=== PATIENT | male | born 1945 | race Caucasian/White ===

== ENCOUNTER 2019-05-03 21:19 | Inpatient (IN) | payer OTHER ==
[~2019-05-03 21:19] MED LIST: FAMOTIDINE 20 MG/2 ML VIAL IV ONE; METHYLPREDNISOLONE 125 MG INJ ONE; NA CHLORIDE 0.9% 1,000 ML ONE; ONDANSETRON 4 MG/2 ML VIAL ONE
[2019-05-03 22:13] LABS: Protime INR 1.11
[2019-05-03 22:14] LABS: Absolute Lymphocytes (CBC) 0.3 K/uL (0.7-4.9); Basophils % 0.1 % (0-1.3); Hematocrit 42.3 % (39.6-49.0); Lymphocytes % 1.6 % (15.3-44.8); MPV 7.7 fL (7.6-11.3); RBC Red Blood Cell Count 4.71 M/uL (4.33-5.43)
[2019-05-03 22:29] LABS: ALT/SGPT 18 U/L (12-78); AST/SGOT 17 U/L (15-37); Albumin 3.3 g/dL (3.4-5.0); Alkaline Phosphatase 56 U/L (45-117); BUN Blood Urea Nitrogen 18 mg/dL (7-18); Bicarbonate 27 mmol/L (21-32); Bilirubin Direct 0.3 mg/dL (0-0.2); Bilirubin Total 0.9 mg/dL (0.2-1.0); Glucose Level 155 mg/dL (74-106); Magnesium 1.6 mg/dL (1.8-2.4); NT PRO-BNP 1488 pg/mL (<125); Potassium 3.5 mmol/L (3.5-5.1); Protein, Total 6.7 g/dL (6.4-8.2); Sodium Level 133 mmol/L (136-145); Troponin (Emerg Dept Use Only) < 0.02 ng/mL (0.0-0.045)
[2019-05-03 22:39] LABS: Blood Morphology Comment NOT SEEN (NOT SEEN); Platelet Estimate ADEQ
[2019-05-03] MEDS ORDERED: NA CHLORIDE 0.9% 1,000 ML ONE (23:42)
[2019-05-04 00:26] LABS: Urine Blood NEGATIVE (NEG); Urine Glucose NEGATIVE (NEG); Urine Protein TRACE (NEG); Urine Specific Gravity 1.015 (1.005-1.030)
[2019-05-04 00:35] LABS: Urine Bacteria <20 /HPF (NONE SEEN); Urine Culture Reflex Order NOT NEEDED; Urine Mucus LIGHT /HPF (NONE SEEN); Urine RBC NONE SEEN /HPF (NONE SEEN)
--- NOTE | 2019-05-04 00:43 | ER ---
Nurse's Notes [facility] Name: Margarito Nunes Age: 73 yrs Sex: Male : 1945 Arrival Date: 05/03/2019 Time: 21:28 Bed 26 Private MD: Diagnosis: Frequent falls;leukocytosis Presentation: 05/03 21:29 Presenting complaint: EMS states: patient was in a caodaism this morning and started mg2 feeling shaky and trouble walking and a little bit anxious and confused. when he went home he fell from a standing position while on his walker and been on the floor for 10 mins. denies LOC and head trauma. no pain reported. Transition of care: patient was not received from another setting of care. Onset of symptoms was May 03, 2019. Risk Assessment: Do you want to hurt yourself or someone else? Patient reports no desire to harm self or others. Initial Sepsis Screen: Does the patient meet any 2 criteria? No. Patient's initial sepsis screen is negative. Does the patient have a suspected source of infection? No. Patient's initial sepsis screen is negative. Care prior to arrival: None. 21:29 Method Of Arrival: EMS: [facility] mg2 21:29 Acuity: KAROLYN 2 mg2 Triage Assessment: 21:40 General: Appears in no apparent distress. comfortable, Behavior is calm, cooperative, cc3 appropriate for age. Pain: Denies pain. EENT: No signs and/or symptoms were reported regarding the EENT system. Neuro: Level of Consciousness is awake, alert, obeys commands, confused, Oriented to person, place. Cardiovascular: Denies chest pain, Capillary refill < 3 seconds Patient's skin is warm and dry. Respiratory: Airway is patent Respiratory effort is even, unlabored, Respiratory pattern is regular, symmetrical. GI: Abdomen is round non-distended. : No signs and/or symptoms were reported regarding the genitourinary system. Derm: Skin is intact, is fragile, Skin is pink, warm \T\ dry. normal. Musculoskeletal: Circulation, motion, and sensation intact. Range of motion: limited in bilateral legs. Historical: - Home Meds: 21:35 Hydralazine Oral [Active]; amlodipine 10 mg tab 1 tab once daily [Active]; pravastatin mg2 od [Active]; losartan-hydrochlorothiazide 100-25 mg oral tab 1 tab once daily [Active]; finasteride 5 mg oral tab 1 tab once daily [Active]; aspirin 81 mg Oral chew 1 tab once daily [Active]; - PMHx: 21:35 Hypertension; Hyperlipidemia; mg2 - Immunization history:: Flu vaccine is up to date. - Social history:: Smoking status: Patient/guardian denies using tobacco, Patient/guardian denies using alcohol, street drugs, IV drugs. - Ebola Screening: : No symptoms or risks identified at this time. Screenin:40 Abuse screen: Denies threats or abuse. Denies injuries from another. Nutritional cc3 screening: No deficits noted. Tuberculosis screening: No symptoms or risk factors identified. Fall Risk Ambulatory Aid- None/Bed Rest/Nurse Assist (0 pts). Gait- Impaired (20 pts.). Mental Status- Overestimates/Forgets Limitations (15 pts.). Assessment: 21:40 General: see triage assessment. cc3 22:18 Reassessment: Patient appears in no apparent distress at this time. Patient and/or cc3 family updated on plan of care and expected duration. Pain level reassessed. 23:12 Reassessment: Patient appears in no apparent distress at this time. Patient and/or cc3 family updated on plan of care and expected duration. Pain level reassessed. 05/04 00:20 Reassessment: Patient appears in no apparent distress at this time. Patient and/or cc3 family updated on plan of care and expected duration. Pain level reassessed. 01:19 Reassessment: Patient appears in no apparent distress at this time. Patient and/or cc3 family updated on plan of care and expected duration. Pain level reassessed. 02:50 Reassessment: Patient appears in no apparent distress at this time. Patient and/or cc3 family updated on plan of care and expected duration. Pain level reassessed. Room available in 425, report called and handed over to SHERMAN Ndiaye for continuity of care and management. Patient denies pain at this time. 03:30 Reassessment: Patient appears in no apparent distress at this time. Patient and/or cc3 family updated on plan of care and expected duration. Pain level reassessed. Patient left ER for admission vitally stable by stretcher escorted by licensed chemical spray techniciansadaf De Santiago. No valuables left in the patient's room. Patient denies pain at this time. Patient states feeling better. Vital Signs: 05/03 21:32 BP 135 / 84; Pulse 80; Resp 18; Temp 99.2; Pulse Ox 100% on R/A; Weight 78.02 kg; mg2 Height 6 ft. 1 in. (185.42 cm); Pain 0/10; 22:15 BP 130 / 72; Pulse 72; Resp 20 S; Pulse Ox 98% on R/A; cc3 23:38 BP 132 / 65; Pulse 68; Resp 18 S; Pulse Ox 100% on R/A; cc3 05/04 00:35 BP 123 / 82; Pulse 64; Resp 17 S; Temp 98.6(O); Pulse Ox 98% on R/A; cc3 01:30 BP 122 / 71; Pulse 61; Resp 18 S; Pulse Ox 96% on 2 lpm NC; lp1 02:45 BP 134 / 75; Pulse 61; Resp 19 S; Pulse Ox 99% on 2 lpm NC; lp1 03:15 BP 129 / 77; Pulse 60; Resp 18 S; Pulse Ox 98% on 2 lpm NC; cc3 05/03 21:32 Body Mass Index 22.69 (78.02 kg, 185.42 cm) mg2 ED Course: 05/03 21:28 Patient arrived in ED. ds1 21:32 Triage completed. mg2 21:36 Arm band placed on. mg2 21:40 Mary Thomas is Primary Nurse. cc3 21:40 Patient has correct armband on for positive identification. Placed in gown. Bed in low cc3 position. Call light in reach. Side rails up X2. quality assurance monitor chassis on. Pulse ox on. NIBP on. 21:45 Franki Garrido MD is Attending Physician. tw4 21:45 Inserted saline lock: 20 gauge in right antecubital area, using aseptic technique. cc3 Blood collected. 22:08 CT Head Brain wo Cont In Process Unspecified. EDMS 22:15 XRAY Chest (1 view) In Process Unspecified. EDMS 22:35 Notified ED physician of a critical lab result(s). WBC 21.7. fc 05/04 00:33 Mat Maynard MD is Hospitalizing Provider. tw4 02:50 No provider procedures requiring assistance completed. Patient admitted, IV remains in cc3 place. Administered Medications: 05/03 23:45 Drug: NS 0.9% 1000 ml Route: IV; Rate: 1 bolus; Site: right antecubital; cc3 05/04 00:30 Follow up: Response: No adverse reaction; IV Status: Completed infusion; IV Intake: cc3 1000ml Intake: 00:30 IV: 1000ml; Total: 1000ml. cc3 Outcome: 00:35 Decision to Hospitalize by Provider. tw4 02:50 Admitted to Tele accompanied by tech, family with patient, via stretcher, room 425, cc3 with oxygen, with chart, Report called to SHERMAN Ndiaye 02:50 Condition: stable 02:50 Instructed on the need for admit, Demonstrated understanding of instructions. 03:33 Patient left the ED. cc3 Signatures: Dispatcher [employer] EDMS Gabriela Torres RN RN fc [place], Demi ds1 Cailin Grossman RN RN lp1 Franki Garrido MD MD 4 Dwayne Arenas RN RN [facility] [place] Thomas cc3 Corrections: (The following items were deleted from the chart) 00:45 00:35 BP 123 / 82; Pulse 64bpm; Resp 17bpm; Spontaneous; Pulse Ox 98% RA; cc3 cc3
--- NOTE | 2019-05-04 00:46 | EDPHYS ---
Physician Documentation [facility] Name: Margarito Nunes Age: 73 yrs Sex: Male : 1945 Arrival Date: 05/03/2019 Time: 21:28 Bed 26 Private MD: ED Physician Franki Garrido HPI: 05/04 06:23 This 73 yrs old Male presents to ER via EMS with complaints of Fall. tw4 06:23 Details of fall: The patient fell from an upright position, while standing. Onset: The tw4 symptoms/episode began/occurred today. Associated injuries: The patient sustained no obvious injury. The patient has experienced similar episodes in the past, a few times. Historical: - Home Meds: 05/03 21:35 Hydralazine Oral [Active]; amlodipine 10 mg tab 1 tab once daily [Active]; pravastatin mg2 od [Active]; losartan-hydrochlorothiazide 100-25 mg oral tab 1 tab once daily [Active]; finasteride 5 mg oral tab 1 tab once daily [Active]; aspirin 81 mg Oral chew 1 tab once daily [Active]; - PMHx: 21:35 Hypertension; Hyperlipidemia; mg2 - Immunization history:: Flu vaccine is up to date. - Social history:: Smoking status: Patient/guardian denies using tobacco, Patient/guardian denies using alcohol, street drugs, IV drugs. - Ebola Screening: : No symptoms or risks identified at this time. ROS: 05/04 06:23 Constitutional: Negative for fever, chills, and weight loss, Eyes: Negative for injury, tw4 pain, redness, and discharge, Cardiovascular: Negative for chest pain, palpitations, and edema, Respiratory: Negative for shortness of breath, cough, wheezing, and pleuritic chest pain, Abdomen/GI: Negative for abdominal pain, nausea, vomiting, diarrhea, and constipation, Back: Negative for injury and pain, MS/Extremity: Negative for injury and deformity, Skin: Negative for injury, rash, and discoloration. Exam: 06:23 Constitutional: This is a well developed, well nourished patient who is awake, alert, tw4 and in no acute distress. Head/Face: Normocephalic, atraumatic. Chest/axilla: Normal chest wall appearance and motion. Nontender with no deformity. No lesions are appreciated. Cardiovascular: Regular rate and rhythm with a normal S1 and S2. No gallops, murmurs, or rubs. Normal PMI, no JVD. No pulse deficits. Respiratory: Lungs have equal breath sounds bilaterally, clear to auscultation and percussion. No rales, rhonchi or wheezes noted. No increased work of breathing, no retractions or nasal flaring. Abdomen/GI: Soft, non-tender, with normal bowel sounds. No distension or tympany. No guarding or rebound. No evidence of tenderness throughout. Back: No spinal tenderness. No costovertebral tenderness. Full range of motion. MS/ Extremity: Pulses equal, no cyanosis. Neurovascular intact. Full, normal range of motion. Neuro: Awake and alert, GCS 15, oriented to person, place, time, and situation. Cranial nerves II-XII grossly intact. Motor strength 5/5 in all extremities. Sensory grossly intact. Cerebellar exam normal. Normal gait. Vital Signs: 05/03 21:32 BP 135 / 84; Pulse 80; Resp 18; Temp 99.2; Pulse Ox 100% on R/A; Weight 78.02 kg; mg2 Height 6 ft. 1 in. (185.42 cm); Pain 0/10; 22:15 BP 130 / 72; Pulse 72; Resp 20 S; Pulse Ox 98% on R/A; cc3 23:38 BP 132 / 65; Pulse 68; Resp 18 S; Pulse Ox 100% on R/A; cc3 05/04 00:35 BP 123 / 82; Pulse 64; Resp 17 S; Temp 98.6(O); Pulse Ox 98% on R/A; cc3 01:30 BP 122 / 71; Pulse 61; Resp 18 S; Pulse Ox 96% on 2 lpm NC; lp1 02:45 BP 134 / 75; Pulse 61; Resp 19 S; Pulse Ox 99% on 2 lpm NC; lp1 03:15 BP 129 / 77; Pulse 60; Resp 18 S; Pulse Ox 98% on 2 lpm NC; cc3 05/03 21:32 Body Mass Index 22.69 (78.02 kg, 185.42 cm) mg2 MDM: 05/03 21:45 Patient medically screened. tw4 05/04 06:23 Differential diagnosis: abrasion, closed head injury, contusion, laceration. Data tw4 reviewed: vital signs, nurses notes. Data interpreted: Pulse oximetry: Interpretation: normal. Counseling: I had a detailed discussion with the patient and/or guardian regarding: the historical points, exam findings, and any diagnostic results supporting the discharge/admit diagnosis, lab results, radiology results. Physician consultation: Mat Maynard MD regarding admission, to the telemetry unit. patient's condition, need to come to ED to see patient, and will see patient in ED. Special discussion: I discussed with the patient/guardian in detail that at this point there is no indication for admission to the hospital. It is understood, however, that if the symptoms persist or worsen the patient needs to return immediately for re-evaluation. 05/03 21:36 Order name: Basic Metabolic Panel [facility] 05/03 21:36 Order name: CBC with Diff [facility] 05/03 21:36 Order name: LFT's; Complete Time: 22:50 [facility] 05/03 22:51 Interpretation: Normal except: BILID 0.3; A/G 1.0; ALB 3.3. tw 05/03 21:36 Order name: Magnesium; Complete Time: 22:50 mg2 05/03 22:51 Interpretation: Normal except: MG 1.6. tw 05/03 21:36 Order name: NT PRO-BNP; Complete Time: 22:50 mg2 05/03 22:51 Interpretation: Normal except: NT PRO-BNP 1488. tw4 05/03 21:36 Order name: PT-INR; Complete Time: 22:50 [facility] 05/03 22:51 Interpretation: Normal except: PT 13.1. [facility] 05/03 21:36 Order name: Troponin (emerg Dept Use Only); Complete Time: 22:50 mg2 05/03 21:37 Order name: Basic Metabolic Panel; Complete Time: 22:50 EDMS 05/03 22:51 Interpretation: Normal except: NA 133; CL 97; GLUC 155; CRE 1.40; GFR 50. tw05/03 21:37 Order name: CBC with Automated Diff; Complete Time: 22:50 EDMS 05/03 22:51 Interpretation: Normal except: WBC 21.7; MCV 89.9; KAIDEN% 91.8; LYM% 1.6; NEUT A 19.9. [facility] 05/03 22:39 Order name: Manual Differential; Complete Time: 22:50 EDPR 05/03 22:52 Order name: Urine Microscopic Only tw4 05/04 00:08 Order name: Urine Dipstick--Ancillary (enter results) ar5 05/04 00:27 Order name: Urine Dipstick-Ancillary EDPR 05/04 01:59 Order name: Comprehensive Metabolic Panel EDPR 05/03 21:36 Order name: XRAY Chest (1 view) [facility] 05/03 21:36 Order name: EKG; Complete Time: 21:37 [facility] 05/03 21:36 Order name: Cardiac monitoring; Complete Time: 21:41 mg2 05/03 21:36 Order name: EKG - Nurse/Tech; Complete Time: 21:41 mg2 05/03 21:36 Order name: IV Saline Lock; Complete Time: 21:55 [facility] 05/03 21:36 Order name: Labs collected and sent; Complete Time: 21:55 [facility] 05/03 21:36 Order name: O2 Per Protocol; Complete Time: 21:56 [facility] 05/03 21:36 Order name: O2 Sat Monitoring; Complete Time: 21:56 [facility] 05/03 21:46 Order name: CT Head Brain wo Cont tw4 05/04 01:59 Order name: CONS Pharmacy Consult EDPR 05/04 01:59 Order name: Protime (+INR) EDPR 05/04 01:59 Order name: PTT, Activated Partial Thromb EDMS 05/04 01:59 Order name: Troponin I EDPR 05/04 02:02 Order name: Regular EDPR 05/04 02:02 Order name: CBC with Automated Diff EDPR 05/03 22:52 Order name: Urine Dipstick-Ancillary (obtain specimen); Complete Time: 00:09 tw4 EC:23 Rate is 73 beats/min. Rhythm is regular with 1st degree heart block. QRS [place] is tw4 Normal. SD interval is normal. QRS interval is normal. QT interval is normal. No Q waves. T waves are Inverted in lead III. T waves are Flattened in leads V3, V6. No ST changes noted. Clinical impression: NSR w/ Non-specific ST/T Changes. Interpreted by me. Reviewed by me. Administered Medications: 05/03 23:45 Drug: NS 0.9% 1000 ml Route: IV; Rate: 1 bolus; Site: right antecubital; cc3 05/04 00:30 Follow up: Response: No adverse reaction; IV Status: Completed infusion; IV Intake: cc3 1000ml Disposition: 05/04/19 00:35 Hospitalization ordered by Mat Maynard for Observation. Preliminary diagnosis are Frequent falls, leukocytosis. - Bed requested for Telemetry/MedSurg (observation). - Status is Observation. cc3 - Condition is Stable. - Problem is new. - Symptoms have improved. UTI on Admission? No Signatures: Dispatcher [employer] Lola Shah, RN RN Franki Garrido MD MD tw4 Dwayne Arenas RN RN [facility] Mary Thomas cc3 Corrections: (The following items were deleted from the chart) 05/03 22:52 22:51 WBC 21.7; MCV 89.9; KAIDEN% 91.8; LYM% 1.6; NEUT A 19.9. tw4 tw4 05/04 02:26 00:35 Hospitalization Ordered by Mat Maynard MD for Observation. Preliminary cg diagnosis is Frequent falls; leukocytosis. Bed requested for Telemetry/MedSurg (observation). Status is Observation. Condition is Stable. Problem is new. Symptoms have improved. UTI on Admission? No. tw4 03:33 02:26 05/04/2019 00:35 Hospitalization Ordered by Mat Maynard MD for Observation. cc3 Preliminary diagnosis is Frequent falls; leukocytosis. Bed requested for Telemetry/MedSurg (observation). Status is Observation. Condition is Stable. Problem is new. Symptoms have improved. UTI on Admission? No.
[2019-05-04] MEDS ORDERED: MORPHINE 4 MG/ML SYR IV PRN (01:52)
[2019-05-04] MEDS ORDERED: ONDANSETRON 4 MG/2 ML VIAL IV PRN (01:52)
[2019-05-04] MEDS: NA CHLORIDE 0.9% 1,000 ML IV SCH ×2 (04:00→14:27)
[2019-05-04 04:56] VITALS: BMI 23.8
[2019-05-04 06:33] LABS: Absolute Lymphocytes (CBC) 0.6 K/uL (0.7-4.9); Hematocrit 41.3 % (39.6-49.0); Lymphocytes % 3.3 % (15.3-44.8); MPV 7.4 fL (7.6-11.3)
[2019-05-04 06:43] LABS: Protime INR 1.35
[2019-05-04 06:50] LABS: ALT/SGPT 17 U/L (12-78); AST/SGOT 20 U/L (15-37); Albumin 2.9 g/dL (3.4-5.0); Alkaline Phosphatase 50 U/L (45-117); BUN Blood Urea Nitrogen 17 mg/dL (7-18); Bicarbonate 26 mmol/L (21-32); Bilirubin Total 0.6 mg/dL (0.2-1.0); Glucose Level 118 mg/dL (74-106); Potassium 3.2 mmol/L (3.5-5.1); Sodium Level 134 mmol/L (136-145); Troponin I < 0.02 ng/mL (0.0-0.045)
--- NOTE | 2019-05-04 07:16 | P.HP ---
Certification for Inpatient Patient admitted to: Inpatient With expected LOS: >2 Midnights Patient will require the following post-hospital care: None Practitioner: I am a practitioner with admitting privileges, knowledge of patient current condition, hospital course, and medical plan of care. Services: Services provided to patient in accordance with Admission requirements found in Title 42 Section 412.3 of the Code of Federal Regulations Patient History Date of Service: 05/04/19 History of Present Illness: Patient is a 73-year-old gentleman who presents with lower extremity weakness. He has also has a leukocytosis and a low-grade temperature of 99.7. He was apparently and judaism and he started feeling anxious. He states he got a little confused as well. He had an ataxic gait, and he went home with his family. When he got home he apparently fell from a standing position while he was using his walker. He had to lay on the floor for about 10 min. He was finally able to assist himself, and EMS was notified. They brought him into the emergency room for further evaluation. His initial workup has been unremarkable except for the abnormal lab testing. He has some acute renal insufficiency along with a leukocytosis. His chest x-ray and urinalysis were unremarkable. Clinically, he states he is feeling better. He is still having a significant amount of weakness in his lower extremity. He will be admitted to the hospital for further workup for the ataxia. Allergies propoxyphene HCl [From Darvon] Allergy (Mild, Verified 06/26/12 15:39) Hives/Rash Home Medications: Amlodipine Besylate 10 mg PO DAILY 06/26/12 Aspirin 81 mg PO DAILY 06/26/12 Losartan/Hydrochlorothiazide [Losartan-Hctz 100-12.5 mg Tab] 1 tab PO DAILY 04/30 Magnesium Oxide [Mag 0X*] 400 mg PO DAILY 06/26/12 Pravastatin [Pravachol*] 40 mg PO BEDTIME 06/26/12 Finasteride [Proscar*] 5 mg PO DAILY 05/04/19 Hydralazine [Apresoline] 25 mg PO TID 05/04/19 - Past Medical/Surgical History Has patient received pneumonia vaccine in the past: Yes Diabetic: No -: HTN -: Dyslipidemia Past Surgical History: Patient denies surgical history - Family History Father Family History: Reviewed- Non-Contributory - Social History Smoking Status: Never smoker Alcohol use: No CD- Drugs: No Caffeine use: Yes Place of Residence: Home Review of Systems 10-point ROS is otherwise unremarkable Physical Examination - Vital Signs Temperature: 99.7 F Blood Pressure: 137/71 Pulse: 62 Respirations: 20 Pulse Ox (%): 95 - Physical Exam General: Alert, In no apparent distress, Oriented x3 HEENT: Atraumatic, PERRLA, Mucous membr. moist/pink, EOMI, Sclerae nonicteric Neck: Supple, 2+ carotid pulse no bruit, No LAD, Without JVD or thyroid abnormality Respiratory: Clear to auscultation bilaterally, Normal air movement Cardiovascular: Regular rate/rhythm, Normal S1 S2, No murmurs Gastrointestinal: Normal bowel sounds, Soft and benign, Non-distended, No tenderness, No rebound, No guarding Musculoskeletal: No clubbing, No swelling, No tenderness Integumentary: No rashes Neurological: Normal gait, Normal speech, Normal strength at 5/5 x4 extr, Normal tone, Sensation intact, Cranial nerves 3-12 intact, Normal affect Lymphatics: No axilla or inguinal lymphadenopathy - Studies Laboratory Data (last 24 hrs) 05/03/19 21:45: PT 13.1 H, INR 1.11 05/03/19 21:45: WBC 21.7 H*, Hgb 14.2, Hct 42.3, Plt Count 231 05/03/19 21:45: Sodium 133 L, Potassium 3.5, BUN 18, Creatinine 1.40 H, Glucose 155 H, Magnesium 1.6 L, Total Bilirubin 0.9, AST 17, ALT 18, Alkaline Phosphatase 56 Assessment & Plan - Problems (Diagnosis) (1) Generalized weakness Current Visit: Yes Status: Acute (2) Ataxia Current Visit: Yes Status: Acute (3) Fever Current Visit: Yes Status: Acute (4) Acute kidney injury Current Visit: Yes Status: Acute (5) History of hypertension Current Visit: Yes Status: Acute (6) History of hyperlipidemia Current Visit: Yes Status: Acute - Plan Plan: 1. Physical therapy evaluation 2. Lumbar spine films for lower extremity weakness 3. Anti-platelet therapy and statin therapy 4. Lipid profile in the morning 5. MRI of the brain/echocardiogram/carotid Doppler 6. Physically patient is weak in the bilateral lower extremities and may benefit more from outpatient physical therapy and inpatient rehab 7. Neurology consultation 8. Permissive hypertension and gradual blood pressure control 9. Neuro checks every 4 hr 10. GI and DVT prophylaxis Discharge Plan: Home Plan to discharge in: Greater than 2 days - Advance Directives Does patient have a Living Will: No Does patient have a Durable POA for Healthcare: No - Code Status/Comfort Care Code Status Assessed: Yes Code Status: Full Code Critical Care: No Time Spent Managing PTS Care (In Minutes): 45
[2019-05-04] MEDS: ACETAMINOPHEN 500 MG TAB PO PRN ×3 (07:51→21:33)
--- NOTE | 2019-05-04 07:54 | RAD REPORT ---
EXAM DESCRIPTION: Antonino Single View05/03/2019 10:14 pm CLINICAL HISTORY: Chest pain COMPARISON: 2011 FINDINGS: The lungs appear clear of acute infiltrate. The heart is normal size IMPRESSION: No acute abnormalities displayed
--- NOTE | 2019-05-04 09:05 | RAD REPORT ---
EXAM DESCRIPTION: CT - Head Brain Wo Cont - 05/04/2019 3:30 am CLINICAL HISTORY: The patient is 73 years old and is Male; fall TECHNIQUE: Axial computed tomography images of the head/brain without intravenous contrast. Sagitt al and coronal reformatted images were created and reviewed. This CT exam was performed using one o r more of the following dose reduction techniques: automated exposure control, adjustment of the mA and/or kV according to patient size, and/or use of iterative reconstruction technique. COMPARISON: No relevant prior studies available. FINDINGS: BRAIN: Diffuse cerebral atrophy is noted. There are nonspecific periventricular white ma tter changes, which are likely related to chronic small vessel disease. The rg-white differentiatio n is maintained. There are no extra-axial fluid collections or acute hemorrhage. There is diffuse pro minence of the ventricles, which is likely related to central atrophy. VENTRICLES: Unremarkable. No ventriculomegaly. BONES/JOINTS: No acute fracture. SOFT TISSUES: Unremarkable. VASCULATURE: Atherosclerosis of intracranial vasculature is present. SINUSES: Unremarkable as visualized. No acute sinusitis. MASTOID AIR CELLS: Unremarkable as visualized. No mastoid effusion. IMPRESSION: 1. No acute intracranial findings visualized. 2. Nonspecific periventricular white matter changes, likely related to chronic small vessel disease . 3. Diffuse cerebral atrophy. Electronically signed by: Taylor Looney MD 05/03/2019 10:15 PM CDT Due to temporary technical issues with the PACS/Fluency reporting system, reports are being signed by the in house radiologist as a courtesy to ensure prompt reporting. The interpreting radiologist is f ully responsible for the content of the report.
--- NOTE | 2019-05-04 09:06 | RAD REPORT ---
EXAM DESCRIPTION: RAD - Lumbar Spine 3 Views - 05/04/2019 8:34 am CLINICAL HISTORY: Back pain FINDINGS: Mild scoliosis No fracture or dislocation is seen. 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 Marked spondylosis consisting disc s pace narrowing, osteophytes and subchondral sclerosis Moderate spondylosis L1-2. Osteoporosis
[2019-05-04 09:07] LABS: Blood Morphology Comment NOT SEEN (NOT SEEN); Platelet Estimate ADEQ
[2019-05-04] MEDS: FINASTERIDE 5 MG TAB PO SCH (09:23)
[2019-05-04] MEDS: AMLODIPINE 10 MG TAB PO SCH (09:23)
[2019-05-04] MEDS: MAGNESIUM OXIDE 400 MG TAB PO SCH (09:23)
[2019-05-04] MEDS: HYDRALAZINE HCL 25 MG TABLET PO SCH ×3 (09:24→21:11)
[2019-05-04] MEDS: ASPIRIN 81 MG CHEWABLE TABLET PO SCH (09:24)
[2019-05-04 11:19] LABS: Folic Acid, (Folate) 16.3 ng/mL (3.1-17.5); Thyroid Stimulating Hormone 0.42 uIU/mL (0.360-3.740)
--- NOTE | 2019-05-04 11:47 | EKG ---
Test Date: 2019-05-03 Test Time: 21:32:32 Commodities Trader: NISHAT MEASUREMENT RESULTS: Intervals: Rate: 73 IA: 262 QRSD: 102 QT: 364 QTc: 401 Center: P: 17 IA: 262 QRS: -49 T: 23 INTERPRETIVE STATEMENTS: Sinus rhythm with 1st degree AV block Left axis deviation Anteroseptal infarct, age undetermined Abnormal ECG Compared to ECG 09/06/2012 14:44:00 Sinus bradycardia no longer present Myocardial infarct finding still present Electronically Signed On 05-04-19 11:44:59 CDT by Collin Fonseca
[2019-05-04] MEDS ORDERED: POTASSIUM 25 MEQ EFFERV TAB PO ONE (12:46)
[2019-05-04] MEDS ORDERED: MAGNESIUM SULFATE 1 gm IVPB 1 GM/100 ML BAG IV ONE (12:48)
--- NOTE | 2019-05-04 13:17 | RAD REPORT ---
EXAM DESCRIPTION: RAD - Ankle Right 2 View - 05/04/2019 1:10 pm CLINICAL HISTORY: Right ankle pain FINDINGS: Limited 2 view series No fracture or dislocation is seen. 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
[2019-05-04] MEDS: CEFTRIAXONE/SWI 1gm 1 GM/10 ML SYR IVP SCH (14:27)
--- NOTE | 2019-05-04 15:03 | RAD REPORT ---
EXAM DESCRIPTION: MRI - Brain Wo Cont - 05/04/2019 8:19 am CLINICAL HISTORY: Ataxia COMPARISON: May 03, [address] TECHNIQUE: Axial, sagittal, and coronal magnetic images of the brain were obtained. Contrast was not requested FINDINGS: T2 weighted sequences demonstrate punctate and small areas of low signal within the brains tem, cerebellum and scattered throughout the cerebral hemispheres bilaterally. Moderate increased signal is present within periventricular, deep and subcortical white matter bilate rally Diffusion-weighted/ADC mapping does not reveal evidence of acute infarction. The ventricles are prominent. Cerebral atrophy is noted. An extra-axial fluid collection is not present Fluid within the sinuses/mastoids is not noted. IMPRESSION: Punctate and small areas of low signal on T2 weighted sequences within the brainstem, ce rebellum and cerebral hemispheres bilaterally may indicate hemosiderin secondary to old micro hemorrh age from hypertension. Amyloid angiography is a another consideration. Prominence of the ventricles probably related to white matter atrophy. Normal pressure hydrocephalus although possible is probably less likely. Moderate signal within periventricular, deep and subcortical white matter likely ischemic changes sec ondary to small vessel disease
[2019-05-04] MEDS ORDERED: POTASSIUM CL SA 10 MEQ TAB PO ONE (19:52)
[2019-05-04] MEDS: ATORVASTATIN 10 MG TAB PO SCH (21:11)
[2019-05-05] MEDS: NA CHLORIDE 0.9% 1,000 ML IV SCH ×2 (00:03→08:55)
[2019-05-05 06:52] LABS: Absolute Lymphocytes (CBC) 0.5 K/uL (0.7-4.9); Basophils % 0.1 % (0-1.3); Hematocrit 41.4 % (39.6-49.0); Lymphocytes % 3.7 % (15.3-44.8); MPV 8.2 fL (7.6-11.3); RBC Red Blood Cell Count 4.67 M/uL (4.33-5.43)
[2019-05-05 07:17] LABS: BUN Blood Urea Nitrogen 12 mg/dL (7-18); Bicarbonate 26 mmol/L (21-32); Glucose Level 122 mg/dL (74-106); HDL Cholesterol 46 mg/dL (40-60); LDL Cholesterol, Calculated 48 (<130); Magnesium 2.1 mg/dL (1.8-2.4); Phosphorus 1.6 mg/dL (2.5-4.9); Potassium 3.5 mmol/L (3.5-5.1); Sodium Level 140 mmol/L (136-145)
[2019-05-05] MEDS: FINASTERIDE 5 MG TAB PO SCH (08:49)
[2019-05-05] MEDS: AMLODIPINE 10 MG TAB PO SCH (08:49)
[2019-05-05] MEDS: HYDRALAZINE HCL 25 MG TABLET PO SCH ×3 (08:50→20:09)
[2019-05-05] MEDS: ASPIRIN 81 MG CHEWABLE TABLET PO SCH (08:50)
[2019-05-05] MEDS: MAGNESIUM OXIDE 400 MG TAB PO SCH (08:54)
[2019-05-05] MEDS: CEFTRIAXONE/SWI 1gm 1 GM/10 ML SYR IVP SCH (08:56)
[2019-05-05] MEDS ORDERED: POTASSIUM 25 MEQ EFFERV TAB PO ONE (09:00)
--- NOTE | 2019-05-05 11:18 | P.PN ---
Subjective Date of Service: 05/05/19 Chief Complaint: Fall weakness and leukocytosis Subjective: Improving (Patient is improving blood pressure is little elevated denies any fever chills cough sputum hemoptysis) Review of Systems General: Weakness Physical Examination - Vital Signs Temperature: 97.7 F Blood Pressure: 158/74 Pulse: 81 Respirations: 22 Pulse Ox (%): 92 - Physical Exam General: Alert, Oriented x3 Neck: Supple Respiratory: Clear to auscultation bilaterally Cardiovascular: No edema, Normal pulses, Regular rate/rhythm Assessment & Plan - Problems (Diagnosis) (1) Leukocytosis Current Visit: Yes Status: Acute Plan: Patient is 73 years of age admitted with weakness falls leukocytosis blood pressure is mildly elevated patient's white count has declined resume home blood pressure medication urinalysis is negative blood cultures so far negative continue to observe possible discharge tomorrow chest x-rays clear Discharge Plan: Home
[2019-05-05] MEDS: ATORVASTATIN 10 MG TAB PO SCH (20:09)
[2019-05-06 06:09] LABS: Potassium 3.6 mmol/L (3.5-5.1)
[2019-05-06 06:21] LABS: Basophils % 0.2 % (0-1.3); Hematocrit 42.5 % (39.6-49.0); Lymphocytes % 10.1 % (15.3-44.8); MPV 8.2 fL (7.6-11.3)
[2019-05-06] MEDS: HYDRALAZINE HCL 25 MG TABLET PO SCH ×3 (08:21→21:36)
[2019-05-06] MEDS: AMLODIPINE 10 MG TAB PO SCH (08:21)
[2019-05-06] MEDS: CEFTRIAXONE/SWI 1gm 1 GM/10 ML SYR IVP SCH (08:21)
[2019-05-06] MEDS: ASPIRIN 81 MG CHEWABLE TABLET PO SCH (08:21)
[2019-05-06] MEDS: LOSARTAN/HCTZ 50-12.5 PO SCH (08:22)
[2019-05-06] MEDS: MAGNESIUM OXIDE 400 MG TAB PO SCH (08:23)
[2019-05-06] MEDS: FINASTERIDE 5 MG TAB PO SCH (08:23)
[2019-05-06] MEDS ORDERED: LOSARTAN POTASSIUM 50 MG TABLET PO SCH (09:00)
[2019-05-06] MEDS ORDERED: HOME MED 1 EA UNK (Losartan/Hydrochlorothiazide [Losartan-Hctz 100-12.5 Mg Tab] 1 TAB) PO SCH (09:00)
[2019-05-06] MEDS ORDERED: POTASSIUM CL SA 10 MEQ TAB PO ONE (09:00)
--- NOTE | 2019-05-06 09:29 | P.PN ---
Subjective Date of Service: 05/06/19 (Hospitalist) Chief Complaint: Fall weakness and leukocytosis Subjective: Improving (Patient is doing much better eating drinking no new complaints is white count is now normal blood cultures negative problems ambulating) Review of Systems General: Weakness Physical Examination - Vital Signs Temperature: 98.6 F Blood Pressure: 158/61 Pulse: 61 Respirations: 24 Pulse Ox (%): 91 - Physical Exam General: Alert, In no apparent distress, Oriented x3 Respiratory: Clear to auscultation bilaterally Cardiovascular: No edema, Regular rate/rhythm Gastrointestinal: Normal bowel sounds, Soft and benign Assessment & Plan - Problems (Diagnosis) (1) Leukocytosis Current Visit: Yes Status: Acute Plan: Patient admitted with leukocytosis pro calcitonin unknown origin blood cultures are negative at count is now normal urinalysis was negative not sure what the source is he may have had pneumonia will order a PA and lateral x-ray possible change to p.o. antibiotics tomorrow repeat pro calcitonin level he is evaluated for up stated rehab as patient is not able to ambulate very weak Qualifiers: Leukocytosis type: leukemoid reaction Qualified Code(s): D72.823 - Leukemoid reaction
[2019-05-06] MEDS: ATORVASTATIN 10 MG TAB PO SCH (21:36)
[2019-05-07 06:15] LABS: Absolute Lymphocytes (CBC) 1.1 K/uL (0.7-4.9); Basophils % 0.3 % (0-1.3); Hematocrit 43.3 % (39.6-49.0); MPV 8.1 fL (7.6-11.3); RBC Red Blood Cell Count 4.87 M/uL (4.33-5.43)
[2019-05-07 06:42] LABS: Magnesium 2.1 mg/dL (1.8-2.4); Potassium 3.9 mmol/L (3.5-5.1)
--- NOTE | 2019-05-07 07:26 | RAD REPORT ---
EXAM DESCRIPTION: RAD - Chest Pa And Lat (2 Views) - 05/07/2019 7:19 am CLINICAL HISTORY: Pneumonia, shortness of breath COMPARISON: May 03 TECHNIQUE: PA and lateral views of the chest were obtained. FINDINGS: The lungs are underinflated but improved from the comparison portable study. No focal mass or consolidation. No significant failure or volume overload. Lung markings are not outside of normal range. Trachea is midline. Heart size is normal and central vasculature is within normal limits. N o pleural effusion or pneumothorax seen. No acute bone findings seen. Old posttraumatic change at th e left clavicle and old left rib fractures noted. No aortic abnormality. IMPRESSION: No acute cardiopulmonary process. No significant or worrisome change from May 03 eduarda alfonso.
[2019-05-07] MEDS: MAGNESIUM OXIDE 400 MG TAB PO SCH (09:00)
[2019-05-07] MEDS ORDERED: POTASSIUM CL SA 10 MEQ TAB PO ONE (09:00)
[2019-05-07] MEDS: LOSARTAN/HCTZ 50-12.5 PO SCH (09:15)
[2019-05-07] MEDS: ASPIRIN 81 MG CHEWABLE TABLET PO SCH (09:15)
[2019-05-07] MEDS: HYDRALAZINE HCL 25 MG TABLET PO SCH ×3 (09:15→21:04)
[2019-05-07] MEDS: AMLODIPINE 10 MG TAB PO SCH (09:15)
[2019-05-07] MEDS: FINASTERIDE 5 MG TAB PO SCH (09:16)
[2019-05-07] MEDS: CEFTRIAXONE/SWI 1gm 1 GM/10 ML SYR IVP SCH (09:17)
--- NOTE | 2019-05-07 12:24 | RAD REPORT ---
EXAM DESCRIPTION: US - Extremity Venous Uni Ltd - 05/07/2019 12:08 pm CLINICAL HISTORY: R/O DVT Leg swelling and edema. COMPARISON: <Comparisons> FINDINGS: Right lower extremity venous system was interrogated with Doppler technique. Normal flow, compressibility and augmentation was noted. There is no DVT present. IMPRESSION: No evidence of right lower extremity deep venous thrombosis.
--- NOTE | 2019-05-07 16:42 | P.PN ---
Subjective Date of Service: 05/07/19 Primary Care Provider: unknown Chief Complaint: Fall weakness and leukocytosis Subjective: Other (Patient doing better today. Erythema to the right lower extremity noted.) Physical Examination - Vital Signs Temperature: 97.6 F Blood Pressure: 147/78 Pulse: 66 Respirations: 16 Pulse Ox (%): 97 - Physical Exam General: Alert, In no apparent distress, Oriented x3, Cooperative HEENT: Atraumatic Neck: Supple Respiratory: Clear to auscultation bilaterally, Normal air movement Cardiovascular: Normal pulses, Regular rate/rhythm Gastrointestinal: Normal bowel sounds, Soft and benign, Non-distended Integumentary: Other (Mild erythema to the right lower extremity. No significant swelling noted. Small dried ulcer noted to the right ankle region.) Neurological: Normal speech, Normal strength at 5/5 x4 extr, Normal tone, Normal affect - Studies Medications List Reviewed: Yes Assessment & Plan Discharge Plan: Home Plan to discharge in: 24 Hours Physician Review Additional Text: Impression: Leukocytosis likely related to her right lower extremity cellulitis with recent fall Hypertension BPH Plan: Leukocytosis likely related to her right lower extremity cellulitis with recent fall: Patient has been getting Rocephin during the course of his stay. Leukocytosis is resolved. Pro calcitonin improved. Suspect right lower extremity cellulitis. Chest x-ray unremarkable for pneumonia. Urinalysis unremarkable. Venous Doppler negative for DVT. Will transition to oral medication. Will reassess tomorrow. Elevate leg when sitting or lying. Will have Physical therapy assess patient. Will discuss with social studies department chair about plan of care for disposition. Family and patient desire inpatient rehab. Await physical therapy evaluation. Anticipate discharge as early as tomorrow with home health Hypertension: Continue medication. Overall stable. BPH: Continue medication. Time Spent Managing Pts Care (In Minutes): 55
[2019-05-07] MEDS ORDERED: ENOXAPARIN 40 MG/0.4 ML SQ SCH (17:00)
[2019-05-07] MEDS: MUPIROCIN 2% OINT 22GM TUBE TOP SCH (21:04)
[2019-05-07] MEDS: AMOX/K CLAV 500 MG TAB PO SCH (21:04)
[2019-05-07] MEDS: ATORVASTATIN 10 MG TAB PO SCH (21:04)
[2019-05-07 23:23] VITALS: O2SAT 96
[2019-05-08 05:29] LABS: Absolute Lymphocytes (CBC) 1.5 K/uL (0.7-4.9); Basophils % 0.4 % (0-1.3); Hematocrit 43.8 % (39.6-49.0); Lymphocytes % 18.7 % (15.3-44.8); MPV 7.9 fL (7.6-11.3); RBC Red Blood Cell Count 4.92 M/uL (4.33-5.43)
[2019-05-08 05:33] LABS: Magnesium 1.9 mg/dL (1.8-2.4)
[2019-05-08 06:49] LABS: Potassium 3.9 mmol/L (3.5-5.1)
[2019-05-08] MEDS ORDERED: POTASSIUM 25 MEQ EFFERV TAB PO ONE (09:00)
[2019-05-08] MEDS: ASPIRIN 81 MG CHEWABLE TABLET PO SCH (10:39)
[2019-05-08] MEDS: AMOX/K CLAV 500 MG TAB PO SCH (10:40)
[2019-05-08] MEDS: MAGNESIUM OXIDE 400 MG TAB PO SCH (10:40)
[2019-05-08] MEDS: LOSARTAN/HCTZ 50-12.5 PO SCH (10:40)
[2019-05-08] MEDS: FINASTERIDE 5 MG TAB PO SCH (10:40)
[2019-05-08] MEDS: AMLODIPINE 10 MG TAB PO SCH (10:41)
[2019-05-08] MEDS: HYDRALAZINE HCL 25 MG TABLET PO SCH ×2 (10:41→13:51)
[2019-05-08] MEDS: MUPIROCIN 2% OINT 22GM TUBE TOP SCH (10:42)
--- NOTE | 2019-05-08 13:03 | P.DS ---
Admission Date: 05/04/19 Discharge Date: 05/08/19 Primary Care Provider: unknown Disposition: ROUTINE DISCHARGE Discharge Condition: FAIR Reason for Admission: Fall weakness and leukocytosis Consultations: none Procedures: Xray Right LLE: FINDINGS: Limited 2 view series No fracture or dislocation is seen. Mild to moderate osteoarthritis mainly consisting of osteophytes Lumbar Xray: FINDINGS: Mild scoliosis No fracture or dislocation is seen. 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 Marked spondylosis consisting disc space narrowing, osteophytes and subchondral sclerosis Moderate spondylosis L1-2. Osteoporosis CT head: FINDINGS: BRAIN: Diffuse cerebral atrophy is noted. There are nonspecific periventricular white matter changes, which are likely related to chronic small vessel disease. The rg-white differentiation is maintained. There are no extra -axial fluid collections or acute hemorrhage. There is diffuse prominence of the ventricles, which is likely related to central atrophy. VENTRICLES: Unremarkable. No ventriculomegaly. BONES/JOINTS: No acute fracture. SOFT TISSUES: Unremarkable. VASCULATURE: Atherosclerosis of intracranial vasculature is present. SINUSES: Unremarkable as visualized. No acute sinusitis. MASTOID AIR CELLS: Unremarkable as visualized. No mastoid effusion. IMPRESSION: 1. No acute intracranial findings visualized. 2. Nonspecific periventricular white matter changes, likely related to chronic small vessel disease. 3. Diffuse cerebral atrophy. MRI Brain: FINDINGS: T2 weighted sequences demonstrate punctate and small areas of low signal within the brainstem, cerebellum and scattered throughout the cerebral hemispheres bilaterally. Moderate increased signal is present within periventricular, deep and subcortical white matter bilaterally Diffusion-weighted/ADC mapping does not reveal evidence of acute infarction. The ventricles are prominent. Cerebral atrophy is noted. An extra-axial fluid collection is not present Fluid within the sinuses/mastoids is not noted. IMPRESSION: Punctate and small areas of low signal on T2 weighted sequences within the brainstem, cerebellum and cerebral hemispheres bilaterally may indicate hemosiderin secondary to old micro hemorrhage from hypertension. Amyloid angiography is a another consideration. Prominence of the ventricles probably related to white matter atrophy. Normal pressure hydrocephalus although possible is probably less likely. Moderate signal within periventricular, deep and subcortical white matter likely ischemic changes secondary to small vessel disease Venous doppler: FINDINGS: Right lower extremity venous system was interrogated with Doppler technique. Normal flow, compressibility and augmentation was noted. There is no DVT present. IMPRESSION: No evidence of right lower extremity deep venous thrombosis. CXR: FINDINGS: The lungs are underinflated but improved from the comparison portable study. No focal mass or consolidation. No significant failure or volume overload. Lung markings are not outside of normal range. Trachea is midline. Heart size is normal and central vasculature is within normal limits. No pleural effusion or pneumothorax seen. No acute bone findings seen. Old posttraumatic change at the left clavicle and old left rib fractures noted. No aortic abnormality. IMPRESSION: No acute cardiopulmonary process. No significant or worrisome change from May 03 imaging. 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 Patient start to have fever, fatigue while at [facility]. He became very weak and had some ataxia. He went home with family and fell again. He was brought in to ER for further evaluation. Patient found to have some renal insufficiency with leukocytosis. Chest x-ray, urinalysis unremarkable. Patient had some mild irritation to the right lower extremity. Cellulitis was suspected. Hospital Course: Patient presented with weakness, fever, fatigue and ataxia. Patient was evaluated in the emergency room. Acute renal injury noted with hypokalemia. This was likely from dehydration. Patient had leukocytosis. Early on etiology was unknown. Pneumonia and UTI was ruled out. Patient found to have right lower extremity cellulitis. Patient improved during the course of his stay. Patient received IV antibiotics. At discharge cellulitis significantly improved. Renal function back to baseline. Workup included x-ray of the lumbar spine showing moderate anterior subluxation of L5 on S1 with spondylosis. Degenerative disc and joint disease including osteoporosis noted. MRI showed no acute findings but likely Chronic small vessel disease was suspected related to his hypertension. Chest x-ray unremarkable. Venous Doppler of the lower extremity showed no acute DVT. Patient was evaluated for inpatient rehab. Patient approved to go to inpatient rehab to continue his care. At discharge he will continue with Augmentin 500 mg 1 pill twice daily for 7 days. Patient will also continue with aspirin 81 mg daily. Bactroban ointment will be provided. He is to elevate his legs when sitting or lying. Patient will continue with PT in inpatient rehab. Patient should be started on osteoporotic medication by his PCP as an outpatient. Fall precautions in place. Patient can be transition from inpatient rehab to home. Patient with underlying hypertension. This has remained stable. At discharge he will continue with medications-Norvasc 10 mg daily, hydralazine 25 mg 1 pill 3 times a day, and losartan hydrochlorothiazide 100/12.5 mg daily. Recommend to maintain blood pressures less 150/80. Further adjustment can be done by his PCP. Patient with BPH. Patient will continue with his medication Proscar 5 mg daily. Patient with hyperlipidemia. Patient will continue with pravastatin 40 mg daily. Vital Signs/Physical Exam: Temp Pulse Resp BP Pulse Ox 98.4 F 76 16 123/76 97 05/08/19 12:00 05/08/19 12:00 05/08/19 12:00 05/08/19 12:00 05/08/19 12:00 General: Alert, In no apparent distress, Oriented x3, Cooperative HEENT: Atraumatic Neck: Supple Respiratory: Clear to auscultation bilaterally, Normal air movement Cardiovascular: Normal pulses, Regular rate/rhythm Gastrointestinal: Normal bowel sounds, Soft and benign, Non-distended, No masses , No rebound, No guarding Musculoskeletal: No tenderness, No warmth Integumentary: Other (Erythema to the right lower extremity improved. No significant edema.) Neurological: Normal speech, Normal strength at 5/5 x4 extr, Normal tone, Normal affect Laboratory Data at Discharge: WBC 8.0 K/uL (4.3-10.9) 05/08/19 04:58 Hgb 14.7 g/dL (13.6-17.9) 05/08/19 04:58 Hct 43.8 % (39.6-49.0) 05/08/19 04:58 Plt Count 262 K/uL (152-406) 05/08/19 04:58 PT 15.8 SECONDS (9.5-12.5) H 05/04/19 06:25 INR 1.35 05/04/19 06:25 APTT 33.3 SECONDS (24.3-36.9) 05/04/19 06:25 Sodium 138 mmol/L (136-145) 05/08/19 04:56 Potassium 3.9 mmol/L (3.5-5.1) 05/08/19 04:56 BUN 15 mg/dL (7-18) 05/08/19 04:56 Creatinine 0.94 mg/dL (0.55-1.3) 05/08/19 04:56 Glucose 143 mg/dL (74-106) H 05/08/19 04:56 Phosphorus 1.6 mg/dL (2.5-4.9) L 05/05/19 06:26 Magnesium 1.9 mg/dL (1.8-2.4) 05/08/19 04:56 Total Bilirubin 0.6 mg/dL (0.2-1.0) 05/04/19 06:25 AST 20 U/L (15-37) 05/04/19 06:25 ALT 17 U/L (12-78) 05/04/19 06:25 Alkaline Phosphatase 50 U/L (45-117) 05/04/19 06:25 Troponin I < 0.02 ng/mL (0.0-0.045) 05/04/19 06:25 Triglycerides 84 mg/dL (<150) 05/05/19 06:26 Cholesterol 111 mg/dL (<200) 05/05/19 06:26 HDL Cholesterol 46 mg/dL (40-60) 05/05/19 06:26 Cholesterol/HDL Ratio 2.41 05/05/19 06:26 Home Medications: Amlodipine Besylate 10 mg PO DAILY 06/26/12 Aspirin 81 mg PO DAILY 06/26/12 Losartan/Hydrochlorothiazide [Losartan-Hctz 100-12.5 mg Tab] 1 tab PO DAILY 04/30 Magnesium Oxide [Mag 0X*] 400 mg PO DAILY 06/26/12 Pravastatin [Pravachol*] 40 mg PO BEDTIME 06/26/12 Finasteride [Proscar*] 5 mg PO DAILY 05/04/19 Hydralazine [Apresoline*] 25 mg PO TID 05/04/19 Amox/Clavulanate [Augmentin 500-125 mg Tab*] 500 mg PO BID #14 tab 05/08/19 Mupirocin Oint [Bactroban 2% Ointment*] 1 appl TOP BID #1 tube 05/08/19 New Medications: Amox/Clavulanate [Augmentin 500-125 mg Tab*] 500 mg PO BID #14 tab Mupirocin Oint [Bactroban 2% Ointment*] 1 appl TOP BID #1 tube Patient Discharge Instructions: 1. Patient to transfer to inpatient rehab to continue therapy. 2. Patient presented with weakness, fever, fatigue and ataxia. Patient was evaluated in the emergency room. Acute renal injury noted with hypokalemia. This was likely from dehydration. Patient had leukocytosis. Early on etiology was unknown. Pneumonia and UTI was ruled out. Patient found to have right lower extremity cellulitis. Patient improved during the course of his stay. Patient received IV antibiotics. At discharge cellulitis significantly improved. Renal function back to baseline. Workup included x- ray of the lumbar spine showing moderate anterior subluxation of L5 on S1 with spondylosis. Degenerative disc and joint disease including osteoporosis noted. MRI showed no acute findings but likely Chronic small vessel disease was suspected related to his hypertension. Chest x-ray unremarkable. Venous Doppler of the lower extremity showed no acute DVT. Patient was evaluated for inpatient rehab. Patient approved to go to inpatient rehab to continue his care. At discharge he will continue with Augmentin 500 mg 1 pill twice daily for 7 days. Patient will also continue with aspirin 81 mg daily. Bactroban ointment will be provided. He is to elevate his legs when sitting or lying. Patient will continue with PT in inpatient rehab. Patient should be started on osteoporotic medication by his PCP as an outpatient. Fall precautions in place. Patient can be transition from inpatient rehab to home. 3. Patient with underlying hypertension. This has remained stable. At discharge he will continue with medications-Norvasc 10 mg daily, hydralazine 25 mg 1 pill 3 times a day, and losartan hydrochlorothiazide 100/12.5 mg daily. Recommend to maintain blood pressures less 150/80. Further adjustment can be done by his PCP. 4. Patient with BPH. Patient will continue with his medication Proscar 5 mg daily. 5. Patient with hyperlipidemia. Patient will continue with pravastatin 40 mg daily. Diet: Regular Activity: Ad adelina Time spent managing pt's care (in minutes): 55
[2019-05-08 16:24] VITALS: BP 140/83; TEMP 98.2
== END 2019-05-08 17:20 | DRG 603 ==
LOC: ER 21:19 → ERHOLD 05-04 02:00 → 4TH 05-04 03:03
PROVIDERS: ADMIT Hospitalist; ATTEND Family Medicine
DX: L03.115 Cellulitis of right lower limb (principal); N17.9 Acute kidney failure, unspecified; I10 Essential (primary) hypertension; R27.0 Ataxia, unspecified; I73.9 Peripheral vascular disease, unspecified; E87.6 Hypokalemia; E86.0 Dehydration; N40.0 Benign prostatic hyperplasia without lower urinary tract symptoms; M43.5X7 Other recurrent vertebral dislocation, lumbosacral region; M51.37 Other intervertebral disc degeneration, lumbosacral region; M81.0 Age-related osteoporosis without current pathological fracture; M19.072 Primary osteoarthritis, left ankle and foot
CPT/HCPCS: 36415; 70450; 70551; 71045; 71046; 72100; 80048; 80053; 80061; 80076; 81003; 81015; 82607; 82746; 83540; 83605; 83735; 83880; 84100; 84132; 84145; 84439; 84443; 84484; 85025; 85610; 85652; 85730; 86140; 87040; 93005; 93971; 96360; 97112; 97116; 97161; 97530; 99285; J0696; J1650; J2405; J2930; J3475; J7030

== ENCOUNTER 2019-05-08 10:26 | Inpatient (IN) | payer OTHER ==
--- NOTE | 2019-05-08 11:13 | R.PREADM ---
SCREENING DATE AND TIME 05/07/2019 17:10 (CDT) ANTICIPATED REHAB ADMISSION DATE 05/09/2019 REFERRING FACILITY [facility] REFERRAL DATE AND TIME 05/07/2019 17:11 (CDT) REFERRAL OFFICE PHONE [phone] REFERRAL ROOM# [id number] ACUTE ADMIT DATE 05/04/2019 Previous Rehabilitation(s): No. ACUTE COVER SEAMER/DC SERVICE LOSS CONTROL CONSULTANT Kimmy Calzada REFERRING PHYSICIAN Mat Maynard REHAB FACILITY [facility] CLINICAL LIAISON Tania Carnes PHYSICIAN REVIEWER Dr. Garfield Moon M.D. MR# [id number] NAME IRLANDA ROJAS AD[address]ESS [address] [facility] [id number] DATE OF 1945 AGE 73 SSN# [id number] GENDER male MARITAL STATUS RACE white ADMIT FROM 02 - [facility] PRE-HOSPITAL LIVING SETTING 01 - Home (private home/apt. board/care, assisted living, longterm, transitional living) HOME TYPE AND DETAILS Type of home: single family house # of steps within the residence: 0 # of levels in the residence: 1 # of steps to enter the residence: 1 PRE-HOSPITAL LIVING WITH Family/Relatives FAMILY SUPPORT Yes PRIMARY FAMILY CONTACT NAME KHOI ROJAS PRIMARY FAMILY CONTACT PHONE PHONE PRIMARY FAMILY CONTACT ON ADM.? no IS PRIMARY FAMILY CONTACT AUTH. REP.? no 1ST EMERGENCY CONTACT KHOI ROJAS 1ST CONTACT PHONE PHONE 1ST CONTACT ON ADM. no IS 1ST CONTACT AUTH. REP.? no PHONE 2ND CONTACT ON ADM.? no PATIENT EMPLOYMENT STATUS Retired (for age) PATIENT EMPLOYER No Employer PAYOR INFORMATION: 1ST PAYOR NAME MEDICARE 1ST PAYOR PHONE [phone] 1ST PAYOR INJURY/ILLNESS DUE TO ACCIDENT? No ANOTHER [employer] RESPONSIBLE? No PRIMARY REHAB/ACUTE DIAGNOSIS: L1-L2 Spondylosis ONSET DATE 05/04/2019 REHAB IMPAIRMENT CATEGORY (JONAH): 16 Pain does NOT meet 60% rule PRIMARY DIAGNOSIS-RELATED SURGERIES: N/A COMORBID REHAB/ACUTE DIAGNOSES: - N/A Hypertension DYSLIPIDEMIA ATAXIA SUMMARY OF ACUTE HOSPITALIZATION: Pt. is a 73 yo Right-handed white male. On 05/04/2019 he was admitted to [facility] with diagnosis L1-L2 Spondylosis. His impairment category is Pain Syndromes 07 - Other Pain (07.9). Pre-morbidly, Pt. was independent/mod-I in Self-Care, Sphincter Control, Transfers Control, Locomotio n, Communication, and Social Cognition; and he had good Sphincter Control. Currently, he has deficits of Self-Care, Transfers Control, Locomotion, Endurance, Balance, and Safet y Awareness. Pt. is now referred to [facility] for acute in-patient rehabilitation in order to maximize patient's functional independence in activities of daily living, strength, ROM, and mobi lity. Patient has realistic goal of being discharged at assistance level 6-Carly to reside at Home with Fam vincent/Relatives. Irlanda Rojas is a 73 old male that lives with his in a single marlen house with 1 step to enter. He ambulates sometime without an assistive device and sometimes uses a hurri-cane or rollator. On 05/04/2019, he had a low grade fever, little confused and ataxic gait and fell at home and was admitted at [facility]. He is now medically stable but in need of 24-hour nursing, doctor supervision and oversite while receiving acti ve and ongoing intensive (PT, reasonably expected to participate in 3hours of therapy a day/15 hours per week and receive care with an intensive interdisciplinary approach. PAST MEDICAL HISTORY Hypertension ATAXIA DYSLIPIDEMIA MEDICATION ALLERGIES: Propoxyphene HCl ENVIRONMENTAL ALLERGIES: None Known - Substance Allergies None Known - Other Allergies None Known CODE STATUS: Full code WEIGHT/HEIGHT/BMI: WEIGHT 181 lbs HEIGHT 6' 1" BMI 23.9 DIET: - Diet Type Regular - Diet - Solid Texture Regular - Diet - Liquid Texture Regular - Tube Feed N/A REVIEW OF SYSTEMS: - Gen Alert and awake Lying in bed No apparent distress Oriented to: person, time, and place - Vital Signs Temperature: 97.6 F SBP/DBP: 147/78 Pulse: 66 Resp: 16 Vital signs stable, afebrile - CVS RRR VITAL SIGNS Temperature: 97.6 F SBP/DBP: 147/78 Pulse: 66 Resp: 16 Vital signs stable, afebrile MEDICATIONS/TREATMENT: Other- See attached MAR (Medication Administration Record) Irlanda [email or web address]. CURRENT SPHINCTER CONTROL: Pre-hospital bladder status: continent # of bladder accidents in the last 7 days prior to screenin Pre-hospital bowel status: continent # of bowel accidents in the last 7 days prior to screenin Last Bowel Movement Date: 05/07/2019 DETAILED CURRENT FUNCTIONAL STATUS: - Bladder accident frequency: Ind - No accidents in the past 7 days - Bowel accident frequency: Ind - No accidents in the past 7 days - Walking score based on distance walked: 3(>=150ft) - Wheelchair score based on distance traveled: 0(N/A) FUNCTIONAL STATUS: - Self-Care A. Eating Ind sup B. Grooming Ind sup C. Bathing Ind sup D. Dressing - Upper Ind sup E. Dressing - Lower Ind Isidra F. Toileting Ind sup - Sphincter Control G: Bladder control Ind Ind H: Bowel control Ind Ind - Transfers Control I. Bed/Chair/Wheelchair Ind sup J. Toilet Ind sup K. Tub/Shower Ind ADNO - Locomotion L. Walk/Wheelchair (C) Ind Isidra L. Walk/Wheelchair (W) Ind Isidra M. Stairs Ind ADNO - Communication N. Comprehension (B) Ind Ind O. Expression (B) Ind Ind - Social Cognition P. Social Interaction Ind Ind Q. Problem Solving Ind Ind R. Memory Ind Ind - Endurance Fair - Balance Fair - Safety Awareness Fair CURRENT FUNC. DEFICITS: Self-Care, Transfers Control, Locomotion, Endurance, Balance, and Safety Awareness THERAPY NOTES FROM ACUTE CARE: Attached. SPECIAL NEEDS: - Safety Concerns Skin breakdown precautions needed due to skin breakdown risk PATIENT NEEDS ACTIVE AND ONGOING THERAPEUTIC INTERVENTION OF MULTIPLE THERAPY DISCIPLINES, INCLUDING: - Dietary and Nutrition Adequate Nutrition. Nutritional Education. Nutritional Supplements. PATIENT NEEDS CLOSE MEDICAL SUPERVISION BY A REHABILITATION PHYSICIAN FOR: Bowel and Bladder Management Coordination of Treatment Team Medical and Co-Morbidity Management PATIENT REQUIRES 24X7 REHAB NURSING FOR MEDICAL AND FUNCTIONAL MGT. OF THE FOLLOWING DEFICITS: ADL's Ambulation Bowel and Bladder Management Communication Disease Management Medication Management Patient/Family Education Providing Safe Environment Transfers DVT Management Pain Management PATIENT REQUIRES INTENSIVE, COORDINATED INTERDISCIPLINARY APPROACH TO REHAB: Arranging Home Equipment/Services Discharge Planning Family Intervention/Training Tax Investigator/Case Management PATIENT REHAB POTENTIAL: Mook ROJAS is able and expected to receive 3 hours of individualized therapy daily on at least 5 of [place] 7 days MNaomi ROJAS's prognosis for significant practical improvement within a reasonable period of time appear s Good Expected level of measurable improvement will be of a practical value to Mook ROJAS's functional capac ity or adaptations to impairments Has a viable Discharge Plan Medically appropriate; condition is sufficiently stable to participate in intensive rehab program DISCHARGE PLAN: - Estimated Length of Stay (days) 12. - Consensus on plan Discharge plan has been discussed with primary caregiver. Patient/Family is in agreement with the helder n. Primary caregiver is in agreement with the plan. - Patient/Family Goals Return home with assistance. - Planned Living Setting Upon Discharge Home, to live with Family/Relatives. Transitional Living. RECOMMENDED CARE LEVEL: IRF RECOMMENDATION DETAILS: Recommended Admission to Comprehensive Rehabilitation Program to Increase Functional Mica SCREENER'S COMPLETENESS CONFIRMATION: - Screening Confirmation The patient data collection on this preadmission screening form is finished PHYSICIANS REVIEW AND ADMISSION DETERMINATION Admit - Based on my review of the Pre-Admission Screening results, in my medical judgment and experie nce, I concur with the findings and recommend admission to [facility], as this patient requires an IRF level of care. SIGNATURE PANEL: Clinical Liaison - [electronically] signed by Tania Carnes on 05/08/2019 at 10:21 (CDT) Physician Reviewer - [electronically] signed by Dr. Garfield Moon M.D. on 05/08/2019 at 11:12 (CDT )
[2019-05-08] MEDS ORDERED: MELATONIN 3 MG TABLET PO PRN (18:02)
[2019-05-08] MEDS ORDERED: ACETAMINOPHEN 500 MG TAB PO PRN (18:02)
[2019-05-08] MEDS: APIXABAN 2.5 MG TABLET PO SCH (20:20)
[2019-05-08] MEDS: ATORVASTATIN 10 MG TAB PO SCH (20:20)
[2019-05-08] MEDS: AMOX/K CLAV 500 MG TAB PO SCH (20:21)
[2019-05-08] MEDS: HYDRALAZINE HCL 25 MG TABLET PO SCH (20:21)
[2019-05-08] MEDS: MUPIROCIN 2% OINT 22GM TUBE TOP SCH (21:00)
[2019-05-08 21:23] LABS: Urine Appearance CLEAR; Urine Bilirubin NEGATIVE (NEG); Urine Blood NEGATIVE (NEG); Urine Color YELLOW; Urine Glucose TRACE (NEG); Urine Protein NEGATIVE (NEG); Urine Urobilinogen 0.2 mg/dL (0.2-1.0); Urine pH 6.5 (5.0-7.0)
[2019-05-08 21:39] LABS: Urine Bacteria <20 /HPF (NONE SEEN); Urine Culture Reflex Order NOT NEEDED; Urine RBC NONE SEEN /HPF (NONE SEEN)
--- NOTE | 2019-05-09 01:33 | FAST ---
SHIFT START DATE/TIME: 05/08/2019 19:00 (CDT) SHIFT END DATE/TIME: 05/09/2019 07:00 (CDT) NAME IRLANDA ROJAS DATE OF : 1945 DATE OF ADMISSION: 05/08/2019 17:09 (CDT) PHONE: AGE: 73 SSN# [id number] GENDER: Male ENCOUNTER PHYSICIAN: Dr. Garfield Moon M.D. ADMISSION DIAGNOSIS: - Pain Syndromes 07 - Other Pain (07.9) L1-L2 Spondylosis. EATING: Activity did not occur on this shift EATING - SCORE: 0-UNK GROOMING: Activity did not occur on this shift GROOMING - SCORE: 0-UNK BATHING: Activity did not occur on this shift BATHING - SCORE: 0-UNK DRESSING - UPPER BODY: Patient is not dressing in public clothing ARTICLES SCORE Total number of steps: 0 DRESSING - UPPER BODY - SCORE: 0-UNK DRESSING - LOWER BODY: Patient is not dressing in public clothing ARTICLES SCORE Total number of steps: 0 DRESSING - LOWER BODY - SCORE: 0-UNK TOILETING: TOILETING - STEP 1: Does the patient require the assistance of a person or device, or need extra time with toileting? Yes . TOILETING - STEP 2: Does the patient require the assistance of a helper? Yes. TOILETING - STEP 3: How much assistance does the patient require from the helper? Only supervision TOILETING - SCORE: 5-SUP BLADDER MANAGEMENT: BLADDER MANAGEMENT - STEP 1: Does the patient control the bladder completely and intentionally without equipment or devices or med ications, and is always continent? No. BLADDER MANAGEMENT - STEP 2: Does the patient require the assistance of a helper? Yes. BLADDER MANAGEMENT - STEP 3: How much assistance does the patient require from the helper? Only supervision, stand-by, cuing, or c oaxing BLADDER MANAGEMENT - SCORE: 5-SUP BOWEL MANAGEMENT: BOWEL MANAGEMENT - STEP 1: Does the patient control bowels completely and intentionally without equipment devices or medications AND is always continent? No. BOWEL MANAGEMENT - STEP 2: Does the patient require the assistance of a helper? No, patient requires medication for control such as stool softeners, suppositories, laxatives, enemas, or OTC medications BOWEL MANAGEMENT - SCORE: 6-VEE TRANSFERS: BED, CHAIR, WHEELCHAIR: TRANSFERS: BED, CHAIR, WHEELCHAIR - STEP 1: Does the patient require assistance of a person or device, or need extra time with bed, chair, or whe elchair transfers? Yes. TRANSFERS: BED, CHAIR, WHEELCHAIR - STEP 2: Does the patient require the assistance of a helper? Yes. TRANSFERS: BED, CHAIR, WHEELCHAIR - STEP 3: How much assistance does the patient require from the helper? Steadying/guiding assistance TRANSFERS: BED, CHAIR, WHEELCHAIR - SCORE: 4-MIN TRANSFERS: TOILET: TRANSFERS: TOILET - STEP 1: Does the patient require the assistance of a person or device, or need extra time with toilet transfe rs? Yes. TRANSFERS: TOILET - STEP 2: Does the patient require the assistance of a helper? Yes. TRANSFERS: TOILET - STEP 3: How much assistance does the patient require from the helper? Only supervision, cuing, coaxing, OR he lp to set out transfer equipment or to lock brakes and/or lift foot rests TRANSFERS: TOILET - SCORE: 5-SUP TRANSFERS: SHOWER: Activity did not occur on this shift TRANSFERS: SHOWER - SCORE: 0-UNK TRANSFERS: TUB: Activity did not occur on this shift TRANSFERS: TUB - SCORE: 0-UNK LOCOMOTION: WALK: Activity did not occur on this shift LOCOMOTION: WALK - SCORE: 0-UNK LOCOMOTION: WHEELCHAIR: Activity did not occur on this shift LOCOMOTION: WHEELCHAIR - SCORE: 0-UNK COMPREHENSION: COMPREHENSION: TYPE: Both COMPREHENSION - STEP 1: Does the patient require help from a person or device, or need extra time to understand complex and a bstract ideas (such as current events, finances, discharge planning, medical issues, relationships, e tc)? Yes. COMPREHENSION - STEP 2: Does the patient require help to understand questions or statements about basic needs or ideas (such as hunger, thirst, sleep, safety, daily schedule, room location, or discomfort) half or more of the t alina? No. COMPREHENSION - STEP 3: How often does the patient need help to understand directions and conversation about basic needs? Les s than 10% of the time COMPREHENSION - SCORE: 5-SUP EXPRESSION EXPRESSION: TYPE: Both EXPRESSION - STEP 1: Does the patient require help from a person or device, or need extra time expressing complex and abst ract ideas (such as current events, finances, discharge planning, medical issues, relationships, etc) ? No. EXPRESSION - STEP 2: Does the patient need extra time, require an assistive device (such as augmentive communication syste m or a communication board), OR does s/he have mild difficulty expressing complex and abstract ideas (including mild dysarthria or mild word-find problems)? Yes. EXPRESSION - SCORE: 6-VEE SOCIAL INTERACTION: SOCIAL INTERACTION - STEP 1: Does the patient require a helper to interact with others in social and therapeutic situations? No. SOCIAL INTERACTION - STEP 2: Does the patient need extra time in social situations, OR does s/he interact with staff, other patien ts, and family members ONLY in structured environments, OR does s/he require medication for social in teraction? Yes, patient needs extra time SOCIAL INTERACTION - SCORE: 6-VEE PROBLEM SOLVING: PROBLEM SOLVING - STEP 1: Does the patient need help from a person or device, or need extra time to solve complex problems such as managing a checking account or confronting interpersonal problems? Yes. PROBLEM SOLVING - STEP 2: Does the patient solve basic routine problems half or more of the time? Yes. PROBLEM SOLVING - STEP 3: How often does the patient need help to solve basic routine problems? Less than 10% of the time PROBLEM SOLVING - SCORE: 5-SUP MEMORY: MEMORY - STEP 1: Does the patient need help from a person or device, or need extra time to remember frequently encount ered people, daily routines, and executing requests? No. MEMORY - STEP 2: Does the patient have slight difficulty recognizing frequently encountered people, daily routines, or executing requests without the need for repetition or using self-initiated or environmental cues to remember? Yes. MEMORY - SCORE: 6-VEE SIGNATURE PANEL: The following modified sections: Eating - Score, Grooming - Score, Dressing - Upper Body - Score, Liu ssing - Lower Body - Score, Toileting - Score, Bladder Management - Score, Bowel Management - Score, Transfers: Bed, Chair, Wheelchair - Score, Transfers: Toilet - Score, Transfers: Shower - Score, Bee sfers: Tub - Score, Locomotion: Walk - Score, Locomotion: Wheelchair - Score, Comprehension - Score, Expression - Score, Social Interaction - Score, Problem Solving - Score, Memory - Score were [electro nically] signed by Elvia Ever, BARIATRIC PROGRAM COORDINATOR on TueMay 09 2019 01:32:59 GMT-0500 (Central Daylight Time)
[2019-05-09 06:06] LABS: Absolute Lymphocytes (CBC) 1.9 K/uL (0.7-4.9); Basophils % 0.4 % (0-1.3); Lymphocytes % 22.7 % (15.3-44.8); MPV 7.4 fL (7.6-11.3); RBC Red Blood Cell Count 4.94 M/uL (4.33-5.43)
[2019-05-09 06:25] LABS: Albumin 2.7 g/dL (3.4-5.0); Magnesium 2.2 mg/dL (1.8-2.4); Potassium 4.1 mmol/L (3.5-5.1); Prealbumin 16.9 mg/dL (20-40)
[2019-05-09] MEDS: MAGNESIUM OXIDE 400 MG TAB PO SCH (08:00)
[2019-05-09] MEDS: LOSARTAN HCTZ PO SCH (08:33)
[2019-05-09] MEDS: MUPIROCIN 2% OINT 22GM TUBE TOP SCH ×2 (08:34→20:47)
[2019-05-09] MEDS: AMLODIPINE 10 MG TAB PO SCH (08:34)
[2019-05-09] MEDS: FINASTERIDE 5 MG TAB PO SCH (08:35)
[2019-05-09] MEDS: AMOX/K CLAV 500 MG TAB PO SCH ×2 (08:35→20:48)
[2019-05-09] MEDS: APIXABAN 2.5 MG TABLET PO SCH ×2 (08:36→20:49)
[2019-05-09] MEDS: ASPIRIN 81 MG CHEWABLE TABLET PO SCH (08:36)
[2019-05-09] MEDS: HYDRALAZINE HCL 25 MG TABLET PO SCH ×3 (10:00→20:48)
--- NOTE | 2019-05-09 13:35 | FAST ---
ENCOUNTER DATE AND TIME: 05/09/2019 08:00 (CDT) NAME IRLANDA ROJAS DATE OF : 1945 DATE OF ADMISSION: 05/08/2019 17:09 (CDT) PHONE: AGE: 73 N# [id number] GENDER: Male ENCOUNTER PHYSICIAN: Dr. Garfield Moon M.D. ADMISSION DIAGNOSIS: - Pain Syndromes 07 - Other Pain (07.9) L1-L2 Spondylosis. EATING: EATING - STEP 1: Does the patient require the assistance of a person or device, or need extra time when eating? No. EATING - SCORE: 7-IND GROOMING: Comb/brush hair Oral care Patient shaved Wash, rinse, and dry face Wash, rinse, and dry hands GROOMING - STEP 1: Does the patient require the assistance of a person or device, or need extra time when grooming? No. GROOMING - SCORE: 7-IND BATHING: Abdomen Buttocks Chest Left arm Left lower leg and foot Left upper leg Perineal area Right arm Right lower leg and foot Right upper leg BATHING - STEP 1: Does the patient require the assistance of a person or device, or need extra time when bathing? Yes. BATHING - STEP 2: Does the patient require the assistance of a helper? Yes. BATHING - STEP 3: How much assistance does the patient require from the helper? Only incidental help such as placement of a wash cloth in his/her hand a few times as s/he bathes OR help to bathe just one or two areas of the body BATHING - SCORE: 4-MIN DRESSING - UPPER BODY: T-shirt/pullover shirt (four steps) ARTICLES SCORE Total number of steps: 4 DRESSING - UPPER BODY - STEP 1: Does the patient require help from a person or device, or need extra time when dressing above the [address]? Yes. DRESSING - UPPER BODY - STEP 2: Does the patient require the assistance of a helper? Yes. DRESSING - UPPER BODY - STEP 3: Does the helper touch the patient while dressing? No. DRESSING - UPPER BODY - SCORE: 5-SUP DRESSING - LOWER BODY: Elastic waist pants (three steps) Sock - Left foot (one step) Sock - Right foot (one step) Tied or buckled shoe - Left foot (two steps) Tied or buckled shoe - Right foot (two steps) Underwear (three steps) ARTICLES SCORE Total number of steps: 12 DRESSING - LOWER BODY - STEP 1: Does the patient require help from a person or device, or need extra time when dressing below the [address]? Yes. DRESSING - LOWER BODY - STEP 2: Does the patient require the assistance of a helper? Yes. DRESSING - LOWER BODY - STEP 3: Does the helper touch the patient while dressing? Yes. DRESSING - LOWER BODY - STEP 4: How many of the total steps does the patient complete on his/her own? 12 DRESSING - LOWER BODY - SCORE: 4-MIN TOILETING: Activity did not occur on this shift TOILETING - SCORE: 0-UNK BLADDER MANAGEMENT: Activity did not occur on this shift BLADDER MANAGEMENT - SCORE: 7-IND BOWEL MANAGEMENT: Activity did not occur on this shift BOWEL MANAGEMENT - SCORE: 7-IND TRANSFERS: BED, CHAIR, WHEELCHAIR: Activity did not occur on this shift TRANSFERS: BED, CHAIR, WHEELCHAIR - SCORE: 0-UNK TRANSFERS: TOILET: Activity did not occur on this shift TRANSFERS: TOILET - SCORE: 0-UNK TRANSFERS: SHOWER: Activity did not occur on this shift TRANSFERS: SHOWER - SCORE: 0-UNK TRANSFERS: TUB: TRANSFERS: TUB - STEP 1: Does the patient require the assistance of a person or device, or need extra time with tub transfers? Yes. TRANSFERS: TUB - STEP 2: Does the patient require the assistance of a helper? Yes. TRANSFERS: TUB - STEP 3: How much assistance does the patient require from the helper? Incidental help such as contact guardin g or steadying, OR help to lift one leg into the tub TRANSFERS: TUB - SCORE: 4-MIN LOCOMOTION: WALK: Activity did not occur on this shift LOCOMOTION: WALK - SCORE: 0-UNK LOCOMOTION: WHEELCHAIR: Activity did not occur on this shift LOCOMOTION: WHEELCHAIR - SCORE: 0-UNK LOCOMOTION: STAIRS: Activity did not occur on this shift LOCOMOTION: STAIRS - SCORE: 0-UNK COMPREHENSION: COMPREHENSION: TYPE: Both COMPREHENSION - STEP 1: Does the patient require help from a person or device, or need extra time to understand complex and a bstract ideas (such as current events, finances, discharge planning, medical issues, relationships, e tc)? No. COMPREHENSION - STEP 2: Does the patient need extra time, require an assistive device (such as glasses for visual comprehensi on or a hearing aid for auditory comprehension) or does s/he have mild difficulty understanding compl ex and abstract information? Yes. COMPREHENSION - SCORE: 6-VEE EXPRESSION EXPRESSION: TYPE: Both EXPRESSION - STEP 1: Does the patient require help from a person or device, or need extra time expressing complex and abst ract ideas (such as current events, finances, discharge planning, medical issues, relationships, etc) ? No. EXPRESSION - STEP 2: Does the patient need extra time, require an assistive device (such as augmentive communication syste m or a communication board), OR does s/he have mild difficulty expressing complex and abstract ideas (including mild dysarthria or mild word-find problems)? Yes. EXPRESSION - SCORE: 6-VEE SOCIAL INTERACTION: SOCIAL INTERACTION - STEP 1: Does the patient require a helper to interact with others in social and therapeutic situations? No. SOCIAL INTERACTION - STEP 2: Does the patient need extra time in social situations, OR does s/he interact with staff, other patien ts, and family members ONLY in structured environments, OR does s/he require medication for social in teraction? No. SOCIAL INTERACTION - SCORE: 7-IND PROBLEM SOLVING: PROBLEM SOLVING - STEP 1: Does the patient need help from a person or device, or need extra time to solve complex problems such as managing a checking account or confronting interpersonal problems? No. PROBLEM SOLVING - STEP 2: Does the patient require extra time to make decisions or solve problems, OR does s/he have slight dif ficulty reading, initiating, or self-correcting in unfamiliar situations? Yes, patient needs extra ti me. PROBLEM SOLVING - SCORE: 6-VEE MEMORY: MEMORY - STEP 1: Does the patient need help from a person or device, or need extra time to remember frequently encount ered people, daily routines, and executing requests? No. MEMORY - STEP 2: Does the patient have slight difficulty recognizing frequently encountered people, daily routines, or executing requests without the need for repetition or using self-initiated or environmental cues to remember? Yes. MEMORY - SCORE: 6-VEE SIGNATURE PANEL: The following modified sections: Eating - Score, Grooming - Score, Bathing - Score, Dressing - Upper Body - Score, Dressing - Lower Body - Score, Toileting - Score, Transfers: Bed, Chair, Wheelchair - S core, Transfers: Toilet - Score, Transfers: Shower - Score, Transfers: Tub - Score, Comprehension - S core, Expression - Score, Social Interaction - Score, Problem Solving - Score, Memory - Score were [e lectronically] signed by Yoli Jaimes OT on TueMay 09 2019 13:34:33 T-0500 ([facility] Daylight T al[place])
--- NOTE | 2019-05-09 15:55 | FAST ---
ENCOUNTER DATE AND TIME: 05/09/2019 08:00 (CDT) NAME IRLANDA ROJAS DATE OF : 1945 DATE OF ADMISSION: 05/08/2019 17:09 (CDT) PHONE: AGE: 73 SSN# [id number] GENDER: Male ENCOUNTER PHYSICIAN: Dr. Garfield Moon M.D. ADMISSION DIAGNOSIS: - Pain Syndromes 07 - Other Pain (07.9) L1-L2 Spondylosis. EATING: Activity did not occur on this shift EATING - SCORE: 0-UNK GROOMING: Activity did not occur on this shift GROOMING - SCORE: 0-UNK BATHING: Activity did not occur on this shift BATHING - SCORE: 0-UNK DRESSING - UPPER BODY: Activity did not occur on this shift Patient is not dressing in public clothing ARTICLES SCORE Total number of steps: 0 DRESSING - UPPER BODY - SCORE: 0-UNK DRESSING - LOWER BODY: Activity did not occur on this shift Patient is not dressing in public clothing ARTICLES SCORE Total number of steps: 0 DRESSING - LOWER BODY - SCORE: 0-UNK TOILETING: Activity did not occur on this shift TOILETING - SCORE: 0-UNK BLADDER MANAGEMENT: Activity did not occur on this shift BLADDER MANAGEMENT - SCORE: 7-IND BOWEL MANAGEMENT: Activity did not occur on this shift BOWEL MANAGEMENT - SCORE: 7-IND TRANSFERS: BED, CHAIR, WHEELCHAIR: TRANSFERS: BED, CHAIR, WHEELCHAIR - STEP 1: Does the patient require assistance of a person or device, or need extra time with bed, chair, or whe elchair transfers? Yes. TRANSFERS: BED, CHAIR, WHEELCHAIR - STEP 2: Does the patient require the assistance of a helper? Yes. TRANSFERS: BED, CHAIR, WHEELCHAIR - STEP 3: How much assistance does the patient require from the helper? Only supervision TRANSFERS: BED, CHAIR, WHEELCHAIR - SCORE: 5-SUP TRANSFERS: TOILET: Activity did not occur on this shift TRANSFERS: TOILET - SCORE: 0-UNK TRANSFERS: SHOWER: Activity did not occur on this shift TRANSFERS: SHOWER - SCORE: 0-UNK TRANSFERS: TUB: Activity did not occur on this shift TRANSFERS: TUB - SCORE: 0-UNK LOCOMOTION: WALK: LOCOMOTION: WALK - STEP 1: Does the patient need help from a person or device, or need extra time to walk 150 feet? Yes. LOCOMOTION: WALK - STEP 2: How much assistance does the patient require to walk a minimum of 150 feet? Only supervision, cuing, or coaxing LOCOMOTION: WALK - SCORE: 5-SUP LOCOMOTION: WHEELCHAIR: Activity did not occur on this shift LOCOMOTION: WHEELCHAIR - SCORE: 0-UNK LOCOMOTION: STAIRS: LOCOMOTION: STAIRS - STEP 1: Does the patient need help to go up and down 12 to 14 stairs? Yes. LOCOMOTION: STAIRS - STEP 2: How much assistance does the patient need from the helper to go a minimum of 12 to 14 stairs? Only in cidental help such as contact guarding or steadying LOCOMOTION: STAIRS - SCORE: 4-MIN COMPREHENSION: COMPREHENSION - SCORE: 0-UNK EXPRESSION EXPRESSION - SCORE: 0-UNK SOCIAL INTERACTION: SOCIAL INTERACTION - SCORE: 0-UNK PROBLEM SOLVING: PROBLEM SOLVING - SCORE: 0-UNK MEMORY: MEMORY - SCORE: 0-UNK SIGNATURE PANEL: The following modified sections: Locomotion: Wheelchair - Score, Transfers: Bed, Chair, Wheelchair - Score, Locomotion: Stairs - Score, Transfers: Bed, Chair, Wheelchair - Score, Transfers: Toilet - Sco re were [electronically] signed by Carlton Rodríguez PT on TueMay 09 2019 15:54:26 GMT-0500 (Central Daylight Time)
--- NOTE | 2019-05-09 17:58 | R.HP ---
FACILITY: [facility] ENCOUNTER DATE AND TIME: 05/09/2019 17:55 (CDT) MR#: [id number] NAME IRLANDA ROJAS ADDRESS: [address] [place] [address] CITY: [place]IP [address] PHONE: DATE OF : 1945 AGE: 73 SSN# [id number] GENDER: Male DEXTERITY Right-handed MARITAL STATUS RACE White PRE-HOSPITAL LIVING SETTING 01 - Home (private home/apt. board/care, assisted living, fdc, transitional living) PRE-HOSPITAL LIVING WITH Family/Relatives ENCOUNTER PHYSICIAN: Dr. Garfield Moon M.D. REFERRING DOCTOR: edel Maynard DATE OF ADMISSION: 05/08/2019 17:09 (CDT) REFERRING FACILITY [facility] HOME TYPE AND DETAILS: Type of home: single family house # of steps within the residence: 0 # of levels in the residence: 1 # of steps to enter the residence: 1 ADMISSION DIAGNOSIS: L1-L2 Spondylosis ONSET DATE: 05/04/2019 PRIMARY DIAGNOSIS-RELATED SURGERIES: N/A SECONDARY/COMORBID DIAGNOSES (TIERED): - N/A Hypertension DYSLIPIDEMIA ATAXIA HISTORY OF PRESENT ILLNESS (HPI): Pt. is a 73 yo Right-handed white male. On 05/04/2019 he was admitted to [facility] with diagnosis L1-L2 Spondylosis. His impairment category is Pain Syndromes 07 - Other Pain (07.9). Pre-morbidly, Pt. was independent/mod-I in Self-Care, Sphincter Control, Transfers Control, Locomotio n, Communication, and Social Cognition; and he had good Sphincter Control. Currently, he has deficits of Self-Care, Transfers Control, Locomotion, Endurance, Balance, and Safet y Awareness. Pt. is now referred to [facility] for acute in-patient rehabilitation in order to maximize patient's functional independence in activities of daily living, strength, ROM, and mobi lity. Patient has realistic goal of being discharged at assistance level 6-Carly to reside at Home with Fam vincent/Relatives. Irlanda Rojas is a 73 old male that lives with his in a single marlen house with 1 step to enter. He ambulates sometime without an assistive device and sometimes uses a hurri-cane or rollator. On 05/04/2019, he had a low grade fever, little confused and ataxic gait and fell at home and was admitted at [facility]. He is now medically stable but in need of 24-hour nursing, doctor supervision and oversite while receiving acti ve and ongoing intensive (PT, reasonably expected to participate in 3hours of therapy a day/15 hours per week and receive care with an intensive interdisciplinary approach. MEDICATION ALLERGIES: Propoxyphene HCl ENVIRONMENTAL ALLERGIES: None Known - Substance Allergies None Known - Other Allergies None Known PAST MEDICAL HISTORY: Hypertension ATAXIA DYSLIPIDEMIA FAMILY HISTORY: Family history is not contributory. SOCIAL HISTORY: - Home Living Family/Relatives REVIEW OF SYSTEMS: - Gen No Chills Fatigue No Fever - Eyes No Double Vision No itchiness - ENMT No Difficulty Swallowing - CVS No Chest Discomfort No Chest Pain Fatigue No Weight Gain - Resp No Cough No Shortness of Breath - GI Continent No Abdominal Pain Constipation No Diarrhea - Continent No Kidney Pain No Painful Urination No Urinary Urgency - MSK Joint Pain Muscle Cramps Stiffness - Skin No Itching No Rash No Suspicious Lesions - Neuro Coordination Difficulty No Difficulty with Concentration No Memory Loss No Seizures Weakness - Psych No Anxiety No Depression No HIV Exposure No Persistent Infections No Seasonal Allergies - Endo No Cold/Heat Intolerance No Excessive Hunger No Excessive Thirst No Excessive Urination PHYSICAL EXAM - Gen Alert and awake Lying in bed No apparent distress Oriented to: person, time, and place - Skin No breakdown No abnormalities - Eyes No abnormalities - ENMT No abnormalities - Neck No abnormalities - CVS RRR - Chest No abnormalities - Abd Soft - GI + bowel sounds Deferred - No abnormalities - Ext No significant edema - MSK 4/5 weakness in both lower extremities. - Neuro No focal deficits - Psych No abnormalities VITAL SIGNS Temperature: 97.6 F SBP/DBP: 147/78 Pulse: 66 Resp: 16 NURSING: - Shower allowing shower ACTIVITIES OOB only with supervision FUNCTIONAL STATUS: - Self-Care A. Eating Ind sup B. Grooming Ind sup C. Bathing Ind sup D. Dressing - Upper Ind sup E. Dressing - Lower Ind Isidra F. Toileting Ind sup - Sphincter Control G: Bladder control Ind Ind H: Bowel control Ind Ind - Transfers Control I. Bed/Chair/Wheelchair Ind sup J. Toilet Ind sup K. Tub/Shower Ind ADNO - Locomotion L. Walk/Wheelchair (C) Ind Isidra L. Walk/Wheelchair (W) Ind Isidra M. Stairs Ind ADNO - Communication N. Comprehension (B) Ind Ind O. Expression (B) Ind Ind - Social Cognition P. Social Interaction Ind Ind Q. Problem Solving Ind Ind R. Memory Ind Ind - Endurance Fair - Balance Fair - Safety Awareness Fair CURRENT FUNC. DEFICITS: Self-Care, Transfers Control, Locomotion, Endurance, Balance, and Safety Awareness MEDICATIONS: - Other See attached MAR (Medication Administration Record) Irlanda [email or web address].pdf ASSESSMENT: Pt. is a 73 yo Right-handed white male.On 05/04/2019 he was admitted to [facility] with diagnosis L1-L2 Spondylosis.His impairment category is Pain Syndromes 07 - Other Pain (07.9 ).Pre-morbidly, Pt. was independent/mod-I in Self-Care, Sphincter Control, Transfers Control, Locomot ion, Communication, and Social Cognition; and he had good Sphincter Control.Currently, he has deficit s of Self-Care, Transfers Control, Locomotion, Endurance, Balance, and Safety Awareness.Pt. is now re ferred to [facility] for acute in-patient rehabilitation in order to maximize patient's functional independence in activities of daily living, strength, ROM, and mobility.- Rehab Goal Patient has realistic goal of being discharged at assistance level 6-Carly to reside at Home with Fam vincent/Relatives. Irlanda Rojas is a 73 old male that lives with his in a single marlen house with 1 step to enter. He ambulates sometime without an assistive device and sometimes uses a hurri-cane or rollator. On 05/04/2019, he had a low grade fever, little confused and ataxic gait and fell at home and was admitted at [facility]. He is now medically stable but in need of 24-hour nursing, doctor supervision and oversite while receiving acti ve and ongoing intensive (PT, reasonably expected to participate in 3hours of therapy a day/15 hours per week and receive care with an intensive interdisciplinary approach.REHAB PLAN: - Physical Therapy Gait dysfunction - to improve, our physical therapists will perform initial evaluation of pt's status upon admission and devise an individualized program for Gait Training, and Wheel Chair mobility Inability to transfer - to improve, our physical therapists will perform initial evaluation of pt's s tatus upon admission and devise an individualized program for Bed mobility Need for home safety evaluation - to improve, our physical therapists will perform initial evaluation of pt's status upon admission and devise an individualized program for Home Evaluation Need in caregiver upon discharge - to improve, our physical therapists will perform initial evaluatio n of pt's status upon admission and devise an individualized program for Caregiver Training New precaution - to improve, our physical therapists will perform initial evaluation of pt's status u lukas admission and devise an individualized program for Patient precaution education Edema - to improve, our physical therapists will perform initial evaluation of pt's status upon admi ssion and devise an individualized program for Elevation Training, and Lymphedema Therapy Poor balance - to improve, our physical therapists will perform initial evaluation of pt's status upo n admission and devise an individualized program for Balance Training Poor endurance - to improve, our physical therapists will perform initial evaluation of pt's status u lukas admission and devise an individualized program for Endurance Training Weakness - to improve, our physical therapists will perform initial evaluation of pt's status upon ad mission and devise an individualized program for Aquatic Therapy, Neuromuscular Reeducation, and Stre ngthening Achieving independence - to improve, our physical therapists will perform initial evaluation of pt's status upon admission and devise an individualized program for Community Reintegration Activities - Occupational Therapy ADL deficits - to improve, our occupation therapists will perform initial evaluation of pt's status u lukas admission and devise an individualized program for Bathing, Bed mobility, Community Reintegration , Cooking, Dressing, Eating, Fine Motor Skills, Grooming, Homemaking, Kitchen Mobility, Laundry, Evelin ent Education, Safety Awareness, Splinting - Positioning, Transfers(Toilet, Tub, Shower), and Wheel C hair Management Need for career guidance technician - to improve, our occupation therapists will perform initial evaluation of pt's s tatus upon admission and devise an individualized program for Caregiver Training Weakness - to improve, our occupation therapists will perform initial evaluation of pt's status upon admission and devise an individualized program for Aquatic Therapy, Balance, Endurance, UE ROM, and U E strengthening MEDICAL PLAN: - Diet Type Start Regular - Diet - Liquid Texture Start Regular - Tube Feed Start N/A - Other See attached MAR (Medication Administration Record) See attached MAR (Medication Administration Record) Irlanda Rojas.pdf - Diet - Solid Texture Regular - Shower shower DISCHARGE PLAN: - Estimated Length of Stay (days) 12. - Consensus on plan Discharge plan has been discussed with primary caregiver. Patient/Family is in agreement with the helder n. Primary caregiver is in agreement with the plan. - Patient/Family Goals Return home with assistance. - Planned Living Setting Upon Discharge Home, to live with Family/Relatives. Transitional Living. SIGNATURE PANEL: (CDT)
--- NOTE | 2019-05-09 18:00 | PAPE ---
PATIENT: [facility] MR# [id number] REFERRING DOCTOR edel Maynard EVALUATION DATE AND TIME 05/09/2019 17:59 (CDT) NAME IRLANDA ROJAS DATE OF 1945 AGE 73 PHONE N# [id number] GENDER male EVALUATING PHYSICIAN Dr. Garfield Moon M.D. ADMISSION DIAGNOSIS: L1-L2 Spondylosis ONSET DATE 05/04/2019 SECONDARY/COMORBID DIAGNOSES TIERED: - N/A Hypertension DYSLIPIDEMIA ATAXIA POST-ADMISSION FUNCTIONAL/MEDICAL STATUS: - Bladder Same accident frequency: Ind - No accidents in the past 7 days - Bowel Same accident frequency: Ind - No accidents in the past 7 days - Walking Same score based on distance walked: 3(>=150ft) - Wheelchair Same score based on distance traveled: 0(N/A) STATUS CHANGE EVALUATION: No change in Functional or Medical Status is identified compared with Pre-Admission screening. PATIENT NEEDS CLOSE MEDICAL SUPERVISION BY A REHABILITATION PHYSICIAN FOR: Bowel and Bladder Management Coordination of Treatment Team Medical and Co-Morbidity Management PATIENT REQUIRES 24X7 REHAB NURSING FOR MEDICAL AND FUNCTIONAL MGT. OF THE FOLLOWING DEFICITS: ADL's Ambulation Bowel and Bladder Management Communication Disease Management Medication Management Patient/Family Education Providing Safe Environment Transfers DVT Management Pain Management PATIENT REQUIRES INTENSIVE, COORDINATED INTERDISCIPLINARY APPROACH TO REHAB: Arranging Home Equipment/Services Discharge Planning Family Intervention/Training Emissions Inspector/Case Management LIST OF IDENTIFIED AND POTENTIAL PROBLEMS: Alteration in leisure activities Bladder, Incontinence Blood Pressure, Hypertension/hypotension Issues Bowel, Incontinence Infection, Actual or Potential Mobility Impaired Pain, Alteration in Comfort Self Care Deficit Skin Integrity, Actual or Potential Urinary Tract Infection (UTI), Actual or Potential PATIENT COULD BE AT RISK FOR COMPLICATIONS FROM ADVERSE MEDICAL CONDITIONS DUE TO HIS/HER COMORBIDITI ES AND THE RIGORS OF THE INTENSIVE REHABILLITATION PROGRAM. METHODS OR INTERVENTIONS TO AVOID COMPLIC ATIONS INCLUDE: - Infection Clinical staff to assess and manage the signs and symptoms of infection including fever, redness, war mth, etc. - Urinary Tract Infection - Falls Patient will be evaluated for Fall Precautions and will be placed on Fall Precautions as indicated pe r protocol. - Skin Breakdown Nursing will assess skin daily using assessment tool and will place on Skin Breakdown Precautions as indicated per protocol. - Pain Clinical staff may employ non-medication methods such as massage, distraction, decrease stimulus, etc . as needed. Clinical staff will assess patient's pain level every shift per protocol to assess and e nsure pain management effectiveness. Medications will be given and the pain level re-assessed. PRELIMINARY PLAN OF CARE: - Physical Therapy Patient needs Physical Therapy for a daily minimum of 1.5 hours at least 5 out of 7 days, to improve: Mobility, Strengthening, Transfers, Stretching, ROM, Endurance, Ability to manage stairs, Gait, and Balance. - Rehabilitation Nursing Patient requires 24x7 Rehabilitation Nursing for: Pain Issues, Identifying and preventing risk factor s, Monitoring and reporting current medical conditions, Assisting with ambulation and transfer, Kathia ting with all ADL-s, Teaching patients about disease process and medications, Family teaching, Provid ing safe environment, Bowel and Bladder Issues, Skin Integrity, and Medication Management. Patient needs Emissions Inspector and/or Case Management for: Discharge Planning, Arranging Home Equipmen t or Services, and Family Interventions. - Dietary and Nutrition Services Patient needs Dietary and Nutrition Services for: Adequate Nutrition, Nutritional Supplements, and Nu tritional Education. - Occupational Therapy Patient needs Occupational Therapy for a daily minimum of 1.5 hours at least 5 out of 7 days, to impr ove Activities of Daily Living, including: Eating, Grooming, Bathing, Dressing, Toileting, Toilet Tra nsfers, Community Reintegration, Higher functional activities, Adaptive Equipment, Splinting, Househo ld Tasks, and Other activities as determined. POTENTIAL FUNCTIONAL GOALS FOR PATIENT TO ACHIEVE BY DISCHARGE: - Safety Precaution Patient will remain free from falls or injury at time of discharge. - Bed Mobility Patient will perform bed mobility at 4-Isidra level of assistance. - Transfers Patient will complete transfers from bed to chair at 4-Isidra level of assistance. - Mobility Patient will ambulate 150 ft with 4-Isidra level of assistance with RW. PATIENT REHAB POTENTIAL Mook ROJAS is able and expected to receive 3 hours of individualized therapy daily on at least 5 of ev [place] 7 days MNaomi ROJAS's prognosis for significant practical improvement within a reasonable period of time appear s Good Expected level of measurable improvement will be of a practical value to Mook WALKER's functional capac ity or adaptations to impairments Has a viable Discharge Plan Medically appropriate; condition is sufficiently stable to participate in intensive rehab program DISCHARGE PLAN: - Estimated Length of Stay (days) 12. - Consensus on plan Discharge plan has been discussed with primary caregiver. Patient/Family is in agreement with the helder n. Primary caregiver is in agreement with the plan. - Patient/Family Goals Return home with assistance. - Planned Living Setting Upon Discharge Home, to live with Family/Relatives. Transitional Living. CONCLUSION ON REHABILITATION NECESSITY: I have evaluated patient's pre-admission functional status and, comparing it to the patient's post-ad mission functional status now, I conclude that the pre-admission assessment was accurate. Patient's c ondition on admission supports the medical necessity of admission to IR[facility]. It is safe to proceed with patient's therapy program. SIGNATURE PANEL: (CDT)
[2019-05-09] MEDS: ATORVASTATIN 10 MG TAB PO SCH (20:48)
--- NOTE | 2019-05-10 02:11 | FAST ---
SHIFT START DATE/TIME: 05/09/2019 19:00 (CDT) SHIFT END DATE/TIME: 05/10/2019 07:00 (CDT) NAME IRLANDA ROJAS DATE OF : 1945 DATE OF ADMISSION: 05/08/2019 17:09 (CDT) PHONE: AGE: 73 SSN# [id number] GENDER: Male ENCOUNTER PHYSICIAN: Dr. Garfield Moon M.D. ADMISSION DIAGNOSIS: - Pain Syndromes 07 - Other Pain (07.9) L1-L2 Spondylosis. EATING: Activity did not occur on this shift EATING - SCORE: 0-UNK GROOMING: Activity did not occur on this shift GROOMING - SCORE: 0-UNK BATHING: Activity did not occur on this shift BATHING - SCORE: 0-UNK DRESSING - UPPER BODY: Patient is not dressing in public clothing ARTICLES SCORE Total number of steps: 0 DRESSING - UPPER BODY - SCORE: 0-UNK DRESSING - LOWER BODY: Patient is not dressing in public clothing ARTICLES SCORE Total number of steps: 0 DRESSING - LOWER BODY - SCORE: 0-UNK TOILETING: TOILETING - STEP 1: Does the patient require the assistance of a person or device, or need extra time with toileting? Yes . TOILETING - STEP 2: Does the patient require the assistance of a helper? Yes. TOILETING - STEP 3: How much assistance does the patient require from the helper? Only supervision TOILETING - SCORE: 5-SUP BLADDER MANAGEMENT: BLADDER MANAGEMENT - STEP 1: Does the patient control the bladder completely and intentionally without equipment or devices or med ications, and is always continent? No. BLADDER MANAGEMENT - STEP 2: Does the patient require the assistance of a helper? Yes. BLADDER MANAGEMENT - STEP 3: How much assistance does the patient require from the helper? Only supervision, stand-by, cuing, or c oaxing BLADDER MANAGEMENT - SCORE: 5-SUP BOWEL MANAGEMENT: BOWEL MANAGEMENT - STEP 1: Does the patient control bowels completely and intentionally without equipment devices or medications AND is always continent? No. BOWEL MANAGEMENT - STEP 2: Does the patient require the assistance of a helper? No, patient requires medication for control such as stool softeners, suppositories, laxatives, enemas, or OTC medications BOWEL MANAGEMENT - SCORE: 6-VEE TRANSFERS: BED, CHAIR, WHEELCHAIR: TRANSFERS: BED, CHAIR, WHEELCHAIR - STEP 1: Does the patient require assistance of a person or device, or need extra time with bed, chair, or whe elchair transfers? Yes. TRANSFERS: BED, CHAIR, WHEELCHAIR - STEP 2: Does the patient require the assistance of a helper? Yes. TRANSFERS: BED, CHAIR, WHEELCHAIR - STEP 3: How much assistance does the patient require from the helper? Steadying/guiding assistance TRANSFERS: BED, CHAIR, WHEELCHAIR - SCORE: 4-MIN TRANSFERS: TOILET: TRANSFERS: TOILET - STEP 1: Does the patient require the assistance of a person or device, or need extra time with toilet transfe rs? Yes. TRANSFERS: TOILET - STEP 2: Does the patient require the assistance of a helper? Yes. TRANSFERS: TOILET - STEP 3: How much assistance does the patient require from the helper? Only supervision, cuing, coaxing, OR he lp to set out transfer equipment or to lock brakes and/or lift foot rests TRANSFERS: TOILET - SCORE: 5-SUP TRANSFERS: SHOWER: Activity did not occur on this shift TRANSFERS: SHOWER - SCORE: 0-UNK TRANSFERS: TUB: Activity did not occur on this shift TRANSFERS: TUB - SCORE: 0-UNK LOCOMOTION: WALK: Activity did not occur on this shift LOCOMOTION: WALK - SCORE: 0-UNK LOCOMOTION: WHEELCHAIR: Activity did not occur on this shift LOCOMOTION: WHEELCHAIR - SCORE: 0-UNK COMPREHENSION: COMPREHENSION: TYPE: Both COMPREHENSION - STEP 1: Does the patient require help from a person or device, or need extra time to understand complex and a bstract ideas (such as current events, finances, discharge planning, medical issues, relationships, e tc)? Yes. COMPREHENSION - STEP 2: Does the patient require help to understand questions or statements about basic needs or ideas (such as hunger, thirst, sleep, safety, daily schedule, room location, or discomfort) half or more of the t alina? No. COMPREHENSION - STEP 3: How often does the patient need help to understand directions and conversation about basic needs? 10% - 24% of the time COMPREHENSION - SCORE: 4-MIN EXPRESSION EXPRESSION: TYPE: Both EXPRESSION - STEP 1: Does the patient require help from a person or device, or need extra time expressing complex and abst ract ideas (such as current events, finances, discharge planning, medical issues, relationships, etc) ? No. EXPRESSION - STEP 2: Does the patient need extra time, require an assistive device (such as augmentive communication syste m or a communication board), OR does s/he have mild difficulty expressing complex and abstract ideas (including mild dysarthria or mild word-find problems)? Yes. EXPRESSION - SCORE: 6-VEE SOCIAL INTERACTION: SOCIAL INTERACTION - STEP 1: Does the patient require a helper to interact with others in social and therapeutic situations? No. SOCIAL INTERACTION - STEP 2: Does the patient need extra time in social situations, OR does s/he interact with staff, other patien ts, and family members ONLY in structured environments, OR does s/he require medication for social in teraction? Yes, patient needs extra time SOCIAL INTERACTION - SCORE: 6-VEE PROBLEM SOLVING: PROBLEM SOLVING - STEP 1: Does the patient need help from a person or device, or need extra time to solve complex problems such as managing a checking account or confronting interpersonal problems? Yes. PROBLEM SOLVING - STEP 2: Does the patient solve basic routine problems half or more of the time? Yes. PROBLEM SOLVING - STEP 3: How often does the patient need help to solve basic routine problems? 10%-24% of the time PROBLEM SOLVING - SCORE: 4-MIN MEMORY: MEMORY - STEP 1: Does the patient need help from a person or device, or need extra time to remember frequently encount ered people, daily routines, and executing requests? No. MEMORY - STEP 2: Does the patient have slight difficulty recognizing frequently encountered people, daily routines, or executing requests without the need for repetition or using self-initiated or environmental cues to remember? Yes. MEMORY - SCORE: 6-VEE SIGNATURE PANEL: The following modified sections: Eating - Score, Grooming - Score, Dressing - Upper Body - Score, Liu ssing - Lower Body - Score, Toileting - Score, Bladder Management - Score, Bowel Management - Score, Transfers: Bed, Chair, Wheelchair - Score, Transfers: Toilet - Score, Transfers: Shower - Score, Bee sfers: Tub - Score, Locomotion: Walk - Score, Locomotion: Wheelchair - Score, Comprehension - Score, Expression - Score, Social Interaction - Score, Problem Solving - Score, Memory - Score were [electro nically] signed by Elvia Curtis CNA on TueMay 10 2019 02:10:14 GMT-0500 (Central Daylight Time)
[2019-05-10] MEDS: MUPIROCIN 2% OINT 22GM TUBE TOP SCH ×2 (08:00→20:38)
[2019-05-10] MEDS: MAGNESIUM OXIDE 400 MG TAB PO SCH (08:00)
[2019-05-10] MEDS: FINASTERIDE 5 MG TAB PO SCH (08:11)
[2019-05-10] MEDS: LOSARTAN HCTZ PO SCH (08:11)
[2019-05-10] MEDS: AMOX/K CLAV 500 MG TAB PO SCH ×2 (08:12→20:38)
[2019-05-10] MEDS: APIXABAN 2.5 MG TABLET PO SCH ×2 (08:12→20:38)
[2019-05-10] MEDS: ASPIRIN 81 MG CHEWABLE TABLET PO SCH (08:12)
[2019-05-10] MEDS: AMLODIPINE 10 MG TAB PO SCH (08:13)
[2019-05-10] MEDS: HYDRALAZINE HCL 25 MG TABLET PO SCH ×3 (10:05→20:38)
--- NOTE | 2019-05-10 14:48 | FAST ---
ENCOUNTER DATE AND TIME: 05/10/2019 08:00 (CDT) NAME IRLANDA ROJAS DATE OF : 1945 DATE OF ADMISSION: 05/08/2019 17:09 (CDT) PHONE: AGE: 73 SSN# [id number] GENDER: Male ENCOUNTER PHYSICIAN: Dr. Garfield Moon M.D. ADMISSION DIAGNOSIS: - Pain Syndromes 07 - Other Pain (07.9) L1-L2 Spondylosis. EATING: Activity did not occur on this shift EATING - SCORE: 0-UNK GROOMING: Activity did not occur on this shift GROOMING - SCORE: 0-UNK BATHING: Activity did not occur on this shift BATHING - SCORE: 0-UNK DRESSING - UPPER BODY: Activity did not occur on this shift Patient is not dressing in public clothing ARTICLES SCORE Total number of steps: 0 DRESSING - UPPER BODY - SCORE: 0-UNK DRESSING - LOWER BODY: Activity did not occur on this shift Patient is not dressing in public clothing ARTICLES SCORE Total number of steps: 0 DRESSING - LOWER BODY - SCORE: 0-UNK TOILETING: Activity did not occur on this shift TOILETING - SCORE: 0-UNK BLADDER MANAGEMENT: Activity did not occur on this shift BLADDER MANAGEMENT - SCORE: 7-IND BOWEL MANAGEMENT: Activity did not occur on this shift BOWEL MANAGEMENT - SCORE: 7-IND TRANSFERS: BED, CHAIR, WHEELCHAIR: TRANSFERS: BED, CHAIR, WHEELCHAIR - STEP 1: Does the patient require assistance of a person or device, or need extra time with bed, chair, or whe elchair transfers? Yes. TRANSFERS: BED, CHAIR, WHEELCHAIR - STEP 2: Does the patient require the assistance of a helper? Yes. TRANSFERS: BED, CHAIR, WHEELCHAIR - STEP 3: How much assistance does the patient require from the helper? Only supervision TRANSFERS: BED, CHAIR, WHEELCHAIR - SCORE: 5-SUP TRANSFERS: TOILET: Activity did not occur on this shift TRANSFERS: TOILET - SCORE: 0-UNK TRANSFERS: SHOWER: Activity did not occur on this shift TRANSFERS: SHOWER - SCORE: 0-UNK TRANSFERS: TUB: Activity did not occur on this shift TRANSFERS: TUB - SCORE: 0-UNK LOCOMOTION: WALK: LOCOMOTION: WALK - STEP 1: Does the patient need help from a person or device, or need extra time to walk 150 feet? Yes. LOCOMOTION: WALK - STEP 2: How much assistance does the patient require to walk a minimum of 150 feet? Only supervision, cuing, or coaxing LOCOMOTION: WALK - SCORE: 5-SUP LOCOMOTION: WHEELCHAIR: Activity did not occur on this shift LOCOMOTION: WHEELCHAIR - SCORE: 0-UNK LOCOMOTION: STAIRS: LOCOMOTION: STAIRS - STEP 1: Does the patient need help to go up and down 12 to 14 stairs? Yes. LOCOMOTION: STAIRS - STEP 2: How much assistance does the patient need from the helper to go a minimum of 12 to 14 stairs? Only peres pervision, cuing, or coaxing LOCOMOTION: STAIRS - SCORE: 5-SUP COMPREHENSION: COMPREHENSION - SCORE: 0-UNK EXPRESSION EXPRESSION - SCORE: 0-UNK SOCIAL INTERACTION: SOCIAL INTERACTION - SCORE: 0-UNK PROBLEM SOLVING: PROBLEM SOLVING - SCORE: 0-UNK MEMORY: MEMORY - SCORE: 0-UNK SIGNATURE PANEL: The following modified sections: Transfers: Bed, Chair, Wheelchair - Score, Transfers: Toilet - Score , Locomotion: Walk - Score, Locomotion: Wheelchair - Score, Locomotion: Stairs - Score were [electron ramon] signed by Masood oRdriguez PTA on TueMay 10 2019 14:47:13 GMT-0500 (Central Daylight Time)
[2019-05-10] MEDS: ATORVASTATIN 10 MG TAB PO SCH (20:38)
[2019-05-10] MEDS: PROMOD 30 ML DOSE PO SCH (20:39)
--- NOTE | 2019-05-11 03:34 | FAST ---
SHIFT START DATE/TIME: 05/10/2019 19:00 (CDT) SHIFT END DATE/TIME: 05/11/2019 07:00 (CDT) NAME IRLANDA ROJAS DATE OF : 1945 DATE OF ADMISSION: 05/08/2019 17:09 (CDT) PHONE: AGE: 73 N# [id number] GENDER: Male ENCOUNTER PHYSICIAN: Dr. Garfield Moon M.D. ADMISSION DIAGNOSIS: - Pain Syndromes 07 - Other Pain (07.9) L1-L2 Spondylosis. EATING: Activity did not occur on this shift EATING - SCORE: 0-UNK GROOMING: Activity did not occur on this shift GROOMING - SCORE: 0-UNK BATHING: Activity did not occur on this shift BATHING - SCORE: 0-UNK DRESSING - UPPER BODY: Activity did not occur on this shift ARTICLES SCORE Total number of steps: 0 DRESSING - UPPER BODY - SCORE: 0-UNK DRESSING - LOWER BODY: Activity did not occur on this shift ARTICLES SCORE Total number of steps: 0 DRESSING - LOWER BODY - SCORE: 0-UNK TOILETING: TOILETING - SCORE: 0-UNK BLADDER MANAGEMENT: BLADDER MANAGEMENT - STEP 1: Does the patient control the bladder completely and intentionally without equipment or devices or med ications, and is always continent? No. BLADDER MANAGEMENT - STEP 2: Does the patient require the assistance of a helper? Yes. BLADDER MANAGEMENT - STEP 3: How much assistance does the patient require from the helper? Only set-up of equipment - such as plac ing it within reach of the patient or emptying a device - to maintain either satisfactory voiding pat tern or managing an external device, such as an absorbent pad, ileal device, or catheter BLADDER MANAGEMENT - SCORE: 5-SUP BLADDER MANAGEMENT - FREQUENCY OF ACCIDENTS: BLADDER MANAGEMENT(FA) - STEP 1: How many accidents has the patient had during the current shift? 0 BOWEL MANAGEMENT: Activity did not occur on this shift BOWEL MANAGEMENT - SCORE: 7-IND BOWEL MANAGEMENT - FREQUENCY OF ACCIDENTS: BOWEL MANAGEMENT(FA) - STEP 1: How many accidents has the patient had during the current shift? 0 TRANSFERS: BED, CHAIR, WHEELCHAIR: TRANSFERS: BED, CHAIR, WHEELCHAIR - STEP 1: Does the patient require assistance of a person or device, or need extra time with bed, chair, or whe elchair transfers? Yes. TRANSFERS: BED, CHAIR, WHEELCHAIR - STEP 2: Does the patient require the assistance of a helper? Yes. TRANSFERS: BED, CHAIR, WHEELCHAIR - STEP 3: How much assistance does the patient require from the helper? Lifting of the legs TRANSFERS: BED, CHAIR, WHEELCHAIR - STEP 4: How many legs does the patient require the helper to lift? one leg TRANSFERS: BED, CHAIR, WHEELCHAIR - SCORE: 4-MIN TRANSFERS: TOILET: TRANSFERS: TOILET - STEP 1: Does the patient require the assistance of a person or device, or need extra time with toilet transfe rs? Yes. TRANSFERS: TOILET - STEP 2: Does the patient require the assistance of a helper? Yes. TRANSFERS: TOILET - STEP 3: How much assistance does the patient require from the helper? Only supervision, cuing, coaxing, OR he lp to set out transfer equipment or to lock brakes and/or lift foot rests TRANSFERS: TOILET - SCORE: 5-SUP TRANSFERS: SHOWER: Activity did not occur on this shift TRANSFERS: SHOWER - SCORE: 0-UNK TRANSFERS: TUB: Activity did not occur on this shift TRANSFERS: TUB - SCORE: 0-UNK LOCOMOTION: WALK: Activity did not occur on this shift LOCOMOTION: WALK - SCORE: 0-UNK LOCOMOTION: WHEELCHAIR: Activity did not occur on this shift LOCOMOTION: WHEELCHAIR - SCORE: 0-UNK COMPREHENSION: COMPREHENSION: TYPE: Both COMPREHENSION - STEP 1: Does the patient require help from a person or device, or need extra time to understand complex and a bstract ideas (such as current events, finances, discharge planning, medical issues, relationships, e tc)? Yes. COMPREHENSION - STEP 2: Does the patient require help to understand questions or statements about basic needs or ideas (such as hunger, thirst, sleep, safety, daily schedule, room location, or discomfort) half or more of the t alina? No. COMPREHENSION - STEP 3: How often does the patient need help to understand directions and conversation about basic needs? Les s than 10% of the time COMPREHENSION - SCORE: 5-SUP EXPRESSION EXPRESSION: TYPE: Both EXPRESSION - STEP 1: Does the patient require help from a person or device, or need extra time expressing complex and abst ract ideas (such as current events, finances, discharge planning, medical issues, relationships, etc) ? Yes. EXPRESSION - STEP 2: Does the patient require help to express basic necessities or ideas (such as hunger, thirst, sleep, s afety, daily schedule, room location, or discomfort) half or more of the time? No. EXPRESSION - STEP 3: How often does the patient need help to express directions and conversation about basic needs? Less t moffett 10% of the time EXPRESSION - SCORE: 5-SUP SOCIAL INTERACTION: SOCIAL INTERACTION - STEP 1: Does the patient require a helper to interact with others in social and therapeutic situations? No. SOCIAL INTERACTION - STEP 2: Does the patient need extra time in social situations, OR does s/he interact with staff, other patien ts, and family members ONLY in structured environments, OR does s/he require medication for social in teraction? Yes, patient needs extra time SOCIAL INTERACTION - SCORE: 6-VEE PROBLEM SOLVING: PROBLEM SOLVING - STEP 1: Does the patient need help from a person or device, or need extra time to solve complex problems such as managing a checking account or confronting interpersonal problems? Yes. PROBLEM SOLVING - STEP 2: Does the patient solve basic routine problems half or more of the time? Yes. PROBLEM SOLVING - STEP 3: How often does the patient need help to solve basic routine problems? 10%-24% of the time PROBLEM SOLVING - SCORE: 4-MIN MEMORY: MEMORY - STEP 1: Does the patient need help from a person or device, or need extra time to remember frequently encount ered people, daily routines, and executing requests? Yes. MEMORY - STEP 2: How often does the patient need help to remember frequently encountered people, daily routines, and e xecuting requests? Less than 10% of the time MEMORY - SCORE: 5-SUP SIGNATURE PANEL: The following modified sections: Eating - Score, Grooming - Score, Bathing - Score, Dressing - Upper Body - Score, Dressing - Lower Body - Score, Bladder Management - Score, Bowel Management - Score, Tr ansfers: Bed, Chair, Wheelchair - Score, Transfers: Toilet - Score, Transfers: Shower - Score, Transf ers: Tub - Score, Locomotion: Walk - Score, Locomotion: Wheelchair - Score, Comprehension - Score, Ex pression - Score, Social Interaction - Score, Problem Solving - Score, Memory - Score were [raei bobby] signed by Lulú Castrejon RN on TueMay 11 2019 03:33:51 [facility]-0500 (Central Daylight Time)
[2019-05-11] MEDS: LOSARTAN HCTZ PO SCH (08:16)
[2019-05-11] MEDS: MUPIROCIN 2% OINT 22GM TUBE TOP SCH ×2 (08:17→21:06)
[2019-05-11] MEDS: FINASTERIDE 5 MG TAB PO SCH (08:17)
[2019-05-11] MEDS: AMOX/K CLAV 500 MG TAB PO SCH ×2 (08:17→21:05)
[2019-05-11] MEDS: APIXABAN 2.5 MG TABLET PO SCH ×2 (08:18→21:05)
[2019-05-11] MEDS: ASPIRIN 81 MG CHEWABLE TABLET PO SCH (08:18)
[2019-05-11] MEDS: AMLODIPINE 10 MG TAB PO SCH (08:18)
[2019-05-11] MEDS: MAGNESIUM OXIDE 400 MG TAB PO SCH (08:18)
[2019-05-11] MEDS: PROMOD 30 ML DOSE PO SCH ×2 (08:19→21:06)
[2019-05-11] MEDS: HYDRALAZINE HCL 25 MG TABLET PO SCH ×3 (08:19→21:05)
--- NOTE | 2019-05-11 09:27 | FAST ---
SHIFT START DATE/TIME: 05/11/2019 07:00 (CDT) SHIFT END DATE/TIME: 05/11/2019 19:00 (CDT) NAME IRLANDA ROJAS DATE OF : 1945 DATE OF ADMISSION: 05/08/2019 17:09 (CDT) PHONE: AGE: 73 N# [id number] GENDER: Male ENCOUNTER PHYSICIAN: Dr. Garfield Moon M.D. ADMISSION DIAGNOSIS: - Pain Syndromes 07 - Other Pain (07.9) L1-L2 Spondylosis. EATING: EATING - STEP 1: Does the patient require the assistance of a person or device, or need extra time when eating? No. EATING - SCORE: 7-IND GROOMING: GROOMING - STEP 1: Does the patient require the assistance of a person or device, or need extra time when grooming? Yes. GROOMING - STEP 2: Does the patient require the assistance of a helper? Yes. GROOMING - STEP 3: How much assistance does the patient require from the helper? Only prior equipment preparation/set up from the helper GROOMING - SCORE: 5-SUP BATHING: Activity did not occur on this shift BATHING - SCORE: 0-UNK DRESSING - UPPER BODY: Activity did not occur on this shift ARTICLES SCORE Total number of steps: 0 DRESSING - UPPER BODY - SCORE: 0-UNK DRESSING - LOWER BODY: Elastic waist pants (three steps) ARTICLES SCORE Total number of steps: 3 DRESSING - LOWER BODY - STEP 1: Does the patient require help from a person or device, or need extra time when dressing below the [address] st? Yes. DRESSING - LOWER BODY - STEP 2: Does the patient require the assistance of a helper? Yes. DRESSING - LOWER BODY - STEP 3: Does the helper touch the patient while dressing? No. DRESSING - LOWER BODY - SCORE: 5-SUP TOILETING: TOILETING - STEP 1: Does the patient require the assistance of a person or device, or need extra time with toileting? Yes . TOILETING - STEP 2: Does the patient require the assistance of a helper? No. TOILETING - SCORE: 6-VEE BLADDER MANAGEMENT: BLADDER MANAGEMENT - STEP 1: Does the patient control the bladder completely and intentionally without equipment or devices or med ications, and is always continent? Yes. BLADDER MANAGEMENT - SCORE: 7-IND BLADDER MANAGEMENT - FREQUENCY OF ACCIDENTS: BLADDER MANAGEMENT(FA) - STEP 1: How many accidents has the patient had during the current shift? 0 BOWEL MANAGEMENT: BOWEL MANAGEMENT - STEP 1: Does the patient control bowels completely and intentionally without equipment devices or medications AND is always continent? Yes. BOWEL MANAGEMENT - SCORE: 7-IND BOWEL MANAGEMENT - FREQUENCY OF ACCIDENTS: BOWEL MANAGEMENT(FA) - STEP 1: How many accidents has the patient had during the current shift? 0 TRANSFERS: BED, CHAIR, WHEELCHAIR: TRANSFERS: BED, CHAIR, WHEELCHAIR - STEP 1: Does the patient require assistance of a person or device, or need extra time with bed, chair, or whe elchair transfers? Yes. TRANSFERS: BED, CHAIR, WHEELCHAIR - STEP 2: Does the patient require the assistance of a helper? Yes. TRANSFERS: BED, CHAIR, WHEELCHAIR - STEP 3: How much assistance does the patient require from the helper? Steadying/guiding assistance TRANSFERS: BED, CHAIR, WHEELCHAIR - SCORE: 4-MIN TRANSFERS: TOILET: TRANSFERS: TOILET - STEP 1: Does the patient require the assistance of a person or device, or need extra time with toilet transfe rs? Yes. TRANSFERS: TOILET - STEP 2: Does the patient require the assistance of a helper? Yes. TRANSFERS: TOILET - STEP 3: How much assistance does the patient require from the helper? Patient performs half or more of the tr ansferring tasks TRANSFERS: TOILET - STEP 4: Does the patient need only incidental help such as contact guard or steadying during toilet transfer? Yes. TRANSFERS: TOILET - SCORE: 4-MIN TRANSFERS: SHOWER: Activity did not occur on this shift TRANSFERS: SHOWER - SCORE: 0-UNK TRANSFERS: TUB: Activity did not occur on this shift TRANSFERS: TUB - SCORE: 0-UNK LOCOMOTION: WALK: Activity did not occur on this shift LOCOMOTION: WALK - SCORE: 0-UNK LOCOMOTION: WHEELCHAIR: Activity did not occur on this shift LOCOMOTION: WHEELCHAIR - SCORE: 0-UNK COMPREHENSION: COMPREHENSION - SCORE: 0-UNK EXPRESSION EXPRESSION - SCORE: 0-UNK SOCIAL INTERACTION: SOCIAL INTERACTION - SCORE: 0-UNK PROBLEM SOLVING: PROBLEM SOLVING - SCORE: 0-UNK MEMORY: MEMORY - SCORE: 0-UNK SIGNATURE PANEL: The following modified sections: Eating - Score, Grooming - Score, Bathing - Score, Dressing - Upper Body - Score, Dressing - Lower Body - Score, Toileting - Score, Bladder Management - Score, Bowel Man agement - Score, Transfers: Bed, Chair, Wheelchair - Score, Transfers: Toilet - Score, Transfers: Sabi wer - Score, Transfers: Tub - Score, Locomotion: Walk - Score, Locomotion: Wheelchair - Score, Compre hension - Score, Expression - Score, Social Interaction - Score, Problem Solving - Score, Memory - Sc ore were [electronically] signed by Reema Mendez CNA on TueMay 11 2019 09:26:33 T-0500 (Centra l Daylight Time)
--- NOTE | 2019-05-11 09:54 | P.RH.PN ---
Estimated Length of Stay: 14 Expected Discharge Date: 05/21/19 Discharge Disposition Plan: Home Family Support: Yes Halfway Goal: Mobility, Transfers, Self Care Vital Signs: Last Vital Signs Temp 97.9 F 05/11/19 06:10 Pulse 62 05/11/19 08:18 Resp 16 05/11/19 06:10 BP 139/78 05/11/19 08:18 Pulse Ox 96 05/11/19 06:10 Laboratory: Laboratory Last Values WBC 8.2 K/uL (4.3-10.9) 05/09/19 05:49 RBC 4.94 M/uL (4.33-5.43) 05/09/19 05:49 Hgb 14.8 g/dL (13.6-17.9) 05/09/19 05:49 Hct 44.0 % (39.6-49.0) 05/09/19 05:49 MCV 89.1 fL (80-100) 05/09/19 05:49 MCH 30.0 pg (27.0-35.0) 05/09/19 05:49 MCHC 33.7 g/dL (32.0-36.0) 05/09/19 05:49 RDW 13.3 % (12.1-15.2) 05/09/19 05:49 Plt Count 286 K/uL (152-406) 05/09/19 05:49 MPV 7.4 fL (7.6-11.3) L 05/09/19 05:49 Neutrophils % 58.2 % (41.7-73.7) 05/09/19 05:49 Lymphocytes % 22.7 % (15.3-44.8) 05/09/19 05:49 Monocytes % 13.6 % (3.3-12.3) H 05/09/19 05:49 Eosinophils % 5.1 % (0-4.4) H 05/09/19 05:49 Basophils % 0.4 % (0-1.3) 05/09/19 05:49 Absolute Neutrophils 4.8 K/uL (1.8-8.0) 05/09/19 05:49 Absolute Lymphocytes 1.9 K/uL (0.7-4.9) 05/09/19 05:49 Absolute Monocytes 1.1 K/uL (0.1-1.3) 05/09/19 05:49 Absolute Eosinophils 0.4 K/uL (0-0.5) 05/09/19 05:49 Absolute Basophils 0.0 K/uL (0-0.5) 05/09/19 05:49 Sodium 138 mmol/L (136-145) 05/09/19 05:49 Potassium 4.1 mmol/L (3.5-5.1) 05/09/19 05:49 Chloride 103 mmol/L (98-107) 05/09/19 05:49 Carbon Dioxide 29 mmol/L (21-32) 05/09/19 05:49 BUN 18 mg/dL (7-18) 05/09/19 05:49 Creatinine 0.86 mg/dL (0.55-1.3) 05/09/19 05:49 Estimated GFR 87 mL/min (=/>90) L 05/09/19 05:49 Glucose 136 mg/dL (74-106) H 05/09/19 05:49 Calcium 8.8 mg/dL (8.5-10.1) 05/09/19 05:49 Magnesium 2.2 mg/dL (1.8-2.4) 05/09/19 05:49 Albumin 2.7 g/dL (3.4-5.0) L 05/09/19 05:49 Prealbumin 16.9 mg/dL (20-40) L 05/09/19 05:49 Urine Color Yellow 05/08/19 20:45 Urine Appearance Clear 05/08/19 20:45 Urine pH 6.5 (5.0-7.0) 05/08/19 20:45 Ur Specific Crockett 1.020 (1.005-1.030) 05/08/19 20:45 Urine Ketones Negative (NEG) 05/08/19 20:45 Urine Blood Negative (NEG) 05/08/19 20:45 Urine Nitrite Negative (NEG) 05/08/19 20:45 Urine Bilirubin Negative (NEG) 05/08/19 20:45 Urine Urobilinogen 0.2 mg/dL (0.2-1.0) 05/08/19 20:45 Ur Leukocyte Esterase Negative (NEG) 05/08/19 20:45 Urine RBC None seen /HPF (NONE SEEN) 05/08/19 20:45 Urine WBC <5 /HPF (<5) 05/08/19 20:45 Ur Squamous Epith Cells <5 /HPF (NONE SEEN) 05/08/19 20:45 Urine Bacteria <20 /HPF (NONE SEEN) 05/08/19 20:45 Urine Culture Reflexed Not needed 05/08/19 20:45 Urine Glucose Trace (NEG) 05/08/19 20:45 Urine Total Protein Negative (NEG) 05/08/19 20:45 Weight: 175 lb 5 oz Wound Present: No Closed Surgical Incision Present: No Negative Pressure Wound Therapy Present: No Physician Update: Labs reviewed and are stable. He is doing well with PT and OT. Walking 500' with standby to modified independence. Medical Issues: Right lower leg cellulitis- on Augmentin 500-125mg/tab BID PO x 7 days Pain Issues: Tylenol 500mg Q4H PRN PO Comment: Erythema noted to RLE, on abtibiotics for RLE cellulitis. Left elbow abraison, R knee abraison, Left eye. Functional Improvement: Patient presents w/ positive attitude toward learning and follows instruction well. Patient showed a marked improvement w/ posture, pacing, and technique. Functional Improvement Occupational Therapy: Patient demonstrates good rehab potential, with main difficulties seem to be due to his ataxia during functional ambulation and static standing balance during functional tasks. Summary: Patient's care plan and ocean transportation intermediary goals have been reviewed and revised as necessary. Please see the Rehabilitation Signature page for all necessary signatures.
--- NOTE | 2019-05-11 10:08 | FAST ---
ENCOUNTER DATE AND TIME: 05/11/2019 08:00 (CDT) NAME IRLANDA ROJAS DATE OF : 1945 DATE OF ADMISSION: 05/08/2019 17:09 (CDT) PHONE: AGE: 73 SSN# [id number] GENDER: Male ENCOUNTER PHYSICIAN: Dr. Garfield Moon M.D. ADMISSION DIAGNOSIS: - Pain Syndromes 07 - Other Pain (07.9) L1-L2 Spondylosis. EATING: Activity did not occur on this shift EATING - SCORE: 0-UNK GROOMING: Activity did not occur on this shift GROOMING - SCORE: 0-UNK BATHING: Activity did not occur on this shift BATHING - SCORE: 0-UNK DRESSING - UPPER BODY: Activity did not occur on this shift Patient is not dressing in public clothing ARTICLES SCORE Total number of steps: 0 DRESSING - UPPER BODY - SCORE: 0-UNK DRESSING - LOWER BODY: Activity did not occur on this shift Patient is not dressing in public clothing ARTICLES SCORE Total number of steps: 0 DRESSING - LOWER BODY - SCORE: 0-UNK TOILETING: Activity did not occur on this shift TOILETING - SCORE: 0-UNK BLADDER MANAGEMENT: Activity did not occur on this shift BLADDER MANAGEMENT - SCORE: 7-IND BOWEL MANAGEMENT: Activity did not occur on this shift BOWEL MANAGEMENT - SCORE: 7-IND TRANSFERS: BED, CHAIR, WHEELCHAIR: TRANSFERS: BED, CHAIR, WHEELCHAIR - STEP 1: Does the patient require assistance of a person or device, or need extra time with bed, chair, or whe elchair transfers? Yes. TRANSFERS: BED, CHAIR, WHEELCHAIR - STEP 2: Does the patient require the assistance of a helper? Yes. TRANSFERS: BED, CHAIR, WHEELCHAIR - STEP 3: How much assistance does the patient require from the helper? Only supervision TRANSFERS: BED, CHAIR, WHEELCHAIR - SCORE: 5-SUP TRANSFERS: TOILET: Activity did not occur on this shift TRANSFERS: TOILET - SCORE: 0-UNK TRANSFERS: SHOWER: Activity did not occur on this shift TRANSFERS: SHOWER - SCORE: 0-UNK TRANSFERS: TUB: Activity did not occur on this shift TRANSFERS: TUB - SCORE: 0-UNK LOCOMOTION: WALK: LOCOMOTION: WALK - STEP 1: Does the patient need help from a person or device, or need extra time to walk 150 feet? Yes. LOCOMOTION: WALK - STEP 2: How much assistance does the patient require to walk a minimum of 150 feet? Only supervision, cuing, or coaxing LOCOMOTION: WALK - SCORE: 5-SUP LOCOMOTION: WHEELCHAIR: Activity did not occur on this shift LOCOMOTION: WHEELCHAIR - SCORE: 0-UNK LOCOMOTION: STAIRS: Activity did not occur on this shift LOCOMOTION: STAIRS - SCORE: 0-UNK COMPREHENSION: COMPREHENSION - SCORE: 0-UNK EXPRESSION EXPRESSION - SCORE: 0-UNK SOCIAL INTERACTION: SOCIAL INTERACTION - SCORE: 0-UNK PROBLEM SOLVING: PROBLEM SOLVING - SCORE: 0-UNK MEMORY: MEMORY - SCORE: 0-UNK SIGNATURE PANEL: The following modified sections: Transfers: Bed, Chair, Wheelchair - Score, Transfers: Toilet - Score , Locomotion: Walk - Score, Locomotion: Wheelchair - Score, Locomotion: Stairs - Score were [electron ramon] signed by Sakshi Salgado PTA on TueMay 11 2019 10:07:37 T-0500 (Central Daylight Time)
[2019-05-11] MEDS: ATORVASTATIN 10 MG TAB PO SCH (21:05)
--- NOTE | 2019-05-12 02:16 | FAST ---
SHIFT START DATE/TIME: 05/11/2019 19:00 (CDT) SHIFT END DATE/TIME: 05/12/2019 07:00 (CDT) NAME IRLANDA ROJAS DATE OF : 1945 DATE OF ADMISSION: 05/08/2019 17:09 (CDT) PHONE: AGE: 73 N# [id number] GENDER: Male ENCOUNTER PHYSICIAN: Dr. Garfield Moon M.D. ADMISSION DIAGNOSIS: - Pain Syndromes 07 - Other Pain (07.9) L1-L2 Spondylosis. EATING: Activity did not occur on this shift EATING - SCORE: 0-UNK GROOMING: Activity did not occur on this shift GROOMING - SCORE: 0-UNK BATHING: Activity did not occur on this shift BATHING - SCORE: 0-UNK DRESSING - UPPER BODY: Patient is not dressing in public clothing ARTICLES SCORE Total number of steps: 0 DRESSING - UPPER BODY - SCORE: 0-UNK DRESSING - LOWER BODY: Patient is not dressing in public clothing ARTICLES SCORE Total number of steps: 0 DRESSING - LOWER BODY - SCORE: 0-UNK TOILETING: TOILETING - STEP 1: Does the patient require the assistance of a person or device, or need extra time with toileting? Yes . TOILETING - STEP 2: Does the patient require the assistance of a helper? Yes. TOILETING - STEP 3: How much assistance does the patient require from the helper? Only supervision TOILETING - SCORE: 5-SUP BLADDER MANAGEMENT: BLADDER MANAGEMENT - STEP 1: Does the patient control the bladder completely and intentionally without equipment or devices or med ications, and is always continent? No. BLADDER MANAGEMENT - STEP 2: Does the patient require the assistance of a helper? Yes. BLADDER MANAGEMENT - STEP 3: How much assistance does the patient require from the helper? Only set-up of equipment - such as plac ing it within reach of the patient or emptying a device - to maintain either satisfactory voiding pat tern or managing an external device, such as an absorbent pad, ileal device, or catheter BLADDER MANAGEMENT - SCORE: 5-SUP BOWEL MANAGEMENT: Activity did not occur on this shift BOWEL MANAGEMENT - SCORE: 7-IND TRANSFERS: BED, CHAIR, WHEELCHAIR: Activity did not occur on this shift TRANSFERS: BED, CHAIR, WHEELCHAIR - SCORE: 0-UNK TRANSFERS: TOILET: Activity did not occur on this shift TRANSFERS: TOILET - SCORE: 0-UNK TRANSFERS: SHOWER: Activity did not occur on this shift TRANSFERS: SHOWER - SCORE: 0-UNK TRANSFERS: TUB: Activity did not occur on this shift TRANSFERS: TUB - SCORE: 0-UNK LOCOMOTION: WALK: Activity did not occur on this shift LOCOMOTION: WALK - SCORE: 0-UNK LOCOMOTION: WHEELCHAIR: Activity did not occur on this shift LOCOMOTION: WHEELCHAIR - SCORE: 0-UNK COMPREHENSION: COMPREHENSION: TYPE: Both COMPREHENSION - STEP 1: Does the patient require help from a person or device, or need extra time to understand complex and a bstract ideas (such as current events, finances, discharge planning, medical issues, relationships, e tc)? Yes. COMPREHENSION - STEP 2: Does the patient require help to understand questions or statements about basic needs or ideas (such as hunger, thirst, sleep, safety, daily schedule, room location, or discomfort) half or more of the t alina? No. COMPREHENSION - STEP 3: How often does the patient need help to understand directions and conversation about basic needs? Les s than 10% of the time COMPREHENSION - SCORE: 5-SUP EXPRESSION EXPRESSION: TYPE: Both EXPRESSION - STEP 1: Does the patient require help from a person or device, or need extra time expressing complex and abst ract ideas (such as current events, finances, discharge planning, medical issues, relationships, etc) ? Yes. EXPRESSION - STEP 2: Does the patient require help to express basic necessities or ideas (such as hunger, thirst, sleep, s afety, daily schedule, room location, or discomfort) half or more of the time? No. EXPRESSION - STEP 3: How often does the patient need help to express directions and conversation about basic needs? Less t moffett 10% of the time EXPRESSION - SCORE: 5-SUP SOCIAL INTERACTION: SOCIAL INTERACTION - STEP 1: Does the patient require a helper to interact with others in social and therapeutic situations? No. SOCIAL INTERACTION - STEP 2: Does the patient need extra time in social situations, OR does s/he interact with staff, other patien ts, and family members ONLY in structured environments, OR does s/he require medication for social in teraction? Yes, patient needs extra time SOCIAL INTERACTION - SCORE: 6-VEE PROBLEM SOLVING: PROBLEM SOLVING - STEP 1: Does the patient need help from a person or device, or need extra time to solve complex problems such as managing a checking account or confronting interpersonal problems? Yes. PROBLEM SOLVING - STEP 2: Does the patient solve basic routine problems half or more of the time? Yes. PROBLEM SOLVING - STEP 3: How often does the patient need help to solve basic routine problems? 10%-24% of the time PROBLEM SOLVING - SCORE: 4-MIN MEMORY: MEMORY - STEP 1: Does the patient need help from a person or device, or need extra time to remember frequently encount ered people, daily routines, and executing requests? Yes. MEMORY - STEP 2: How often does the patient need help to remember frequently encountered people, daily routines, and e xecuting requests? 10% - 24% of the time MEMORY - SCORE: 4-MIN
[2019-05-12 05:21] VITALS: BMI 23.2
[2019-05-12] MEDS: MUPIROCIN 2% OINT 22GM TUBE TOP SCH ×2 (08:00→22:09)
[2019-05-12] MEDS: HYDRALAZINE HCL 25 MG TABLET PO SCH ×3 (08:10→22:09)
[2019-05-12] MEDS: AMOX/K CLAV 500 MG TAB PO SCH ×2 (08:10→22:09)
[2019-05-12] MEDS: FINASTERIDE 5 MG TAB PO SCH (08:10)
[2019-05-12] MEDS: ASPIRIN 81 MG CHEWABLE TABLET PO SCH (08:11)
[2019-05-12] MEDS: APIXABAN 2.5 MG TABLET PO SCH ×2 (08:11→22:09)
[2019-05-12] MEDS: MAGNESIUM OXIDE 400 MG TAB PO SCH (08:11)
[2019-05-12] MEDS: AMLODIPINE 10 MG TAB PO SCH (08:11)
[2019-05-12] MEDS: LOSARTAN HCTZ PO SCH (08:12)
[2019-05-12] MEDS: PROMOD 30 ML DOSE PO SCH ×2 (08:12→22:10)
--- NOTE | 2019-05-12 10:35 | FAST ---
SHIFT START DATE/TIME: 05/12/2019 07:00 (CDT) SHIFT END DATE/TIME: 05/12/2019 19:00 (CDT) NAME IRLANDA ROJAS DATE OF : 1945 DATE OF ADMISSION: 05/08/2019 17:09 (CDT) PHONE: AGE: 73 N# [id number] GENDER: Male ENCOUNTER PHYSICIAN: Dr. Garfield Moon M.D. ADMISSION DIAGNOSIS: - Pain Syndromes 07 - Other Pain (07.9) L1-L2 Spondylosis. EATING: EATING - STEP 1: Does the patient require the assistance of a person or device, or need extra time when eating? Yes. EATING - STEP 2: Does the patient require the assistance of a helper? No, patient only requires an assistive device, O R s/he takes more than reasonable time to eat, OR there is a safety concern, OR s/he requires modifie d food consistency EATING - SCORE: 6-VEE GROOMING: Activity did not occur on this shift GROOMING - SCORE: 0-UNK BATHING: Activity did not occur on this shift BATHING - SCORE: 0-UNK DRESSING - UPPER BODY: Activity did not occur on this shift ARTICLES SCORE Total number of steps: 0 DRESSING - UPPER BODY - SCORE: 0-UNK DRESSING - LOWER BODY: Activity did not occur on this shift ARTICLES SCORE Total number of steps: 0 DRESSING - LOWER BODY - SCORE: 0-UNK TOILETING: TOILETING - STEP 1: Does the patient require the assistance of a person or device, or need extra time with toileting? Yes . TOILETING - STEP 2: Does the patient require the assistance of a helper? Yes. TOILETING - STEP 3: How much assistance does the patient require from the helper? Only supervision TOILETING - SCORE: 5-SUP BLADDER MANAGEMENT: BLADDER MANAGEMENT - STEP 1: Does the patient control the bladder completely and intentionally without equipment or devices or med ications, and is always continent? No. BLADDER MANAGEMENT - STEP 2: Does the patient require the assistance of a helper? No, patient requires and independently uses an a ssistive device, such as a urinal, bedpan, bedside commode, catheter, absorbent pad, or collecting de vice BLADDER MANAGEMENT - SCORE: 6-VEE BOWEL MANAGEMENT: Activity did not occur on this shift BOWEL MANAGEMENT - SCORE: 7-IND TRANSFERS: BED, CHAIR, WHEELCHAIR: TRANSFERS: BED, CHAIR, WHEELCHAIR - STEP 1: Does the patient require assistance of a person or device, or need extra time with bed, chair, or whe elchair transfers? Yes. TRANSFERS: BED, CHAIR, WHEELCHAIR - STEP 2: Does the patient require the assistance of a helper? Yes. TRANSFERS: BED, CHAIR, WHEELCHAIR - STEP 3: How much assistance does the patient require from the helper? Steadying/guiding assistance TRANSFERS: BED, CHAIR, WHEELCHAIR - SCORE: 4-MIN TRANSFERS: TOILET: TRANSFERS: TOILET - STEP 1: Does the patient require the assistance of a person or device, or need extra time with toilet transfe rs? Yes. TRANSFERS: TOILET - STEP 2: Does the patient require the assistance of a helper? Yes. TRANSFERS: TOILET - STEP 3: How much assistance does the patient require from the helper? Only supervision, cuing, coaxing, OR he lp to set out transfer equipment or to lock brakes and/or lift foot rests TRANSFERS: TOILET - SCORE: 5-SUP TRANSFERS: SHOWER: Activity did not occur on this shift TRANSFERS: SHOWER - SCORE: 0-UNK TRANSFERS: TUB: Activity did not occur on this shift TRANSFERS: TUB - SCORE: 0-UNK LOCOMOTION: WALK: Activity did not occur on this shift LOCOMOTION: WALK - SCORE: 0-UNK LOCOMOTION: WHEELCHAIR: Activity did not occur on this shift LOCOMOTION: WHEELCHAIR - SCORE: 0-UNK COMPREHENSION: COMPREHENSION: TYPE: Both COMPREHENSION - STEP 1: Does the patient require help from a person or device, or need extra time to understand complex and a bstract ideas (such as current events, finances, discharge planning, medical issues, relationships, e tc)? No. COMPREHENSION - STEP 2: Does the patient need extra time, require an assistive device (such as glasses for visual comprehensi on or a hearing aid for auditory comprehension) or does s/he have mild difficulty understanding compl ex and abstract information? Yes. COMPREHENSION - SCORE: 6-VEE EXPRESSION EXPRESSION: TYPE: Both EXPRESSION - STEP 1: Does the patient require help from a person or device, or need extra time expressing complex and abst ract ideas (such as current events, finances, discharge planning, medical issues, relationships, etc) ? No. EXPRESSION - STEP 2: Does the patient need extra time, require an assistive device (such as augmentive communication syste m or a communication board), OR does s/he have mild difficulty expressing complex and abstract ideas (including mild dysarthria or mild word-find problems)? Yes. EXPRESSION - SCORE: 6-VEE SOCIAL INTERACTION: SOCIAL INTERACTION - STEP 1: Does the patient require a helper to interact with others in social and therapeutic situations? No. SOCIAL INTERACTION - STEP 2: Does the patient need extra time in social situations, OR does s/he interact with staff, other patien ts, and family members ONLY in structured environments, OR does s/he require medication for social in teraction? Yes, patient needs extra time SOCIAL INTERACTION - SCORE: 6-VEE PROBLEM SOLVING: PROBLEM SOLVING - STEP 1: Does the patient need help from a person or device, or need extra time to solve complex problems such as managing a checking account or confronting interpersonal problems? No. PROBLEM SOLVING - STEP 2: Does the patient require extra time to make decisions or solve problems, OR does s/he have slight dif ficulty reading, initiating, or self-correcting in unfamiliar situations? Yes, patient needs extra ti me. PROBLEM SOLVING - SCORE: 6-VEE MEMORY: MEMORY - STEP 1: Does the patient need help from a person or device, or need extra time to remember frequently encount ered people, daily routines, and executing requests? No. MEMORY - STEP 2: Does the patient have slight difficulty recognizing frequently encountered people, daily routines, or executing requests without the need for repetition or using self-initiated or environmental cues to remember? Yes. MEMORY - SCORE: 6-VEE SIGNATURE PANEL: The following modified sections: Eating - Score, Grooming - Score, Bathing - Score, Dressing - Upper Body - Score, Dressing - Lower Body - Score, Toileting - Score, Bladder Management - Score, Bowel Man agement - Score, Transfers: Bed, Chair, Wheelchair - Score, Transfers: Toilet - Score, Transfers: Sabi wer - Score, Transfers: Tub - Score, Locomotion: Walk - Score, Locomotion: Wheelchair - Score, Compre hension - Score, Expression - Score, Social Interaction - Score, Problem Solving - Score, Memory - Sc ore were [electronically] signed by Wyatt Castle on Sat May 12 2019 10:34:33 [facility]-0500 (Central Daylight Time)
[2019-05-12] MEDS: ATORVASTATIN 10 MG TAB PO SCH (22:09)
[2019-05-13] MEDS: DOCUSATE NA/SENNA CONC 1 TAB PO PRN (05:10)
[2019-05-13] MEDS: MUPIROCIN 2% OINT 22GM TUBE TOP SCH ×2 (08:00→19:41)
[2019-05-13] MEDS: AMOX/K CLAV 500 MG TAB PO SCH ×2 (08:01→19:38)
[2019-05-13] MEDS: LOSARTAN HCTZ PO SCH (08:01)
[2019-05-13] MEDS: AMLODIPINE 10 MG TAB PO SCH (08:02)
[2019-05-13] MEDS: ASPIRIN 81 MG CHEWABLE TABLET PO SCH (08:02)
[2019-05-13] MEDS: FINASTERIDE 5 MG TAB PO SCH (08:04)
[2019-05-13] MEDS: MAGNESIUM OXIDE 400 MG TAB PO SCH (08:04)
[2019-05-13] MEDS: APIXABAN 2.5 MG TABLET PO SCH ×2 (08:04→19:39)
[2019-05-13] MEDS: PROMOD 30 ML DOSE PO SCH ×2 (08:04→19:39)
[2019-05-13] MEDS: HYDRALAZINE HCL 25 MG TABLET PO SCH ×3 (09:37→19:39)
--- NOTE | 2019-05-13 10:37 | FAST ---
SHIFT START DATE/TIME: 05/13/2019 07:00 (CDT) SHIFT END DATE/TIME: 05/13/2019 19:00 (CDT) NAME IRLANDA ROJAS DATE OF : 1945 DATE OF ADMISSION: 05/08/2019 17:09 (CDT) PHONE: AGE: 73 N# [id number] GENDER: Male ENCOUNTER PHYSICIAN: Dr. Garfield Moon M.D. ADMISSION DIAGNOSIS: - Pain Syndromes 07 - Other Pain (07.9) L1-L2 Spondylosis. EATING: EATING - STEP 1: Does the patient require the assistance of a person or device, or need extra time when eating? Yes. EATING - STEP 2: Does the patient require the assistance of a helper? No, patient only requires an assistive device, O R s/he takes more than reasonable time to eat, OR there is a safety concern, OR s/he requires modifie d food consistency EATING - SCORE: 6-VEE GROOMING: Activity did not occur on this shift GROOMING - SCORE: 0-UNK BATHING: Activity did not occur on this shift BATHING - SCORE: 0-UNK DRESSING - UPPER BODY: Activity did not occur on this shift ARTICLES SCORE Total number of steps: 0 DRESSING - UPPER BODY - SCORE: 0-UNK DRESSING - LOWER BODY: Activity did not occur on this shift ARTICLES SCORE Total number of steps: 0 DRESSING - LOWER BODY - SCORE: 0-UNK TOILETING: TOILETING - STEP 1: Does the patient require the assistance of a person or device, or need extra time with toileting? Yes . TOILETING - STEP 2: Does the patient require the assistance of a helper? Yes. TOILETING - STEP 3: How much assistance does the patient require from the helper? Only supervision TOILETING - SCORE: 5-SUP BLADDER MANAGEMENT: BLADDER MANAGEMENT - STEP 1: Does the patient control the bladder completely and intentionally without equipment or devices or med ications, and is always continent? No. BLADDER MANAGEMENT - STEP 2: Does the patient require the assistance of a helper? No, patient requires and independently uses an a ssistive device, such as a urinal, bedpan, bedside commode, catheter, absorbent pad, or collecting de vice BLADDER MANAGEMENT - SCORE: 6-VEE BOWEL MANAGEMENT: Activity did not occur on this shift BOWEL MANAGEMENT - SCORE: 7-IND TRANSFERS: BED, CHAIR, WHEELCHAIR: TRANSFERS: BED, CHAIR, WHEELCHAIR - STEP 1: Does the patient require assistance of a person or device, or need extra time with bed, chair, or whe elchair transfers? Yes. TRANSFERS: BED, CHAIR, WHEELCHAIR - STEP 2: Does the patient require the assistance of a helper? Yes. TRANSFERS: BED, CHAIR, WHEELCHAIR - STEP 3: How much assistance does the patient require from the helper? Steadying/guiding assistance TRANSFERS: BED, CHAIR, WHEELCHAIR - SCORE: 4-MIN TRANSFERS: TOILET: TRANSFERS: TOILET - STEP 1: Does the patient require the assistance of a person or device, or need extra time with toilet transfe rs? Yes. TRANSFERS: TOILET - STEP 2: Does the patient require the assistance of a helper? Yes. TRANSFERS: TOILET - STEP 3: How much assistance does the patient require from the helper? Patient performs half or more of the tr ansferring tasks TRANSFERS: TOILET - STEP 4: Does the patient need only incidental help such as contact guard or steadying during toilet transfer? No. Patient needs more than incidental help TRANSFERS: TOILET - SCORE: 3-MOD TRANSFERS: SHOWER: Activity did not occur on this shift TRANSFERS: SHOWER - SCORE: 0-UNK TRANSFERS: TUB: Activity did not occur on this shift TRANSFERS: TUB - SCORE: 0-UNK LOCOMOTION: WALK: Activity did not occur on this shift LOCOMOTION: WALK - SCORE: 0-UNK LOCOMOTION: WHEELCHAIR: Activity did not occur on this shift LOCOMOTION: WHEELCHAIR - SCORE: 0-UNK COMPREHENSION: COMPREHENSION: TYPE: Both COMPREHENSION - STEP 1: Does the patient require help from a person or device, or need extra time to understand complex and a bstract ideas (such as current events, finances, discharge planning, medical issues, relationships, e tc)? No. COMPREHENSION - STEP 2: Does the patient need extra time, require an assistive device (such as glasses for visual comprehensi on or a hearing aid for auditory comprehension) or does s/he have mild difficulty understanding compl ex and abstract information? Yes. COMPREHENSION - SCORE: 6-VEE EXPRESSION EXPRESSION: TYPE: Both EXPRESSION - STEP 1: Does the patient require help from a person or device, or need extra time expressing complex and abst ract ideas (such as current events, finances, discharge planning, medical issues, relationships, etc) ? No. EXPRESSION - STEP 2: Does the patient need extra time, require an assistive device (such as augmentive communication syste m or a communication board), OR does s/he have mild difficulty expressing complex and abstract ideas (including mild dysarthria or mild word-find problems)? Yes. EXPRESSION - SCORE: 6-VEE SOCIAL INTERACTION: SOCIAL INTERACTION - STEP 1: Does the patient require a helper to interact with others in social and therapeutic situations? No. SOCIAL INTERACTION - STEP 2: Does the patient need extra time in social situations, OR does s/he interact with staff, other patien ts, and family members ONLY in structured environments, OR does s/he require medication for social in teraction? Yes, patient needs extra time SOCIAL INTERACTION - SCORE: 6-VEE PROBLEM SOLVING: PROBLEM SOLVING - STEP 1: Does the patient need help from a person or device, or need extra time to solve complex problems such as managing a checking account or confronting interpersonal problems? No. PROBLEM SOLVING - STEP 2: Does the patient require extra time to make decisions or solve problems, OR does s/he have slight dif ficulty reading, initiating, or self-correcting in unfamiliar situations? Yes, patient needs extra ti me. PROBLEM SOLVING - SCORE: 6-VEE MEMORY: MEMORY - STEP 1: Does the patient need help from a person or device, or need extra time to remember frequently encount ered people, daily routines, and executing requests? No. MEMORY - STEP 2: Does the patient have slight difficulty recognizing frequently encountered people, daily routines, or executing requests without the need for repetition or using self-initiated or environmental cues to remember? Yes. MEMORY - SCORE: 6-VEE SIGNATURE PANEL: The following modified sections: Eating - Score, Grooming - Score, Bathing - Score, Dressing - Upper Body - Score, Dressing - Lower Body - Score, Toileting - Score, Bladder Management - Score, Bowel Man agement - Score, Transfers: Bed, Chair, Wheelchair - Score, Transfers: Toilet - Score, Transfers: Sabi wer - Score, Transfers: Tub - Score, Locomotion: Walk - Score, Locomotion: Wheelchair - Score, Compre hension - Score, Expression - Score, Social Interaction - Score, Problem Solving - Score, Memory - Sc ore were [electronically] signed by Wyatt Castle on Sun May 13 2019 10:36:21 GMT-0500 (Central Daylight Time)
[2019-05-13] MEDS: ATORVASTATIN 10 MG TAB PO SCH (19:39)
--- NOTE | 2019-05-14 03:34 | FAST ---
SHIFT START DATE/TIME: 05/13/2019 19:00 (CDT) SHIFT END DATE/TIME: 05/14/2019 07:00 (CDT) NAME IRLANDA ROJAS DATE OF : 1945 DATE OF ADMISSION: 05/08/2019 17:09 (CDT) PHONE: AGE: 73 N# [id number] GENDER: Male ENCOUNTER PHYSICIAN: Dr. Garfield Moon M.D. ADMISSION DIAGNOSIS: - Pain Syndromes 07 - Other Pain (07.9) L1-L2 Spondylosis. EATING: Activity did not occur on this shift EATING - SCORE: 0-UNK GROOMING: Activity did not occur on this shift GROOMING - SCORE: 0-UNK BATHING: Activity did not occur on this shift BATHING - SCORE: 0-UNK DRESSING - UPPER BODY: Activity did not occur on this shift ARTICLES SCORE Total number of steps: 0 DRESSING - UPPER BODY - SCORE: 0-UNK DRESSING - LOWER BODY: Activity did not occur on this shift ARTICLES SCORE Total number of steps: 0 DRESSING - LOWER BODY - SCORE: 0-UNK TOILETING: TOILETING - STEP 1: Does the patient require the assistance of a person or device, or need extra time with toileting? Yes . TOILETING - STEP 2: Does the patient require the assistance of a helper? Yes. TOILETING - STEP 3: How much assistance does the patient require from the helper? Only supervision TOILETING - SCORE: 5-SUP BLADDER MANAGEMENT: BLADDER MANAGEMENT - STEP 1: Does the patient control the bladder completely and intentionally without equipment or devices or med ications, and is always continent? Yes. BLADDER MANAGEMENT - SCORE: 7-IND BLADDER MANAGEMENT - FREQUENCY OF ACCIDENTS: BLADDER MANAGEMENT(FA) - STEP 1: How many accidents has the patient had during the current shift? 0 BOWEL MANAGEMENT: Activity did not occur on this shift BOWEL MANAGEMENT - SCORE: 7-IND TRANSFERS: BED, CHAIR, WHEELCHAIR: TRANSFERS: BED, CHAIR, WHEELCHAIR - STEP 1: Does the patient require assistance of a person or device, or need extra time with bed, chair, or whe elchair transfers? Yes. TRANSFERS: BED, CHAIR, WHEELCHAIR - STEP 2: Does the patient require the assistance of a helper? Yes. TRANSFERS: BED, CHAIR, WHEELCHAIR - STEP 3: How much assistance does the patient require from the helper? Only supervision TRANSFERS: BED, CHAIR, WHEELCHAIR - SCORE: 5-SUP TRANSFERS: TOILET: TRANSFERS: TOILET - STEP 1: Does the patient require the assistance of a person or device, or need extra time with toilet transfe rs? Yes. TRANSFERS: TOILET - STEP 2: Does the patient require the assistance of a helper? Yes. TRANSFERS: TOILET - STEP 3: How much assistance does the patient require from the helper? Patient performs half or more of the tr ansferring tasks TRANSFERS: TOILET - STEP 4: Does the patient need only incidental help such as contact guard or steadying during toilet transfer? Yes. TRANSFERS: TOILET - SCORE: 4-MIN TRANSFERS: SHOWER: Activity did not occur on this shift TRANSFERS: SHOWER - SCORE: 0-UNK TRANSFERS: TUB: Activity did not occur on this shift TRANSFERS: TUB - SCORE: 0-UNK LOCOMOTION: WALK: LOCOMOTION: WALK - STEP 1: Does the patient need help from a person or device, or need extra time to walk 150 feet? Yes. LOCOMOTION: WALK - STEP 2: How much assistance does the patient require to walk a minimum of 150 feet? Only supervision, cuing, or coaxing LOCOMOTION: WALK - SCORE: 5-SUP LOCOMOTION: WHEELCHAIR: Activity did not occur on this shift LOCOMOTION: WHEELCHAIR - SCORE: 0-UNK COMPREHENSION: COMPREHENSION: TYPE: Both COMPREHENSION - STEP 1: Does the patient require help from a person or device, or need extra time to understand complex and a bstract ideas (such as current events, finances, discharge planning, medical issues, relationships, e tc)? No. COMPREHENSION - STEP 2: Does the patient need extra time, require an assistive device (such as glasses for visual comprehensi on or a hearing aid for auditory comprehension) or does s/he have mild difficulty understanding compl ex and abstract information? No. COMPREHENSION - SCORE: 7-IND EXPRESSION EXPRESSION: TYPE: Both EXPRESSION - STEP 1: Does the patient require help from a person or device, or need extra time expressing complex and abst ract ideas (such as current events, finances, discharge planning, medical issues, relationships, etc) ? No. EXPRESSION - STEP 2: Does the patient need extra time, require an assistive device (such as augmentive communication syste m or a communication board), OR does s/he have mild difficulty expressing complex and abstract ideas (including mild dysarthria or mild word-find problems)? No. EXPRESSION - SCORE: 7-IND SOCIAL INTERACTION: SOCIAL INTERACTION - STEP 1: Does the patient require a helper to interact with others in social and therapeutic situations? No. SOCIAL INTERACTION - STEP 2: Does the patient need extra time in social situations, OR does s/he interact with staff, other patien ts, and family members ONLY in structured environments, OR does s/he require medication for social in teraction? No. SOCIAL INTERACTION - SCORE: 7-IND PROBLEM SOLVING: PROBLEM SOLVING - STEP 1: Does the patient need help from a person or device, or need extra time to solve complex problems such as managing a checking account or confronting interpersonal problems? No. PROBLEM SOLVING - STEP 2: Does the patient require extra time to make decisions or solve problems, OR does s/he have slight dif ficulty reading, initiating, or self-correcting in unfamiliar situations? No. PROBLEM SOLVING - SCORE: 7-IND MEMORY: MEMORY - STEP 1: Does the patient need help from a person or device, or need extra time to remember frequently encount ered people, daily routines, and executing requests? No. MEMORY - STEP 2: Does the patient have slight difficulty recognizing frequently encountered people, daily routines, or executing requests without the need for repetition or using self-initiated or environmental cues to remember? No. MEMORY - SCORE: 7-IND SIGNATURE PANEL: The following modified sections: Eating - Score, Grooming - Score, Bathing - Score, Dressing - Upper Body - Score, Dressing - Lower Body - Score, Toileting - Score, Bladder Management - Score, Bowel Man agement - Score, Transfers: Bed, Chair, Wheelchair - Score, Transfers: Toilet - Score, Transfers: Sabi wer - Score, Transfers: Tub - Score, Locomotion: Walk - Score, Locomotion: Wheelchair - Score, Compre hension - Score, Expression - Score, Social Interaction - Score, Problem Solving - Score, Memory - Sc ore were [electronically] signed by Tania Carnes on TueMay 14 2019 03:33:27 GMT-0500 (Central Day ight Time)
[2019-05-14] MEDS: AMOX/K CLAV 500 MG TAB PO SCH ×2 (07:11→21:17)
[2019-05-14] MEDS: AMLODIPINE 10 MG TAB PO SCH (07:11)
[2019-05-14] MEDS: FINASTERIDE 5 MG TAB PO SCH (07:12)
[2019-05-14] MEDS: APIXABAN 2.5 MG TABLET PO SCH ×2 (07:12→21:17)
[2019-05-14] MEDS: MAGNESIUM OXIDE 400 MG TAB PO SCH (07:12)
[2019-05-14] MEDS: LOSARTAN HCTZ PO SCH (07:12)
[2019-05-14] MEDS: ASPIRIN 81 MG CHEWABLE TABLET PO SCH (07:12)
[2019-05-14] MEDS: MUPIROCIN 2% OINT 22GM TUBE TOP SCH ×2 (07:13→21:19)
[2019-05-14] MEDS: HYDRALAZINE HCL 25 MG TABLET PO SCH ×3 (08:38→21:17)
[2019-05-14] MEDS: PROMOD 30 ML DOSE PO SCH ×2 (08:39→21:18)
--- NOTE | 2019-05-14 15:59 | FAST ---
ENCOUNTER DATE AND TIME: 05/14/2019 08:00 (CDT) NAME IRLANDA ROJAS DATE OF : 1945 DATE OF ADMISSION: 05/08/2019 17:09 (CDT) PHONE: AGE: 73 SSN# [id number] GENDER: Male ENCOUNTER PHYSICIAN: Dr. Garfield Moon M.D. ADMISSION DIAGNOSIS: - Pain Syndromes 07 - Other Pain (07.9) L1-L2 Spondylosis. EATING: Activity did not occur on this shift EATING - SCORE: 0-UNK GROOMING: Activity did not occur on this shift GROOMING - SCORE: 0-UNK BATHING: Activity did not occur on this shift BATHING - SCORE: 0-UNK DRESSING - UPPER BODY: Activity did not occur on this shift Patient is not dressing in public clothing ARTICLES SCORE Total number of steps: 0 DRESSING - UPPER BODY - SCORE: 0-UNK DRESSING - LOWER BODY: Activity did not occur on this shift Patient is not dressing in public clothing ARTICLES SCORE Total number of steps: 0 DRESSING - LOWER BODY - SCORE: 0-UNK TOILETING: Activity did not occur on this shift TOILETING - SCORE: 0-UNK BLADDER MANAGEMENT: Activity did not occur on this shift BLADDER MANAGEMENT - SCORE: 7-IND BOWEL MANAGEMENT: Activity did not occur on this shift BOWEL MANAGEMENT - SCORE: 7-IND TRANSFERS: BED, CHAIR, WHEELCHAIR: TRANSFERS: BED, CHAIR, WHEELCHAIR - STEP 1: Does the patient require assistance of a person or device, or need extra time with bed, chair, or whe elchair transfers? Yes. TRANSFERS: BED, CHAIR, WHEELCHAIR - STEP 2: Does the patient require the assistance of a helper? Yes. TRANSFERS: BED, CHAIR, WHEELCHAIR - STEP 3: How much assistance does the patient require from the helper? Steadying/guiding assistance TRANSFERS: BED, CHAIR, WHEELCHAIR - SCORE: 4-MIN TRANSFERS: TOILET: Activity did not occur on this shift TRANSFERS: TOILET - SCORE: 0-UNK TRANSFERS: SHOWER: Activity did not occur on this shift TRANSFERS: SHOWER - SCORE: 0-UNK TRANSFERS: TUB: Activity did not occur on this shift TRANSFERS: TUB - SCORE: 0-UNK LOCOMOTION: WALK: LOCOMOTION: WALK - STEP 1: Does the patient need help from a person or device, or need extra time to walk 150 feet? Yes. LOCOMOTION: WALK - STEP 2: How much assistance does the patient require to walk a minimum of 150 feet? Only incidental help such as contact guarding or steadying LOCOMOTION: WALK - SCORE: 4-MIN LOCOMOTION: WHEELCHAIR: Activity did not occur on this shift LOCOMOTION: WHEELCHAIR - SCORE: 0-UNK LOCOMOTION: STAIRS: Activity did not occur on this shift LOCOMOTION: STAIRS - SCORE: 0-UNK COMPREHENSION: COMPREHENSION - SCORE: 0-UNK EXPRESSION EXPRESSION - SCORE: 0-UNK SOCIAL INTERACTION: SOCIAL INTERACTION - SCORE: 0-UNK PROBLEM SOLVING: PROBLEM SOLVING - SCORE: 0-UNK MEMORY: MEMORY - SCORE: 0-UNK SIGNATURE PANEL: The following modified sections: Transfers: Bed, Chair, Wheelchair - Score, Transfers: Toilet - Score , Locomotion: Walk - Score, Locomotion: Wheelchair - Score, Locomotion: Stairs - Score were [electron ramon] signed by Carlton Rodríguez PT on TueMay 14 2019 15:58:52 [facility]-0500 (Central Daylight Time)
[2019-05-14] MEDS ORDERED: LACTULOSE 20 GM/30 ML UCUP PO PRN (16:38)
[2019-05-14] MEDS ORDERED: BISACODYL 10 MG RECTAL SUPP PR PRN (16:38)
--- NOTE | 2019-05-14 19:02 | R.PN ---
ENCOUNTER DATE AND TIME: 05/14/2019 18:57 (CDT) NAME IRLANDA ROJAS DATE OF : 1945 DATE OF ADMISSION: 05/08/2019 17:09 (CDT) L1-L2 SpondylosisCHIEF COMPLAINT: Lumbar spinal stenosis. SUBJECTIVE: Pt denied any depression. Pt denied any Shortness of Breath. Ambulated 1150' with contact guard assistance. VITAL SIGNS Temperature: 97.9 F SBP/DBP: 154/93 Pulse: 66 Resp: 16 MEDICATION ALLERGIES: Propoxyphene HCl ENVIRONMENTAL ALLERGIES: None Known - Substance Allergies None Known - Other Allergies None Known NURSING: - Shower allowing shower ACTIVITIES OOB only with supervision THERAPIES: - Dietary and Nutrition Adequate Nutrition. Nutritional Education. Nutritional Supplements. PHYSICAL EXAM - Gen Alert and awake Lying in bed No apparent distress Oriented to: person, time, and place - Skin No breakdown No abnormalities - Eyes No abnormalities - ENMT No abnormalities - Neck No abnormalities - CVS RRR - Chest No abnormalities - Abd Soft - GI + bowel sounds Deferred - No abnormalities - Ext No significant edema - MSK 4/5 weakness in both lower extremities. - Neuro No focal deficits - Psych No abnormalities ASSESSMENT: Pt. is a 73 yo Right-handed white male.On 05/04/2019 he was admitted to [facility] with diagnosis L1-L2 Spondylosis.His impairment category is Pain Syndromes 07 - Other Pain (07.9 ).Pre-morbidly, Pt. was independent/mod-I in Self-Care, Sphincter Control, Transfers Control, Locomot ion, Communication, and Social Cognition; and he had good Sphincter Control.Currently, he has deficit s of Self-Care, Transfers Control, Locomotion, Endurance, Balance, and Safety Awareness.Pt. is now re ferred to [facility] for acute in-patient rehabilitation in order to maximize patient's functional independence in activities of daily living, strength, ROM, and mobility.- Rehab Goal Patient has realistic goal of being discharged at assistance level 6-Carly to reside at Home with Fam vincent/Relatives. MDM/PLAN: - Physical Therapy Gait dysfunction - to improve, our physical therapists will perform initial evaluation of pt's statu s upon admission and devise an individualized program for Gait Training, and Wheel Chair mobility Inability to transfer - to improve, our physical therapists will perform initial evaluation of pt's status upon admission and devise an individualized program for Bed mobility Need for home safety evaluation - to improve, our physical therapists will perform initial evaluatio n of pt's status upon admission and devise an individualized program for Home Evaluation Need in caregiver upon discharge - to improve, our physical therapists will perform initial evaluati on of pt's status upon admission and devise an individualized program for Caregiver Training Edema - to improve, our physical therapists will perform initial evaluation of pt's status upon admis sina and devise an individualized program for Elevation Training, and Lymphedema Therapy New precaution - to improve, our physical therapists will perform initial evaluation of pt's status upon admission and devise an individualized program for Patient precaution education Poor balance - to improve, our physical therapists will perform initial evaluation of pt's status up on admission and devise an individualized program for Balance Training Poor endurance - to improve, our physical therapists will perform initial evaluation of pt's status upon admission and devise an individualized program for Endurance Training Weakness - to improve, our physical therapists will perform initial evaluation of pt's status upon a dmission and devise an individualized program for Aquatic Therapy, Neuromuscular Reeducation, and Str engthening Achieving independence - to improve, our physical therapists will perform initial evaluation of pt's status upon admission and devise an individualized program for Community Reintegration Activities - Occupational Therapy ADL deficits - to improve, our occupation therapists will perform initial evaluation of pt's status upon admission and devise an individualized program for Bathing, Bed mobility, Community Reintegratio n, Cooking, Dressing, Eating, Fine Motor Skills, Grooming, Homemaking, Kitchen Mobility, Laundry, Pat ient Education, Safety Awareness, Splinting - Positioning, Transfers(Toilet, Tub, Shower), and Wheel Chair Management Need for home care aide - to improve, our occupation therapists will perform initial evaluation of pt's status upon admission and devise an individualized program for Caregiver Training Weakness - to improve, our occupation therapists will perform initial evaluation of pt's status upon admission and devise an individualized program for Aquatic Therapy, Balance, Endurance, UE ROM, and UE strengthening - Other See attached MAR (Medication Administration Record) Irlanda [email or web address].pdf See attached MAR (Medication Administration Record) Irlanda [email or web address].pdf See attached MAR (Medication Administration Record) - Diet Type Continue Regular - Diet - Liquid Texture Continue Regular - Tube Feed Continue N/A - Diet - Solid Texture Continue Regular - Shower allowing shower FUNCTIONAL STATUS: UPDATED AT WEEKLY TEAM CONFERENCE - Bladder Same accident frequency: 7-Ind - No accidents in the past 7 days - Bowel Same accident frequency: 7-Ind - No accidents in the past 7 days - Walking Same score based on distance walked: 3(>=150ft) - Wheelchair Same score based on distance traveled: 0(N/A) FUNCTIONAL STATUS: - Self-Care A. Eating sup B. Grooming sup C. Bathing sup D. Dressing - Upper sup E. Dressing - Lower Isidra F. Toileting sup - Sphincter Control G: Bladder control Ind H: Bowel control Ind - Transfers Control I. Bed/Chair/Wheelchair sup J. Toilet sup K. Tub/Shower ADNO - Locomotion L. Walk/Wheelchair (C) Isidra L. Walk/Wheelchair (W) Isidra M. Stairs ADNO - Communication N. Comprehension (B) Ind O. Expression (B) Ind - Social Cognition P. Social Interaction Ind Q. Problem Solving Ind R. Memory Ind - Endurance Fair - Balance Fair - Safety Awareness Fair CURRENT FUNC. DEFICITS: Self-Care, Transfers Control, Locomotion, Endurance, Balance, and Safety Awareness SIGNATURE PANEL: (CDT)
[2019-05-14] MEDS: ATORVASTATIN 10 MG TAB PO SCH (21:17)
[2019-05-14] MEDS: DOCUSATE NA/SENNA CONC 1 TAB PO PRN (21:18)
--- NOTE | 2019-05-15 03:57 | FAST ---
SHIFT START DATE/TIME: 05/14/2019 19:00 (CDT) SHIFT END DATE/TIME: 05/15/2019 07:00 (CDT) NAME IRLANDA ROJAS DATE OF : 1945 DATE OF ADMISSION: 05/08/2019 17:09 (CDT) PHONE: AGE: 73 N# [id number] GENDER: Male ENCOUNTER PHYSICIAN: Dr. Garfield Moon M.D. ADMISSION DIAGNOSIS: - Pain Syndromes 07 - Other Pain (07.9) L1-L2 Spondylosis. EATING: Activity did not occur on this shift EATING - SCORE: 0-UNK GROOMING: Activity did not occur on this shift GROOMING - SCORE: 0-UNK BATHING: Activity did not occur on this shift BATHING - SCORE: 0-UNK DRESSING - UPPER BODY: Patient is not dressing in public clothing ARTICLES SCORE Total number of steps: 0 DRESSING - UPPER BODY - SCORE: 0-UNK DRESSING - LOWER BODY: Patient is not dressing in public clothing ARTICLES SCORE Total number of steps: 0 DRESSING - LOWER BODY - SCORE: 0-UNK TOILETING: TOILETING - STEP 1: Does the patient require the assistance of a person or device, or need extra time with toileting? Yes . TOILETING - STEP 2: Does the patient require the assistance of a helper? Yes. TOILETING - STEP 3: How much assistance does the patient require from the helper? Hands-on assistance from the helper TOILETING - STEP 4: Of the 3 tasks: 1) Adjusting clothing prior to use, 2) Cleansing of perineal area, 3) Adjusting clot lisbeth after use; How many tasks does the patient perform WITHOUT assistance of the helper? Two tasks TOILETING - SCORE: 3-MOD BLADDER MANAGEMENT: BLADDER MANAGEMENT - STEP 1: Does the patient control the bladder completely and intentionally without equipment or devices or med ications, and is always continent? No. BLADDER MANAGEMENT - STEP 2: Does the patient require the assistance of a helper? Yes. BLADDER MANAGEMENT - STEP 3: How much assistance does the patient require from the helper? Only set-up of equipment - such as plac ing it within reach of the patient or emptying a device - to maintain either satisfactory voiding pat tern or managing an external device, such as an absorbent pad, ileal device, or catheter BLADDER MANAGEMENT - SCORE: 5-SUP BOWEL MANAGEMENT: BOWEL MANAGEMENT - STEP 1: Does the patient control bowels completely and intentionally without equipment devices or medications AND is always continent? No. BOWEL MANAGEMENT - STEP 2: Does the patient require the assistance of a helper? No, patient requires medication for control such as stool softeners, suppositories, laxatives, enemas, or OTC medications BOWEL MANAGEMENT - SCORE: 6-VEE TRANSFERS: BED, CHAIR, WHEELCHAIR: TRANSFERS: BED, CHAIR, WHEELCHAIR - STEP 1: Does the patient require assistance of a person or device, or need extra time with bed, chair, or whe elchair transfers? Yes. TRANSFERS: BED, CHAIR, WHEELCHAIR - STEP 2: Does the patient require the assistance of a helper? Yes. TRANSFERS: BED, CHAIR, WHEELCHAIR - STEP 3: How much assistance does the patient require from the helper? Steadying/guiding assistance TRANSFERS: BED, CHAIR, WHEELCHAIR - SCORE: 4-MIN TRANSFERS: TOILET: Activity did not occur on this shift TRANSFERS: TOILET - SCORE: 0-UNK TRANSFERS: SHOWER: Activity did not occur on this shift TRANSFERS: SHOWER - SCORE: 0-UNK TRANSFERS: TUB: Activity did not occur on this shift TRANSFERS: TUB - SCORE: 0-UNK LOCOMOTION: WALK: Activity did not occur on this shift LOCOMOTION: WALK - SCORE: 0-UNK LOCOMOTION: WHEELCHAIR: Activity did not occur on this shift LOCOMOTION: WHEELCHAIR - SCORE: 0-UNK COMPREHENSION: COMPREHENSION: TYPE: Both COMPREHENSION - STEP 1: Does the patient require help from a person or device, or need extra time to understand complex and a bstract ideas (such as current events, finances, discharge planning, medical issues, relationships, e tc)? Yes. COMPREHENSION - STEP 2: Does the patient require help to understand questions or statements about basic needs or ideas (such as hunger, thirst, sleep, safety, daily schedule, room location, or discomfort) half or more of the t alina? No. COMPREHENSION - STEP 3: How often does the patient need help to understand directions and conversation about basic needs? 10% - 24% of the time COMPREHENSION - SCORE: 4-MIN EXPRESSION EXPRESSION: TYPE: Both EXPRESSION - STEP 1: Does the patient require help from a person or device, or need extra time expressing complex and abst ract ideas (such as current events, finances, discharge planning, medical issues, relationships, etc) ? No. EXPRESSION - STEP 2: Does the patient need extra time, require an assistive device (such as augmentive communication syste m or a communication board), OR does s/he have mild difficulty expressing complex and abstract ideas (including mild dysarthria or mild word-find problems)? Yes. EXPRESSION - SCORE: 6-VEE SOCIAL INTERACTION: SOCIAL INTERACTION - STEP 1: Does the patient require a helper to interact with others in social and therapeutic situations? No. SOCIAL INTERACTION - STEP 2: Does the patient need extra time in social situations, OR does s/he interact with staff, other patien ts, and family members ONLY in structured environments, OR does s/he require medication for social in teraction? Yes, patient needs extra time SOCIAL INTERACTION - SCORE: 6-VEE PROBLEM SOLVING: PROBLEM SOLVING - STEP 1: Does the patient need help from a person or device, or need extra time to solve complex problems such as managing a checking account or confronting interpersonal problems? Yes. PROBLEM SOLVING - STEP 2: Does the patient solve basic routine problems half or more of the time? Yes. PROBLEM SOLVING - STEP 3: How often does the patient need help to solve basic routine problems? 10%-24% of the time PROBLEM SOLVING - SCORE: 4-MIN MEMORY: MEMORY - STEP 1: Does the patient need help from a person or device, or need extra time to remember frequently encount ered people, daily routines, and executing requests? No. MEMORY - STEP 2: Does the patient have slight difficulty recognizing frequently encountered people, daily routines, or executing requests without the need for repetition or using self-initiated or environmental cues to remember? Yes. MEMORY - SCORE: 6-VEE SIGNATURE PANEL: The following modified sections: Eating - Score, Grooming - Score, Dressing - Upper Body - Score, Liu ssing - Lower Body - Score, Toileting - Score, Bladder Management - Score, Bowel Management - Score, Transfers: Bed, Chair, Wheelchair - Score, Transfers: Toilet - Score, Transfers: Shower - Score, Bee sfers: Tub - Score, Locomotion: Walk - Score, Locomotion: Wheelchair - Score, Comprehension - Score, Expression - Score, Social Interaction - Score, Problem Solving - Score, Memory - Score were [electro nically] signed by Elvia Curtis CNA on TueMay 15 2019 03:56:35 T-0500 (Central Daylight Time)
[2019-05-15] MEDS: FINASTERIDE 5 MG TAB PO SCH (07:23)
[2019-05-15] MEDS: AMOX/K CLAV 500 MG TAB PO SCH ×2 (07:23→20:36)
[2019-05-15] MEDS: APIXABAN 2.5 MG TABLET PO SCH ×2 (07:23→20:36)
[2019-05-15] MEDS: MUPIROCIN 2% OINT 22GM TUBE TOP SCH (07:24)
[2019-05-15] MEDS: ASPIRIN 81 MG CHEWABLE TABLET PO SCH (07:24)
[2019-05-15] MEDS: AMLODIPINE 10 MG TAB PO SCH (07:24)
[2019-05-15] MEDS: MAGNESIUM OXIDE 400 MG TAB PO SCH (08:00)
[2019-05-15] MEDS: LOSARTAN HCTZ PO SCH (08:15)
[2019-05-15] MEDS: HYDRALAZINE HCL 25 MG TABLET PO SCH ×3 (08:16→20:36)
[2019-05-15] MEDS: PROMOD 30 ML DOSE PO SCH ×2 (08:16→20:36)
--- NOTE | 2019-05-15 15:41 | FAST ---
ENCOUNTER DATE AND TIME: 05/15/2019 08:00 (CDT) NAME IRLANDA ROJAS DATE OF : 1945 DATE OF ADMISSION: 05/08/2019 17:09 (CDT) PHONE: AGE: 73 SSN# [id number] GENDER: Male ENCOUNTER PHYSICIAN: Dr. Garfield Moon M.D. ADMISSION DIAGNOSIS: - Pain Syndromes 07 - Other Pain (07.9) L1-L2 Spondylosis. EATING: Activity did not occur on this shift EATING - SCORE: 0-UNK GROOMING: Activity did not occur on this shift GROOMING - SCORE: 0-UNK BATHING: Activity did not occur on this shift BATHING - SCORE: 0-UNK DRESSING - UPPER BODY: Activity did not occur on this shift Patient is not dressing in public clothing ARTICLES SCORE Total number of steps: 0 DRESSING - UPPER BODY - SCORE: 0-UNK DRESSING - LOWER BODY: Activity did not occur on this shift Patient is not dressing in public clothing ARTICLES SCORE Total number of steps: 0 DRESSING - LOWER BODY - SCORE: 0-UNK TOILETING: Activity did not occur on this shift TOILETING - SCORE: 0-UNK BLADDER MANAGEMENT: Activity did not occur on this shift BLADDER MANAGEMENT - SCORE: 7-IND BOWEL MANAGEMENT: Activity did not occur on this shift BOWEL MANAGEMENT - SCORE: 7-IND TRANSFERS: BED, CHAIR, WHEELCHAIR: TRANSFERS: BED, CHAIR, WHEELCHAIR - STEP 1: Does the patient require assistance of a person or device, or need extra time with bed, chair, or whe elchair transfers? Yes. TRANSFERS: BED, CHAIR, WHEELCHAIR - STEP 2: Does the patient require the assistance of a helper? Yes. TRANSFERS: BED, CHAIR, WHEELCHAIR - STEP 3: How much assistance does the patient require from the helper? Only supervision TRANSFERS: BED, CHAIR, WHEELCHAIR - SCORE: 5-SUP TRANSFERS: TOILET: Activity did not occur on this shift TRANSFERS: TOILET - SCORE: 0-UNK TRANSFERS: SHOWER: Activity did not occur on this shift TRANSFERS: SHOWER - SCORE: 0-UNK TRANSFERS: TUB: Activity did not occur on this shift TRANSFERS: TUB - SCORE: 0-UNK LOCOMOTION: WALK: LOCOMOTION: WALK - STEP 1: Does the patient need help from a person or device, or need extra time to walk 150 feet? Yes. LOCOMOTION: WALK - STEP 2: How much assistance does the patient require to walk a minimum of 150 feet? Only supervision, cuing, or coaxing LOCOMOTION: WALK - SCORE: 5-SUP LOCOMOTION: WHEELCHAIR: Activity did not occur on this shift LOCOMOTION: WHEELCHAIR - SCORE: 0-UNK LOCOMOTION: STAIRS: LOCOMOTION: STAIRS - STEP 1: Does the patient need help to go up and down 12 to 14 stairs? Yes. LOCOMOTION: STAIRS - STEP 2: How much assistance does the patient need from the helper to go a minimum of 12 to 14 stairs? Only peres pervision, cuing, or coaxing LOCOMOTION: STAIRS - SCORE: 5-SUP COMPREHENSION: COMPREHENSION - SCORE: 0-UNK EXPRESSION EXPRESSION - SCORE: 0-UNK SOCIAL INTERACTION: SOCIAL INTERACTION - SCORE: 0-UNK PROBLEM SOLVING: PROBLEM SOLVING - SCORE: 0-UNK MEMORY: MEMORY - SCORE: 0-UNK SIGNATURE PANEL: The following modified sections: Transfers: Bed, Chair, Wheelchair - Score, Transfers: Toilet - Score , Locomotion: Walk - Score, Locomotion: Wheelchair - Score, Locomotion: Stairs - Score were [electron ramon] signed by Carlton Rodríguez PT on TueMay 15 2019 15:39:48 T-0500 (Central Daylight Time)
[2019-05-15] MEDS: ATORVASTATIN 10 MG TAB PO SCH (20:36)
--- NOTE | 2019-05-16 00:46 | FAST ---
SHIFT START DATE/TIME: 05/15/2019 19:00 (CDT) SHIFT END DATE/TIME: 05/16/2019 07:00 (CDT) NAME IRLANDA ROJAS DATE OF : 1945 DATE OF ADMISSION: 05/08/2019 17:09 (CDT) PHONE: AGE: 73 N# [id number] GENDER: Male ENCOUNTER PHYSICIAN: Dr. Garfield Moon M.D. ADMISSION DIAGNOSIS: - Pain Syndromes 07 - Other Pain (07.9) L1-L2 Spondylosis. EATING: Activity did not occur on this shift EATING - SCORE: 0-UNK GROOMING: Wash, rinse, and dry hands GROOMING - STEP 1: Does the patient require the assistance of a person or device, or need extra time when grooming? Yes. GROOMING - STEP 2: Does the patient require the assistance of a helper? Yes. GROOMING - STEP 3: How much assistance does the patient require from the helper? Only prior equipment preparation/set up from the helper GROOMING - SCORE: 5-SUP BATHING: Activity did not occur on this shift BATHING - SCORE: 0-UNK DRESSING - UPPER BODY: Patient is not dressing in public clothing ARTICLES SCORE Total number of steps: 0 DRESSING - UPPER BODY - SCORE: 0-UNK DRESSING - LOWER BODY: Patient is not dressing in public clothing ARTICLES SCORE Total number of steps: 0 DRESSING - LOWER BODY - SCORE: 0-UNK TOILETING: TOILETING - STEP 1: Does the patient require the assistance of a person or device, or need extra time with toileting? Yes . TOILETING - STEP 2: Does the patient require the assistance of a helper? Yes. TOILETING - STEP 3: How much assistance does the patient require from the helper? Only supervision TOILETING - SCORE: 5-SUP BLADDER MANAGEMENT: BLADDER MANAGEMENT - STEP 1: Does the patient control the bladder completely and intentionally without equipment or devices or med ications, and is always continent? No. BLADDER MANAGEMENT - STEP 2: Does the patient require the assistance of a helper? Yes. BLADDER MANAGEMENT - STEP 3: How much assistance does the patient require from the helper? Only set-up of equipment - such as plac ing it within reach of the patient or emptying a device - to maintain either satisfactory voiding pat tern or managing an external device, such as an absorbent pad, ileal device, or catheter BLADDER MANAGEMENT - SCORE: 5-SUP BOWEL MANAGEMENT: BOWEL MANAGEMENT - STEP 1: Does the patient control bowels completely and intentionally without equipment devices or medications AND is always continent? No. BOWEL MANAGEMENT - STEP 2: Does the patient require the assistance of a helper? No, patient requires medication for control such as stool softeners, suppositories, laxatives, enemas, or OTC medications BOWEL MANAGEMENT - SCORE: 6-VEE TRANSFERS: BED, CHAIR, WHEELCHAIR: TRANSFERS: BED, CHAIR, WHEELCHAIR - STEP 1: Does the patient require assistance of a person or device, or need extra time with bed, chair, or whe elchair transfers? Yes. TRANSFERS: BED, CHAIR, WHEELCHAIR - STEP 2: Does the patient require the assistance of a helper? Yes. TRANSFERS: BED, CHAIR, WHEELCHAIR - STEP 3: How much assistance does the patient require from the helper? Steadying/guiding assistance TRANSFERS: BED, CHAIR, WHEELCHAIR - SCORE: 4-MIN TRANSFERS: TOILET: TRANSFERS: TOILET - STEP 1: Does the patient require the assistance of a person or device, or need extra time with toilet transfe rs? Yes. TRANSFERS: TOILET - STEP 2: Does the patient require the assistance of a helper? Yes. TRANSFERS: TOILET - STEP 3: How much assistance does the patient require from the helper? Only supervision, cuing, coaxing, OR he lp to set out transfer equipment or to lock brakes and/or lift foot rests TRANSFERS: TOILET - SCORE: 5-SUP TRANSFERS: SHOWER: Activity did not occur on this shift TRANSFERS: SHOWER - SCORE: 0-UNK TRANSFERS: TUB: Activity did not occur on this shift TRANSFERS: TUB - SCORE: 0-UNK LOCOMOTION: WALK: Activity did not occur on this shift LOCOMOTION: WALK - SCORE: 0-UNK LOCOMOTION: WHEELCHAIR: Activity did not occur on this shift LOCOMOTION: WHEELCHAIR - SCORE: 0-UNK COMPREHENSION: COMPREHENSION: TYPE: Both COMPREHENSION - STEP 1: Does the patient require help from a person or device, or need extra time to understand complex and a bstract ideas (such as current events, finances, discharge planning, medical issues, relationships, e tc)? Yes. COMPREHENSION - STEP 2: Does the patient require help to understand questions or statements about basic needs or ideas (such as hunger, thirst, sleep, safety, daily schedule, room location, or discomfort) half or more of the t alina? No. COMPREHENSION - STEP 3: How often does the patient need help to understand directions and conversation about basic needs? 25% - 49% of the time COMPREHENSION - SCORE: 3-MOD EXPRESSION EXPRESSION: TYPE: Both EXPRESSION - STEP 1: Does the patient require help from a person or device, or need extra time expressing complex and abst ract ideas (such as current events, finances, discharge planning, medical issues, relationships, etc) ? No. EXPRESSION - STEP 2: Does the patient need extra time, require an assistive device (such as augmentive communication syste m or a communication board), OR does s/he have mild difficulty expressing complex and abstract ideas (including mild dysarthria or mild word-find problems)? Yes. EXPRESSION - SCORE: 6-VEE SOCIAL INTERACTION: SOCIAL INTERACTION - STEP 1: Does the patient require a helper to interact with others in social and therapeutic situations? No. SOCIAL INTERACTION - STEP 2: Does the patient need extra time in social situations, OR does s/he interact with staff, other patien ts, and family members ONLY in structured environments, OR does s/he require medication for social in teraction? Yes, patient needs extra time SOCIAL INTERACTION - SCORE: 6-VEE PROBLEM SOLVING: PROBLEM SOLVING - STEP 1: Does the patient need help from a person or device, or need extra time to solve complex problems such as managing a checking account or confronting interpersonal problems? Yes. PROBLEM SOLVING - STEP 2: Does the patient solve basic routine problems half or more of the time? Yes. PROBLEM SOLVING - STEP 3: How often does the patient need help to solve basic routine problems? 25%-49% of the time PROBLEM SOLVING - SCORE: 3-MOD MEMORY: MEMORY - STEP 1: Does the patient need help from a person or device, or need extra time to remember frequently encount ered people, daily routines, and executing requests? No. MEMORY - STEP 2: Does the patient have slight difficulty recognizing frequently encountered people, daily routines, or executing requests without the need for repetition or using self-initiated or environmental cues to remember? Yes. MEMORY - SCORE: 6-VEE SIGNATURE PANEL: The following modified sections: Eating - Score, Grooming - Score, Dressing - Upper Body - Score, Liu ssing - Lower Body - Score, Toileting - Score, Bladder Management - Score, Bowel Management - Score, Transfers: Bed, Chair, Wheelchair - Score, Transfers: Toilet - Score, Transfers: Shower - Score, Bee sfers: Tub - Score, Locomotion: Walk - Score, Locomotion: Wheelchair - Score, Comprehension - Score, Expression - Score, Social Interaction - Score, Problem Solving - Score, Memory - Score were [electro nically] signed by Elvia Curtis CNA on TueMay 16 2019 00:45:29 GMT-0500 (Central Daylight Time)
[2019-05-16] MEDS: LOSARTAN HCTZ PO SCH (08:13)
[2019-05-16] MEDS: ASPIRIN 81 MG CHEWABLE TABLET PO SCH (08:13)
[2019-05-16] MEDS: FINASTERIDE 5 MG TAB PO SCH (08:13)
[2019-05-16] MEDS: APIXABAN 2.5 MG TABLET PO SCH ×2 (08:14→20:22)
[2019-05-16] MEDS: HYDRALAZINE HCL 25 MG TABLET PO SCH ×3 (08:14→20:22)
[2019-05-16] MEDS: AMLODIPINE 10 MG TAB PO SCH (08:14)
[2019-05-16] MEDS: MAGNESIUM OXIDE 400 MG TAB PO SCH (08:14)
[2019-05-16] MEDS: PROMOD 30 ML DOSE PO SCH ×2 (08:15→20:22)
--- NOTE | 2019-05-16 10:16 | FAST ---
ENCOUNTER DATE AND TIME: 05/16/2019 08:00 (CDT) NAME IRLANDA ROJAS DATE OF : 1945 DATE OF ADMISSION: 05/08/2019 17:09 (CDT) PHONE: AGE: 73 SSN# [id number] GENDER: Male ENCOUNTER PHYSICIAN: Dr. Garfield Moon M.D. ADMISSION DIAGNOSIS: - Pain Syndromes 07 - Other Pain (07.9) L1-L2 Spondylosis. EATING: Activity did not occur on this shift EATING - SCORE: 0-UNK GROOMING: Activity did not occur on this shift GROOMING - SCORE: 0-UNK BATHING: Activity did not occur on this shift BATHING - SCORE: 0-UNK DRESSING - UPPER BODY: Activity did not occur on this shift Patient is not dressing in public clothing ARTICLES SCORE Total number of steps: 0 DRESSING - UPPER BODY - SCORE: 0-UNK DRESSING - LOWER BODY: Activity did not occur on this shift Patient is not dressing in public clothing ARTICLES SCORE Total number of steps: 0 DRESSING - LOWER BODY - SCORE: 0-UNK TOILETING: Activity did not occur on this shift TOILETING - SCORE: 0-UNK BLADDER MANAGEMENT: Activity did not occur on this shift BLADDER MANAGEMENT - SCORE: 7-IND BOWEL MANAGEMENT: Activity did not occur on this shift BOWEL MANAGEMENT - SCORE: 7-IND TRANSFERS: BED, CHAIR, WHEELCHAIR: TRANSFERS: BED, CHAIR, WHEELCHAIR - STEP 1: Does the patient require assistance of a person or device, or need extra time with bed, chair, or whe elchair transfers? Yes. TRANSFERS: BED, CHAIR, WHEELCHAIR - STEP 2: Does the patient require the assistance of a helper? Yes. TRANSFERS: BED, CHAIR, WHEELCHAIR - STEP 3: How much assistance does the patient require from the helper? Only supervision TRANSFERS: BED, CHAIR, WHEELCHAIR - SCORE: 5-SUP TRANSFERS: TOILET: TRANSFERS: TOILET - STEP 1: Does the patient require the assistance of a person or device, or need extra time with toilet transfe rs? Yes. TRANSFERS: TOILET - STEP 2: Does the patient require the assistance of a helper? No. Patient only requires an assistive device peres ch as a grab bar or special seat, OR s/he takes more than reasonable time to perform toilet transfers , OR there is a safety concern when s/he performs toilet transfers. TRANSFERS: TOILET - SCORE: 6-VEE TRANSFERS: SHOWER: Activity did not occur on this shift TRANSFERS: SHOWER - SCORE: 0-UNK TRANSFERS: TUB: Activity did not occur on this shift TRANSFERS: TUB - SCORE: 0-UNK LOCOMOTION: WALK: LOCOMOTION: WALK - STEP 1: Does the patient need help from a person or device, or need extra time to walk 150 feet? Yes. LOCOMOTION: WALK - STEP 2: How much assistance does the patient require to walk a minimum of 150 feet? Only supervision, cuing, or coaxing LOCOMOTION: WALK - SCORE: 5-SUP LOCOMOTION: WHEELCHAIR: Activity did not occur on this shift LOCOMOTION: WHEELCHAIR - SCORE: 0-UNK LOCOMOTION: STAIRS: LOCOMOTION: STAIRS - STEP 1: Does the patient need help to go up and down 12 to 14 stairs? Yes. LOCOMOTION: STAIRS - STEP 2: How much assistance does the patient need from the helper to go a minimum of 12 to 14 stairs? Only peres pervision, cuing, or coaxing LOCOMOTION: STAIRS - SCORE: 5-SUP COMPREHENSION: COMPREHENSION - SCORE: 0-UNK EXPRESSION EXPRESSION - SCORE: 0-UNK SOCIAL INTERACTION: SOCIAL INTERACTION - SCORE: 0-UNK PROBLEM SOLVING: PROBLEM SOLVING - SCORE: 0-UNK MEMORY: MEMORY - SCORE: 0-UNK SIGNATURE PANEL: The following modified sections: Transfers: Bed, Chair, Wheelchair - Score, Transfers: Toilet - Score , Locomotion: Walk - Score, Locomotion: Wheelchair - Score, Locomotion: Stairs - Score were [electron ramon] signed by Sakshi Salgado PTA on TueMay 16 2019 10:15:12 T-0500 (Central Daylight Time)
--- NOTE | 2019-05-16 12:50 | FAST ---
SHIFT START DATE/TIME: 05/16/2019 07:00 (CDT) SHIFT END DATE/TIME: 05/16/2019 19:00 (CDT) NAME IRLANDA ROJAS DATE OF : 1945 DATE OF ADMISSION: 05/08/2019 17:09 (CDT) PHONE: AGE: 73 N# [id number] GENDER: Male ENCOUNTER PHYSICIAN: Dr. Garfield Moon M.D. ADMISSION DIAGNOSIS: - Pain Syndromes 07 - Other Pain (07.9) L1-L2 Spondylosis. EATING: EATING - STEP 1: Does the patient require the assistance of a person or device, or need extra time when eating? Yes. EATING - STEP 2: Does the patient require the assistance of a helper? No, patient only requires an assistive device, O R s/he takes more than reasonable time to eat, OR there is a safety concern, OR s/he requires modifie d food consistency EATING - SCORE: 6-VEE GROOMING: Comb/brush hair Oral care Wash, rinse, and dry hands GROOMING - STEP 1: Does the patient require the assistance of a person or device, or need extra time when grooming? Yes. GROOMING - STEP 2: Does the patient require the assistance of a helper? No. The patient only requires an assistive devic e, OR takes more than reasonable time to groom, OR there is a concern for safety as the patient groom s GROOMING - SCORE: 6-VEE BATHING: Activity did not occur on this shift BATHING - SCORE: 0-UNK DRESSING - UPPER BODY: Activity did not occur on this shift ARTICLES SCORE Total number of steps: 0 DRESSING - UPPER BODY - SCORE: 0-UNK DRESSING - LOWER BODY: Activity did not occur on this shift ARTICLES SCORE Total number of steps: 0 DRESSING - LOWER BODY - SCORE: 0-UNK TOILETING: TOILETING - STEP 1: Does the patient require the assistance of a person or device, or need extra time with toileting? Yes . TOILETING - STEP 2: Does the patient require the assistance of a helper? Yes. TOILETING - STEP 3: How much assistance does the patient require from the helper? Only supervision TOILETING - SCORE: 5-SUP BLADDER MANAGEMENT: BLADDER MANAGEMENT - STEP 1: Does the patient control the bladder completely and intentionally without equipment or devices or med ications, and is always continent? No. BLADDER MANAGEMENT - STEP 2: Does the patient require the assistance of a helper? No, patient requires and independently uses an a ssistive device, such as a urinal, bedpan, bedside commode, catheter, absorbent pad, or collecting de vice BLADDER MANAGEMENT - SCORE: 6-VEE BOWEL MANAGEMENT: Activity did not occur on this shift BOWEL MANAGEMENT - SCORE: 7-IND TRANSFERS: BED, CHAIR, WHEELCHAIR: TRANSFERS: BED, CHAIR, WHEELCHAIR - STEP 1: Does the patient require assistance of a person or device, or need extra time with bed, chair, or whe elchair transfers? Yes. TRANSFERS: BED, CHAIR, WHEELCHAIR - STEP 2: Does the patient require the assistance of a helper? Yes. TRANSFERS: BED, CHAIR, WHEELCHAIR - STEP 3: How much assistance does the patient require from the helper? Only supervision TRANSFERS: BED, CHAIR, WHEELCHAIR - SCORE: 5-SUP TRANSFERS: TOILET: TRANSFERS: TOILET - STEP 1: Does the patient require the assistance of a person or device, or need extra time with toilet transfe rs? Yes. TRANSFERS: TOILET - STEP 2: Does the patient require the assistance of a helper? Yes. TRANSFERS: TOILET - STEP 3: How much assistance does the patient require from the helper? Only supervision, cuing, coaxing, OR he lp to set out transfer equipment or to lock brakes and/or lift foot rests TRANSFERS: TOILET - SCORE: 5-SUP TRANSFERS: SHOWER: Activity did not occur on this shift TRANSFERS: SHOWER - SCORE: 0-UNK TRANSFERS: TUB: Activity did not occur on this shift TRANSFERS: TUB - SCORE: 0-UNK LOCOMOTION: WALK: Activity did not occur on this shift LOCOMOTION: WALK - SCORE: 0-UNK LOCOMOTION: WHEELCHAIR: Activity did not occur on this shift LOCOMOTION: WHEELCHAIR - SCORE: 0-UNK COMPREHENSION: COMPREHENSION: TYPE: Both COMPREHENSION - STEP 1: Does the patient require help from a person or device, or need extra time to understand complex and a bstract ideas (such as current events, finances, discharge planning, medical issues, relationships, e tc)? No. COMPREHENSION - STEP 2: Does the patient need extra time, require an assistive device (such as glasses for visual comprehensi on or a hearing aid for auditory comprehension) or does s/he have mild difficulty understanding compl ex and abstract information? Yes. COMPREHENSION - SCORE: 6-VEE EXPRESSION EXPRESSION: TYPE: Both EXPRESSION - STEP 1: Does the patient require help from a person or device, or need extra time expressing complex and abst ract ideas (such as current events, finances, discharge planning, medical issues, relationships, etc) ? No. EXPRESSION - STEP 2: Does the patient need extra time, require an assistive device (such as augmentive communication syste m or a communication board), OR does s/he have mild difficulty expressing complex and abstract ideas (including mild dysarthria or mild word-find problems)? Yes. EXPRESSION - SCORE: 6-VEE SOCIAL INTERACTION: SOCIAL INTERACTION - STEP 1: Does the patient require a helper to interact with others in social and therapeutic situations? No. SOCIAL INTERACTION - STEP 2: Does the patient need extra time in social situations, OR does s/he interact with staff, other patien ts, and family members ONLY in structured environments, OR does s/he require medication for social in teraction? Yes, patient needs extra time SOCIAL INTERACTION - SCORE: 6-VEE PROBLEM SOLVING: PROBLEM SOLVING - STEP 1: Does the patient need help from a person or device, or need extra time to solve complex problems such as managing a checking account or confronting interpersonal problems? No. PROBLEM SOLVING - STEP 2: Does the patient require extra time to make decisions or solve problems, OR does s/he have slight dif ficulty reading, initiating, or self-correcting in unfamiliar situations? Yes, patient needs extra ti me. PROBLEM SOLVING - SCORE: 6-VEE MEMORY: MEMORY - STEP 1: Does the patient need help from a person or device, or need extra time to remember frequently encount ered people, daily routines, and executing requests? No. MEMORY - STEP 2: Does the patient have slight difficulty recognizing frequently encountered people, daily routines, or executing requests without the need for repetition or using self-initiated or environmental cues to remember? Yes. MEMORY - SCORE: 6-VEE SIGNATURE PANEL: The following modified sections: Eating - Score, Grooming - Score, Bathing - Score, Dressing - Upper Body - Score, Dressing - Lower Body - Score, Toileting - Score, Bladder Management - Score, Bowel Man agement - Score, Transfers: Bed, Chair, Wheelchair - Score, Transfers: Toilet - Score, Transfers: Sabi wer - Score, Transfers: Tub - Score, Locomotion: Walk - Score, Locomotion: Wheelchair - Score, Compre hension - Score, Expression - Score, Social Interaction - Score, Problem Solving - Score, Memory - Sc ore were [electronically] signed by Wyatt Castle on TueMay 16 2019 12:48:44 GMT-0500 (Central Daylight Time)
[2019-05-16] MEDS: ATORVASTATIN 10 MG TAB PO SCH (20:22)
--- NOTE | 2019-05-17 02:47 | FAST ---
SHIFT START DATE/TIME: 05/16/2019 19:00 (CDT) SHIFT END DATE/TIME: 05/17/2019 07:00 (CDT) NAME IRLANDA ROJAS DATE OF : 1945 DATE OF ADMISSION: 05/08/2019 17:09 (CDT) PHONE: AGE: 73 N# [id number] GENDER: Male ENCOUNTER PHYSICIAN: Dr. Garfield Moon M.D. ADMISSION DIAGNOSIS: - Pain Syndromes 07 - Other Pain (07.9) L1-L2 Spondylosis. EATING: Activity did not occur on this shift EATING - SCORE: 0-UNK GROOMING: Activity did not occur on this shift GROOMING - SCORE: 0-UNK BATHING: Activity did not occur on this shift BATHING - SCORE: 0-UNK DRESSING - UPPER BODY: Patient is not dressing in public clothing ARTICLES SCORE Total number of steps: 0 DRESSING - UPPER BODY - SCORE: 0-UNK DRESSING - LOWER BODY: Patient is not dressing in public clothing ARTICLES SCORE Total number of steps: 0 DRESSING - LOWER BODY - SCORE: 0-UNK TOILETING: TOILETING - STEP 1: Does the patient require the assistance of a person or device, or need extra time with toileting? Yes . TOILETING - STEP 2: Does the patient require the assistance of a helper? Yes. TOILETING - STEP 3: How much assistance does the patient require from the helper? Hands-on assistance from the helper TOILETING - STEP 4: Of the 3 tasks: 1) Adjusting clothing prior to use, 2) Cleansing of perineal area, 3) Adjusting clot lisbeth after use; How many tasks does the patient perform WITHOUT assistance of the helper? Three tasks with steadying assistance from the helper TOILETING - SCORE: 4-MIN BLADDER MANAGEMENT: BLADDER MANAGEMENT - STEP 1: Does the patient control the bladder completely and intentionally without equipment or devices or med ications, and is always continent? No. BLADDER MANAGEMENT - STEP 2: Does the patient require the assistance of a helper? Yes. BLADDER MANAGEMENT - STEP 3: How much assistance does the patient require from the helper? Only supervision, stand-by, cuing, or c oaxing BLADDER MANAGEMENT - SCORE: 5-SUP BOWEL MANAGEMENT: BOWEL MANAGEMENT - STEP 1: Does the patient control bowels completely and intentionally without equipment devices or medications AND is always continent? No. BOWEL MANAGEMENT - STEP 2: Does the patient require the assistance of a helper? No, patient requires medication for control such as stool softeners, suppositories, laxatives, enemas, or OTC medications BOWEL MANAGEMENT - SCORE: 6-VEE TRANSFERS: BED, CHAIR, WHEELCHAIR: TRANSFERS: BED, CHAIR, WHEELCHAIR - STEP 1: Does the patient require assistance of a person or device, or need extra time with bed, chair, or whe elchair transfers? Yes. TRANSFERS: BED, CHAIR, WHEELCHAIR - STEP 2: Does the patient require the assistance of a helper? Yes. TRANSFERS: BED, CHAIR, WHEELCHAIR - STEP 3: How much assistance does the patient require from the helper? Steadying/guiding assistance TRANSFERS: BED, CHAIR, WHEELCHAIR - SCORE: 4-MIN TRANSFERS: TOILET: TRANSFERS: TOILET - STEP 1: Does the patient require the assistance of a person or device, or need extra time with toilet transfe rs? Yes. TRANSFERS: TOILET - STEP 2: Does the patient require the assistance of a helper? Yes. TRANSFERS: TOILET - STEP 3: How much assistance does the patient require from the helper? Only supervision, cuing, coaxing, OR he lp to set out transfer equipment or to lock brakes and/or lift foot rests TRANSFERS: TOILET - SCORE: 5-SUP TRANSFERS: SHOWER: Activity did not occur on this shift TRANSFERS: SHOWER - SCORE: 0-UNK TRANSFERS: TUB: Activity did not occur on this shift TRANSFERS: TUB - SCORE: 0-UNK LOCOMOTION: WALK: Activity did not occur on this shift LOCOMOTION: WALK - SCORE: 0-UNK LOCOMOTION: WHEELCHAIR: Activity did not occur on this shift LOCOMOTION: WHEELCHAIR - SCORE: 0-UNK COMPREHENSION: COMPREHENSION: TYPE: Both COMPREHENSION - STEP 1: Does the patient require help from a person or device, or need extra time to understand complex and a bstract ideas (such as current events, finances, discharge planning, medical issues, relationships, e tc)? No. COMPREHENSION - STEP 2: Does the patient need extra time, require an assistive device (such as glasses for visual comprehensi on or a hearing aid for auditory comprehension) or does s/he have mild difficulty understanding compl ex and abstract information? Yes. COMPREHENSION - SCORE: 6-VEE EXPRESSION EXPRESSION: TYPE: Both EXPRESSION - STEP 1: Does the patient require help from a person or device, or need extra time expressing complex and abst ract ideas (such as current events, finances, discharge planning, medical issues, relationships, etc) ? No. EXPRESSION - STEP 2: Does the patient need extra time, require an assistive device (such as augmentive communication syste m or a communication board), OR does s/he have mild difficulty expressing complex and abstract ideas (including mild dysarthria or mild word-find problems)? Yes. EXPRESSION - SCORE: 6-VEE SOCIAL INTERACTION: SOCIAL INTERACTION - STEP 1: Does the patient require a helper to interact with others in social and therapeutic situations? No. SOCIAL INTERACTION - STEP 2: Does the patient need extra time in social situations, OR does s/he interact with staff, other patien ts, and family members ONLY in structured environments, OR does s/he require medication for social in teraction? Yes, patient needs extra time SOCIAL INTERACTION - SCORE: 6-VEE PROBLEM SOLVING: PROBLEM SOLVING - STEP 1: Does the patient need help from a person or device, or need extra time to solve complex problems such as managing a checking account or confronting interpersonal problems? Yes. PROBLEM SOLVING - STEP 2: Does the patient solve basic routine problems half or more of the time? Yes. PROBLEM SOLVING - STEP 3: How often does the patient need help to solve basic routine problems? 10%-24% of the time PROBLEM SOLVING - SCORE: 4-MIN MEMORY: MEMORY - STEP 1: Does the patient need help from a person or device, or need extra time to remember frequently encount ered people, daily routines, and executing requests? No. MEMORY - STEP 2: Does the patient have slight difficulty recognizing frequently encountered people, daily routines, or executing requests without the need for repetition or using self-initiated or environmental cues to remember? Yes. MEMORY - SCORE: 6-VEE SIGNATURE PANEL: The following modified sections: Eating - Score, Grooming - Score, Dressing - Upper Body - Score, Liu ssing - Lower Body - Score, Toileting - Score, Bladder Management - Score, Bowel Management - Score, Transfers: Bed, Chair, Wheelchair - Score, Transfers: Toilet - Score, Transfers: Shower - Score, Bee sfers: Tub - Score, Locomotion: Walk - Score, Locomotion: Wheelchair - Score, Comprehension - Score, Expression - Score, Social Interaction - Score, Problem Solving - Score, Memory - Score were [electro nically] signed by Elvia Curtis CNA on TueMay 17 2019 02:46:43 GMT-0500 (Central Daylight Time)
[2019-05-17 06:17] LABS: Absolute Lymphocytes (CBC) 1.7 K/uL (0.7-4.9); Basophils % 0.9 % (0-1.3); Hematocrit 38.2 % (39.6-49.0); Lymphocytes % 29.4 % (15.3-44.8); MPV 6.8 fL (7.6-11.3); RBC Red Blood Cell Count 4.33 M/uL (4.33-5.43)
[2019-05-17 06:42] VITALS: BP 144/78; TEMP 97.4
[2019-05-17 06:46] LABS: Albumin 2.7 g/dL (3.4-5.0); Magnesium 2.1 mg/dL (1.8-2.4); Prealbumin 20.3 mg/dL (20-40)
[2019-05-17] MEDS: AMLODIPINE 10 MG TAB PO SCH (08:18)
[2019-05-17] MEDS: APIXABAN 2.5 MG TABLET PO SCH (08:18)
[2019-05-17] MEDS: LOSARTAN HCTZ PO SCH (08:18)
[2019-05-17] MEDS: FINASTERIDE 5 MG TAB PO SCH (08:18)
[2019-05-17] MEDS: HYDRALAZINE HCL 25 MG TABLET PO SCH ×2 (08:18→13:13)
[2019-05-17] MEDS: ASPIRIN 81 MG CHEWABLE TABLET PO SCH (08:19)
[2019-05-17] MEDS: PROMOD 30 ML DOSE PO SCH (08:19)
[2019-05-17] MEDS: MAGNESIUM OXIDE 400 MG TAB PO SCH (08:19)
== END 2019-05-17 14:10 | disposition home or self-care (01) | DRG 552 ==
LOC: 5TH 17:09
PROVIDERS: ADMIT Psychiatry & Neurology Neurology with Special Qualifications in Child Neurology; ATTEND Psychiatry & Neurology Neurology with Special Qualifications in Child Neurology
DX: M47.896 Other spondylosis, lumbar region (principal); I10 Essential (primary) hypertension; E78.5 Hyperlipidemia, unspecified
CPT/HCPCS: 36415; 80048; 81001; 82040; 83735; 84134; 85025; 87086; 87088; 92523; 97110; 97112; 97116; 97127; 97161; 97530

== ENCOUNTER 2020-07-28 15:18 | Inpatient (IN) | payer OTHER ==
[2020-07-28 16:13] LABS: Absolute Lymphocytes (CBC) 0.8 K/uL (0.7-4.9); Basophils % 0.2 % (0-1.3); Lymphocytes % 6.8 % (15.3-44.8); MPV 6.9 fL (7.6-11.3); RBC Red Blood Cell Count 4.88 M/uL (4.33-5.43)
[2020-07-28] MEDS ORDERED: NA CHLORIDE 0.9% 250 ML ONE (16:15)
[2020-07-28] MEDS ORDERED: NA CHLORIDE 0.9% 2,000 ML ONE (16:15)
[2020-07-28] MEDS ORDERED: ACETAMINOPHEN 500 MG TAB ONE (16:25)
[2020-07-28] MEDS ORDERED: Meropenem 1 GM/100 ML BAG ONE (16:26)
[2020-07-28 16:27] LABS: ALT/SGPT 30 U/L (12-78); AST/SGOT 19 U/L (15-37); Albumin 3.1 g/dL (3.4-5.0); Alkaline Phosphatase 76 U/L (45-117); Amylase 50 U/L (25-115); BUN Blood Urea Nitrogen 14 mg/dL (7-18); Bicarbonate 25 mmol/L (21-32); Bilirubin Direct 0.2 mg/dL (0-0.2); Bilirubin Total 0.6 mg/dL (0.2-1.0); CKMB Creatine Kinase MB < 1.0 ng/mL (0.3-3.6); Creatine Phosphokinase 75 U/L (39-308); Glucose Level 163 mg/dL (74-106); Lipase 75 U/L (73-393); Potassium 3.5 mmol/L (3.5-5.1); Protein, Total 7.6 g/dL (6.4-8.2); Sodium Level 131 mmol/L (136-145); Troponin (Emerg Dept Use Only) < 0.02 ng/mL (0.0-0.045)
[2020-07-28 16:29] LABS: Protime INR 1.11
--- NOTE | 2020-07-28 16:54 | RAD REPORT ---
EXAM DESCRIPTION: RAD - Chest Single View - 07/28/2020 3:50 pm CLINICAL HISTORY: FEVER COMPARISON: April 2019 TECHNIQUE: AP portable chest image was obtained 07/28/2020 3:50 pm . FINDINGS: Lung volumes are very low. Interstitial pattern is accentuated by low lung volumes, body h abitus and portable technique. No peripheral mass or consolidation. Heart and vasculature are normal. No measurable pleural effusion and no pneumothorax. No acute bony abnormality seen. No acute aortic findings suspected. IMPRESSION: Limited shallow inspiration exam without acute cardiopulmonary finding.
[2020-07-28 16:59] LABS: Urine Bacteria 20-50 /HPF (NONE SEEN); Urine Culture Reflex Order NOT NEEDED; Urine Mucus 2+ /HPF (NONE SEEN)
[2020-07-28 16:59] LABS: Urine Blood 3+ (NEG); Urine Glucose NEGATIVE (NEG); Urine Protein 2+ (NEG); Urine Specific Gravity 1.015 (1.005-1.030)
[2020-07-28 18:31] LABS: Blood Morphology Comment NOT SEEN (NOT SEEN); Platelet Estimate ADEQ; White Blood Cell Scan OK (OK)
--- NOTE | 2020-07-28 19:04 | ER ---
Nurse's Notes [facility] Name: Margarito Nunes Age: 75 yrs Sex: Male : 1945 Arrival Date: 07/28/2020 Time: 15:20 Bed 3 Private MD: Ramsey Bullard T Diagnosis: Urinary tract infection, site not specified;Sepsis, unspecified organism Presentation: 07/28 15:31 Chief complaint: Spouse and/or significant other states: : He's been kind of ca1 sluggish and more difficulty walking, less appetite started yesterday. Bloody urine. Denies burning with urination. Reports urinary urgency and frequency. Coronavirus screen: Client denies travel out of the [place] in the last 14 days. fever, Client presents with at least one sign or symptom that may indicate coronavirus-19. Standard/surgical mask placed on the client. Provider contacted for isolation considerations. The client denies any previous COVID testing. Ebola Screen: Patient negative for fever greater than or equal to 101.5 degrees Fahrenheit, and additional compatible Ebola Virus Disease symptoms Patient denies exposure to infectious person. Patient denies travel to an Ebola-affected area in the 21 days before illness onset. No symptoms or risks identified at this time. Initial Sepsis Screen: Does the patient meet any 2 criteria? Temp <36.0*C (96.8*F)) or > 38.3*C (100.9*F). HR > 90 bpm. Yes Does the patient have a suspected source of infection? Yes: Dysuria/Frequency/Urgency/UTI. Risk Assessment: Do you want to hurt yourself or someone else? Patient reports no desire to harm self or others. Onset of symptoms was July 28, 2020. 15:31 Method Of Arrival: Wheelchair ca1 15:31 Acuity: KAROLYN 2 ca1 Historical: - Allergies: 15:35 PENICILLINS; ca1 17:00 Darvon; aa5 - Home Meds: 17:00 hydralazine 25 mg Oral tab 3 times a day [Active]; losartan-hydrochlorothiazide aa5 100-12.5 mg oral tab once daily [Active]; amlodipine 10 mg tab 1 tab once daily [Active]; magnesium oxide 400 mg Oral tab daily [Active]; aspirin 81 mg Oral chew 1 tab once daily [Active]; multivitamin oral oral daily [Active]; finasteride 5 mg oral tab 1 tab once daily [Active]; pravastatin 40 mg oral tab 1 tab once daily [Active]; - PMHx: 15:35 Hyperlipidemia; Hypertension; ca1 - Immunization history:: Adult Immunizations up to date, Pneumococcal vaccine is up to date, Flu vaccine is not up to date. - Social history:: Smoking status: Patient denies any tobacco usage or history of. Screenin:00 Abuse screen: Denies threats or abuse. Nutritional screening: No deficits noted. aa5 Tuberculosis screening: No symptoms or risk factors identified. Fall Risk Fall in past 12 months (25 points). IV access (20 points). Total Vinson Fall Scale indicates High Risk Score (45 or more points). Fall prevention measures have been instituted. Side Rails Up X 2 Placed Close to Nursing Station. Assessment: 15:40 General: Appears comfortable, Behavior is calm, cooperative. Pain: Denies pain. Neuro: aa5 Level of Consciousness is awake, alert, obeys commands, Oriented to person, place, time, situation. Cardiovascular: Heart tones S1 S2 present Rhythm is sinus rhythm. Respiratory: Airway is patent Respiratory effort is even, unlabored, Respiratory pattern is regular, symmetrical, Breath sounds are clear bilaterally. GI: Abdomen is round non-distended, Bowel sounds present X 4 quads. Abd is soft and non tender X 4 quads. Patient currently denies abdominal pain, diarrhea, nausea, vomiting. : Denies burning with urination, inability to void. EENT: No signs and/or symptoms were reported regarding the EENT system. Derm: Skin is pink, warm \T\ dry. Musculoskeletal: Range of motion: intact in all extremities. 16:45 Reassessment: Patient is alert, oriented x 3, equal unlabored respirations, skin aa5 warm/dry/pink. One-One care completed. Awaiting results, pt notified of wait time. . 17:30 Reassessment: Patient is alert, oriented x 3, equal unlabored respirations, skin aa5 warm/dry/pink. Pt's at bedside . 18:55 Reassessment: Pt resting in bed with eyes closed, equal and unlabored respirations. COURT ABSTRACTOR aa5 at bedside speaking to pt's about POC for admission. . 19:08 Reassessment: Patient is alert, oriented x 3, equal unlabored respirations, skin ea warm/dry/pink. Pt taken to CT. 19:17 Reassessment: Patient and/or family updated on plan of care and expected duration. Pain ea level reassessed. Patient is alert, oriented x 3, equal unlabored respirations, skin warm/dry/pink. Returned from CT. 19:19 General: Appears comfortable, Behavior is calm, cooperative. Pain: Denies pain. Neuro: ea Level of Consciousness is awake, alert, obeys commands, Oriented to person, place, time, situation. Cardiovascular: Patient's skin is warm and dry. Respiratory: Airway is patent Respiratory effort is even, unlabored, Respiratory pattern is regular, symmetrical. Derm: Skin is pink, warm \T\ dry. 19:33 Reassessment: Hospitalist at bedside updating pt on plan of care. ea 20:54 Reassessment: Patient and/or family updated on plan of care and expected duration. Pain ea level reassessed. Patient is alert, oriented x 3, equal unlabored respirations, skin warm/dry/pink. Pt admitted to second floor, pt left ED via stretcher per tech. Vital Signs: 15:31 BP 136 / 91; Pulse 104; Resp 16 S; Temp 102.9(TE); Pulse Ox 96% on R/A; Weight 78.93 kg ca1 (R); Height 6 ft. 1 in. (185.42 cm) (R); Pain 0/10; 16:00 BP 139 / 90; Pulse 92; Resp 22 S; Pulse Ox 97% on R/A; aa5 16:50 BP 125 / 93; Pulse 75; Resp 18 S; Temp 101.5(C); Pulse Ox 95% on R/A; aa5 17:34 BP 129 / 76; Pulse 73; Resp 22 S; Temp 100.4(C); Pulse Ox 93% on R/A; aa5 18:30 BP 122 / 77; Pulse 69; Resp 18; Temp 99.5(C); Pulse Ox 98% on R/A; aa5 19:31 BP 142 / 83; Pulse 67; Resp 18; Temp 99.7; Pulse Ox 96% on R/A; ea 15:31 Body Mass Index 22.96 (78.93 kg, 185.42 cm) ca1 ED Course: 15:20 Patient arrived in ED. ag5 15:21 Ramsey Bullard MD is Private Physician. ag5 15:34 Triage completed. ca1 15:35 [facility]. snw 15:35 Gomez Schaffer MD is Attending Physician. snw 15:35 Arm band placed on right wrist. ca1 15:35 Patient has correct armband on for positive identification. Placed in gown. Bed in low aa5 position. Call light in reach. Side rails up X2. Adult w/ patient. traffic monitor specialist on. Pulse ox on. NIBP on. 15:36 Jesus Sullivan, SHERMAN is Primary Nurse. bp 15:45 Initial lab(s) drawn, by me, sent to lab. Inserted saline lock: 18 gauge in right aa5 forearm, using aseptic technique. Blood collected. 15:45 First set of blood cultures drawn by me. aa5 15:51 Chest Single View XRAY In Process Unspecified. EDMS 16:05 Second set of blood cultures drawn by me. Inserted saline lock: 20 gauge in left aa5 forearm, using aseptic technique. 16:35 Suarez cath inserted, using sterile technique, 16 Fr., by me, balloon inflated, to aa5 gravity drainage, urine specimen collected. returned cloudy urine. Patient tolerated well. 16:45 COVID-19 swab sent to lab. aa5 16:50 Urine micro and culture sent to lab. aa5 17:05 Repeat Urine culture collected and sent to lab, lab contacted to use this specimen per aa5 COURT ABSTRACTOR. Urine is now blood tinged and with sediment noted in Suarez tubing. 17:09 EKG done, by ED staff, reviewed by Bettye MALDONADO. em1 19:00 Report given to SHERMAN Interiano and SHERMAN Rice. aa5 19:03 Prince Sinha MD is Hospitalizing Provider. snw 19:13 CT Head Brain wo Cont In Process Unspecified. EDMS 19:24 No provider procedures requiring assistance completed. Patient admitted, IV remains in ea place. Administered Medications: 16:00 Drug: NS 0.9% (30 ml/kg) 30 ml/kg Route: IV; Rate: bolus; Site: right forearm; aa5 17:15 Follow up: IV Status: Completed infusion; IV Intake: 2300ml aa5 16:45 Drug: Meropenem 1 grams Route: IV; Rate: calculated rate; Site: left forearm; aa5 17:15 Follow up: Response: No adverse reaction; IV Status: Completed infusion aa5 16:45 Drug: Tylenol 1000 mg Route: PO; aa5 17:34 Follow up: Response: No adverse reaction; Temperature is decreased aa5 16:57 CANCELLED (Duplicate Order): Tylenol 1000 mg PO once snw Intake: 17:15 IV: 2300ml; Total: 2300ml. aa5 Output: 18:55 Urine: 1700ml (Suarez); Total: 1700ml. aa5 Outcome: 19:03 Decision to Hospitalize by Provider. snw 19:24 Instructed on the need for admit, Demonstrated understanding of instructions. ea 21:09 Admitted to Med/surg accompanied by tech, room 218, with chart, Report called to ea Receiving nurse 21:09 Condition: stable 21:09 Patient left the ED. ea Signatures: Dispatcher [employer] EDMS Bettye Blanco, LUCIANO-C PHOTONICS ENGINEERING TECHNICIAN-Yaya George em1 Liat Morales, RN RN aa5 Laisha Wisdom RN RN ea Jesus Sullivan RN RN bp Heidi Horner RN RN ca1 Lucie Sanchez ag5 Corrections: (The following items were deleted from the chart) 15:43 15:31 Coronavirus screen: Client denies travel out of the [place] in the last 14 days. ca1 fever, Client presents with at least one sign or symptom that may indicate coronavirus-19. Standard/surgical mask placed on the client. Provider contacted for isolation considerations. The client denies any previous COVID testing. ca1 19:14 17:30 Reassessment: Patient is alert, oriented x 3, equal unlabored respirations, skin aa5 warm/dry/pink. aa5 21:34 20:54 Reassessment: Patient and/or family updated on plan of care and expected ea duration. Pain level reassessed. Patient is alert, oriented x 3, equal unlabored respirations, skin warm/dry/pink. Pt admitted to second floor, pt left ED via stretcher per tech. Pt left ED via stretcher per tech. Pt left ED ambulatory ea
--- NOTE | 2020-07-28 19:04 | EDPHYS ---
Physician Documentation [facility] Name: Margarito Nunes Age: 75 yrs Sex: Male : 1945 Arrival Date: 07/28/2020 Time: 15:20 Bed 3 Private MD: Ramsey Bullard T ED Physician Gomez Schaffer HPI: 07/28 15:48 This 75 yrs old Male presents to ER via Wheelchair with complaints of Trouble snw Walking, Urinary Problem. 15:48 The patient presents to the emergency department with weakness of the. Onset: The snw symptoms/episode began/occurred suddenly. Associated signs and symptoms: Pertinent positives: fever, urinary frequency, Pertinent negatives: headache, paresthesias, syncope. Severity of symptoms: At their worst the symptoms were moderate. Current symptoms: fever. The patient has not experienced similar symptoms in the past. The patient has not recently seen a physician. Historical: - Allergies: 15:35 PENICILLINS; ca1 17:00 Darvon; aa5 - Home Meds: 17:00 hydralazine 25 mg Oral tab 3 times a day [Active]; losartan-hydrochlorothiazide aa5 100-12.5 mg oral tab once daily [Active]; amlodipine 10 mg tab 1 tab once daily [Active]; magnesium oxide 400 mg Oral tab daily [Active]; aspirin 81 mg Oral chew 1 tab once daily [Active]; multivitamin oral oral daily [Active]; finasteride 5 mg oral tab 1 tab once daily [Active]; pravastatin 40 mg oral tab 1 tab once daily [Active]; - PMHx: 15:35 Hyperlipidemia; Hypertension; ca1 - Immunization history:: Adult Immunizations up to date, Pneumococcal vaccine is up to date, Flu vaccine is not up to date. - Social history:: Smoking status: Patient denies any tobacco usage or history of. ROS: 15:47 Eyes: Negative for injury, pain, redness, and discharge, ENT: Negative for injury, snw pain, and discharge, Neck: Negative for injury, pain, and swelling, Cardiovascular: Negative for chest pain, palpitations, and edema, Respiratory: Negative for shortness of breath, cough, wheezing, and pleuritic chest pain, Abdomen/GI: Negative for abdominal pain, nausea, vomiting, diarrhea, and constipation, Back: Negative for injury and pain, : Negative for injury, bleeding, discharge, and swelling, + frequency MS/Extremity: Negative for injury and deformity, Skin: Negative for injury, rash, and discoloration. 15:47 Constitutional: Positive for body aches, fever, malaise. 15:47 Neuro: Positive for weakness. Exam: 15:47 Constitutional: This is a well developed, well nourished patient who is awake, alert, snw and in no acute distress. Head/Face: Normocephalic, atraumatic. Eyes: Pupils equal round and reactive to light, extra-ocular motions intact. Lids and lashes normal. Conjunctiva and sclera are non-icteric and not injected. Cornea within normal limits. Periorbital areas with no swelling, redness, or edema. ENT: Nares patent. No nasal discharge, no septal abnormalities noted. Tympanic membranes are normal and external auditory canals are clear. Oropharynx with no redness, swelling, or masses, exudates, or evidence of obstruction, uvula midline. Mucous membranes moist. Neck: Trachea midline, no thyromegaly or masses palpated, and no cervical lymphadenopathy. Supple, full range of motion without nuchal rigidity, or vertebral point tenderness. No Meningismus. Chest/axilla: Normal chest wall appearance and motion. Nontender with no deformity. No lesions are appreciated. 15:47 Respiratory: Lungs have equal breath sounds bilaterally, clear to auscultation and percussion. No rales, rhonchi or wheezes noted. No increased work of breathing, no retractions or nasal flaring. Abdomen/GI: Soft, non-tender, with normal bowel sounds. No distension or tympany. No guarding or rebound. No evidence of tenderness throughout. Back: No spinal tenderness. No costovertebral tenderness. Full range of motion. Skin: Warm, dry with normal turgor. Normal color with no rashes, no lesions, and no evidence of cellulitis. MS/ Extremity: Pulses equal, no cyanosis. Neurovascular intact. Full, normal range of motion. Neuro: Awake and alert, GCS 15, oriented to person, place, time, and situation. Cranial nerves II-XII grossly intact. Motor strength 5/5 in all extremities. Sensory grossly intact. Cerebellar exam normal. Normal gait. Psych: Awake, alert, with orientation to person, place and time. Behavior, mood, and affect are within normal limits. 15:47 Cardiovascular: Rate: tachycardic, Rhythm: regular, Heart sounds: normal. Vital Signs: 15:31 BP 136 / 91; Pulse 104; Resp 16 S; Temp 102.9(TE); Pulse Ox 96% on R/A; Weight 78.93 kg ca1 (R); Height 6 ft. 1 in. (185.42 cm) (R); Pain 0/10; 16:00 BP 139 / 90; Pulse 92; Resp 22 S; Pulse Ox 97% on R/A; aa5 16:50 BP 125 / 93; Pulse 75; Resp 18 S; Temp 101.5(C); Pulse Ox 95% on R/A; aa5 17:34 BP 129 / 76; Pulse 73; Resp 22 S; Temp 100.4(C); Pulse Ox 93% on R/A; aa5 18:30 BP 122 / 77; Pulse 69; Resp 18; Temp 99.5(C); Pulse Ox 98% on R/A; aa5 19:31 BP 142 / 83; Pulse 67; Resp 18; Temp 99.7; Pulse Ox 96% on R/A; ea 15:31 Body Mass Index 22.96 (78.93 kg, 185.42 cm) ca1 MDM: 15:40 Patient medically screened. snw 19:03 Data reviewed: vital signs, nurses notes. Data interpreted: Pulse oximetry: on room air snw is 93 %. Interpretation: acceptable. Counseling: I had a detailed discussion with the patient and/or guardian regarding: the historical points, exam findings, and any diagnostic results supporting the discharge/admit diagnosis, lab results, radiology results, the need for further work-up and treatment in the hospital. Physician consultation: Prince Ernestine PAVON was called at 19:04, was contacted at 19:04, regarding admission, to the telemetry unit. 07/28 15:37 Order name: Sed Rate; Complete Time: 18:41 snw 07/28 15:37 Order name: Urine Culture snw 07/28 15:37 Order name: T\T\S; Complete Time: 17:28 snw 07/28 15:37 Order name: Amylase, Serum; Complete Time: 16:32 snw 07/28 15:37 Order name: Basic Metabolic Panel; Complete Time: 16:32 snw 07/28 15:37 Order name: Blood Culture Adult (2) snw 07/28 15:37 Order name: CBC with Diff; Complete Time: 18:41 snw 07/28 19:01 Interpretation: BASO% 0.2. snw 07/28 15:37 Order name: Ckmb; Complete Time: 16:32 snw 07/28 15:37 Order name: CPK; Complete Time: 16:32 snw 07/28 15:37 Order name: Lactate; Complete Time: 16:32 snw 07/28 15:37 Order name: LFT's; Complete Time: 16:32 snw 07/28 15:37 Order name: Lipase; Complete Time: 16:32 snw 07/28 15:37 Order name: Procalcitonin; Complete Time: 16:43 snw 07/28 15:37 Order name: Protime (+inr); Complete Time: 16:32 snw 07/28 15:37 Order name: Ptt, Activated; Complete Time: 16:32 snw 07/28 15:37 Order name: Troponin (emerg Dept Use Only); Complete Time: 16:32 snw 07/28 15:37 Order name: Urine Microscopic Only; Complete Time: 17:00 snw 07/28 15:37 Order name: Chest Single View XRAY; Complete Time: 17:00 snw 07/28 15:37 Order name: Accucheck; Complete Time: 16:52 snw 07/28 15:37 Order name: Cardiac monitoring; Complete Time: 16:52 snw 07/28 15:37 Order name: COVID-19 snw 07/28 16:47 Order name: Urine Dipstick--Ancillary (enter results); Complete Time: 17:01 bd 07/28 17:53 Order name: ABO/RH no charge EDMS 07/28 18:31 Order name: CBC Smear Scan; Complete Time: 18:41 EDMS 07/28 18:42 Order name: CT Head Brain wo Cont; Complete Time: 19:39 snw 07/28 20:46 Order name: SARS-COV-2 RT PCR; Complete Time: 21:07 EDMS 07/28 15:37 Order name: EKG - Nurse/Tech; Complete Time: 16:52 snw 07/28 15:37 Order name: IV Saline Lock - Large Bore; Complete Time: 16:52 snw 07/28 15:37 Order name: Labs collected and sent; Complete Time: 16:53 snw 07/28 15:37 Order name: O2 Per Protocol; Complete Time: 16:53 snw 07/28 15:37 Order name: O2 Sat Monitoring; Complete Time: 16:53 snw 07/28 15:37 Order name: Urine Dipstick-Ancillary (obtain specimen); Complete Time: 16:53 snw 07/28 15:38 Order name: Suarez: criticore; Complete Time: 16:52 snw 07/28 16:54 Order name: Labs - recollect needed: ABO RH no charge; Complete Time: 17:13 iw Administered Medications: 16:00 Drug: NS 0.9% (30 ml/kg) 30 ml/kg Route: IV; Rate: bolus; Site: right forearm; aa5 17:15 Follow up: IV Status: Completed infusion; IV Intake: 2300ml aa5 16:45 Drug: Meropenem 1 grams Route: IV; Rate: calculated rate; Site: left forearm; aa5 17:15 Follow up: Response: No adverse reaction; IV Status: Completed infusion aa5 16:45 Drug: Tylenol 1000 mg Route: PO; aa5 17:34 Follow up: Response: No adverse reaction; Temperature is decreased aa5 16:57 CANCELLED (Duplicate Order): Tylenol 1000 mg PO once snw Disposition: 07/29 06:57 Co-signature as Attending Physician, Gomez Schaffer MD I agree with the assessment and kdr plan of care. Disposition: 07/28/20 19:03 Hospitalization ordered by Prince Ernestine for Inpatient Admission. Preliminary diagnosis are Urinary tract infection, site not specified, Sepsis, unspecified organism. - Bed requested for Telemetry/MedSurg (Inpatient). - Status is Inpatient Admission. ea - Condition is Stable. - Problem is new. - Symptoms are unchanged. Signatures: Dispatcher [employer] EDMS Gomez Schaffer MD MD kdr Waters, Shelly, MOP WORKER-C MOP WORKER-Csnw Salud Perez RN RN iw Liat Morales RN RN aa5 Joleen Ortiz RN RN tl1 Wisdom, Laisha, RN Heidi Ferreira ea, RN RN ca1 Corrections: (The following items were deleted from the chart) 07/28 16:57 16:57 Tylenol 1000 mg PO once ordered. [facility] 21: 19:03 Hospitalization Ordered by Prince Ernestine PAVON for Inpatient Admission. Preliminary tl1 diagnosis is Urinary tract infection, site not specified; Sepsis, unspecified organism. Bed requested for Telemetry/MedSurg (Inpatient). Status is Inpatient Admission. Condition is Stable. Problem is new. Symptoms are unchanged. [facility] 21:03 07/28/2020 19:03 Hospitalization Ordered by Prince Ernestine PAVON for Inpatient ea Admission. Preliminary diagnosis is Urinary tract infection, site not specified; Sepsis, unspecified organism. Bed requested for Telemetry/MedSurg (Inpatient). Status is Inpatient Admission. Condition is Stable. Problem is new. Symptoms are unchanged. tl1
--- NOTE | 2020-07-28 19:30 | RAD REPORT ---
EXAM DESCRIPTION: CT - Head Brain Wo Cont - 07/28/2020 7:13 pm CLINICAL HISTORY: DIZZINESS, difficulty walking COMPARISON: Head Brain Wo Cont dated 05/03/2019 TECHNIQUE: Axial 5 mm thick images of the head were obtained without IV contrast. All CT scans are performed using dose optimization technique as appropriate and may include automated exposure control or mA/KV adjustment according to patient size. FINDINGS: No intracranial hemorrhage, mass, edema or shift of mid-line structures. No acute cortical based infarction. Patient has moderate severity atrophy and scattered chronic ischemic changes also moderate severity. Chronic ischemic changes primarily in each frontal lobe. Ventriculomegaly is prese nt and does appear out of proportion to the amount of volume loss. The ventriculomegaly and atrophy a re similar to the 2019 comparison. Mastoid air cells and visualized portions of the paranasal sinuses are clear. No acute bony findings. IMPRESSION: Negative non-contrast CT head examination for acute findings. Ventriculomegaly out of proportion to the moderate severity atrophy. Correlation is needed with any n ormal pressure hydrocephalus findings. Moderate severity chronic ischemic change. The above detailed findings are not clearly different from April 2019.
--- NOTE | 2020-07-28 20:22 | P.HP ---
Certification for Inpatient Patient admitted to: Inpatient With expected LOS: >2 Midnights Practitioner: I am a practitioner with admitting privileges, knowledge of patient current condition, hospital course, and medical plan of care. Services: Services provided to patient in accordance with Admission requirements found in Title 42 Section 412.3 of the Code of Federal Regulations Patient History Date of Service: 07/29/20 Reason for admission: fever and urinary frequency History of Present Illness: Patient is a 75-year-old male with a past medical history of hypert ension and BPH who present to the ER accompanied by the complaining of acute onset of fever and urinary frequency. states that patient had a fever of 102 at home. Also during this time patient has been urinating frequently at home. Other associated symptoms include generalized weakness and slight confusion. The day of admission noted that patient had gross hematuria. Of note, patient is currently on baby aspirin. Allergies propoxyphene HCl [From Darvon] Allergy (Mild, Verified 05/09/19 12:25) Hives/Rash Penicillins Allergy (Verified 07/28/20 22:16) Hives/Rash Home Medications: Amlodipine Besylate 10 mg PO DAILY 06/26/12 Aspirin 81 mg PO DAILY 06/26/12 Magnesium Oxide [Mag 0X*] 400 mg PO DAILY 06/26/12 Pravastatin [Pravachol*] 40 mg PO BEDTIME 06/26/12 Finasteride [Proscar*] 5 mg PO BEDTIME 05/04/19 Hydralazine [Apresoline*] 25 mg PO TID 05/04/19 Losartan Potassium 1 tab PO DAILY 07/29/20 Multivit-Min/FA/Lutein/Zeaxant [[place] Vitamin Caplet] 1 tab PO TID 07/29/20 hydroCHLOROthiazide [Hydrochlorothiazide] 1 tab PO DAILY 07/29/20 - Past Medical/Surgical History Diabetic: No -: HTN -: Dyslipidemia - Family History Mother -: Heart disease Father Notes: Alzheimer's Sister Notes: Breast Cancer - Social History Alcohol use: No CD- Drugs: No Caffeine use: Yes Physical Examination - Physical Exam General: In no apparent distress, Cooperative HEENT: Atraumatic, Normocephalic, EOMI Neck: Supple Respiratory: Clear to auscultation bilaterally, Normal air movement Cardiovascular: No edema, Normal pulses, Regular rate/rhythm, Normal S1 S2 Gastrointestinal: Normal bowel sounds, Soft and benign, Non-distended, No tenderness Musculoskeletal: No clubbing, No swelling, No contractures, No erythema, No tenderness, No warmth Neurological: Normal speech, Normal affect Urinary: Suarez catheter - Studies Laboratory Data (last 24 hrs) 07/28/20 15:52: PT 13.1 H, INR 1.11, APTT 28.1 07/28/20 15:52: Sodium 131 L, Potassium 3.5, BUN 14, Creatinine 0.95, Glucose 163 H, Total Bilirubin 0.6, AST 19, ALT 30, Alkaline Phosphatase 76, Amylase 50, Lipase 75 07/28/20 15:52: WBC 12.3 H, Hgb 14.3, Hct 42.0, Plt Count 353 Assessment and Plan - Problems (Diagnosis) (1) Sepsis Current Visit: Yes Status: Acute (2) UTI (urinary tract infection) Current Visit: Yes Status: Acute (3) Gross hematuria Current Visit: Yes Status: Acute (4) History of hyperlipidemia Current Visit: No Status: Acute (5) History of hypertension Current Visit: No Status: Acute - Advance Directives Does patient have a Living Will: No Does patient have a Durable POA for Healthcare: Yes Physician Review Additional Text: Assessment 75 year old [place] male with HTN, BPH currently admitted an acute onset of urinary frequency, persistent fever and generalized weakness. Found to have UTI as per UA. Complicated UTI Gross hematuria BPH HLD PLAN: Admit inpatient with telemetry Start ceftriaxone pending urine and blood cultures Continue maintenance IVF with LR at 100 cc/hr Hold aspirin Consult urology for gross hematuria PT/OT Resume home medications once reconciled
[2020-07-28] MEDS ORDERED: HYDRALAZINE HCL 25 MG TABLET PO SCH (21:00)
[2020-07-28] MEDS: MUPIROCIN 2% OINT 22GM TUBE TOP SCH (21:00)
[2020-07-28] MEDS ORDERED: HYDRALAZINE HCL 10 MG TABLET PO SCH (21:00)
[2020-07-28 21:59] VITALS: BMI 21.7
[2020-07-28] MEDS: ATORVASTATIN 20 MG TAB PO SCH (22:43)
[2020-07-29] MEDS: CEFTRIAXONE/SWI 1gm 1 GM/10 ML SYR IV SCH (00:34)
[2020-07-29] MEDS: Ringers Lactate 1,000 ML IV SCH ×2 (02:28→14:54)
[2020-07-29] MEDS: ACETAMINOPHEN 325 MG TABLET PO PRN ×2 (04:52→17:12)
[2020-07-29 07:25] LABS: Absolute Lymphocytes (CBC) 0.9 K/uL (0.7-4.9); Basophils % 0.2 % (0-1.3); Hematocrit 38.7 % (39.6-49.0); Lymphocytes % 9.5 % (15.3-44.8); MPV 7.1 fL (7.6-11.3); RBC Red Blood Cell Count 4.48 M/uL (4.33-5.43)
[2020-07-29 07:42] LABS: BUN Blood Urea Nitrogen 11 mg/dL (7-18); Bicarbonate 29 mmol/L (21-32); Glucose Level 184 mg/dL (74-106); Magnesium 2.2 mg/dL (1.8-2.4); Potassium 3.5 mmol/L (3.5-5.1); Sodium Level 139 mmol/L (136-145)
[2020-07-29 08:00] LABS: Blood Morphology Comment NOT SEEN (NOT SEEN); Platelet Estimate ADEQ
[2020-07-29] MEDS ORDERED: CEFTRIAXONE 1 GM/NS 50 ML 1 GM/50 ML BAG IV SCH (09:00)
[2020-07-29] MEDS: FINASTERIDE 5 MG TAB PO SCH (09:08)
[2020-07-29] MEDS: HYDRALAZINE HCL 25 MG TABLET PO SCH ×3 (09:09→20:16)
[2020-07-29] MEDS: AMLODIPINE 10 MG TAB PO SCH (09:09)
[2020-07-29] MEDS ORDERED: INFLUENZA VACCINE (for 3y+) 0.5 ML DOSE IMVAC ONE (10:00)
[2020-07-29] MEDS: MUPIROCIN 2% OINT 22GM TUBE TOP SCH ×2 (11:12→20:18)
--- NOTE | 2020-07-29 11:51 | P.PN ---
Subjective Date of Service: 07/29/20 Chief Complaint: fever and urinary frequency Subjective: Improving (feeling better, still with some hematuria, denies pain this morning) Review of Systems 10-point ROS is otherwise unremarkable Physical Examination - Vital Signs Temperature: 98.2 F Blood Pressure: 150/81 Pulse: 75 Respirations: 24 Pulse Ox (%): 93 - Physical Exam General: In no apparent distress, Oriented x2 HEENT: Sclerae nonicteric Respiratory: Clear to auscultation bilaterally, Normal air movement Cardiovascular: Regular rate/rhythm Gastrointestinal: Soft and benign, Non-distended, No tenderness Musculoskeletal: No tenderness Neurological: Normal speech, Normal affect Urinary: Suarez catheter (dark red urine, infant babysitter color in catheter compared to container) - Studies Laboratory Data (last 24 hrs) 07/28/20 15:52: PT 13.1 H, INR 1.11, APTT 28.1 07/28/20 15:52: Sodium 131 L, Potassium 3.5, BUN 14, Creatinine 0.95, Glucose 163 H, Total Bilirubin 0.6, AST 19, ALT 30, Alkaline Phosphatase 76, Amylase 50, Lipase 75 07/28/20 15:52: WBC 12.3 H, Hgb 14.3, Hct 42.0, Plt Count 353 Assessment & Plan Physician Review Additional Text: 75 year old [place] male with HTN, BPH currently admitted an acute onset of urinary frequency, persistent fever and generalized weakness. Found to have UTI as per UA. Complicated UTI Gross hematuria HTN BPH HLD continue rocephin, f/u urine and blood cultures Continue maintenance IVF with LR at 100 cc/hr for now, can dc once eating improves Hold aspirin in setting of hematuria urology consulted for gross hematuria, appreciate assistance PT/OT consulted BP improving, now hypertensive, continue home hydralazine, norvasc, restart home ARB Dispo: anticipate dc home in 24-48hrs pending further improvement Time Spent Managing Pts Care (In Minutes): 35
--- NOTE | 2020-07-29 12:06 | EKG ---
Test Date: 2020-07-28 Test Time: 17:01:58 Optimization Consultant: STEPHANIE MEASUREMENT RESULTS: Intervals: Rate: 83 MO: 230 QRSD: 104 QT: 370 QTc: 434 Shock: P: 11 MO: 230 QRS: -45 T: 21 INTERPRETIVE STATEMENTS: Sinus rhythm with 1st degree AV block with occasional premature ventricular complexes Left anterior fascicular block Anteroseptal infarct, age undetermined Abnormal ECG Compared to ECG 05/03/2019 21:32:32 Ventricular premature complex(es) now present Left anterior fascicular block now present Left-axis deviation no longer present Myocardial infarct finding still present Electronically Signed On 07-29-20 12:03:19 ENTRY LEVEL MARKETING REPRESENTATIVE by Collin Fonseca
--- NOTE | 2020-07-29 13:44 | CON ---
Reason For Consultation: Gross hematuria. History Of Present Illness: This is a 75-year-old gentleman who had been seen and treated with Dr. Niko vila for several years with issues of BPH with obstruction and had undergone a TUMT in 03/19/2008 fol lowed by a TURP for persistent symptom in 07/11/2012. The pathology of the last resection was unrema rkable for malignancy, but with persistent symptoms years later, he was started on finasteride in 2016. His PSA history is as follows: 05/28/2000 0.94 and creatinine 0.86. 06/14/2019 1.01. 06/12/2018 0.91. 05/27/2017 2.81. He presented with in about two week history of intermittent reddish gross hematuria in the absence of dysuria. However what prompted this hospital admission was, he was febrile associated with anorexia . As a result, in the emergency department, they placed a temperature probe urethral Suarez catheter and transferred him for admission. At that point, the gross hematuria was noted and consultation was initiated. The patient denies any prior history of smoking and his medical history includes hypert ension, left inguinal hernia repair and right knee arthroscopy. On examination, he is circumcised wi th an orthotopic meatus and no evident penile lesions. There was no pericatheter discharge and the 1 6-Barbadian temperature sensing urethral Suarez catheter was in place with drainage of port wine colored urine. While there were some clots within the tubing, there was no significant ongoing clot burden a ctively observed at this time. I asked if they had any issues with obstruction due to clots since hi s admission, and the patient and his denied such. Assessment: This is a 75-year-old gentleman with hypertension and hypercholesterolemia who has under gone two prior transurethral prostate procedures, the last in June 2012 with benign pathology, now on finasteride for three years with a history of enterobacter UTI as well as enterococcus diagnosed in May 2020 and now gross hematuria. I recommend CT urography be obtained as an inpatient if p ossible and this would be a CT scan of the abdomen and pelvis with and without contrast and a 10 zac te delayed phase scan. As far as the catheter is concerned, at 16-Barbadian, it will inadequate for management of significant c lot burden associated with hematuria. However, since he is not clotted to date, we will leave the cu rrent catheter in place and only exchange it if there is evidence of obstruction. Otherwise, since t he patient was not complaining any difficulty voiding and the catheter was placed because he was febr ile with suspicion of sepsis, once the acute infectious episode is passed, the catheter may be remove d. I also asked the and the patient to follow up with me in the Urology Clinic in 2-3 weeks for cystoscopy and further evaluation. DOMINGO/LAUREN Voice ID: [id number] Report ID: [id number]
[2020-07-29] MEDS: ATORVASTATIN 20 MG TAB PO SCH (20:16)
[2020-07-30] MEDS: CEFTRIAXONE/SWI 1gm 1 GM/10 ML SYR IV SCH
[2020-07-30 04:21] LABS: Absolute Lymphocytes (CBC) 1.4 K/uL (0.7-4.9); Basophils % 0.3 % (0-1.3); Hematocrit 39.1 % (39.6-49.0); Lymphocytes % 17.3 % (15.3-44.8); MPV 7.2 fL (7.6-11.3); RBC Red Blood Cell Count 4.52 M/uL (4.33-5.43)
[2020-07-30 04:22] LABS: BUN Blood Urea Nitrogen 12 mg/dL (7-18); Bicarbonate 32 mmol/L (21-32); Glucose Level 184 mg/dL (74-106); Magnesium 2.1 mg/dL (1.8-2.4); Potassium 3.9 mmol/L (3.5-5.1); Sodium Level 139 mmol/L (136-145)
[2020-07-30] MEDS: LOSARTAN POTASSIUM 50 MG TABLET PO SCH (07:57)
[2020-07-30] MEDS: FINASTERIDE 5 MG TAB PO SCH (07:58)
[2020-07-30] MEDS: AMLODIPINE 10 MG TAB PO SCH (07:59)
[2020-07-30] MEDS: HYDRALAZINE HCL 25 MG TABLET PO SCH ×3 (08:00→21:35)
[2020-07-30] MEDS: MUPIROCIN 2% OINT 22GM TUBE TOP SCH ×2 (08:00→21:35)
--- NOTE | 2020-07-30 09:12 | RAD REPORT ---
EXAM DESCRIPTION: CT - Abdomen Pelvis W/Wo Contrast - 07/30/2020 8:38 am CLINICAL HISTORY: hematuria Flank pain, hematuria COMPARISON: Abdomen Pelvis W/Wo Contrast dated 06/09/2017 TECHNIQUE: Axial non-contrast CT imaging was performed. Following this, biphasic contrast enhanced i maging through the abdomen and pelvis was performed with coronal and sagittal reformatted images. All CT scans are performed using dose optimization technique as appropriate and may include automated exposure control or mA/KV adjustment according to patient size. FINDINGS: Trace left pleural fluid is present. 15 mm soft tissue density lesion is present in the ri ght posterior gutter abutting the pleural surface. This is nonspecific. The liver demonstrates no focal mass or biliary dilatation. The spleen, adrenal glands, pancreas with in normal limits. 22 mm cyst is present involving the right kidney cortex. Slight enhancement of the uroepithelium is seen on the right. There is no obstructing urinary tract calculus. An area of diminished density involves the inferolate ral cortex of the left kidney measuring 26 mm. This likely represents an area of focal infection/ lob ar nephronia. A follow-up study after completion of therapy would be advised to ensure resolution. The prostate gland is very enlarged with a Suarez catheter in place. Urinary bladder demonstrates a la rge amount of air with mild wall thickening present. Symmetric contrast excretion is seen by both kid neys. No bowel obstruction, free fluid or abscess. Normal appendix. Postsurgical changes are present left i nguinal region. Heavy aortic atherosclerosis. Advanced lumbosacral degenerative changes. Degenerative anterolisthesis of L5 on S1 is present approx imately 15 mm. IMPRESSION: Urinary tract infection pattern is seen with enhancement of the uroepithelium present. F ocal pyelonephritis of the inferior left kidney is suspected with lobar nephronia noted. After approp riate therapy, follow-up renal ultrasound would be advised to ensure resolution of left renal finding . Significant prostatomegaly is present with Suarez catheter in place. The urinary bladder wall appears mildly thickened. 15 mm soft tissue nodule abutting the pleural surface in the right posterior gutter is nonspecific. F ollowup nonemergent PET-CT evaluation would be useful.
[2020-07-30] MEDS: Ringers Lactate 1,000 ML IV SCH ×2 (09:31)
--- NOTE | 2020-07-30 13:47 | P.PN ---
Subjective Date of Service: 07/30/20 Chief Complaint: fever and urinary frequency Subjective: Improving (Patient feeling better, urine seems to be clearing up) Review of Systems 10-point ROS is otherwise unremarkable Physical Examination - Vital Signs Temperature: 98.3 F Blood Pressure: 158/91 Pulse: 75 Respirations: 18 Pulse Ox (%): 92 - Physical Exam General: Alert, In no apparent distress, Oriented x2 HEENT: Mucous membr. moist/pink, Sclerae nonicteric Respiratory: Clear to auscultation bilaterally Cardiovascular: Regular rate/rhythm Gastrointestinal: Soft and benign, Non-distended, No tenderness Musculoskeletal: No tenderness Neurological: Normal speech, Normal affect Urinary: Suarez catheter (Yellowish urine in Suarez tube) Assessment & Plan Physician Review Additional Text: 75 year old [place] male with HTN, BPH currently admitted an acute onset of urinary frequency, persistent fever and generalized weakness. Found to have UTI Complicated UTI Gross hematuria HTN BPH HLD continue rocephin, f/u urine and blood cultures - 3+ GNR so far afebrile x 24hrs now tolerating diet well, dc IVF Hold aspirin in setting of hematuria urology consulted for gross hematuria, appreciate assistance - CT urography to be done today PT/OT consulted BP improving, now hypertensive, continue home medications Dispo: anticipate dc home in 24-48hrs pending further improvement, urine cultures, CT urography Time Spent Managing Pts Care (In Minutes): 35
[2020-07-30] MEDS: ATORVASTATIN 20 MG TAB PO SCH (21:35)
[2020-07-31] MEDS: CEFTRIAXONE/SWI 1gm 1 GM/10 ML SYR IV SCH (01:02)
[2020-07-31 05:48] LABS: BUN Blood Urea Nitrogen 8 mg/dL (7-18); Bicarbonate 31 mmol/L (21-32); Glucose Level 169 mg/dL (74-106); Potassium 3.3 mmol/L (3.5-5.1); Sodium Level 138 mmol/L (136-145)
[2020-07-31] MEDS ORDERED: POTASSIUM 25 MEQ EFFERV TAB PO ONE (08:03)
[2020-07-31] MEDS: FINASTERIDE 5 MG TAB PO SCH (08:51)
[2020-07-31] MEDS: LOSARTAN POTASSIUM 50 MG TABLET PO SCH (08:52)
[2020-07-31] MEDS: HYDRALAZINE HCL 25 MG TABLET PO SCH ×3 (08:53→21:50)
[2020-07-31] MEDS: MUPIROCIN 2% OINT 22GM TUBE TOP SCH ×2 (08:54→21:51)
[2020-07-31] MEDS: AMLODIPINE 10 MG TAB PO SCH (08:54)
[2020-07-31] MEDS ORDERED: hydroCHLOROthiazide 12.5 MG CAP PO SCH (09:00)
--- NOTE | 2020-07-31 13:08 | P.PN ---
Subjective Date of Service: 07/31/20 Chief Complaint: fever and urinary frequency Subjective: Improving (Feeling better, urine is clearing up) Review of Systems 10-point ROS is otherwise unremarkable Physical Examination - Vital Signs Temperature: 98.2 F Blood Pressure: 129/81 Pulse: 78 Respirations: 16 Pulse Ox (%): 95 - Physical Exam General: Alert, In no apparent distress, Oriented x2 HEENT: Mucous membr. moist/pink, Sclerae nonicteric Respiratory: Clear to auscultation bilaterally, Normal air movement Cardiovascular: No edema, Regular rate/rhythm Gastrointestinal: Soft and benign, Non-distended, No tenderness Musculoskeletal: No tenderness Integumentary: No rashes Neurological: Normal speech, Normal affect Urinary: Hernandez catheter (Clear, yellowish urine) - Studies Microbiology Data (last 24 hrs): 07/28/20 16:25 Catheterized Urine [place] Count - Final >100,000 CFU/ML. 07/28/20 16:25 Catheterized Urine - Final Escherichia Coli Assessment & Plan Physician Review Additional Text: 75 year old [place] male with HTN, BPH currently admitted an acute onset of urinary frequency, persistent fever and generalized weakness. Found to have UTI Complicated UTI, pyelonephritis Gross hematuria HTN BPH HLD on rocephin, CT urography with concern for pyelonephritis - urine culture back with e. coli, will switch to levaquin remains afebrile, clinically improving hematuria seems to be resolving/resolved Hold aspirin in setting of hematuria, can restart on discharge urology consulted for gross hematuria, appreciate assistance - pt to f/u in 2-3 weeks after discharge for cystoscopy will remove hernandez tonight, voiding trial tomorrow morning, if doing well, anticipate dc home tomorrow PT/OT consulted Dispo: anticipate dc home tomorrow, pending voiding trial, and continued clearance of hematuria Time Spent Managing Pts Care (In Minutes): 35
[2020-07-31] MEDS: Levofloxacin 750mg IV 750 MG/150 ML BAG IV SCH (13:24)
[2020-07-31] MEDS ORDERED: NITROFURAN MACRO 100 MG CAP PO SCH (17:00)
[2020-07-31] MEDS: ATORVASTATIN 20 MG TAB PO SCH (21:50)
[2020-08-01 05:53] LABS: Absolute Lymphocytes (CBC) 1.2 K/uL (0.7-4.9); Basophils % 0.4 % (0-1.3); Hematocrit 41.3 % (39.6-49.0); Lymphocytes % 14.5 % (15.3-44.8); MPV 7.3 fL (7.6-11.3); RBC Red Blood Cell Count 4.78 M/uL (4.33-5.43)
[2020-08-01 06:03] LABS: Magnesium 2.3 mg/dL (1.8-2.4); Potassium 4.1 mmol/L (3.5-5.1)
[2020-08-01] MEDS ORDERED: hydroCHLOROthiazide 12.5 MG CAP PO SCH (09:00)
[2020-08-01] MEDS: AMLODIPINE 10 MG TAB PO SCH (09:15)
[2020-08-01] MEDS: HYDRALAZINE HCL 25 MG TABLET PO SCH ×2 (09:16→13:54)
[2020-08-01] MEDS: FINASTERIDE 5 MG TAB PO SCH (09:16)
[2020-08-01] MEDS: LOSARTAN POTASSIUM 50 MG TABLET PO SCH (09:16)
[2020-08-01] MEDS: MUPIROCIN 2% OINT 22GM TUBE TOP SCH (09:17)
[2020-08-01 13:35] VITALS: O2SAT 96
[2020-08-01] MEDS: Levofloxacin 750mg IV 750 MG/150 ML BAG IV SCH (13:59)
[2020-08-01 14:16] VITALS: BP 127/82; TEMP 98
--- NOTE | 2020-08-01 21:29 | P.DS ---
Admission Date: 07/28/20 Discharge Date: 08/01/20 Disposition: ROUTINE DISCHARGE Discharge Condition: GOOD Reason for Admission: fever and urinary frequency Consultations: Urology - Dr. Kwon Procedures: CXR (07/28): Limited shallow inspiration exam without acute cardiopulmonary finding. CT Head (07/28): Negative non-contrast CT head examination for acute findings. Ventriculomegaly out of proportion to the moderate severity atrophy. Correlation is needed with any normal pressure hydrocephalus findings. Moderate severity chronic ischemic change. The above detailed findings are not clearly different from April 2019 CT Abd/Pelvis (07/28): Urinary tract infection pattern is seen with enhancement of the uroepithelium present. Focal pyelonephritis of the inferior left kidney is suspected with lobar nephronia noted. After appropriate therapy, follow-up renal ultrasound would be advised to ensure resolution of left renal finding. Significant prostatomegaly is present with Hernandez catheter in place. The urinary bladder wall appears mildly thickened. 15 mm soft tissue nodule abutting the pleural surface in the right posterior gutter is nonspecific. Followup nonemergent PET-CT evaluation would be useful. Problem List: Complicated UTI, pyelonephritis Gross hematuria HTN BPH HLD Brief History of Present Illness: Patient is a 75-year-old male with a past medical history of hypertension and BPH who present to the ER accompanied by the complaining of acute onset of fever and urinary frequency. states that patient had a fever of 102 at home. Also during this time patient has been urinating frequently at home. Other associated symptoms include generalized weakness and slight confusion. The day of admission noted that patient had gross hematuria. Hospital Course: A hernandez catheter was placed in ED for accurate temperature readings and due to hematuria. He was treated with empiric coverage. Urology was consulted. A CT urography was obtained and was consistent with pyelonephritis. His urine culture grew e.coli and he was discharged home to complete a course of Levaquin. He had resolution of his hematuria and the hernandez catheter was removed in the late evening of 07/31. Patient was able to void on his own. Patient and his refused home PT, and requested for outpatient PT per their own preference. He is to f/u with his PCP. He is to f/u with Urology, Dr. Kwon to have a cystoscopy in 2-3 weeks. Vital Signs/Physical Exam: Temp Pulse Resp BP Pulse Ox 98 F 86 18 127/82 95 08/01/20 12:00 08/01/20 12:00 08/01/20 12:00 08/01/20 12:00 08/01/20 12:00 General: Alert, Oriented x2, Confused HEENT: Atraumatic, Sclerae nonicteric Neck: 2+ carotid pulse no bruit Respiratory: Clear to auscultation bilaterally Cardiovascular: Regular rate/rhythm Gastrointestinal: Soft and benign, Non-distended, No tenderness Musculoskeletal: No tenderness Neurological: Normal speech, Normal affect Laboratory Data at Discharge: WBC 8.3 K/uL (4.3-10.9) 08/01/20 05:02 Hgb 14.2 g/dL (13.6-17.9) 08/01/20 05:02 Hct 41.3 % (39.6-49.0) 08/01/20 05:02 Plt Count 401 K/uL (152-406) D 08/01/20 05:02 PT 13.1 SECONDS (9.5-12.5) H 07/28/20 15:52 INR 1.11 07/28/20 15:52 APTT 28.1 SECONDS (24.3-36.9) 07/28/20 15:52 Sodium 138 mmol/L (136-145) 08/01/20 05:02 Potassium 4.1 mmol/L (3.5-5.1) 08/01/20 05:02 BUN 11 mg/dL (7-18) 08/01/20 05:02 Creatinine 0.89 mg/dL (0.55-1.3) 08/01/20 05:02 Glucose 170 mg/dL (74-106) H 08/01/20 05:02 Magnesium 2.3 mg/dL (1.8-2.4) 08/01/20 05:02 Total Bilirubin 0.6 mg/dL (0.2-1.0) 07/28/20 15:52 AST 19 U/L (15-37) 07/28/20 15:52 ALT 30 U/L (12-78) 07/28/20 15:52 Alkaline Phosphatase 76 U/L (45-117) 07/28/20 15:52 Amylase 50 U/L (25-115) 07/28/20 15:52 Lipase 75 U/L (73-393) 07/28/20 15:52 Home Medications: Amlodipine Besylate 10 mg PO DAILY 06/26/12 Aspirin 81 mg PO DAILY 06/26/12 Magnesium Oxide [Mag 0X*] 400 mg PO DAILY 06/26/12 Pravastatin [Pravachol*] 40 mg PO BEDTIME 06/26/12 Finasteride [Proscar*] 5 mg PO BEDTIME 05/04/19 Hydralazine [Apresoline*] 25 mg PO TID 05/04/19 Losartan Potassium 1 tab PO DAILY 07/29/20 Multivit-Min/FA/Lutein/Zeaxant [[place] Vitamin Caplet] 1 tab PO TID 07/29/20 hydroCHLOROthiazide [Hydrochlorothiazide] 1 tab PO DAILY 07/29/20 levoFLOXacin [Levaquin] 750 mg PO DAILY 14 Days #14 tab 08/01/20 New Medications: levoFLOXacin [Levaquin] 750 mg PO DAILY 14 Days #14 tab Patient Discharge Instructions: follow up with PCP within 1 week. follow up with urology (Dr. Kwon) in 2--3 weeks for cystoscopy. new medications: levaquin (levofloxacin) - 750mg daily for 14 days Diet: Regular Activity: Fall precautions Followup: Ramsey Bullard MD [Primary Care Provider] - Conner Kwon [COURTESY - CAN ADMIT] - Time spent managing pt's care (in minutes): 35
== END 2020-08-01 15:49 | disposition home or self-care (01) | DRG 872 ==
LOC: ER 15:18 → ERHOLD 19:20 → 2ND 21:09
PROVIDERS: ADMIT Internal Medicine; ATTEND Hospitalist
DX: A41.51 Sepsis due to Escherichia coli [E. coli] (principal); N12 Tubulo-interstitial nephritis, not specified as acute or chronic; E78.5 Hyperlipidemia, unspecified; I10 Essential (primary) hypertension; E78.00 Pure hypercholesterolemia, unspecified; N40.0 Benign prostatic hyperplasia without lower urinary tract symptoms; R31.0 Gross hematuria; Z88.0 Allergy status to penicillin; Z88.6 Allergy status to analgesic agent; Z79.82 Long term (current) use of aspirin; Z79.899 Other long term (current) drug therapy; Z88.8 Allergy status to other drugs, medicaments and biological substances; Z20.828 Contact with and (suspected) exposure to other viral communicable diseases
CPT/HCPCS: 36415; 51702; 70450; 71045; 74178; 80048; 80076; 81003; 81015; 82150; 82550; 82553; 83605; 83690; 83735; 84132; 84145; 84484; 85025; 85610; 85652; 85730; 86850; 86900; 86901; 87040; 87077; 87086; 87088; 87186; 93005; 97116; 97161; 97530; 99285; J0696; J2185; J7030; J7050; J7120; Q9967; U0003

== ENCOUNTER 2020-09-02 07:37 | Day surgery (SDC) | payer OTHER ==
[2020-08-27 16:23] LABS: Absolute Lymphocytes (CBC) 1.8 K/uL (0.7-4.9); Basophils % 0.4 % (0-1.3); Hematocrit 45.2 % (39.6-49.0); Lymphocytes % 23.4 % (15.3-44.8); MPV 7.5 fL (7.6-11.3); RBC Red Blood Cell Count 5.03 M/uL (4.33-5.43)
[2020-08-27 16:33] LABS: Protime INR 0.97
[2020-08-27 16:36] LABS: Potassium 3.5 mmol/L (3.5-5.1)
[~2020-09-02 07:37] MED LIST changes: +CLINDAMYCIN INJ 600 MG in NA CHLORIDE 0.9% 50 ML IV SCH; -FAMOTIDINE 20 MG/2 ML VIAL IV ONE; +Gentamicin Inj 160 MG in NA CHLORIDE 0.9% 100 ML IV SCH; -METHYLPREDNISOLONE 125 MG INJ ONE; -NA CHLORIDE 0.9% 1,000 ML ONE; -ONDANSETRON 4 MG/2 ML VIAL ONE
[2020-09-02] MEDS ORDERED: Ringers Lactate 1,000 ML IV ONE ×2 (08:11→10:44)
[2020-09-02] MEDS ORDERED: propofoL 200 MG/20 ML VIAL IV ONE (08:41)
[2020-09-02] MEDS ORDERED: LIDOCAINE 1% MPF 5 ML VIAL ONE (08:42)
[2020-09-02] MEDS ORDERED: FENTANYL CITR 100 MCG/2 ML ONE ×2 (08:42→09:51)
[2020-09-02] MEDS ORDERED: MIDAZOLAM HCL 2 MG/2 ML INJ ONE (08:42)
[2020-09-02] MEDS ORDERED: ROCURONIUM 50 MG/5 ML VIAL IV ONE ×2 (08:42→10:19)
[2020-09-02] MEDS ORDERED: KETOROLAC 30 MG/ML INJ ONE (09:39)
[2020-09-02] MEDS ORDERED: ONDANSETRON 4 MG/2 ML VIAL ONE (09:40)
[2020-09-02] MEDS ORDERED: NS 0.9% VIAL 10 ML ONE (10:17)
[2020-09-02] MEDS ORDERED: EPHEDRINE SULF 50 MG/ML VIAL ONE (10:17)
[2020-09-02] MEDS ORDERED: NEOSTIGMINE 1 MG/ML -5 ML ONE (10:19)
[2020-09-02] MEDS ORDERED: GLYCOPYRROLATE 0.2 MG/ML SYR ONE (10:19)
[2020-09-02 12:04] VITALS: O2SAT 98
--- NOTE | 2020-09-02 12:07 | OP ---
Surgeon: IOANA TAN Preoperative Diagnoses: Benign prostatic hypertrophy with obstruction and lower urinary tract sympto ms, urinary incontinence. Postoperative Diagnoses: Benign prostatic hypertrophy with obstruction and lower urinary tract sympt oms, urinary incontinence. Principle Procedure: Bipolar transurethral resection of the prostate. Indication For Procedure: Mr. Nunes presented to Urology Clinic with persistently bothersome lower urinary symptoms and significant volume incomplete emptying associated with fusion of the lateral lob es, multiple false urethral passages, and obstruction from BPH despite prior TURP performed by other urologist. 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 Risks and side effects were discussed in detail in the office and again preoperatively in the holding area. Procedure In Detail: The patient was consented in the preoperative holding area before being transfe rred to the operative suite where general anesthesia was induced. Because of penicillin allergy, he was given clindamycin 600 mg and gentamicin 160 mg IV antimicrobial prophylaxis. Pneumo boots were p rovided for DVT prophylaxis. He was placed in the lithotomy position, padded and secured to the tabl e appropriately. The case was begun after prepping his genitalia with Hibiclens. Using urethral frederic nds, the meatus and fossa navicularis were dilated to 30-North Korean. Then, using the 26-[place] bipolar r esectoscope sheath along with a visual obturator and a 30-degree lens, the urethra was traversed and the multiple false passages within the prostatic urethra were navigated in order to gain entry into t he bladder. The bladder was decompressed of its urine and contents, and surveyed in its entirety. T here were no mucosal lesions, foreign bodies, or stones, and the ureteral orifices were very near to the nodular BPH remnant median lobe, which was abutting them within a cm of each ureteral orifice. A s a result, a careful resection was performed to identify the ureteral orifice by marking them using the resectoscope. Once this was done, the remainder of the median lobe was resected taking care to o bserve ureteral orifices throughout. I then resected the remainder of the median lobe down to the ve rumontanum before turning my attention to the left lateral prostatic lobar hypertrophy and anterior l obar overhang. All of this was sequentially resected starting at the bladder neck taking care to dillon id the ureteral orifices and resecting down to the verumontanum. Careful fulguration was maintained along the course of the resection in order to minimize the bleeding and maintain visualization of the bladder neck to avoid injury to the very proximal ureteral orifices. I then resected the overhangin g lateral lobar hypertrophy at the level of the verumontanum on the left side in order to create a ni ce trough on that side. I then turned my attention to the right side and similarly resected the late ral lobar hypertrophy there at the bladder neck and then progressing to the apex of the prostate befo re resecting the lateral lobar overhang at the level of the verumontanum. In the end, there was a be autiful trough extending directly from the verumontanum into the bladder. There was some mild underm ining at the level of the bladder neck for which I would plan to use a catheter guide to place the ca theter subsequently. All prostate chips were Ellik evacuated from the bladder or removed by direct v ision extraction. These were sent for pathologic analysis. I then performed a careful search for bl eeding with minimal irrigation, and any venous ooze was similarly fulgurated until there was no activ e bleeding. I then removed the resectoscope leaving the bladder full and was able to place a 24-Fren ch 3-way Suarez catheter using a catheter guide into his bladder with relative ease. 40 cc of sterile water was placed into the balloon, and the bladder was irrigated and the returning efflux of fluid w as completely clear. I then connected the catheter to continuous bladder irrigation using normal elliott ine, and the patient was awakened from general anesthesia. He was then transferred to a main [facility] an d then to the recovery room in good condition. CBI was continued very slow drip with completely omar terri clear fluid emanating. Complications: None. Discharge Disposition: He will follow up in the Urology Clinic on Tuesday for a voiding trial with nu rse practitioner, Malena. He will be given a prescription for Bactrim Double Strength tablets twic e a day for the next 5 days recognizing that he is also on an CINTHYA inhibitor to avoid prolonged therap y with that medication given the risk of hyperkalemia. [place] was also provided for pain management, and I would recommend Pyridium/Azo [id number] once the catheter comes out for dysuria. Should there be difficulty with him achieving a good quality void at the time of the voiding trial, I would strongly recommend replacement of a 20-[place] Coude tipped Suarez catheter. DOMINGO/LAUREN Voice ID: [id number] Report ID: [id number]
[2020-09-02 15:07] VITALS: BP 128/75; TEMP 98.2
== END 2020-09-02 14:25 | disposition home or self-care (01) ==
LOC: OR 07:37
PROVIDERS: ATTEND Urology
PROC: 0VB08ZZ Excision of Prostate, Via Natural or Artificial Opening Endoscopic (ICD-10-PCS; principal; 2020-09-02 08:30)
DX: N40.1 Benign prostatic hyperplasia with lower urinary tract symptoms (principal); R33.8 Other retention of urine; I10 Essential (primary) hypertension; Z20.828 Contact with and (suspected) exposure to other viral communicable diseases; E78.00 Pure hypercholesterolemia, unspecified; N39.41 Urge incontinence
CPT/HCPCS: 85025; 87086; 80048; 36415; 85610; 88305; 52630; U0002; J2704; J1580; J3010 ×2; J2710; J7120 ×2; J2405; 87088; J2250

== ENCOUNTER 2023-02-15 07:26 | Day surgery (SDC) | payer OTHER ==
[2023-02-01 11:40] LABS: Potassium 3.5 mEq/L (3.5-5.1)
[2023-02-01 11:41] LABS: Absolute Lymphocytes (CBC) 2.1 K/uL (0.7-4.9); Hematocrit 46.4 % (39.6-49.0); Lymphocytes % 30.4 % (15.3-44.8); MCV 89.9 fL (80-100); MPV 7.5 fL (7.6-11.3); RBC Red Blood Cell Count 5.16 M/uL (4.33-5.43)
--- NOTE | 2023-02-01 12:48 | RAD REPORT ---
EXAM DESCRIPTION: RAD - Chest Pa And Lat (2 Views) - 02/01/2023 11:17 am CLINICAL HISTORY: pre op pending TURP Chest pain. COMPARISON: Chest Single View dated 03/24/2022; Chest Single View dated 07/28/2020; Chest Pa And Lat (2 Views) dated 05/07/2019; Chest Single View dated 05/03/2019 TECHNIQUE: PA and lateral views of the chest were obtained. FINDINGS: The lungs are hyperexpanded compatible with COPD. The heart is upper limit of normal in si ze. No fracture or aggressive bony process. IMPRESSION: COPD without acute process identified. The USPSTF recommends annual screening for lung cancer with low-dose CT (LDCT) in adults aged 50 to 8 0 years who have a 20 pack-year smoking history and currently smoke or have quit within the past 15 y ears.
--- NOTE | 2023-02-01 13:48 | EKG ---
Test Date: 2023-02-01 Test Time: 10:54:36 Immigration Patrol Inspector: EVAN MEASUREMENT RESULTS: Intervals: Rate: 68 GA: 252 QRSD: 106 QT: 396 QTc: 421 Williamson: P: 17 GA: 252 QRS: -61 T: 42 INTERPRETIVE STATEMENTS: Sinus rhythm with 1st degree AV block Left axis deviation Septal infarct, age undetermined Possible Lateral infarct, age undetermined Abnormal ECG Compared to ECG 07/28/2020 17:01:58 Left-axis deviation now present Ventricular premature complex(es) no longer present Left anterior fascicular block no longer present Myocardial infarct finding still present Electronically Signed On 02-01-23 13:48:01 CDT by Albert Hutchison
[2023-02-15] MEDS ORDERED: ROCURONIUM 50 MG/5 ML VIAL IV ONE (07:50)
[2023-02-15] MEDS ORDERED: FENTANYL CITR 100 MCG/2 ML ONE ×2 (07:50→09:53)
[2023-02-15] MEDS ORDERED: LIDOCAINE 1% MPF 5 ML VIAL ONE (07:50)
[2023-02-15] MEDS ORDERED: propofoL 200 MG/20 ML VIAL IV ONE ×4 (07:50→11:27)
[2023-02-15] MEDS ORDERED: ONDANSETRON 4 MG/2 ML VIAL ONE (07:54)
[2023-02-15] MEDS ORDERED: Ringers Lactate 1,000 ML IV ONE (07:59)
[2023-02-15] MEDS ORDERED: Gentamicin Inj 200 MG in NA CHLORIDE 0.9% 100 ML IV SCH (09:00)
[2023-02-15] MEDS: CLINDAMYCIN 600MG/D5W 50 ML IV ONE ×2 (09:21→09:22)
[2023-02-15] MEDS ORDERED: NS 0.9% VIAL 10 ML ONE (09:36)
[2023-02-15] MEDS ORDERED: VECURONIUM 10 MG/VIAL IV ONE (09:36)
[2023-02-15] MEDS ORDERED: CIPROFLOXACIN 400mg IV 400 MG/200 ML BAG IV ONE (09:50)
[2023-02-15] MEDS ORDERED: NA CHLORIDE 0.9% 1,000 ML ONE (11:38)
[2023-02-15] MEDS ORDERED: GLYCOPYRROLATE 0.2 MG/ML SYR ONE (11:39)
[2023-02-15] MEDS ORDERED: NEOSTIGMINE 1 MG/ML -10 ML VIAL ONE (11:41)
[2023-02-15 12:17] VITALS: TEMP 97.3
[2023-02-15] MEDS ORDERED: CODEINE 30MG/APAP 300MG TAB PO PRN (12:19)
[2023-02-15] MEDS ORDERED: PHENAZOPYRIDINE 100MG TAB PO ONE ×2 (12:19→13:25)
--- NOTE | 2023-02-15 13:43 | OP ---
Surgeon: IOANA TAN Preoperative Diagnosis: Benign prostatic hypertrophy with lower urinary tract obstruction and sympto ms. Postoperative Diagnosis: Benign prostatic hypertrophy with lower urinary tract obstruction and sympt oms. Principal Procedure: Transurethral resection of the prostate, bipolar. Indication For Procedure: Mr. Nunes is a 77-year-old gentleman, who had undergone 2 prior transuret hral resection procedures in June 2012 and again on 09/02/2020 with significant improvement in his lower urinary symptoms, but subsequently developed recurrent signs of obstruction with 147 cc postvo id residual and recurrent adenoma within the prostatic fossa. He was counseled on the recommendation to undergo repeat TURP and postoperatively to consider initiating finasteride. Procedure In Detail: The patient was consented in the preoperative holding area before being transfe rred to operative suite where general anesthesia was induced. He was given clindamycin 600 mg IV ant imicrobial prophylaxis along with gentamicin 200 mg, and ciprofloxacin 400 mg was also given IV antim icrobial prophylaxis given the diphtheroids found in his urine. Pneumo boots were provided for DVT p rophylaxis. He was placed in the lithotomy position, padded and secured to the table appropriately, and his genitalia was prepped with Hibiclens before being draped in standard fashion. Urethral sound s were used to dilate the meatus and fossa navicularis to 28-Hungarian, and then I was able to pass the 26-Hungarian resectoscope sheath with a visual obturator via the urethra and into his bladder with ease. The previously observed recurrent adenomatous regrowth obstructing the prostatic urethra was again noted, then I identified the ureteral orifices after decompressing his bladder of fluid and urine and then refilling it with sterile saline. Taking care to identify the ureteral orifices and direct vis ion and resect the intrusive component of the bladder neck, this was performed to ensure the ureteral orifices were completely uninjured throughout the procedure. After resecting the bladder neck down to the level of the trigone, I then continued the resection anteriorly with any residual overhanging tissue intravesical projecting. I then continued the resection of the bladder neck down to the level of the verumontanum creating a smooth trough. The trough was then extended into the left lateral wa ll initially resecting the first half of the prostate from the bladder neck to the mid zone of the pr ostate all the way to the anterior zone of the prostate. I then continued the resection from the mid zone to the apical region of the prostate with verumontanum visualized and ensuring not to resect bey ond. This was also taken atypically until a nice resection of the left lateral zone of the prostate had been completed. I then turned my attention to the right lateral wall of the prostate and again r esected the portion of the prostate intravesical projecting at the level of the bladder neck to the m id zone of the prostate and taking that anteriorly. I then continued the resection with the scope wa s positioned at the level of verumontanum from the mid zone of the prostate to the apex and also taki ng that from posterior to anterior. I then continued resecting the intraluminal projection interdigi tating lateral lobar hypertrophy at the level of the apex of the prostate until the lobes were no kellen ethel touching in that location. I ensured the remainder of the prostatic fossa was nice and smooth th roughout with no significant residual bulging adenoma and [place] evacuated the prostate chips at multi ple points throughout procedure. Careful fulguration was performed at multiple points throughout the procedure, but specifically once the bladder was decompressed to ensure adequate hemostasis. Once a ll prostate chips had been removed, and with the bladder completely decompressed, slow trickle irriga tion was then administered in order to identify any venous oozing vessels and fulgurate them to ensur e 100% hemostasis. Once this was done with the bladder completely decompressed, I again confirmed th e ureteral orifices were uninjured and all prostate chips had been removed. Once this was demonstrat ed and a nice open and patent channel from the apex at the level of the verumontanum through to the b ladder neck was observed, I then refilled his bladder with saline and removed the scope ensuring no p rostate chips were present in the urethra on the way out. I then passed a 24-Hungarian 3-way Suarez cath eter into his bladder with ease and filled the balloon with 30 cc of sterile saline. Of note, passag e of the catheter required use of a catheter guide because of angulation present likely at the bulbar urethra. As a result, any need to replace the catheter likely would require a coude tip. In the en d, the efflux of urine and fluid was completely clear and so he was placed on slow drip CBI, which wa s connected to a catheter that was placed on moderate traction. He was then awakened from general an esthesia after being taken out of the lithotomy position, awakened, and transferred to a stretcher be fore being transferred to the recovery room in good condition. Complications: None. Discharge Disposition: He should follow up in Urology Clinic on for catheter removal and vo iding trial in the morning. I previously sent a prescription for ciprofloxacin to his pharmacy and s o he should pick that up and continue that today. DOMINGO/LAUREN Voice ID: [id number] Report ID: [id number]
[2023-02-15 14:15] VITALS: BP 123/71; O2SAT 99
== END 2023-02-15 14:07 | disposition home or self-care (01) ==
LOC: OR 07:26
PROVIDERS: ATTEND Urology
PROC: 0VT08ZZ Resection of Prostate, Via Natural or Artificial Opening Endoscopic (ICD-10-PCS; principal; 2023-02-15 09:00)
DX: N40.1 Benign prostatic hyperplasia with lower urinary tract symptoms (principal); I10 Essential (primary) hypertension; E78.00 Pure hypercholesterolemia, unspecified; F03.90 Unspecified dementia, unspecified severity, without behavioral disturbance, psychotic disturbance, mood disturbance, and anxiety; E78.5 Hyperlipidemia, unspecified; I73.9 Peripheral vascular disease, unspecified; F39 Unspecified mood [affective] disorder; R73.03 Prediabetes; Z88.0 Allergy status to penicillin; Z88.8 Allergy status to other drugs, medicaments and biological substances; Z90.79 Acquired absence of other genital organ(s); Z82.49 Family history of ischemic heart disease and other diseases of the circulatory system; Z80.3 Family history of malignant neoplasm of breast
CPT/HCPCS: 93005; 87088; 85025; 87086; 80048; 36415; 85610; 82947; 88305; 71046; 52601; A4216; J2704 ×4; J2710; J2001; J1580; J3010 ×2; J2405; J0744; J7120; J7030

== ENCOUNTER 2024-01-16 18:05 | Emergency (ER) | payer OTHER ==
--- OUTSIDE RECORDS SUMMARY | 2024-01-16 18:10 | XMS REPORT | Continuity of Care Document ---
Author Name Unknown Address [address] [place] [address] thconnect Address [address] [address] [address] [place] [address] Care Team Providers Care Coffee Maker Servicer Name Role Phone Ramsey Bullard Attending Clinician Unavailable Payers Payer Name Policy Type Policy Number Effective Date Expirati on Date Source [employer] MEDICARE PPO 53 [id number] [facility] Problems Condition Name Condition Details Condition Category Status Onset Date Resolution Date Last Treatment Date Treating Clinician Comments Source [id number] Incomplete emptying of bladder Problem [facility] [id number] BPH loc w urin obs/LUTS Problem [facility] [id number] Gross hematuria Problem [facility] [id number] Recurrent UTI Problem [facility] [id number] Complicate d UTI (urinary tract infection) Problem [facility] [id number] OAB (overactiv e bladder) Problem [facility] [id number] Urge incontinen ce Problem [facility] [id number] S/P TURP Problem Commo n [facility] [id number] Urinary incontinen ce, unspecifie d type Problem [facility] [id number] Nocturnal enuresis Problem [facility] Lower urinary tract symptoms due to benign prostatic hypertroph y BPH with obstructio n/lower urinary tract symptoms Problem [facility] Allergies, Adverse Reactions, Alerts Allergy Name Allergy Type Status Severity Reaction(s) Onset Date Inactive Date Treating Clinician Comments Source Penicill in Penicill in Active Unknown [facility] Propoxyp hene Propoxyp hene Active Unknown [facility] Social History Social Habit Start Date Stop Date Quantity Comments Source History of Tobacco Use [facility] Sex Assigned At [facility] Smoking Status Start Date Stop Date Source Never Smoker [facility] Medications Ordered Medication Name Filled Medication Name Start Date Stop Date Current Medication? Ordering Clinician Indication Dosage Frequency Signature (SIG) Comments Components Source Cipro 500 MG Cipro 500 MG 02-12 00:00: 00 No 1{table t} BID Cipro 500 MG Cipro 500 MG Cipro 500 MG 02-12 00:00: 00 No 1{table t} BID Cipro 500 MG Cipro 500 MG Cipro 500 MG 02-12 00:00: 00 No 1{table t} BID Cipro 500 MG Cipro 500 MG Cipro 500 MG 02-12 00:00: 00 No 1{table t} BID Cipro 500 MG Cipro 500 MG Cipro 500 MG 02-12 00:00: 00 No 1{table t} BID Cipro 500 MG Myrbetriq 25 MG Myrbetriq 25 MG 2021-09 012 00:00: 00 01-26 00:00 :00 No 1{table t} QD Myrbetriq 25 MG hydrALAZINE HCl 25 MG hydrALAZINE HCl 25 MG No 1{table t_with_ food} TID hydrALAZIN E HCl 25 MG Proscar 5 MG Proscar 5 MG No 1{table t} QD Proscar 5 MG Multivitami n - Multivitami n - No 1{table t} QD Multivitam in - Finasteride 5 MG Finasteride 5 MG No 1{table t} QD Finasterid e 5 MG Aspirin 81 81 MG Aspirin 81 81 MG No 1{table t} QD Aspirin 81 81 MG Pravastatin Sodium 40 MG Pravastatin Sodium 40 MG No 1{table t} QD Pravastati n Sodium 40 MG Losartan Potassium 25 MG Losartan Potassium 25 MG No QD Losartan Potassium 25 MG Magnesium 400 MG Magnesium 400 MG No Magnesium 400 MG hydroCHLORO thiazide 25 MG hydroCHLORO thiazide 25 MG No 1{table t_in e_morni ng} QD hydroCHLOR Othiazide 25 MG amLODIPine Besylate 10 MG amLODIPine Besylate 10 MG No 1{table t} QD amLODIPine Besylate 10 MG hydrALAZINE HCl 25 MG hydrALAZINE HCl 25 MG No 1{table t_with_ food} TID hydrALAZIN E HCl 25 MG Proscar 5 MG Proscar 5 MG No 1{table t} QD Proscar 5 MG Multivitami n - Multivitami n - No 1{table t} QD Multivitam in - Finasteride 5 MG Finasteride 5 MG No 1{table t} QD Finasterid e 5 MG Aspirin 81 81 MG Aspirin 81 81 MG No 1{table t} QD Aspirin 81 81 MG Pravastatin Sodium 40 MG Pravastatin Sodium 40 MG No 1{table t} QD Pravastati n Sodium 40 MG Losartan Potassium 25 MG Losartan Potassium 25 MG No QD Losartan Potassium 25 MG Proscar 5 MG Proscar 5 MG No 1{table t} QD Proscar 5 MG Aspirin 81 81 MG Aspirin 81 81 MG No 1{table t} QD Aspirin 81 81 MG hydroCHLORO thiazide 25 MG hydroCHLORO thiazide 25 MG No 1{table t_in e_morni ng} QD hydroCHLOR Othiazide 25 MG Multivitami n - Multivitami n - No 1{table t} QD Multivitam in - hydrALAZINE HCl 25 MG hydrALAZINE HCl 25 MG No 1{table t_with_ food} TID hydrALAZIN E HCl 25 MG Pravastatin Sodium 40 MG Pravastatin Sodium 40 MG No 1{table t} QD Pravastati n Sodium 40 MG Losartan Potassium 25 MG Losartan Potassium 25 MG No QD Losartan Potassium 25 MG amLODIPine Besylate 10 MG amLODIPine Besylate 10 MG No 1{table t} QD amLODIPine Besylate 10 MG Magnesium 400 MG Magnesium 400 MG No Magnesium 400 MG hydroCHLORO thiazide 25 MG hydroCHLORO thiazide 25 MG No 1{table t_in e_morni ng} QD hydroCHLOR Othiazide 25 MG amLODIPine Besylate 10 MG amLODIPine Besylate 10 MG No 1{table t} QD amLODIPine Besylate 10 MG hydrALAZINE HCl 25 MG hydrALAZINE HCl 25 MG No 1{table t_with_ food} TID hydrALAZIN E HCl 25 MG Proscar 5 MG Proscar 5 MG No 1{table t} QD Proscar 5 MG Multivitami n - Multivitami n - No 1{table t} QD Multivitam in - Finasteride 5 MG Finasteride 5 MG No 1{table t} QD Finasterid e 5 MG Aspirin 81 81 MG Aspirin 81 81 MG No 1{table t} QD Aspirin 81 81 MG Pravastatin Sodium 40 MG Pravastatin Sodium 40 MG No 1{table t} QD Pravastati n Sodium 40 MG Losartan Potassium 25 MG Losartan Potassium 25 MG No QD Losartan Potassium 25 MG Magnesium 400 MG Magnesium 400 MG No Magnesium 400 MG hydroCHLORO thiazide 25 MG hydroCHLORO thiazide 25 MG No 1{table t_in e_morni ng} QD hydroCHLOR Othiazide 25 MG amLODIPine Besylate 10 MG amLODIPine Besylate 10 MG No 1{table t} QD amLODIPine Besylate 10 MG hydrALAZINE HCl 25 MG hydrALAZINE HCl 25 MG No 1{table t_with_ food} TID hydrALAZIN E HCl 25 MG Proscar 5 MG Proscar 5 MG No 1{table t} QD Proscar 5 MG Multivitami n - Multivitami n - No 1{table t} QD Multivitam in - Finasteride 5 MG Finasteride 5 MG No 1{table t} QD Finasterid e 5 MG Aspirin 81 81 MG Aspirin 81 81 MG No 1{table t} QD Aspirin 81 81 MG Pravastatin Sodium 40 MG Pravastatin Sodium 40 MG No 1{table t} QD Pravastati n Sodium 40 MG Losartan Potassium 25 MG Losartan Potassium 25 MG No QD Losartan Potassium 25 MG Magnesium 400 MG Magnesium 400 MG No Magnesium 400 MG hydroCHLORO thiazide 25 MG hydroCHLORO thiazide 25 MG No 1{table t_in_ e_morni ng} QD hydroCHLOR Othiazide 25 MG amLODIPine Besylate 10 MG amLODIPine Besylate 10 MG No 1{table t} QD amLODIPine Besylate 10 MG hydrALAZINE HCl 25 MG hydrALAZINE HCl 25 MG No 1{table t_with_ food} TID hydrALAZIN E HCl 25 MG Proscar 5 MG Proscar 5 MG No 1{table t} QD Proscar 5 MG Multivitami n - Multivitami n - No 1{table t} QD Multivitam in - Finasteride 5 MG Finasteride 5 MG No 1{table t} QD Finasterid e 5 MG Aspirin 81 81 MG Aspirin 81 81 MG No 1{table t} QD Aspirin 81 81 MG Pravastatin Sodium 40 MG Pravastatin Sodium 40 MG No 1{table t} QD Pravastati n Sodium 40 MG Losartan Potassium 25 MG Losartan Potassium 25 MG No QD Losartan Potassium 25 MG Magnesium 400 MG Magnesium 400 MG No Magnesium 400 MG hydroCHLORO thiazide 25 MG hydroCHLORO thiazide 25 MG No 1{table t_in_th e_morni ng} QD hydroCHLOR Othiazide 25 MG amLODIPine Besylate 10 MG amLODIPine Besylate 10 MG No 1{table t} QD amLODIPine Besylate 10 MG Vital Signs Vital Name Observation Time Observation Value Comments S ource blood pressure diastolic 2023-05-18 15:15:00 76 mm[Hg] Common [facility] height 2023-05-18 15:15:00 71 [in_i] Commo n [facility] weight 2023-05-18 15:15:00 149.8 [lb_av] Co mmon [facility] temperature 2023-05-18 15:15:00 97.2 [degF] Com [facility] bmi 2023-05-18 15:15:00 20.89 kg/m2 Comm on [facility] oximetry 2023-05-18 15:15:00 96 % Commo n [facility] respiratory rate 2023-05-18 15:15:00 18 /min Common [facility] blood pressure systolic 2023-05-18 15:15:00 119 mm[Hg] Common [facility] height 2023-01-19 14:45:00 71 [in_i] Commo n [facility] weight 2023-01-19 14:45:00 175 [lb_av] Comm on [facility] temperature 2023-01-19 14:45:00 97.6 [degF] Com mon [facility] bmi 2023-01-19 14:45:00 24.4 kg/m2 Commo n [facility] oximetry 2023-01-19 14:45:00 96 % Commo n [facility] respiratory rate 2023-01-19 14:45:00 18 /min Common [facility] blood pressure systolic 2023-01-19 14:45:00 134 mm[Hg] [facility] blood pressure diastolic 2023-01-19 14:45:00 85 mm[Hg] [facility] height 2022-06-30 14:00:00 71 [in_i] Commo n [facility] weight 2022-06-30 14:00:00 175 [lb_av] Comm on [facility] temperature 2022-06-30 14:00:00 98.6 [degF] Com mon [facility] bmi 2022-06-30 14:00:00 24.4 kg/m2 Commo n [facility] oximetry 2022-06-30 14:00:00 95 % Commo n [facility] respiratory rate 2022-06-30 14:00:00 16 /min [facility] blood pressure systolic 2022-06-30 14:00:00 120 mm[Hg] [facility] blood pressure diastolic 2022-06-30 14:00:00 73 mm[Hg] [facility] Procedures Procedure Date / Time Performed Performing Clinic[facility] n Source PVR 2023-05-18 00:00:00 [facility]:00 [facility] Encounters Start Date/Time End Date/Time Encounter Type Admission Type Attending Clinicians Care Facility Care Department Encounter ID Source 2023-09-29 10:07:00 Outpatient Ramsey Bullard [facility] [id number] [facility] 2023-01-14 08:25:01 Outpatient Ramsey Bullard [facility] [id number] [facility] 2022-06-30 13:44:01 Outpatient Ramsey Bullard [facility] [id number] [facility] 2021-10-14 12:46:47 Outpatient Ramsey Bullard [facility] [id number] [facility] 2023-05-18 00:00:00 2023-05-18 00:00:00 OFFICE VISIT ESTAB PT LEVEL 2 [facility] [id number] [facility] 2023-02-17 00:00:00 2023-02-17 00:00:00 Postop visit [facility] [id number] [facility] 2023-02-17 00:00:00 2023-02-17 00:00:00 (TEL) [facility] [id number] [facility] 2023-01-19 00:00:00 2023-01-19 00:00:00 OFFICE VISIT ESTAB PT LEVEL 4 [facility] [id number] [facility] 2022-11-15 00:00:00 2022-11-15 00:00:00 (TEL) [facility] [id number] [facility] 2022-06-30 00:00:00 2022-06-30 00:00:00 OFFICE VISIT EST PT LEVEL 3 [facility] [id number] [facility]
[2024-01-16 20:04] LABS: Absolute Eosinophils 0.1 K/uL (0-0.5); Absolute Lymphocytes (CBC) 1.6 K/uL (0.7-4.9); Absolute Monocytes 1.2 K/uL (0.1-1.3); Absolute Neutrophil 9.8 K/uL (1.8-8.0); Basophils % 0.2 % (0-1.3); Eosinophils % 0.6 % (0-4.4); Hematocrit 50.4 % (39.6-49.0); Hemoglobin 16.9 g/dL (13.6-17.9); Lymphocytes % 12.9 % (15.3-44.8); MCH 29.7 pg (27.0-35.0); MCHC 33.5 g/dL (32.0-36.0); MCV 88.5 fL (80-100); MPV 7.4 fL (7.6-11.3); Monocytes % 9.6 % (3.3-12.3); Neutrophils % 76.7 % (41.7-73.7); Nucleated Red Blood Cells % 0.1 % (0-0); Platelets 540 thou/uL (152-406); RBC Red Blood Cell Count 5.69 M/uL (4.33-5.43); Red Cell Distribution Width 15.1 % (12.1-15.2)
[2024-01-16 20:21] LABS: Albumin 3.6 g/dL (3.4-5.0); Albumin/Globulin Ratio 0.7 (1.1-1.8); Anion Gap 10.9 mEq/L (5.0-15.0); Bilirubin Total 1.1 mg/dL (0.2-1.0); Globulin 4.9 g/dL (2.3-3.5); Potassium 2.9 mEq/L (3.5-5.1); Protein, Total 8.5 g/dL (6.4-8.2)
--- NOTE | 2024-01-16 21:57 | RAD REPORT ---
EXAM DESCRIPTION: RAD - Abdomen Single View - 01/16/2024 9:13 pm CLINICAL HISTORY: ABD PAIN COMPARISON: Abdomen Pelvis W/Wo Contrast dated 07/30/2020 TECHNIQUE: Single AP view of the abdomen. FINDINGS: Marked gaseous distention predominantly involving large bowel, with paucity of gas within the rectum. At least moderate proximal large bowel stool burden. No air-fluid levels, free air, or pn eumatosis. No suspicious calcifications. No significant bony abnormality. IMPRESSION: Marked gaseous distention predominantly involving proximal large bowel with at least mod erate stool burden along the proximal colon. Relative paucity of bowel gas within the rectum, a nonsp ecific finding.
[2024-01-16] MEDS ORDERED: NA CHLORIDE 0.9% 1,000 ML ONE (21:59)
[2024-01-16] MEDS ORDERED: NA CHLORIDE 0.9% 500 ML ONE (22:00)
[2024-01-17] MEDS ORDERED: POTASSIUM CL SA 10 MEQ TAB PO ONE
--- NOTE | 2024-01-17 00:36 | ER ---
Nurse's Notes [facility] Name: Margarito Nunes Age: 78 yrs Sex: Male : 1945 Arrival Date: 01/16/2024 Time: 18:05 Bed 17 Private MD: Diagnosis: Fecal impaction;Obstipation Presentation: 01/15 18:27 Chief complaint: Patient states: Constipation/diarrhea on and off. Coronavirus screen: ld1 At this time, the client does not indicate any symptoms associated with coronavirus-19. Ebola Screen: No symptoms or risks identified at this time. Initial Sepsis Screen: Does the patient meet any 2 criteria? No. Patient's initial sepsis screen is negative. Does the patient have a suspected source of infection? No. Patient's initial sepsis screen is negative. Risk Assessment: Do you want to hurt yourself or someone else? Patient reports no desire to harm self or others. Onset of symptoms was January 16, 2024. 18:27 Method Of Arrival: Wheelchair ld1 18:27 Acuity: KAROLYN 3 ld1 Triage Assessment: 18:28 General: Appears in no apparent distress. comfortable, Behavior is cooperative, ld1 appropriate for age, anxious. Pain: Denies pain. EENT: No signs and/or symptoms were reported regarding the EENT system. Neuro: Level of Consciousness is awake, alert, obeys commands, Oriented to person, place, time, situation. Cardiovascular: Capillary refill < 3 seconds Patient's skin is warm and dry. Cardiovascular: Denies. Respiratory: Airway is patent Respiratory effort is even, unlabored. GI: Abdomen is flat, non-distended. : No signs and/or symptoms were reported regarding the genitourinary system. Derm: No signs and/or symptoms reported regarding the dermatologic system. Musculoskeletal: No signs and/or symptoms reported regarding the musculoskeletal system. Historical: - Allergies: 18:28 Darvon; ld1 18:28 PENICILLINS; ld1 - PMHx: 18:28 Dementia; Hyperlipidemia; Hypertension; ld1 - Immunization history:: Adult Immunizations up to date. - Infectious Disease History:: Denies. - Social history:: Smoking status: Patient denies any tobacco usage or history of. Screenin:20 [facility] ED Fall Risk Assessment (Adult) History of falling in the last 3 months, pf1 including since admission No falls in past 3 months (0 pts) Confusion or Disorientation Yes (5 pts) Intoxicated or Sedated No (0 pts) Impaired Gait Yes (1 pt) Mobility Assist Device Used Yes (1 pt) Altered Elimination Yes (1 pt) Score/Fall Risk Level 3 or more points = High Risk Oriented to surroundings, Maintained a safe environment, Educated pt \T\ family on fall prevention, incl call for assistance when getting out of bed, Assessed \T\ reinforced patient's understanding of fall precautions, Provided non-skid footwear, Hourly rounding (assess needs \T\ fall precautionary measures) done, Used ambulatory aids as needed (educated on \T\ assisted with), Used gait belt as appropriate Implemented a Fall Risk Plan of Care, Apply high fall risk patient identification: yellow non skid footwear/ fall signage, Placed fall mat w/ non beveled edge next to bed, Activated bed/chair alarm, Remained w/in arm's length of patient and in sight while toileting, Offered frequent toileting (1:1 observation), Remained with patient while ambulating, Utilized family, sitter, or virtual tree doctor as indicated. Abuse screen: Denies threats or abuse. Nutritional screening: No deficits noted. Tuberculosis screening: No symptoms or risk factors identified. Assessment: 20:17 General: Appears in no apparent distress. comfortable, well groomed, well developed, pf1 Behavior is calm, cooperative, appropriate for age, quiet. 20:17 Pain: Denies pain. Neuro: No deficits noted. Level of Consciousness is awake, alert, pf1 obeys commands, Oriented to person, place, time, situation. Cardiovascular: No deficits noted. Capillary refill < 3 seconds Patient's skin is warm and dry. Respiratory: No deficits noted. Airway is patent Respiratory effort is even, unlabored, Respiratory pattern is regular, symmetrical. GI: Abdomen is round distended, Bowel sounds present X 4 quads. Parent/caregiver reports the patient having constipation, diarrhea. : No deficits noted. No signs and/or symptoms were reported regarding the genitourinary system. EENT: No deficits noted. No signs and/or symptoms were reported regarding the EENT system. Derm: No deficits noted. No signs and/or symptoms reported regarding the dermatologic system. Musculoskeletal: No deficits noted. No signs and/or symptoms reported regarding the musculoskeletal system. 21:00 Reassessment: Patient appears in no apparent distress at this time. Patient and/or pf1 family updated on plan of care and expected duration. Pain level reassessed. Patient is alert, oriented x 3, equal unlabored respirations, skin warm/dry/pink. 22:00 Reassessment: Patient appears in no apparent distress at this time. Patient and/or pf1 family updated on plan of care and expected duration. Pain level reassessed. Patient is alert, oriented x 3, equal unlabored respirations, skin warm/dry/pink. 23:00 Reassessment: Patient appears in no apparent distress at this time. Patient and/or pf1 family updated on plan of care and expected duration. Pain level reassessed. Patient is alert, oriented x 3, equal unlabored respirations, skin warm/dry/pink. 23:20 Reassessment: Dr. Morrison at disimpacting patient. Patient tolerated well. Large pf1 stool removed. Patient cleaned and applied clean linens and brief. 01/16 00:00 Reassessment: Patient appears in no apparent distress at this time. Patient and/or pf1 family updated on plan of care and expected duration. Pain level reassessed. Patient is alert, oriented x 3, equal unlabored respirations, skin warm/dry/pink. Patient states symptoms have improved. 00:57 Reassessment: Patient appears in no apparent distress at this time. Patient and/or pf1 family updated on plan of care and expected duration. Pain level reassessed. Patient is alert, oriented x 3, equal unlabored respirations, skin warm/dry/pink. Patient states feeling better. Patient states symptoms have improved. 01:00 Reassessment: Patient to discharge after cleaning patient from having BM. pf1 Vital Signs: 01/15 18:27 BP 123 / 99; Pulse 86; Resp 18; Temp 98.4(TE); Pulse Ox 93% on R/A; Weight 77.11 kg; ld1 Height 5 ft. 11 in. ; Pain 0/10; 21:00 BP 126 / 88; Pulse 90; Resp 20; Pulse Ox 98% on R/A; Pain 0/10; pf1 22:00 BP 113 / 79; Pulse 79; Resp 16; Pulse Ox 97% on R/A; Pain 0/10; pf1 23:00 BP 123 / 85; Pulse 80; Resp 16; Pulse Ox 95% ; Pain 0/10; pf1 01/16 00:00 BP 109 / 81; Pulse 86; Resp 18; Temp 97.9; Pulse Ox 96% on R/A; Pain 0/10; pf1 01:00 BP 115 / 85; Pulse 69; Resp 16; Temp 98; Pulse Ox 96% on R/A; Pain 0/10; pf1 01/15 18:27 Body Mass Index 23.71 (77.11 kg, 180.34 cm) ld1 01/15 18:27 Pain Scale: Adult ld1 21:00 Pain Scale: Adult pf1 22:00 Pain Scale: Adult pf1 23:00 Pain Scale: Adult pf1 01/16 00:00 Pain Scale: Adult pf1 01:00 Pain Scale: Adult pf1 ED Course: 01/15 18:10 Patient arrived in ED. gm2 18:11 Yisel Mccall PA-C is PHCP. sb4 18:11 Brandon Faye MD is Attending Physician. sb4 18:28 Triage completed. ld1 18:28 Arm band placed on right wrist. ld1 19:55 CBC with Diff Sent. bc6 19:55 CMP Sent. bc6 19:55 Lipase Sent. bc6 19:55 Initial lab(s) drawn, by me, sent to lab. Inserted saline lock: 20 gauge in left bc6 forearm, using aseptic technique. Blood collected. 20:14 Attending Physician role handed off by Brandon Faye MD sp4 20:14 Alan Morrison MD is Attending Physician. sp4 20:17 Door closed. Noise minimized. Moved to private room. Warm blanket given. Pillow given. pf1 20:17 Patient has correct armband on for positive identification. Placed in gown. Bed in low pf1 position. Call light in reach. Side rails up X2. Adult w/ patient. 21:15 Abdomen 1 View XRAY In Process Unspecified. EDMS 22:19 Warm blanket given. pf1 23:03 CT Chest, Abdomen, Pelvis - W/Contrast In Process Unspecified. EDMS 23:20 disimpaction. pf1 23:46 Warm blanket given. pf1 01/16 00:37 Abdomen 1 View (KUB) In Process Unspecified. EDMS 01:20 Provided Education on: prescriptions. pf1 01:20 Cleaned of incontinence. Linen changed. pf1 01:20 IV discontinued, intact, bleeding controlled, No redness/swelling at site. Pressure pf1 dressing applied. Administered Medications: 01/15 22:18 Drug: NS 0.9% IV 500 ml IV at bolus once Route: IV; Rate: bolus; Site: left forearm; pf1 23:00 Follow up: Response: No adverse reaction; Marked relief of symptoms; IV Status: pf1 Completed infusion; IV Intake: 500ml 23:00 Drug: NS 0.9% IV 1000 ml IV at 125 ml/hr continuous Route: IV; Rate: 125 ml/hr; Site: pf1 left forearm; 01/16 00:59 Follow up: Response: No adverse reaction; Marked relief of symptoms; IV Status: pf1 Completed infusion 01/15 23:55 Drug: Potassium Chloride PO 40 mEq PO once Route: PO; pf1 01/16 00:50 Follow up: Response: No adverse reaction; Marked relief of symptoms pf1 Medication: 01:20 VIS not applicable for this client. pf1 Intake: 01/15 23:00 IV: 500ml; Total: 500ml. pf1 Outcome: 01/16 00:35 Discharge ordered by . sp4 01:20 Discharged to home via wheelchair, with family, pf1 01:20 Condition: improved pf1 01:20 Discharge instructions given to patient, family, Instructed on discharge instructions, follow up and referral plans. Demonstrated understanding of instructions, follow-up care, medications, Prescriptions given X 2, 01:50 Patient left the ED. pf1 Signatures: Dispatcher [employer] EDUT Marleni Neumann RN RN ld1 Yisel Mccall, PA-C PA-C Angelina Torres RN RN pf1 Lina Ramirez Sergey, MD MD sp4 Gladys Monge gm2 Corrections: (The following items were deleted from the chart) 01/15 23:45 23:44 Reassessment: Patient appears in no apparent distress at this time. Patient pf1 and/or family updated on plan of care and expected duration. Pain level reassessed. Patient is alert, oriented x 3, equal unlabored respirations, skin warm/dry/pink. pf1
--- NOTE | 2024-01-17 00:36 | EDPHYS ---
Physician Documentation [facility] Name: Irlanda Rojas Age: 78 yrs Sex: Male : 1945 Arrival Date: 01/16/2024 Time: 18:05 Bed 17 Private MD: ED Physician Alan Morrison HPI: 01/15 18:59 This 78 yrs old Male presents to ER via Wheelchair with complaints of Constipation. sb4 18:59 intermittent diarrhea and constipation x 1 month. no BM in 3 days. daughter has given sb4 metamucil twice. no nausea, vomiting, or abdominal pain. no other associated signs and symptoms. Historical: - Allergies: 18:28 Darvon; ld1 18:28 PENICILLINS; ld1 - PMHx: 18:28 Dementia; Hyperlipidemia; Hypertension; ld1 - Immunization history:: Adult Immunizations up to date. - Infectious Disease History:: Denies. - Social history:: Smoking status: Patient denies any tobacco usage or history of. ROS: 18:59 Constitutional: Negative for fever, chills, and weight loss, sb4 18:59 Abdomen/GI: Positive for constipation, abdominal distension, 18:59 All other systems are negative, Exam: 18:59 Constitutional: This is a well developed, well nourished patient who is awake, alert, sb4 and in no acute distress. Head/Face: Normocephalic, atraumatic. Eyes: Extra-ocular motions intact. Periorbital areas with no swelling, redness, or edema. ENT: Mucous membranes moist. Cardiovascular: Regular rate and rhythm with a normal S1 and S2. Respiratory: Lungs have equal breath sounds bilaterally, clear to auscultation and percussion. No rales, rhonchi or wheezes noted. No increased work of breathing, no retractions or nasal flaring. Skin: Warm, dry with normal turgor. Normal color with no rashes, no lesions, and no evidence of cellulitis. MS/ Extremity: Pulses equal, no cyanosis. Neurovascular intact. Full, normal range of motion. 18:59 Abdomen/GI: Inspection: distension, that is mild, Bowel sounds: normal, Palpation: abdomen is soft and non-tender, Vital Signs: 18:27 BP 123 / 99; Pulse 86; Resp 18; Temp 98.4(TE); Pulse Ox 93% on R/A; Weight 77.11 kg; ld1 Height 5 ft. 11 in. ; Pain 0/10; 21:00 BP 126 / 88; Pulse 90; Resp 20; Pulse Ox 98% on R/A; Pain 0/10; pf1 22:00 BP 113 / 79; Pulse 79; Resp 16; Pulse Ox 97% on R/A; Pain 0/10; pf1 23:00 BP 123 / 85; Pulse 80; Resp 16; Pulse Ox 95% ; Pain 0/10; pf1 01/16 00:00 BP 109 / 81; Pulse 86; Resp 18; Temp 97.9; Pulse Ox 96% on R/A; Pain 0/10; pf1 01:00 BP 115 / 85; Pulse 69; Resp 16; Temp 98; Pulse Ox 96% on R/A; Pain 0/10; pf1 01/15 18:27 Body Mass Index 23.71 (77.11 kg, 180.34 cm) ld1 01/15 18:27 Pain Scale: Adult ld1 21:00 Pain Scale: Adult pf1 22:00 Pain Scale: Adult pf1 23:00 Pain Scale: Adult pf1 01/16 00:00 Pain Scale: Adult pf1 01:00 Pain Scale: Adult pf1 Procedures: 00:27 Performed Disimpaction. Large size fecal impaction was evacuated digitally. Patient had sp4 a massive bowel movement and felt improved. MDM: 01/15 18:23 Patient medically screened. sb4 23:38 ED course: EXAM DESCRIPTION: RAD - Abdomen Single View - 01/16/2024 9:13 pm CLINICAL sp4 HISTORY: ABD PAIN COMPARISON: Abdomen Pelvis W/Wo Contrast dated 07/30/2020 TECHNIQUE: Single AP view of the abdomen. FINDINGS: Marked gaseous distention predominantly involving large bowel, with paucity of gas within the rectum. At least moderate proximal large bowel stool burden. No air-fluid levels, free air, or pneumatosis. No suspicious calcifications. No significant bony abnormality. IMPRESSION: Marked gaseous distention predominantly involving proximal large bowel with at least moderate stool burden along the proximal colon. Relative paucity of bowel gas within the rectum, a nonspecific finding.. 23:38 Differential Diagnosis altered mental status, sepsis, flu, Obstipation . Data reviewed: sp4 vital signs, nurses notes, old medical records, lab test result(s), radiologic studies, CT scan, plain films. 01/16 00:27 ED course: INDICATION: Abdominal distention. PROCEDURE: CT scan of the chest, abdomen sp4 and pelvis was performed with intravenous contrast. 3 mm axial images were obtained along with coronal and sagittal reformatted images. DOSE OPTIMIZATION: This facility uses dose optimization techniques as appropriate to perform exams, including at least one of the following techniques: 1. Automated exposure control. 2. Adjustment of the mA and/or kV according to patient size (this includes techniques or standardized protocols for targeted exams where dose is matched to the indication/reason for exam, i.e. extremities or head). 3. Use of iterative reconstructive technique. COMPARISON: CT scan abdomen and pelvis dated 07/30/2020. FINDINGS: Lung Gama: Normal. Mediastinal Structures: Normal. Pleural Space: Normal. Axillae: Normal. Chest Wall: Normal. Liver: Normal. Spleen: Normal. Pancreas: Normal. Gallbladder: Normal. Adrenal Glands: Normal. Kidneys: Normal. Retroperitoneal Structures: There is severe diffuse atherosclerotic disease about the abdominal aorta and its branch vessels. Bowel Survey: There is a small hiatal hernia. The stomach is otherwise unremarkable. There are multiple moderately distended small bowel loops with air-fluid levels. [address] [id number] Final Radiology Report Name: IRLANDA ROJAS Age: 78y Date: 01/16/2024 9:33 PM : 1945 Study: Chest Abdomen Pelvis W Cont Requesting Physician: Alan Morrison [id number] IRLANDA ROJAS Page 1 of 2 [id number] Chest Abdomen Pelvis W Cont The appendix is unremarkable. There is moderately severe diffuse distention of the colon containing gas and liquefied stool. There is gross distention of the rectum filled with stool. The rectum measures 11 x 10 cm. Consider fecal impaction. Prostate Gland: Absent. Urinary Bladder: Normal. Peritoneal Cavity: Normal. Mesenteric Structures: Normal. Abdominal Wall: No hernia. Bony Structures: No suspicious lesions. There is mild S-shaped scoliosis of the thoracolumbar spine. IMPRESSION: 1. Gross distention of the rectum filled with stool. Consider fecal impaction. 2. Moderately severe diffuse distention of the colon containing gas and liquefied stool. 3. Multiple moderately distended small bowel loops with air-fluid levels. 4. No acute intrathoracic process. Electronically signed by: Segundo Kirkpatrick MD 01/16/2024 11:44 PM CDT . 00:27 Consideration of Admission/Observation Escalation of care including sp4 admission/observation considered. ED course: CT reveals gaseous distention of the colon and liquefied stool in the colon. Also there is moderately distended small bowel loops with air-fluid levels. No signs of bowel obstruction based on CT report. . ED course: Patient should go home with clear liquid diet for 24-hours. 01:02 ED course: EXAM: XR Abdomen, 1 View CLINICAL HISTORY: The patient is 78 years old and sp4 is Male; after disimpaction TECHNIQUE: Frontal supine view of the abdomen/pelvis. COMPARISON: XR Abdomen dated January 16 2024 FINDINGS: GASTROINTESTINAL TRACT: Gaseous distention of the bowel is present. Moderate to large amount of stool is present throughout the colon. Rectal stool ball is present and appears to have decreased in size from prior CT. ORGANS: Contrast is noted within the renal collecting systems and bladder. BONES/JOINTS: Diffusely osteopenic. No acute fracture. IMPRESSION: Moderate to large stool burden without obstruction.. 01/15 18:33 Order name: CBC with Diff; Complete Time: 21:32 sb4 01/15 18:33 Order name: CMP; Complete Time: 21:32 sb4 01/15 18:33 Order name: Lipase; Complete Time: 21:32 sb4 01/15 20:14 Order name: Abdomen 1 View XRAY; Complete Time: 23:38 sp4 01/15 21:33 Order name: CT Chest, Abdomen, Pelvis - W/Contrast sp4 01/16 00:10 Order name: Abdomen 1 View (KUB) EDOR 01/15 18:33 Order name: IV Saline Lock; Complete Time: 19:55 sb4 01/15 18:33 Order name: Labs collected and sent; Complete Time: 19:55 sb4 01/15 23:39 Order name: PO challenge; Complete Time: 00:15 sp4 Administered Medications: 01/15 22:18 Drug: NS 0.9% IV 500 ml IV at bolus once Route: IV; Rate: bolus; Site: left forearm; pf1 23:00 Follow up: Response: No adverse reaction; Marked relief of symptoms; IV Status: pf1 Completed infusion; IV Intake: 500ml 23:00 Drug: NS 0.9% IV 1000 ml IV at 125 ml/hr continuous Route: IV; Rate: 125 ml/hr; Site: pf1 left forearm; 01/16 00:59 Follow up: Response: No adverse reaction; Marked relief of symptoms; IV Status: pf1 Completed infusion 01/15 23:55 Drug: Potassium Chloride PO 40 mEq PO once Route: PO; pf1 01/16 00:50 Follow up: Response: No adverse reaction; Marked relief of symptoms pf1 Disposition: 01/15 20:29 Co-signature as Attending Physician, Alan Morrison MD I agree with the assessment sp4 and plan of care. I reviewed the patient's care provided by Advanced Practice Provider \T\ agree w/ the diagnosis \T\ care plan. I personally saw the pt \T\ performed a substantive portion of the visit, incldng all aspects of the (History/Exam/Medical Decision Making). Disposition Summary: 01/17/24 00:35 Discharge Ordered Notes: Location: Home sp4 Problem: new sp4 Symptoms: have improved sp4 Condition: Stable sp4 Diagnosis - Fecal impaction sp4 - Obstipation sp4 Followup: sp4 - With: Private Physician - When: 7 - 10 days - Reason: Recheck today's complaints Discharge Instructions: - Discharge Summary Sheet sp4 - Fecal Impaction sp4 Forms: - Patient Portal Instructions sp4 Prescriptions: - Dulcolax (bisacodyl) 5 mg Oral tablet, delayed release (enteric coated) - take 1 tablet ORAL route daily; 60 tablet; Refills: 0, Product Selection sp4 Permitted - Potassium Chloride 10 mEq Oral capsule, extended release - take 2 tablet ORAL route once daily for 10 days; 20 tablet; Refills: 0, Product sp4 Selection Permitted Signatures: Dispatcher [facility] Marleni Campbell RN RN ld1 Yisel Mccall PA-C PAAdeline [email or web address] Angelina Dickinson RN RN pf1 Alan Morrison MD MD sp4 Corrections: (The following items were deleted from the chart) 20:15 20:15 Abdomen 1 View+RAD.RAD.BRZ ordered. EDMS EDMS 01/16 00:10 01/15 23:28 Abdomen Acute Series+RAD.RAD.[email or web address] ordered. EDMS EDMS
[2024-01-17 02:39] VITALS: BP 115/85; TEMP 98; O2SAT 96
--- NOTE | 2024-01-17 14:19 | RAD REPORT ---
EXAM DESCRIPTION: RAD - Abdomen 1 View (KUB) - 01/17/2024 12:35 am CLINICAL HISTORY: The patient is 78 years old and is Male; after disimpaction TECHNIQUE: Frontal supine view of the abdomen/pelvis. COMPARISON: XR Abdomen dated January 16 2024 FINDINGS: GASTROINTESTINAL TRACT: Gaseous distention of the bowel is present. Moderate to large am ount of stool is present throughout the colon. Rectal stool ball is present and appears to have decre ased in size from prior CT. ORGANS: Contrast is noted within the renal collecting systems and bladder. BONES/JOINTS: Diffusely osteopenic. No acute fracture. IMPRESSION: Moderate to large stool burden without obstruction. Electronically signed by: Taylor Looney MD 01/17/2024 12:58 AM CDT Due to temporary technical issues with the PACS/Fluency reporting system, reports are being signed by the in house radiologists without review as a courtesy to insure prompt reporting. The interpreting radiologist is fully responsible for the content of the report.
--- NOTE | 2024-01-17 15:47 | RAD REPORT ---
EXAM DESCRIPTION: CT - Chest Abdomen Pelvis W Cont - 01/17/2024 6:38 am CLINICAL HISTORY: Abdominal distention. TECHNIQUE: CT scan of the chest, abdomen and pelvis was performed with intravenous contrast. 3 mm ax ial images were obtained along with coronal and sagittal reformatted images. DOSE OPTIMIZATION: This facility uses dose optimization techniques as appropriate to perform exams, i ncluding at least one of the following techniques: 1. Automated exposure control. 2. Adjustment of the mA and/or kV according to patient size (this includes techniques or standardized protocols for targeted exams where dose is matched to the indication/reason for exam, i.e. extremiti es or head). 3. Use of iterative reconstructive technique. COMPARISON: CT scan abdomen and pelvis dated 07/30/2020. FINDINGS: Lung Gama: Normal. Mediastinal Structures: Normal. Pleural Space: Normal. Axillae: Normal. Chest Wall: Normal. Liver: Normal. Spleen: Normal. Pancreas: Normal. Gallbladder: Normal. Adrenal Glands: Normal. Kidneys: Normal. Retroperitoneal Structures: There is severe diffuse atherosclerotic disease about the abdominal aorta and its branch vessels. Bowel Survey: There is a small hiatal hernia. The stomach is otherwise unremarkable. There are multiple moderately distended small bowel loops with air-fluid levels. The appendix is unremarkable. There is moderately severe diffuse distention of the colon containing gas and liquefied stool. There is gross distention of the rectum filled with stool. The rectum measures 11 x 10 cm. Consider f ecal impaction. Prostate Gland: Absent. Urinary Bladder: Normal. Peritoneal Cavity: Normal. Mesenteric Structures: Normal. Abdominal Wall: No hernia. Bony Structures: No suspicious lesions. There is mild S-shaped scoliosis of the thoracolumbar spine. IMPRESSION: 1. Gross distention of the rectum filled with stool. Consider fecal impaction. 2. Moderately severe diffuse distention of the colon containing gas and liquefied stool. 3. Multiple moderately distended small bowel loops with air-fluid levels. 4. No acute intrathoracic process. Electronically signed by: Segundo Kirkpatrick MD 01/16/2024 11:44 PM CDT Due to temporary technical issues with the PACS/Fluency reporting system, reports are being signed by the in house radiologists without review as a courtesy to insure prompt reporting. The interpreting radiologist is fully responsible for the content of the report.
== END 2024-01-17 01:50 | disposition home or self-care (01) ==
LOC: ER 18:05
DX: K56.41 Fecal impaction (principal); Z88.0 Allergy status to penicillin; Z88.5 Allergy status to narcotic agent
CPT/HCPCS: 96361; 85025; 36415; 83690; 80053; 71260; 74177; 74018 ×2; 96360; 99285; Q9967; J7040; J7030

== ENCOUNTER 2024-09-11 08:55 | Inpatient (IN) | payer OTHER ==
[2024-09-11] MEDS ORDERED: BISACODYL 10 MG RECTAL SUPP ONE ×3 (09:14→18:54)
[2024-09-11] MEDS ORDERED: FAMOTIDINE 20 MG/2 ML VIAL IV ONE (09:14)
[2024-09-11] MEDS ORDERED: ONDANSETRON 4 MG/2 ML VIAL ONE (09:14)
[2024-09-11] MEDS ORDERED: NA CHLORIDE 0.9% 1,000 ML ONE ×2 (09:15→18:48)
[2024-09-11] MEDS ORDERED: LACTULOSE 20 GM/30 ML UCUP ONE ×2 (09:15→12:11)
[2024-09-11 09:32] LABS: Absolute Eosinophils 0.1 K/uL (0-0.5); Absolute Lymphocytes (CBC) 1.7 K/uL (0.7-4.9); Absolute Monocytes 1.3 K/uL (0.1-1.3); Absolute Neutrophil 13.3 K/uL (1.8-8.0); Basophils % 0.2 % (0-1.3); Eosinophils % 0.4 % (0-4.4); Hematocrit 50.8 % (39.6-49.0); Hemoglobin 16.8 g/dL (13.6-17.9); Lymphocytes % 10.4 % (15.3-44.8); MCH 29.8 pg (27.0-35.0); MCV 90.2 fL (80-100); MPV 6.9 fL (7.6-11.3); Monocytes % 8.2 % (3.3-12.3); Neutrophils % 80.8 % (41.7-73.7); Nucleated Red Blood Cells % 0.1 % (0-0); Platelets 737 thou/uL (152-406); RBC Red Blood Cell Count 5.63 M/uL (4.33-5.43); Red Cell Distribution Width 14.1 % (12.1-15.2)
[2024-09-11 09:52] LABS: Albumin 3.3 g/dL (3.4-5.0); Albumin/Globulin Ratio 0.7 (1.1-1.8); Anion Gap 10.9 mEq/L (5.0-15.0); Bilirubin Total 1.2 mg/dL (0.2-1.0); Globulin 4.8 g/dL (2.3-3.5); Potassium 2.9 mEq/L (3.5-5.1); Protein, Total 8.1 g/dL (6.4-8.2)
--- NOTE | 2024-09-11 10:18 | RAD REPORT ---
EXAMINATION: ONE VIEW CHEST XR CLINICAL INDICATION: ABDOMINAL DISTENTION TECHNIQUE: Frontal chest projection is submitted. Examination is limited by patient positioning and t echnique. COMPARISON: 02/01/2023 FINDINGS: Significant elevation of the right hemidiaphragmatic leaflet. There is subsegmental atelectasis in th e right lung base. The heart is normal in size. No displaced fractures identified. IMPRESSION: Significantly elevated right hemidiaphragmatic leaflet.
[2024-09-11 10:19] LABS: Troponin High Sensitivity 14.5 pg/mL (<58.9)
[2024-09-11] MEDS ORDERED: METRONIDAZOLE 500mg IVPB 500 MG/100 ML BAG IV ONE (11:00)
[2024-09-11] MEDS ORDERED: CIPROFLOXACIN 400mg IV 400 MG/200 ML BAG IV ONE (11:00)
--- NOTE | 2024-09-11 11:38 | RAD REPORT ---
EXAMINATION: CT ABDOMEN AND PELVIS WITH CONTRAST CLINICAL INDICATION: Abd pain;Abdominal distention TECHNIQUE: CT abdomen and pelvis was performed, after the administration of IV contrast, as per [facility]. Axial, sagittal and coronal reconstructions were obtained. One or more of the following dose reduction techniques were used: Automated exposure control, adjustment of the mA and k V according to patient size, and iterative reconstruction. Unless otherwise specified, incidental findings do not require dedicated imaging follow-up. COMPARISON: 01/16/2024 FINDINGS: LOWER CHEST: There is elevation the right hemidiaphragm with atelectasis in the right lung base. LIVER: Normal in size and contour. No focal lesion. Grossly unremarkable gallbladder. SPLEEN: Normal size. No focal lesion. PANCREAS: No mass, ductal dilation, or lisa-pancreatic fluid. ADRENALS: Normal; no mass. KIDNEYS: Normal size and contour. No hydronephrosis. GASTROINTESTINAL TRACT: No evidence of free air, significant intra-abdominal free fluid, bowel obstru ction or abscess. Severe fecal impaction in the rectum and upstream severe fecal retention in the colon. APPENDIX: Normal appendix. LYMPH NODES: No lymphadenopathy. MUSCULOSKELETAL: Moderate levoscoliosis of the lumbar spine. ADDITIONAL FINDINGS: None. IMPRESSION: Severe fecal impaction in the rectum and upstream fecal retention throughout the colon.
[2024-09-11 12:09] LABS: Specific Gravity > 1.030 (1.005-1.030); Sqamous Epithelial None Seen /HPF (None Seen); Urine Bacteria <20 /HPF (<20); Urine Bilirubin NEGATIVE (Negative); Urine Blood 3+ (Negative); Urine Clarity Extremely Turbid (Clear); Urine Color Light-Orange (Yellow); Urine Crystals Unidentified Few /HPF (None Seen); Urine Culture Reflex Order REFLEXED; Urine Glucose NEGATIVE (Negative); Urine Ketones NEGATIVE (Negative); Urine Microscopic Reflex YN ORDER UMIC; Urine Mucus 4+ /HPF (None Seen); Urine Nitrite NEGATIVE (Negative); Urine Protein 1+ (Negative); Urine RBC >50 /HPF (None Seen); Urine Urobilinogen 1+ (Normal); Urine WBC >50 /HPF (<5); Urine WBC Clump Many /HPF (None Seen)
[2024-09-11] MEDS ORDERED: KCL 20 MEQ/100 mL IVPB 200 ML IV ONE (12:10)
[2024-09-11] MEDS ORDERED: POTASSIUM 25 MEQ EFFERV TAB ONE (12:10)
[2024-09-11] MEDS ORDERED: NS KCL 20MEQ 1,000 ML IV ONE (12:10)
--- NOTE | 2024-09-11 12:10 | EDPHYS ---
Physician Documentation [facility] Name: Margarito Nunes Age: 79 yrs Sex: Male : 1945 Arrival Date: 09/11/2024 Time: 08:55 Bed 13 Private MD: ED Physician Brandon Faye HPI: 09/11 12:02 This 79 yrs old Male presents to ER via Wheelchair with complaints of vani Constipation. 12:02 The patient presents with abdominal pain abdominal distention. Onset: The vani symptoms/episode began/occurred 3 day(s) ago. The patient presents to the emergency department with nausea, abdominal pain, of the right upper quadrant, left upper quadrant, right lower quadrant and left lower quadrant. Onset: The symptoms/episode began/occurred 3 day(s) ago. Possible causes: unknown. The symptoms are aggravated by nothing. The symptoms are alleviated by nothing. Associated signs and symptoms: The patient has no apparent associated signs or symptoms. Associated signs and symptoms: none. Modifying factors: The symptoms are alleviated by nothing, the symptoms are aggravated by nothing. work stress, no bm. Severity of pain: At its worst the pain was moderate in the emergency department the pain is unchanged. The patient has not experienced similar symptoms in the past. Historical: - Allergies: 09:15 Darvon; jl7 09:15 PENICILLINS; jl7 - PMHx: 09:15 Dementia; Hyperlipidemia; Hypertension; jl7 - Immunization history:: Adult Immunizations unknown. - Infectious Disease History:: Denies. - Social history:: Smoking status: Patient denies any tobacco usage or history of. - Family history:: not pertinent. ROS: 12:02 Constitutional: Negative for fever, chills, and weight loss, Eyes: Negative for injury, vani pain, redness, and discharge, ENT: Negative for injury, pain, and discharge, Neck: Negative for injury, pain, and swelling, Cardiovascular: Negative for chest pain, palpitations, and edema, Respiratory: Negative for shortness of breath, cough, wheezing, and pleuritic chest pain, Back: Negative for injury and pain, : Negative for injury, bleeding, discharge, and swelling, MS/Extremity: Negative for injury and deformity, Skin: Negative for injury, rash, and discoloration, Neuro: Negative for headache, weakness, numbness, tingling, and seizure, Psych: Negative for depression, anxiety, suicide ideation, homicidal ideation, and hallucinations, Allergy/Immunology: Negative for hives, rash, and allergies, Endocrine: Negative for neck swelling, polydipsia, polyuria, polyphagia, and marked weight changes, Hematologic/Lymphatic: Negative for swollen nodes, abnormal bleeding, and unusual bruising, 12:02 Abdomen/GI: Positive for abdominal pain, constipation, abdominal cramps, abdominal distension, Exam: 12:02 Constitutional: This is a well developed, well nourished patient who is awake, alert, vani and in no acute distress. Head/Face: Normocephalic, atraumatic. Eyes: Pupils equal round and reactive to light, extra-ocular motions intact. Lids and lashes normal. Conjunctiva and sclera are non-icteric and not injected. Cornea within normal limits. Periorbital areas with no swelling, redness, or edema. ENT: Nares patent. No nasal discharge, no septal abnormalities noted. Tympanic membranes are normal and external auditory canals are clear. Oropharynx with no redness, swelling, or masses, exudates, or evidence of obstruction, uvula midline. Mucous membranes moist. Neck: Trachea midline, no thyromegaly or masses palpated, and no cervical lymphadenopathy. Supple, full range of motion without nuchal rigidity, or vertebral point tenderness. No Meningismus. Chest/axilla: Normal chest wall appearance and motion. Nontender with no deformity. No lesions are appreciated. Cardiovascular: Regular rate and rhythm with a normal S1 and S2. No gallops, murmurs, or rubs. Normal PMI, no JVD. No pulse deficits. Respiratory: Lungs have equal breath sounds bilaterally, clear to auscultation and percussion. No rales, rhonchi or wheezes noted. No increased work of breathing, no retractions or nasal flaring. Back: No spinal tenderness. No costovertebral tenderness. Full range of motion. Male : Normal genitalia with no discharge or lesions. Skin: Warm, dry with normal turgor. Normal color with no rashes, no lesions, and no evidence of cellulitis. MS/ Extremity: Pulses equal, no cyanosis. Neurovascular intact. Full, normal range of motion., bilateral aka Neuro: Awake and alert, GCS 15, oriented to person, place, time, and situation. Cranial nerves II-XII grossly intact. Motor strength 5/5 in all extremities. Sensory grossly intact. Cerebellar exam normal. Normal gait. Psych: Awake, alert, with orientation to person, place and time. Behavior, mood, and affect are within normal limits. 12:02 ECG was reviewed by the Attending Physician. 12:02 Abdomen/GI: Inspection: distension, Bowel sounds: normal, Palpation: mild abdominal tenderness, in all quadrants, Liver: no appreciated palpable abnormalities, Hernia: not appreciated, Vital Signs: 09:14 BP 120 / 91; Pulse 105; Resp 17; Temp 98.1; Pulse Ox 98% ; Weight 64.5 kg; Height 6 ft. jl7 1 in. ; Pain 5/10; 09:43 BP 114 / 89; Pulse 90; Resp 16 S; Pulse Ox 96% on R/A; kc6 11:44 BP 123 / 94; Pulse 90; Resp 20 S; Pulse Ox 95% on R/A; kc6 13:21 BP 130 / 91; Pulse 100; Resp 20 S; Pulse Ox 96% on R/A; kc6 20:18 BP 128 / 84; Pulse 70; Resp 18; Pulse Ox 98% on R/A; kj2 09:14 Body Mass Index 18.76 (64.50 kg, 185.42 cm) jl7 09:14 Pain Scale: Adult jl7 MDM: 09:08 Medical Screening Exam initiated vani 12:06 Differential diagnosis: Nonspecific abd pain, gastritis, viral gastroenteritis, vani gastroenteritis, diverticulitis, gastritis, non-specific abd pain, pancreatitis, Peptic Ulcer Disease, Prostatitis. Data reviewed: vital signs, nurses notes, lab test result(s), EKG, radiologic studies, CT scan, plain films. Consideration of Admission/Observation Patient was admitted/placed on observation. Escalation of care including admission/observation considered. I considered the following discharge prescriptions or medication management in the emergency department Medications were administered in the Emergency Department. See MAR. Independent interpretation of the following test(s) in the Emergency Department EKG: See my EKG interpretation above. Test considered but Not performed: Ultrasound no abd usg. 09/11 09:10 Order name: CBC with Diff; Complete Time: 10:03 [facility] 09/11 09:10 Order name: CMP; Complete Time: 10: [facility] 09/11 09:10 Order name: Lipase; Complete Time: 10: [facility] 09/11 09:10 Order name: Urinalysis w/ reflexes [facility] 09/11 09:33 Order name: Troponin High Sensitivity; Complete Time: 10:30 [facility] 09/11 09:33 Order name: BNP; Complete Time: 10:30 [facility] 09/11 11:57 Order name: Phosphorus [facility] 09/11 12:34 Order name: Urine Culture EDMS 09/11 13:37 Order name: Liver (Hepatic) Function EDMS 09/11 13:37 Order name: T4 Free EDMS 09/11 13:37 Order name: Thyroid Stimulating Hormone EDMS 09/11 13:37 Order name: Urinalysis w/ reflexes EDMS 09/11 13:37 Order name: Basic Metabolic Panel EDMS 09/11 13:37 Order name: Basic Metabolic Panel EDMS 09/11 13:37 Order name: Basic Metabolic Panel EDMS 09/11 13:37 Order name: Basic Metabolic Panel EDMS 09/11 13:37 Order name: Basic Metabolic Panel EDMS 09/11 13:37 Order name: Basic Metabolic Panel EDMS 09/11 13:37 Order name: Basic Metabolic Panel EDMS 09/11 13:37 Order name: Basic Metabolic Panel EDMS 09/11 13:37 Order name: CBC with Automated Diff EDMS 09/11 13:37 Order name: CBC with Automated Diff EDMS 09/11 13:37 Order name: CBC with Automated Diff EDMS 09/11 13:37 Order name: CBC with Automated Diff EDMS 09/11 13:37 Order name: CBC with Automated Diff EDMS 09/11 13:37 Order name: CBC with Automated Diff EDMS 09/11 13:37 Order name: CBC with Automated Diff EDMS 09/11 13:37 Order name: CBC with Automated Diff EDMS 09/11 13:37 Order name: Magnesium EDMS 09/11 13:37 Order name: Magnesium EDMS 09/11 13:37 Order name: Magnesium EDMS 09/11 13:37 Order name: Magnesium EDMS 09/11 13:37 Order name: Magnesium EDMS 09/11 13:37 Order name: Magnesium EDMS 09/11 13:37 Order name: Magnesium EDMS 09/11 13:37 Order name: Magnesium EDMS 09/11 13:37 Order name: Phosphorus EDMS 09/11 13:37 Order name: Phosphorus EDMS 09/11 13:37 Order name: Phosphorus EDMS 09/11 13:37 Order name: Phosphorus EDMS 09/11 13:37 Order name: Phosphorus EDMS 09/11 13:37 Order name: Phosphorus EDMS 09/11 13:37 Order name: Phosphorus EDMS 09/11 13:37 Order name: Phosphorus EDMS 09/11 13:37 Order name: Troponin High Sensitivity EDMS 09/11 13:37 Order name: Troponin High Sensitivity EDMS 09/11 13:37 Order name: Troponin High Sensitivity EDMS 09/11 09:33 Order name: CT Abd/Pelvis - PO and IV Contrast; Complete Time: 11:56 [facility] 09/11 09:33 Order name: Chest Single View XRAY; Complete Time: 10:30 [facility] 09/11 13:37 Order name: Abdomen W Erect EDPR 09/11 13:37 Order name: Abdomen W Erect EDMS 09/11 13:37 Order name: Physical Therapy Consult [facility] 09/11 09:10 Order name: IV Saline Lock; Complete Time: 09:42 [facility] 09/11 09:10 Order name: Labs collected and sent; Complete Time: 09:42 [facility] 09/11 09:33 Order name: EKG - Nurse/Tech; Complete Time: 09:56 [facility] 09/11 10:30 Order name: IV Saline Lock - Large Bore; Complete Time: 10:51 [facility] 09/11 10:30 Order name: Daniela; Complete Time: 11:42 vani EC:02 Rate is 84 beats/min. Rhythm is regular. QRS Cisne is Normal. CT interval is prolonged vani at 210 msec. QRS interval is normal. QT interval is normal. No Q waves. T waves are Normal. No ST changes noted. Clinical impression: NSR w/ Non-specific ST/T Changes, 1st degree heart block, and No evidence of ischemia. Interpreted by me. Administered Medications: 09:31 Not Given (Duplicate Order): dulcolaxsuppository [address] once vani 09:31 Not Given (Duplicate Order): [id number] grams 45 ml PO once vani 09:42 Drug: Famotidine IVP 20 mg IVP once; dilute with 10 mL 0.9% NaCl; give over 2 minutes kc6 Route: IVP; Site: right forearm; 11:43 Follow up: Response: No adverse reaction kc6 09:42 Drug: Ondansetron IVP 4 mg IVP once; over 2 minutes Route: IVP; Site: right forearm; kc6 11:42 Follow up: Response: No adverse reaction kc6 09:42 Drug: NS 0.9% IV 1000 ml IV at 1 bolus Per protocol; to be given as a bolus over 60 kc6 minutes Route: IV; Rate: 1 bolus; Site: right forearm; 11:43 Follow up: Response: No adverse reaction; IV Status: Completed infusion; IV Intake: kc6 1000ml 11:42 Drug: metroNIDAZOLE IVPB 500 mg 100 ml IVPB at 200 ml/hr once over 30 mins Volume: 100 kc6 ml; Route: IVPB; Rate: 200 ml/hr; Infused Over: 30 mins; Site: right forearm; 13:22 Follow up: Response: No adverse reaction; IV Status: Completed infusion; IV Intake: kc6 100ml 12:35 Drug: Ciprofloxacin IVPB 400 mg 200 ml IVPB once over 60 mins Volume: 200 ml; Route: kc6 IVPB; Infused Over: 60 mins; Site: right forearm; 13:32 Follow up: Response: No adverse reaction; IV Status: Completed infusion; IV Intake: kc6 200ml 12:35 Drug: Potassium PO Effervescent Tablet 50 mEq PO once; dissolve in 4 ounces of water or kc6 juice Route: PO; 13:21 Follow up: Response: No adverse reaction kc6 12:35 Drug: Potassium Chloride IV 20 mEq IV at per protocol once; administer over 1-2 hours kc6 Route: IV; Rate: per protocol; Site: left forearm; 18:41 Follow up: Response: No adverse reaction; IV Status: Completed infusion; IV Intake: kc6 100ml 12:35 Drug: NS 0.9% with KCl IV 20 mEq/L 1000 ml IV at 125 ml/hr continuous Route: IV; Rate: kc6 125 ml/hr; Site: left forearm; 12:44 Follow up: IV Status: Infusion continued upon admission kc6 12:35 Drug: Lactulose PO 30 grams 45 ml PO once Volume: 45 ml; Route: PO; kc6 13:21 Follow up: Response: No adverse reaction kc6 12:35 Drug: Dulcolax CT Suppository [address] once Route: CT; kc6 13:21 Follow up: Response: No adverse reaction kc6 15:00 Drug: Potassium Chloride IV 20 mEq IV at per protocol once; administer over 1-2 hours kc6 Route: IV; Rate: per protocol; Site: left forearm; 18:41 Follow up: Response: No adverse reaction; IV Status: Completed infusion; IV Intake: kc6 100ml Disposition Summary: 09/11/24 12:10 Hospitalization Ordered Notes: Hospitalization Status: Inpatient Admission vani Provider: Christopher Alcala cha Condition: Fair vani Problem: new vani Symptoms: have improved vani Bed/Room Type: Standard vani Location: Telemetry/MedSurg (Inpatient)(09/11/24 18:46) [facility] Room Assignment: 410(09/11/24 18:46) ja Diagnosis - Abdominal pain, Generalized vani - Constipation - fecal impaction vani - Elevated white blood cell count vani - Hypokalemia vani Forms: - Medication Reconciliation Form vani - SBAR form vani - Leadership Thank You Letter vani Signatures: Dispatcher [employer] EDMS Brandon Faye MD MD cha Leal, Jahala, RN RN jl7 Shine Kearney RN RN Diane Martinez RN RN kc6 Corrections: (The following items were deleted from the chart) 09:33 09:33 Abdomen Pelvis W Con+CT.RAD.BRZ ordered. EDMS EDMS 09:33 09:33 Troponin High Sensitivity+C.LAB.BRZ ordered. EDMS EDMS 09:33 09:33 PROBNP+C.LAB.BRZ ordered. EDMS EDMS 09:34 09:34 Chest Single View+RAD.RAD.BRZ ordered. EDMS EDMS 09:36 09:10 Abdomen Pelvis W Con+CT.RAD.BRZ ordered. EDMS EDMS 17:51 12:10 Telemetry/MedSurg (Inpatient) vani jl7 17:51 12:10 vani jl7 18:46 17:51 [facility] ER HOLD jl7 ja1 18:46 17:51 ERHOLD- jl7 ja1
--- NOTE | 2024-09-11 12:10 | ER ---
Nurse's Notes [facility] Name: Margarito Nunes Age: 79 yrs Sex: Male : 1945 Arrival Date: 09/11/2024 Time: 08:55 Bed 13 Private MD: Diagnosis: Abdominal pain, Generalized;Constipation-fecal impaction;Elevated white blood cell count;Hypokalemia Presentation: 09/11 09:14 Chief complaint: Constipated x 4 days. Coronavirus screen: At this time, the client jl7 does not indicate any symptoms associated with coronavirus-19. Ebola Screen: No symptoms or risks identified at this time. Initial Sepsis Screen: Does the patient meet any 2 criteria? HR > 90 bpm. No. Patient's initial sepsis screen is negative. Does the patient have a suspected source of infection? No. Patient's initial sepsis screen is negative. Risk Assessment: Do you want to hurt yourself or someone else? Patient reports no desire to harm self or others. Onset of symptoms was September 07, 2024. 09:14 Method Of Arrival: Wheelchair [facility] 09:14 Acuity: KAROLYN 3 jl7 Triage Assessment: 09:15 General: Appears in no apparent distress. uncomfortable, Behavior is calm, cooperative, jl7 appropriate for age. Pain: Complains of pain in abdomen Pain currently is 5 out of 10 on a pain scale. Cardiovascular: Patient's skin is warm and dry. GI: Abdomen is round distended, Reports constipation. Historical: - Allergies: 09:15 Darvon; jl7 09:15 PENICILLINS; jl7 - PMHx: 09:15 Dementia; Hyperlipidemia; Hypertension; jl7 - Immunization history:: Adult Immunizations unknown. - Infectious Disease History:: Denies. - Social history:: Smoking status: Patient denies any tobacco usage or history of. - Family history:: not pertinent. Screenin:43 [facility] ED Fall Risk Assessment (Adult) History of falling in the last 3 months, kc6 including since admission No falls in past 3 months (0 pts) Confusion or Disorientation Yes (5 pts) Intoxicated or Sedated No (0 pts) Impaired Gait Yes (1 pt) Mobility Assist Device Used Yes (1 pt) Altered Elimination No (0 pt) Score/Fall Risk Level 3 or more points = High Risk Oriented to surroundings, Maintained a safe environment, Educated pt \T\ family on fall prevention, incl call for assistance when getting out of bed. Abuse screen: Denies threats or abuse. Denies injuries from another. Nutritional screening: No deficits noted. Tuberculosis screening: No symptoms or risk factors identified. Assessment: 09:44 General: Appears in no apparent distress. comfortable, well groomed, well developed, kc6 Behavior is calm, cooperative, appropriate for age. Pain: Denies pain. Neuro: Level of Consciousness is awake, alert, obeys commands, confused, Oriented to person, place, situation, Appropriate for age. Cardiovascular: Capillary refill < 3 seconds. Respiratory: Airway is patent Trachea midline Respiratory effort is even, unlabored, Respiratory pattern is regular, symmetrical. GI: Abdomen is round distended, Stools are reported to be constipated. Last BM was September 11, 2024. Bowel sounds present X 4 quads. Abd is rigid X 4 quads. Reports constipation, nausea, vomiting, Patient currently denies abdominal pain, diarrhea. : No signs and/or symptoms were reported regarding the genitourinary system. EENT: No signs and/or symptoms were reported regarding the EENT system. Derm: No signs and/or symptoms reported regarding the dermatologic system. Skin is intact, is healthy with good turgor, Skin is pink, warm \T\ dry. Musculoskeletal: No signs and/or symptoms reported regarding the musculoskeletal system. Circulation, motion, and sensation intact. Range of motion: intact in all extremities. 10:58 Reassessment: Patient appears in no apparent distress at this time. No changes from kc6 previously documented assessment. Patient and/or family updated on plan of care and expected duration. Pain level reassessed. 11:44 Reassessment: Patient appears in no apparent distress at this time. No changes from kc6 previously documented assessment. Patient and/or family updated on plan of care and expected duration. Pain level reassessed. 12:44 Reassessment: Patient appears in no apparent distress at this time. No changes from kc6 previously documented assessment. Patient and/or family updated on plan of care and expected duration. Pain level reassessed. 13:50 Reassessment: Jenifer (friend) [phone]. kc6 19:00 Reassessment: Patient appears in no apparent distress at this time. Patient is alert, kj2 oriented x 3, equal unlabored respirations, skin warm/dry/pink. Patient is alert/active/playful, equal unlabored respirations, skin warm/dry/pink. 20:18 Reassessment: Patient appears in no apparent distress at this time. Patient and/or kj2 family updated on plan of care and expected duration. Pain level reassessed. Patient is alert, oriented x 3, equal unlabored respirations, skin warm/dry/pink. Vital Signs: 09:14 BP 120 / 91; Pulse 105; Resp 17; Temp 98.1; Pulse Ox 98% ; Weight 64.5 kg; Height 6 ft. jl7 1 in. ; Pain 5/10; 09:43 BP 114 / 89; Pulse 90; Resp 16 S; Pulse Ox 96% on R/A; kc6 11:44 BP 123 / 94; Pulse 90; Resp 20 S; Pulse Ox 95% on R/A; kc6 13:21 BP 130 / 91; Pulse 100; Resp 20 S; Pulse Ox 96% on R/A; kc6 20:18 BP 128 / 84; Pulse 70; Resp 18; Pulse Ox 98% on R/A; kj2 09:14 Body Mass Index 18.76 (64.50 kg, 185.42 cm) jl7 09:14 Pain Scale: Adult jl7 ED Course: 08:58 Patient arrived in ED. mr 09:08 Brandon Faye MD is Attending Physician. [facility] 09:10 Diane Ugarte, RN is Primary Nurse. kc6 09:15 Triage completed. jl7 09:15 Arm band placed on right wrist. jl7 09:42 Troponin High Sensitivity Sent. kc6 09:42 BNP Sent. kc6 09:43 Patient has correct armband on for positive identification. Placed in gown. Bed in low kc6 position. Call light in reach. Side rails up X2. Adult w/ patient. Pulse ox on. NIBP on. Door closed. Noise minimized. Lights dimmed. Warm blanket given. Pillow given. Repositioned patient. Cleaned of incontinence. Linen changed. 09:43 Inserted saline lock: 20 gauge in right forearm, using aseptic technique. Blood kc6 collected. Flushed with 10 mL NS. Patient maintains SpO2 saturation greater than 95% on room air. 10:06 Chest Single View XRAY In Process Unspecified. EDMS 11:22 CT Abd/Pelvis - PO and IV Contrast In Process Unspecified. EDMS 11:41 Suarez cath inserted, using sterile technique, 16 Fr., by sc, balloon inflated, to kc6 gravity drainage, clamped. urine specimen collected. returned clear yellow urine. Patient tolerated well. 11:55 Urinalysis w/ reflexes Sent. kc6 12:06 Inserted saline lock: 18 gauge in left forearm, using aseptic technique. Flushed with kc6 10 mL NS. 12:06 Phosphorus Sent. kc6 12:09 Christopher Alcala is Hospitalizing Provider. [facility] 12:44 No provider procedures requiring assistance completed. Patient admitted, IV remains in kc6 place. 19:00 Report received from SHERMAN SORIANO. kj2 20:17 Provided Education on: NEED FOR ADMIT. kj2 Administered Medications: 09:31 Not Given (Duplicate Order): dulcolaxsuppository 10 mg FL once [facility] 09:31 Not Given (Duplicate Order): [id number] grams 45 ml PO once vani 09:42 Drug: Famotidine IVP 20 mg IVP once; dilute with 10 mL 0.9% NaCl; give over 2 minutes kc6 Route: IVP; Site: right forearm; 11:43 Follow up: Response: No adverse reaction [facility] 09:42 Drug: Ondansetron IVP 4 mg IVP once; over 2 minutes Route: IVP; Site: right forearm; kc6 11:42 Follow up: Response: No adverse reaction [facility] 09:42 Drug: NS 0.9% IV 1000 ml IV at 1 bolus Per protocol; to be given as a bolus over 60 kc6 minutes Route: IV; Rate: 1 bolus; Site: right forearm; 11:43 Follow up: Response: No adverse reaction; IV Status: Completed infusion; IV Intake: kc6 1000ml 11:42 Drug: metroNIDAZOLE IVPB 500 mg 100 ml IVPB at 200 ml/hr once over 30 mins Volume: 100 kc6 ml; Route: IVPB; Rate: 200 ml/hr; Infused Over: 30 mins; Site: right forearm; 13:22 Follow up: Response: No adverse reaction; IV Status: Completed infusion; IV Intake: kc6 100ml 12:35 Drug: Ciprofloxacin IVPB 400 mg 200 ml IVPB once over 60 mins Volume: 200 ml; Route: kc6 IVPB; Infused Over: 60 mins; Site: right forearm; 13:32 Follow up: Response: No adverse reaction; IV Status: Completed infusion; IV Intake: kc6 200ml 12:35 Drug: Potassium PO Effervescent Tablet 50 mEq PO once; dissolve in 4 ounces of water or kc6 juice Route: PO; 13:21 Follow up: Response: No adverse reaction kc6 12:35 Drug: Potassium Chloride IV 20 mEq IV at per protocol once; administer over 1-2 hours kc6 Route: IV; Rate: per protocol; Site: left forearm; 18:41 Follow up: Response: No adverse reaction; IV Status: Completed infusion; IV Intake: kc6 100ml 12:35 Drug: NS 0.9% with KCl IV 20 mEq/L 1000 ml IV at 125 ml/hr continuous Route: IV; Rate: kc6 125 ml/hr; Site: left forearm; 12:44 Follow up: IV Status: Infusion continued upon admission kc6 12:35 Drug: Lactulose PO 30 grams 45 ml PO once Volume: 45 ml; Route: PO; kc6 13:21 Follow up: Response: No adverse reaction kc6 12:35 Drug: Dulcolax FL Suppository 10 mg FL once Route: FL; kc6 13:21 Follow up: Response: No adverse reaction kc6 15:00 Drug: Potassium Chloride IV 20 mEq IV at per protocol once; administer over 1-2 hours kc6 Route: IV; Rate: per protocol; Site: left forearm; 18:41 Follow up: Response: No adverse reaction; IV Status: Completed infusion; IV Intake: kc6 100ml Medication: 12:44 VIS not applicable for this client. kc6 Intake: 11:43 IV: 1000ml; Total: 1000ml. kc6 13:22 IV: 100ml; Total: 1100ml. kc6 13:32 IV: 200ml; Total: 1300ml. kc6 18:41 IV: 100ml; Total: 1400ml. kc6 18:41 IV: 100ml; Total: 1500ml. kc6 Outcome: 12:10 Decision to Hospitalize by Provider. vani 12:44 Admitted to ER Hold. Please see [facility] for further documentation. kc6 12:44 Condition: stable 12:44 Instructed on the need for admit, 20:18 Patient left the ED. kj2 Signatures: Dispatcher [employer] EDBrandon Dial MD MD cha Rivera, [facility] Reg mr Cayden Chua, RN RN jl7 Diane Ugarte, RN RN kc6 Alda Rosen, RN RN kj2
--- NOTE | 2024-09-11 13:37 | P.HP ---
Certification for Inpatient Patient admitted to: Inpatient With expected LOS: >2 Midnights Practitioner: I am a practitioner with admitting privileges, knowledge of patient current condition, hospital course, and medical plan of care. Services: Services provided to patient in accordance with Admission requirements found in Title 42 Section 412.3 of the Code of Federal Regulations Patient History Date of Service: 09/11/24 Reason for admission: Severe constipation and hypokalemia History of Present Illness: Margarito Nunes is a 79 year old male with Pmhx Dementia, Hyperlipidemia, Hypertension, constipation who presents to the ED with abdominal distension and pain. Caregiver at the bedside reports he had a BM this week but now with abdominal distention. Decreased appetite is his first sign of his constipation.. She reports his last constipation episode this bad was last year. Laboratory evaluation significant for WBC 16.5, Platelets 737, potassium 2.9, Serum glucose 244, BUN/creatinine 20/1.31, GFR 56. CT abd/pelvis reports "Severe fecal impaction in the rectum and upstream fecal retention throughout the colon." Margarito will be admitted to hospitalist service for further evaluation and treatment of severe constipation. Allergies propoxyphene HCl [From Darvon] Allergy (Mild, Verified 06/10/23 15:47) Rash Penicillins Allergy (Verified 06/10/23 15:47) Rash Home Medications: Magnesium Oxide [Mag 0X*] 400 mg PO NOON 06/26/12 Pravastatin [Pravachol*] 40 mg PO BEDTIME 06/26/12 Hydralazine [Apresoline*] 25 mg PO TID 05/04/19 Losartan Potassium 1 tab PO DAILY 07/29/20 Multivit-Min/FA/Lutein/Zeaxant [N[place]qula Vitamin Caplet] 1 tab PO DAILY 07/29/20 hydroCHLOROthiazide [Hydrochlorothiazide] 1 tab PO DAILY 07/29/20 Cholecalciferol (Vitamin D3) [Vitamin D 5,000 IU Cap*] 5,000 unit PO NOON 03/22/22 Cyanocobalamin (Vitamin B-12) [Vitamin B-12] 2,500 mcg SL NOON 03/22/22 Quetiapine Fumarate [Seroquel] 25 mg PO BID 02/01/23 Amlodipine [Norvasc*] 10 mg PO DAILY 06/10/23 Aspirin [Aspirin EC] 81 mg PO DAILY 06/10/23 - Past Medical/Surgical History Diabetic: No -: HTN -: Dyslipidemia -: Retina Detachment -: BPH -: Normal Pressure Hydrocephalus -: Dementia -: Hernia repair -: Right knee sx -: eye sx x 2 -: mole eyelid removed -: Prostate sx-TURP -: Cyst removed from arm Psychosocial/ Personal History: Patient is . - Family History Mother -: Heart disease Father Notes: Alzheimer's Sister -: Cancer Notes: Breast Cancer - Social History Alcohol use: No CD- Drugs: No Caffeine use: Yes Review of Systems General: Weakness Gastrointestinal: Distention, Constipation Musculoskeletal: Other Physical Examination - Physical Exam General: Alert, In no apparent distress, Oriented x3 HEENT: Atraumatic, Normocephalic Neck: Supple, 2+ carotid pulse no bruit, JVD not distended Respiratory: Clear to auscultation bilaterally, Normal air movement Cardiovascular: Normal pulses, Regular rate/rhythm, Normal S1 S2 Gastrointestinal: Normal bowel sounds, Soft and benign Musculoskeletal: No clubbing Integumentary: No rashes Neurological: Normal speech, Normal tone - Studies Laboratory Data (last 24 hrs) 09/11/24 09/11/24 09/11/24 09:23 09:23 09:23 WBC 16.50 H Hgb 16.8 Hct 50.8 H Plt Count 737 H Sodium 136 Potassium 2.9 L BUN 20 H Creatinine 1.31 H Glucose 244 H Phosphorus 3.2 Total Bilirubin 1.2 H AST 19 ALT 22 Alkaline Phosphatase 104 Lipase 17 Assessment and Plan - Plan assessment and Plan SIRS 2/2 Severe constipation with abdominal distension Leucocytosis 2/2 inflammation Hypokalemia -SIRS criteria HR 105, WBC 16.5 -K 2.9, replaced in the ED -NPO -Lactulose, dulcolax given in the ED -Two BMs while in the ED -Soap suds enema x1 -Abdominal xray in the AM -Monitor electrolytes -continuous telemetry -Dr. Diego consulted- recommend ducolax suppository, NGT, IVF, and treat UTI UTI (POA) -hernandez catheter in place, place in the ED -follow urine culture SURESH secondary to dehydration -Gentle IVF -monitor in AM labs HTN Dementia Hyperlipidemia -continue home medications DVT ppx heparin Full code LOS 2 days Discharge Plan: Home Plan to discharge in: 48 Hours - Advance Directives Does patient have a Living Will: No Does patient have a Durable POA for Healthcare: No
[2024-09-11] MEDS: NA CHLORIDE 0.9% 1,000 ML IV SCH (14:00)
[2024-09-11 15:26] LABS: Thyroid Stimulating Hormone 1.59 uIU/mL (0.358-3.740)
[2024-09-11] MEDS: ONDANSETRON 4 MG/2 ML VIAL IV ONE (15:30)
[2024-09-11] MEDS: INSULIN REGULAR (HUMAN) 100 UNIT/ML SQ SCH (16:30)
[2024-09-11] MEDS ORDERED: METRONIDAZOLE 500mg IVPB 500 MG/100 ML BAG IV SCH (17:00)
[2024-09-11] MEDS: BISACODYL 10 MG RECTAL SUPP PR ONE (17:25)
[2024-09-11] MEDS: METRONIDAZOLE 500mg IVPB 500 MG/100 ML BAG IV SCH (22:00)
[2024-09-11] MEDS: CIPROFLOXACIN 400mg IV 400 MG/200 ML BAG IV SCH (22:01)
[2024-09-11] MEDS: ONDANSETRON 4 MG/2 ML VIAL IV PRN (23:42)
[2024-09-12 06:22] LABS: Absolute Lymphocytes (CBC) 1.3 K/uL (0.7-4.9); Absolute Monocytes 1.9 K/uL (0.1-1.3); Basophils % 0.1 % (0-1.3); Eosinophils % 0.1 % (0-4.4); Hematocrit 46.3 % (39.6-49.0); Hemoglobin 15.3 g/dL (13.6-17.9); Lymphocytes % 7.8 % (15.3-44.8); MCH 29.8 pg (27.0-35.0); MCHC 33.2 g/dL (32.0-36.0); MCV 89.8 fL (80-100); MPV 7.1 fL (7.6-11.3); Monocytes % 10.8 % (3.3-12.3); Neutrophils % 81.2 % (41.7-73.7); Platelets 613 thou/uL (152-406); RBC Red Blood Cell Count 5.15 M/uL (4.33-5.43)
[2024-09-12 06:34] LABS: Albumin 2.9 g/dL (3.4-5.0); Albumin/Globulin Ratio 0.7 (1.1-1.8); Anion Gap 7.2 mEq/L (5.0-15.0); Bilirubin Direct 0.3 mg/dL (0-0.2); Bilirubin Indirect, Calculated 0.5 mg/dL (0.2-0.8); Bilirubin Total 0.8 mg/dL (0.2-1.0); Globulin 3.9 g/dL (2.3-3.5); Magnesium 2.7 mg/dL (1.6-2.4); Phosphorus 2.6 mg/dL (2.5-4.9); Potassium 3.2 mEq/L (3.5-5.1); Protein, Total 6.8 g/dL (6.4-8.2)
[2024-09-12] MEDS: KCL 20 MEQ/100 mL IVPB 20 MEQ/100 ML BAG IV SCH (08:10)
--- NOTE | 2024-09-12 08:57 | RAD REPORT ---
EXAM: XR Abdomen W Erect HISTORY: [facility] MAIN severe constipation COMPARISON: CT abdomen and pelvis of the previous day. 01/17/2024 abdomen radiograph FINDINGS: Single view of the abdomen shows pronounced colonic distention with retained stool. Few loo ps of distended small bowel in the central abdomen, measuring up to 4.5 cm in caliber. No suspicious calcifications are seen. No evidence of free air. The bones are unremarkable. IMPRESSION: Pronounced colonic distention with retained stool, similar to findings on recent CT. Distended loops of small bowel in the central abdomen, may reflect ileus, less likely low-grade obstr uction.
[2024-09-12] MEDS: NA CHLORIDE 0.9% 1,000 ML IV SCH (13:44)
--- NOTE | 2024-09-12 13:46 | P.PN ---
Date of Service: 09/12/24 Subjective Sleeping, had several BM today, abdomen remains distented but soft Margarito is refusing NGT placement, will need to decompress the abdomen with soap suds enema and dulcolax suppository Vomiting when awake ROS 10 point ROS as noted above, otherwise negative Physical Exam General: Alert and Oriented x3, NAD HEENT: Atraumatic, Normocephalic Neck: Supple, 2+ carotid pulse no bruit, JVD not distended Respiratory: Clear to auscultation bilaterally, Normal air movement, on RA Cardiovascular: Normal pulses, RRR, Normal S1 S2 Gastrointestinal: Normal bowel sounds, Soft, Distented Musculoskeletal: No clubbing Integumentary: No rashes Neurological: Normal speech, Normal tone Vitals Reviews Problem list SIRS 2/2 Severe constipation with abdominal distension Leucocytosis 2/2 inflammation Hypokalemia UTI (POA) SURESH secondary to dehydration HTN Dementia Hyperlipidemia Plan SIRS 2/2 Severe constipation with abdominal distension Leucocytosis 2/2 inflammation Hypokalemia -SIRS criteria HR 105, WBC 16.5 -K 3.2, replace PRN -NPO -Lactulose, dulcolax given in the ED -Several BM today 09/12, abdomen remains distended -Soap suds enema x1 -Abdominal xray in the AM -Monitor electrolytes -continuous telemetry -Dr. Diego consulted- recommend ducolax suppository, NGT, IVF, and treat UTI -Refused NGT UTI (POA) -hernandez catheter in place, placed in the ED -follow urine culture, NGTD -ciprofloxacin as above SURESH secondary to dehydration -Gentle IVF, reduced fluids to 50 ml/hr -monitor in AM labs HTN Dementia Hyperlipidemia -continue home medications DVT ppx heparin Full code LOS 2 days Discharge Plan: Home Plan to discharge in: 48 Hours <Elsie Rangel - Last Filed: 09/12/24 13:31> Patient seen and examined. Plan of care discussed with Naomi Juan Carlos. Patient had multiple bowel movements with Dulcolax suppository and Fleet enema. He also reports flatus, however patient has been experiencing nausea and intermittent vomiting. Dr. Jama input appreciated. Unsuccessful attempt to insert NG tube according to report. Dr. Jama to follow. Enemas as needed. Continue antibiotics IV hydration. <andra amaya - Last Filed: 09/13/24 14:35>
[2024-09-13 08:39] LABS: Absolute Lymphocytes (CBC) 0.9 K/uL (0.7-4.9); Absolute Monocytes 1.4 K/uL (0.1-1.3); Absolute Neutrophil 13.3 K/uL (1.8-8.0); Hematocrit 45.2 % (39.6-49.0); Hemoglobin 14.7 g/dL (13.6-17.9); Lymphocytes % 5.6 % (15.3-44.8); MCH 29.6 pg (27.0-35.0); MCHC 32.6 g/dL (32.0-36.0); MCV 90.8 fL (80-100); Monocytes % 8.8 % (3.3-12.3); Neutrophils % 85.6 % (41.7-73.7); Platelets 531 thou/uL (152-406); RBC Red Blood Cell Count 4.98 M/uL (4.33-5.43); Red Cell Distribution Width 14.6 % (12.1-15.2)
--- NOTE | 2024-09-13 09:26 | RAD REPORT ---
EXAM: XR Abdomen W Erect HISTORY: [facility] MAIN abdominal distention, vomiting COMPARISON: 09/12/2024 abdomen radiographs. 09/11/2024 CT abdomen and pelvis FINDINGS: Single view of the abdomen shows persistent central abdominal small bowel distention. Mild improvement of gaseous distention throughout the large bowel. No suspicious calcifications are seen. The bones are unremarkable. IMPRESSION: Persistent central abdominal small bowel distention suggesting ileus. Mild improvement of gaseous dis tention throughout the large bowel
--- NOTE | 2024-09-13 09:32 | P.CNS ---
Date of Consult: 09/13/24 PC: I was asked to see this patient in regards to his abdominal distention. HPC: [facility] at a [facility]. He was brought in because of failure to have bowel movements, and increasing size of abdominal distention. PMHx: BPH, previous hernia repair, dementia Social Hx: Allergic to penicillin Sys R: Not the best historian, denies any abdominal pain actually at the moment. Says he feels a lot of pressure down in his pelvis. 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 He also has a lot of stool impacted in his rectum. It has been there since Tuesday,. Apparently nurses were unable to place a nasogastric tube despite 2 attempts. Plan: I disimpacted the patient at the bedside. He had a lot of loose stool afterwards. I have told the nurses to repeat that procedure after lunch today. Patient also needs to be mobilized. He needs to sit out in a regular chair. I have recommended he also be given some magnesium citrate as well as some mineral oil to stimulate his GI tract from above. His lab work was not available today, but I have asked him to reorder it so we can check his electrolytes. Anticipate this patient will not require any surgical intervention, he may be discharged soon.
--- NOTE | 2024-09-13 09:40 | P.PN ---
Date of Service: 09/13/24 Subjective Feeling better today Feels "a little less" distended General surgery saw pt today and disimpacted him ROS 10 point ROS as noted above, otherwise negative Physical Exam General: Alert and Oriented x3, NAD HEENT: Atraumatic, Normocephalic Neck: Supple, 2+ carotid pulse no bruit, JVD not distended Respiratory: Clear to auscultation bilaterally, Normal air movement, on RA Cardiovascular: Normal pulses, RRR, Normal S1 S2 Gastrointestinal: Normal bowel sounds, Soft, Distented Musculoskeletal: No clubbing Integumentary: No rashes Neurological: Normal speech, Normal tone Vitals Reviews Problem list SIRS 2/2 Severe constipation with abdominal distension Ileus Leucocytosis 2/2 inflammation Hypokalemia UTI (POA) SURESH secondary to dehydration HTN Dementia Hyperlipidemia Plan SIRS 2/2 Severe constipation with abdominal distension Ileus Leucocytosis 2/2 inflammation Hypokalemia -NPO -Monitor electrolytes -Disimpacted and 09/13 -General Surgery recommends mag citrate, mineral oil p.o. if electrolytes are acceptable -Refused NGT UTI (POA) -hernandez catheter in place, placed in the ED -follow urine culture, NGTD -ciprofloxacin as above SURESH secondary to dehydration -Gentle IVF, reduced fluids to 50 ml/hr -monitor in AM labs HTN Dementia Hyperlipidemia -continue home medications DVT ppx heparin Full code LOS 2 days Discharge Plan: Home Plan to discharge in: 48 Hours <Iraj Craig - Last Filed: 09/13/24 09:37> Patient seen and examined. Plan of care discussed with Iraj Craig and surgery Dr. Jama. Status post disimpaction today by Dr. Jama. Diagnosis: Fecal impaction status post disimpaction Ileus Nausea and vomiting UTI SURESH secondary to dehydration Hypokalemia Plan: Dr. Jama also planning oral mag citrate and mineral oil after disimpaction. Monitor and optimize electrolytes, keep potassium level around 4. Continue antibiotics. SURESH resolved. Continue IV hydration until feeding resumed. <andra amaya - Last Filed: 09/13/24 15:13>
[2024-09-13 09:41] LABS: Blood Morphology Comment NOT SEEN (NOT SEEN); Platelet Estimate INCR; White Blood Cell Scan OK (OK)
[2024-09-13 09:59] LABS: Anion Gap 9.1 mEq/L (5.0-15.0); Magnesium 2.5 mg/dL (1.6-2.4); Phosphorus 2.6 mg/dL (2.5-4.9); Potassium 3.1 mEq/L (3.5-5.1)
--- NOTE | 2024-09-13 10:28 | RAD REPORT ---
EXAMINATION: ONE VIEW CHEST XR CLINICAL INDICATION: Male, 79 years old.,Hypoxia TECHNIQUE: Frontal chest projection is submitted. Examination is limited by patient positioning and t echnique. COMPARISON: 09/11/2024 FINDINGS: Elevation of the right hemidiaphragm again seen, with the right basilar atelectasis. No new focal air space opacities. No pneumothorax or sizable effusion. The heart is normal in size. Mediastinal contours are unchanged. IMPRESSION: No acute intrathoracic abnormalities. Stable right hemidiaphragm elevation.
[2024-09-13] MEDS: KCL 20 MEQ/100 mL IVPB 20 MEQ/100 ML BAG IV SCH (16:35)
[2024-09-13] MEDS: MAGNESIUM CITRATE 300 ML BOT PO SCH (18:00)
[2024-09-13] MEDS: ATORVASTATIN 10 MG TAB PO SCH (20:23)
[2024-09-14 05:55] LABS: Absolute Eosinophils 0.1 K/uL (0-0.5); Absolute Monocytes 1.4 K/uL (0.1-1.3); Absolute Neutrophil 10.2 K/uL (1.8-8.0); Basophils % 0.1 % (0-1.3); Eosinophils % 0.8 % (0-4.4); Hematocrit 39.4 % (39.6-49.0); Hemoglobin 13.2 g/dL (13.6-17.9); Lymphocytes % 7.9 % (15.3-44.8); MCH 30.1 pg (27.0-35.0); MCHC 33.5 g/dL (32.0-36.0); MCV 89.9 fL (80-100); MPV 7.1 fL (7.6-11.3); Monocytes % 10.8 % (3.3-12.3); Neutrophils % 80.4 % (41.7-73.7); Platelets 406 thou/uL (152-406); RBC Red Blood Cell Count 4.39 M/uL (4.33-5.43); Red Cell Distribution Width 14.1 % (12.1-15.2)
[2024-09-14 06:30] LABS: Anion Gap 8.2 mEq/L (5.0-15.0); Magnesium 2.2 mg/dL (1.6-2.4); Phosphorus 1.7 mg/dL (2.5-4.9)
[2024-09-14 06:35] LABS: Potassium 2.2 mEq/L (3.5-5.1)
[2024-09-14] MEDS: KCL 20 MEQ/100 mL IVPB 20 MEQ/100 ML BAG IV SCH (07:10)
--- NOTE | 2024-09-14 09:19 | P.PN ---
Date of Service: 09/14/24 Subjective Feeling better today Abdomensoft, feeling much better Had 5-6 bowel movements yesterday, 2 large BMs overnight Tolerating clear liquid diet so far ROS 10 point ROS as noted above, otherwise negative Physical Exam General: Alert and Oriented x3, NAD HEENT: Atraumatic, Normocephalic Neck: Supple, 2+ carotid pulse no bruit, JVD not distended Respiratory: Clear to auscultation bilaterally, Normal air movement, on RA Cardiovascular: Normal pulses, RRR, Normal S1 S2 Gastrointestinal: Normal bowel sounds, Soft, Distented Musculoskeletal: No clubbing Integumentary: No rashes Neurological: Normal speech, Normal tone Vitals Reviews Problem list SIRS 2/2 Severe constipation with abdominal distension Ileus Leucocytosis 2/2 inflammation Hypokalemia UTI (POA) SURESH secondary to dehydration HTN Dementia Hyperlipidemia Plan SIRS 2/2 Severe constipation with abdominal distension Ileus Leucocytosis 2/2 inflammation Hypokalemia -Tolerating clear liquids -Replacing potassium -Disimpacted and 09/13, now significantly improved with abdominal distention -General Surgery recommends mag citrate, mineral oil p.o. if electrolytes are acceptable Patient with large volume bowel movement yesterday and overnight, hold off for now UTI (POA) -hernandez catheter in place, placed in the ED-will DC today -Urine culture with Enterococcus -ciprofloxacin SURESH secondary to dehydration -Gentle IVF, reduced fluids to 50 ml/hr -monitor in AM labs HTN Dementia Hyperlipidemia -continue home medications DVT ppx heparin Full code LOS 2 days Discharge Plan: Home Plan to discharge in: 48 Hours
[2024-09-14] MEDS: POTASSIUM 25 MEQ EFFERV TAB PO ONE (10:39)
[2024-09-14] MEDS: AMLODIPINE 10 MG TAB PO SCH (10:40)
[2024-09-14] MEDS: ASPIRIN EC 81 MG TAB PO SCH (10:40)
[2024-09-14] MEDS: POTASS/SODIUM PHOSPHATE 1 PKT POWD.PACK PO SCH (10:40)
[2024-09-14] MEDS: QUETIAPINE 25 MG TAB PO SCH (10:41)
[2024-09-14] MEDS: CIPROFLOXACIN 400mg IV 400 MG/200 ML BAG IV SCH (10:41)
--- NOTE | 2024-09-14 13:45 | EKG ---
Test Date: 2024-09-11 Test Time: 10:00:13 Independent Living Specialist: JACQUELINE MEASUREMENT RESULTS: Intervals: Rate: 84 MN: 210 QRSD: 108 QT: 392 QTc: 463 Soldier: P: 46 MN: 210 QRS: -31 T: 66 INTERPRETIVE STATEMENTS: Sinus rhythm with 1st degree AV block with premature atrial complexes Left axis deviation Septal infarct, age undetermined Abnormal ECG Compared to ECG 02/01/2023 10:54:36 Atrial premature complex(es) now present Myocardial infarct finding still present Electronically Signed On 09-14-24 13:38:13 CANCER GENETIC COUNSELOR by Albert Hutchison
[2024-09-14] MEDS: FINASTERIDE 5 MG TAB PO SCH (14:03)
[2024-09-14] MEDS: POTASSIUM CL 40 MEQ in NA CHLORIDE 0.9% 500 ML IV SCH (18:26)
[2024-09-14] MEDS: POTASSIUM 25 MEQ EFFERV TAB PO SCH (18:27)
[2024-09-15] MEDS: POTASSIUM PHOS IN 0.9 % NACL 15 MMOL/250 ML BAG IV ONE (04:25)
[2024-09-15 05:28] LABS: Absolute Eosinophils 0.4 K/uL (0-0.5); Absolute Lymphocytes (CBC) 1.4 K/uL (0.7-4.9); Absolute Monocytes 1.3 K/uL (0.1-1.3); Absolute Neutrophil 10.1 K/uL (1.8-8.0); Basophils % 0.3 % (0-1.3); Hematocrit 44.8 % (39.6-49.0); Hemoglobin 15.1 g/dL (13.6-17.9); Lymphocytes % 10.3 % (15.3-44.8); MCH 30.3 pg (27.0-35.0); MCHC 33.8 g/dL (32.0-36.0); MCV 89.8 fL (80-100); Monocytes % 10.1 % (3.3-12.3); Neutrophils % 76.3 % (41.7-73.7); Platelets 378 thou/uL (152-406); RBC Red Blood Cell Count 4.99 M/uL (4.33-5.43); Red Cell Distribution Width 14.1 % (12.1-15.2)
[2024-09-15 05:54] LABS: Anion Gap 9.2 mEq/L (5.0-15.0); Magnesium 1.8 mg/dL (1.6-2.4); Phosphorus 1.7 mg/dL (2.5-4.9)
[2024-09-15 05:57] LABS: Potassium 2.2 mEq/L (3.5-5.1)
[2024-09-15] MEDS: POTASSIUM 25 MEQ EFFERV TAB PO ONE (06:41)
[2024-09-15] MEDS: MAGNESIUM SULFATE 1 gm IVPB 1 GM/100 ML BAG IV ONE (06:41)
--- NOTE | 2024-09-15 08:17 | P.PN ---
Date of Service: 09/15/24 Subjective Feeling better today Abdomensoft, feeling much better Had 5-6 bowel movements yesterday, 2 large BMs overnight Tolerating clear liquid diet so far Still with significant hypokalemia ROS 10 point ROS as noted above, otherwise negative Physical Exam General: Alert and Oriented x3, NAD HEENT: Atraumatic, Normocephalic Neck: Supple, 2+ carotid pulse no bruit, JVD not distended Respiratory: Clear to auscultation bilaterally, Normal air movement, on RA Cardiovascular: Normal pulses, RRR, Normal S1 S2 Gastrointestinal: Normal bowel sounds, Soft, Distented Musculoskeletal: No clubbing Integumentary: No rashes Neurological: Normal speech, Normal tone Vitals Reviews Problem list SIRS 2/2 Severe constipation with abdominal distension Ileus Leucocytosis 2/2 inflammation Hypokalemia UTI (POA) SURESH secondary to dehydration HTN Dementia Hyperlipidemia Plan SIRS 2/2 Severe constipation with abdominal distension Ileus Leucocytosis 2/2 inflammation Hypokalemia -Tolerating clear liquids -Replacing potassium -Disimpacted and 09/13, now significantly improved with abdominal distention -Now with loose stools and hypokalemia -Aggressive potassium and magnesium supplementation UTI (POA) -hernandez catheter removed -Urine culture with Enterococcus -ciprofloxacin SURESH secondary to dehydration -Gentle IVF -monitor in AM labs HTN Dementia Hyperlipidemia -continue home medications DVT ppx heparin Full code LOS 2 days Discharge Plan: Home Plan to discharge in: 48 Hours
[2024-09-15] MEDS: POTASSIUM CL 40 MEQ in NA CHLORIDE 0.9% 500 ML IV SCH (08:33)
[2024-09-15] MEDS: POTASS/SODIUM PHOSPHATE 1 PKT POWD.PACK PO SCH (08:34)
[2024-09-15] MEDS: LOSARTAN POTASSIUM 50 MG TABLET PO SCH (10:54)
[2024-09-15] MEDS: MAGNESIUM OXIDE 400 MG TAB PO SCH (11:47)
[2024-09-15] MEDS: HYDRALAZINE HCL 25 MG TABLET PO SCH (13:38)
[2024-09-15] MEDS ORDERED: D10W 125 ML IV PRN (13:43)
[2024-09-15] MEDS ORDERED: GLUCAGON 1 MG/VIAL IM PRN (13:43)
[2024-09-15] MEDS: KCL 20 MEQ/100 mL IVPB 20 MEQ/100 ML BAG IV SCH (23:42)
[2024-09-16 07:52] LABS: Absolute Eosinophils 0.8 K/uL (0-0.5); Absolute Lymphocytes (CBC) 1.5 K/uL (0.7-4.9); Absolute Monocytes 1.4 K/uL (0.1-1.3); Absolute Neutrophil 8.4 K/uL (1.8-8.0); Basophils % 0.2 % (0-1.3); Eosinophils % 6.4 % (0-4.4); Hematocrit 43.4 % (39.6-49.0); Hemoglobin 13.9 g/dL (13.6-17.9); Lymphocytes % 12.6 % (15.3-44.8); MCH 28.9 pg (27.0-35.0); MCV 90.3 fL (80-100); MPV 7.6 fL (7.6-11.3); Monocytes % 11.5 % (3.3-12.3); Neutrophils % 69.3 % (41.7-73.7); Nucleated Red Blood Cells % 0.1 % (0-0); Platelets 344 thou/uL (152-406); Red Cell Distribution Width 14.1 % (12.1-15.2)
[2024-09-16 07:59] LABS: Anion Gap 7.4 mEq/L (5.0-15.0); Magnesium 1.7 mg/dL (1.6-2.4); Phosphorus 1.9 mg/dL (2.5-4.9)
[2024-09-16 08:02] LABS: Potassium 2.4 mEq/L (3.5-5.1)
[2024-09-16] MEDS ORDERED: HOME MED 1 EA UNK (Losartan Potassium [Losartan Potassium] 100 MG Tablet) PO SCH (09:00)
[2024-09-16] MEDS: POTASSIUM CL 40 MEQ in NA CHLORIDE 0.9% 500 ML IV SCH ×2 (09:00→10:52)
--- NOTE | 2024-09-16 09:58 | P.PN ---
Date of Service: 09/16/24 Subjective Feeling better today Abdomensoft, feeling much better Still having loose stools Still with significant hypokalemia ROS 10 point ROS as noted above, otherwise negative Physical Exam General: Alert and Oriented x3, NAD HEENT: Atraumatic, Normocephalic Neck: Supple, 2+ carotid pulse no bruit, JVD not distended Respiratory: Clear to auscultation bilaterally, Normal air movement, on RA Cardiovascular: Normal pulses, RRR, Normal S1 S2 Gastrointestinal: Normal bowel sounds, Soft, Distented Musculoskeletal: No clubbing Integumentary: No rashes Neurological: Normal speech, Normal tone Vitals Reviews Problem list SIRS 2/2 Severe constipation with abdominal distension Ileus Leucocytosis 2/2 inflammation Hypokalemia UTI (POA) SURESH secondary to dehydration HTN Dementia Hyperlipidemia Plan SIRS 2/2 Severe constipation with abdominal distension Ileus Leucocytosis 2/2 inflammation Hypokalemia -Tolerating clear liquids -Replacing potassium -Disimpacted and 09/13, now significantly improved with abdominal distention -Now with loose stools and hypokalemia -Aggressive potassium and magnesium supplementation UTI (POA) -hernandez catheter removed -Urine culture with Enterococcus -ciprofloxacin SURESH secondary to dehydration -Gentle IVF -monitor in AM labs HTN Dementia Hyperlipidemia -continue home medications DVT ppx heparin Full code LOS 2 days Discharge Plan: Home Plan to discharge in: 48 Hours <Iraj Craig - Last Filed: 09/16/24 09:57> Patient seen and examined, plan of care discussed with Iraj Craig. Patient reports his diarrhea frequency has decreased. Potassium is still low potassium. Patient continues to have potassium deficit. Abdominal distention resolved. Patient is tolerating diet. Continue to replace potassium IV and oral. Replace phosphorus and magnesium as needed. Activity as tolerated. <andra amaya - Last Filed: 09/16/24 16:54>
[2024-09-16] MEDS: MAGNESIUM SULFATE 1 gm IVPB 1 GM/100 ML BAG IV ONE (10:51)
[2024-09-16] MEDS: POTASSIUM 25 MEQ EFFERV TAB PO ONE (10:53)
[2024-09-17 06:07] LABS: Absolute Eosinophils 0.7 K/uL (0-0.5); Absolute Lymphocytes (CBC) 1.6 K/uL (0.7-4.9); Absolute Monocytes 1.4 K/uL (0.1-1.3); Absolute Neutrophil 8.3 K/uL (1.8-8.0); Basophils % 0.2 % (0-1.3); Eosinophils % 6.1 % (0-4.4); Hematocrit 41.6 % (39.6-49.0); Lymphocytes % 13.5 % (15.3-44.8); MCH 30.1 pg (27.0-35.0); MCHC 33.6 g/dL (32.0-36.0); MCV 89.8 fL (80-100); MPV 7.2 fL (7.6-11.3); Monocytes % 11.5 % (3.3-12.3); Neutrophils % 68.7 % (41.7-73.7); Platelets 340 thou/uL (152-406); RBC Red Blood Cell Count 4.63 M/uL (4.33-5.43); Red Cell Distribution Width 14.2 % (12.1-15.2)
[2024-09-17 06:35] LABS: Anion Gap 7.2 mEq/L (5.0-15.0); Magnesium 1.6 mg/dL (1.6-2.4); Phosphorus 2.2 mg/dL (2.5-4.9)
[2024-09-17 08:26] LABS: Potassium 2.2 mEq/L (3.5-5.1)
[2024-09-17] MEDS: POTASSIUM 25 MEQ EFFERV TAB PO ONE (08:36)
[2024-09-17] MEDS: MAGNESIUM SULFATE 1 gm IVPB 1 GM/100 ML BAG IV ONE (08:37)
[2024-09-17] MEDS: POTASSIUM CL 40 MEQ in NA CHLORIDE 0.9% 500 ML IV SCH (08:37)
--- NOTE | 2024-09-17 09:16 | P.PN ---
Date of Service: 09/17/24 Subjective Feeling better today Abdomensoft, feeling much better Only 2 loose stools yesterday, none overnight Diarrhea improving Still with significant hypokalemia despite replacement ROS 10 point ROS as noted above, otherwise negative Physical Exam General: Alert and Oriented x3, NAD HEENT: Atraumatic, Normocephalic Neck: Supple, 2+ carotid pulse no bruit, JVD not distended Respiratory: Clear to auscultation bilaterally, Normal air movement, on RA Cardiovascular: Normal pulses, RRR, Normal S1 S2 Gastrointestinal: Normal bowel sounds, Soft, Distented Musculoskeletal: No clubbing Integumentary: No rashes Neurological: Normal speech, Normal tone Vitals Reviews Problem list Ileus/Severe constipation-resolved after digital disimpaction by general surgery 09/13 Diarrhea/loose stools since disimpaction Hypokalemia UTI (POA) SURESH secondary to dehydration HTN Dementia Hyperlipidemia Plan Ileus/Severe constipation-resolved after digital disimpaction by general surgery 09/13 Diarrhea/loose stools since disimpaction Hypokalemia -Tolerating clear liquids -Replacing potassium -Disimpacted and 09/13, now significantly improved with abdominal distention -Since 09/13 after disimpaction patient with large volumes of liquid/loose stools -Potassium has been running very low since then despite replacement -Added nephrology consult given persistent hypokalemia -Urine potassium 26 -Aggressive potassium and magnesium supplementation -PT UTI (POA) -hernandez catheter removed -Urine culture with Enterococcus -ciprofloxacin SURESH secondary to dehydration -Gentle IVF -monitor in AM labs HTN Dementia Hyperlipidemia -continue home medications DVT ppx heparin Full code LOS 2 days Discharge Plan: Home Plan to discharge in: 48 Hours
[2024-09-17] MEDS: KCL 20 MEQ/100 mL IVPB 20 MEQ/100 ML BAG IV SCH (23:24)
--- NOTE | 2024-09-18 00:59 | CON ---
Date of Consultation: 09/17/2024 Chief Complaint: Hypokalemia. History Of Present Illness: The patient is a 79-year-old man with history of dementia, hyperlipidemi a, hypertension, history of chronic constipation. He was referred to emergency room because of abdom inal distention and generalized abdominal pain. The patient has chronic constipation and abdominal d istention. He had a decreased appetite and denies nausea, vomiting, melena, or hematochezia. His la boratory work showed WBC 16.5, platelet count 737, potassium 2.9, and serum glucose 244. BUN/creatin ine ratio was 20:1.31, GFR 56. Patient was found to have acute on chronic kidney injury and he was s tarted on IV fluids and received potassium replacement. Potassium, however, has declined over the la st several days. Patient also was found to have hypophosphatemia and magnesium level was in the lowe r normal range. On previous occasion, magnesium level was within normal rate. Patient has multiple medical problems, although he cannot provide review of systems due to history of dementia. Home Medications: Includes magnesium oxide, Pravachol, hydralazine, losartan, hydrochlorothiazide, a mlodipine, and aspirin. Past Medical History: Hypertension, dyslipidemia, retinal detachment, BPH, normal pressure hydroceph alus, dementia, prostate surgery with TURP, cyst removed from arm. Family History: Mother had the history of Alzheimer disease. Sister, breast cancer. Social History: Denies tobacco or alcohol. He drinks coffee. Review of Systems: Denies distention, constipation. Denies nausea or vomiting. Physical Examination: General: Patient is not in acute distress. Neck: Supple. No JVD. No bruits. Lungs: Clear to auscultation bilaterally. Heart: S1, S2. Abdomen: Soft, benign. Extremities: No edema. Impression And Plan: 1.Severe hypokalemia. The patient is admitted to the hospital with severe constipation and hypokale sary, WBC 6.5. The patient primarily was found to have potassium of 2.9, but it declined t o 2.2. He will continue potassium replacement. 2.Constipation. He was treated with lactulose and Dulcolax. Further recommendations from the Surgi jarvis Team and Primary Team. 3.Urinary tract infection. I will order urinalysis, urine culture. 4.Acute kidney injury secondary to volume depletion. Continue IV fluids. 5.Hypertension, dementia, hyperlipidemia. Recommendations from Primary Team. Plan: DVT prophylaxis per primary team. Hypokalemia; plan is to check urine electrolytes, TSH level, and aldosterone level and cortisol level . Plan is to avoid HCTZ because of possible electrolyte abnormalities due to diarrhea as well as due to medication. Plan is to check urinalysis to rule out urinary tract infection and check renal ultrasound to rule ou t hydronephrosis. Severe hypokalemia in this particular patient is treated with IV potassium replacement and the workup is pending to evaluate for source of potassium loss, although diarrhea is potentially main cause con tributory to hypokalemia. Urine electrolyte panel is pending for further workup. EB/MODL Voice ID: [id number] Report ID: [id number]
[2024-09-18] MEDS: POTASSIUM 25 MEQ EFFERV TAB PO ONE (07:30)
[2024-09-18 08:22] LABS: Absolute Eosinophils 0.4 K/uL (0-0.5); Absolute Lymphocytes (CBC) 1.4 K/uL (0.7-4.9); Absolute Monocytes 1.5 K/uL (0.1-1.3); Absolute Neutrophil 8.6 K/uL (1.8-8.0); Basophils % 0.3 % (0-1.3); Eosinophils % 3.2 % (0-4.4); Hematocrit 43.3 % (39.6-49.0); Hemoglobin 13.7 g/dL (13.6-17.9); Lymphocytes % 11.7 % (15.3-44.8); MCH 28.9 pg (27.0-35.0); MCHC 31.8 g/dL (32.0-36.0); MCV 90.8 fL (80-100); MPV 7.4 fL (7.6-11.3); Monocytes % 12.8 % (3.3-12.3); Platelets 362 thou/uL (152-406); RBC Red Blood Cell Count 4.76 M/uL (4.33-5.43); Red Cell Distribution Width 14.1 % (12.1-15.2)
[2024-09-18] MEDS: KCL 20 MEQ/100 mL IVPB 20 MEQ/100 ML BAG IV SCH ×2 (08:36→20:05)
[2024-09-18 08:58] LABS: Albumin 2.2 g/dL (3.4-5.0); Albumin/Globulin Ratio 0.6 (1.1-1.8); Anion Gap 7.8 mEq/L (5.0-15.0); Bilirubin Total 0.6 mg/dL (0.2-1.0); Globulin 3.4 g/dL (2.3-3.5); Magnesium 1.7 mg/dL (1.6-2.4); Phosphorus 2.4 mg/dL (2.5-4.9); Potassium 2.8 mEq/L (3.5-5.1); Protein, Total 5.6 g/dL (6.4-8.2); Thyroid Stimulating Hormone 0.626 uIU/mL (0.358-3.740)
[2024-09-18] MEDS: POTASSIUM CL 40 MEQ in NA CHLORIDE 0.9% 500 ML IV SCH (12:00)
[2024-09-18] MEDS: POTASSIUM PHOS IN 0.9 % NACL 15 MMOL/250 ML BAG IV ONE (12:45)
--- NOTE | 2024-09-18 12:49 | PN ---
Date of Progress Note: 09/18/2024 Subjective: The patient was admitted to the hospital with depleted electrolyte. The patient had failure to thrive. Objective: General: When I saw the patient, patient is sleeping. Vital Signs: Blood pressure 145/60, pulse of 78, afebrile. Chest: Clear to auscultation. Heart: S1, S2 regular. Abdomen: Soft, nontender. Laboratory Data: Sodium 140, potassium 2.8, bicarb 27, BUN 6, creatinine 0.5, calcium 8.6, phosphorus 2.4, magnesium 1.7. Current Medications: The patient on, it includes aspirin, ciprofloxacin, hydralazine, amlodipine, losartan. Assessment And Plan: 1. Electrolyte imbalance. a. Hypokalemia, mostly secondary to poor intake with some salt wasting. Awaiting for calculation of the transtubular potassium gradient. Awaiting for urine osmolality, hyperthyroidism was ruled out. I am going to continue aggressive supplement. Continue ARB and we will monitor the patient. b. Hypomagnesemia. We will supplement to rule out Fan[place]i, given the hypokalemia and a high potassium in the urine. c. Hypophosphatemia. We will supplement. 2. Hypertension, controlled, optimal. Continue current treatment. Time spent examining the patient [id number] reviewing data lab and radiology placing order discussing the case with the patient / family by bedside discussing the case with the rock climbing team member including hospitalist and nursing staff more than 55-minute RL Voice ID: [id number] Report ID: [id number] MIKKI
[2024-09-18] MEDS: Magnesium Sulfate 2gm IVPB 2 G/50 ML BAG IV ONE (13:46)
--- NOTE | 2024-09-18 14:46 | P.PN ---
Subjective Date of Service: 09/18/24 Chief Complaint: Severe constipation and hypokalemia Admitted with ileus, treated with disimpaction, now has diarrhea, has noted recurrent hypokalemia nephrology consult to eval Review of Systems 10-point ROS is otherwise unremarkable Physical Examination - Vital Signs Temperature: 97.4 F Blood Pressure: 145/60 Pulse: 78 Respirations: 16 Pulse Ox (%): 93 - Physical Exam General: Alert, In no apparent distress, Oriented x3 HEENT: Atraumatic, Normocephalic Neck: 2+ carotid pulse no bruit, JVD not distended Respiratory: Clear to auscultation bilaterally, Normal air movement Cardiovascular: Normal pulses, Regular rate/rhythm Capillary refill: <2 Seconds Gastrointestinal: Normal bowel sounds, Soft and benign Musculoskeletal: No swelling, No contractures Integumentary: Other (Stage II sacral ulcer, ) Neurological: Normal speech, Normal strength at 5/5 x4 extr, Sensation intact Assessment And Plan - Plan Problem list Ileus/Severe constipation-resolved after digital disimpaction by general surgery 09/13 Diarrhea/loose stools since disimpaction Stage II sacral ulcer Hypokalemia UTI (POA) SURESH secondary to dehydration HTN Dementia Hyperlipidemia Plan Ileus/Severe constipation-resolved after digital disimpaction by general surgery 09/13 Diarrhea/loose stools since disimpaction Hypokalemia -Tolerating clear liquids -Replacing potassium -Disimpacted and 09/13, now significantly improved with abdominal distention -Since 09/13 after disimpaction patient with large volumes of liquid/loose stools -Potassium has been running very low since then despite replacement -Added nephrology consult given persistent hypokalemia -Urine potassium 26 -Aggressive potassium and magnesium supplementation -PT Stage II sacral ulcer Turn every 2 hours, keep skin dry UTI (POA) -hernandez catheter removed -Urine culture with Enterococcus -ciprofloxacin SURESH secondary to dehydration -Gentle IVF -monitor in AM labs HTN Dementia Hyperlipidemia -continue home medications DVT ppx heparin Full code LOS 2 days Discharge Plan: Home Plan to discharge in: 48 Hours Discharge Plan: Home - Code Status/Comfort Care Code Status: Full Code Critical Care: No Time Spent Managing PTS Care (In Minutes): 35
[2024-09-18] MEDS: Ringers Lactate 1,000 ML IV SCH (14:47)
[2024-09-18 15:30] LABS: Anion Gap 7.8 mEq/L (5.0-15.0); Magnesium 1.7 mg/dL (1.6-2.4); Phosphorus 2.5 mg/dL (2.5-4.9); Potassium 2.8 mEq/L (3.5-5.1)
[2024-09-18 15:58] VITALS: BMI 24.1
[2024-09-18 18:42] LABS: Anion Gap 9.6 mEq/L (5.0-15.0); Magnesium 2.1 mg/dL (1.6-2.4); Phosphorus 2.5 mg/dL (2.5-4.9)
[2024-09-18 18:45] LABS: Potassium 2.6 mEq/L (3.5-5.1)
[2024-09-19 06:37] LABS: Absolute Basophils 0.1 K/uL (0-0.5); Absolute Eosinophils 0.5 K/uL (0-0.5); Absolute Lymphocytes (CBC) 1.5 K/uL (0.7-4.9); Absolute Monocytes 1.3 K/uL (0.1-1.3); Absolute Neutrophil 6.6 K/uL (1.8-8.0); Basophils % 0.6 % (0-1.3); Eosinophils % 5.2 % (0-4.4); Hematocrit 42.8 % (39.6-49.0); Hemoglobin 13.9 g/dL (13.6-17.9); MCH 29.4 pg (27.0-35.0); MCHC 32.4 g/dL (32.0-36.0); MCV 90.8 fL (80-100); MPV 7.7 fL (7.6-11.3); Monocytes % 13.5 % (3.3-12.3); Neutrophils % 65.7 % (41.7-73.7); Platelets 315 thou/uL (152-406); RBC Red Blood Cell Count 4.72 M/uL (4.33-5.43); Red Cell Distribution Width 14.5 % (12.1-15.2)
[2024-09-19 06:53] LABS: Albumin/Globulin Ratio 0.6 (1.1-1.8); Anion Gap 10.1 mEq/L (5.0-15.0); Bilirubin Total 0.5 mg/dL (0.2-1.0); Globulin 3.4 g/dL (2.3-3.5); Magnesium 1.9 mg/dL (1.6-2.4); Phosphorus 2.7 mg/dL (2.5-4.9); Potassium 3.1 mEq/L (3.5-5.1); Protein, Total 5.4 g/dL (6.4-8.2)
[2024-09-19] MEDS: POTASSIUM CL 40 MEQ in NA CHLORIDE 0.9% 500 ML IV SCH ×2 (07:00→17:19)
[2024-09-19 07:10] LABS: Specific Gravity 1.007 (1.005-1.030); Sqamous Epithelial None Seen /HPF (None Seen); Urine Bacteria <20 /HPF (<20); Urine Bilirubin NEGATIVE (Negative); Urine Blood Negative (Negative); Urine Clarity Turbid (Clear); Urine Color Colorless (Yellow); Urine Culture Reflex Order NOT NEEDED; Urine Glucose NEGATIVE (Negative); Urine Ketones NEGATIVE (Negative); Urine Microscopic Reflex YN ORDER UMIC; Urine Mucus Slight /HPF (None Seen); Urine Nitrite NEGATIVE (Negative); Urine Protein NEGATIVE (Negative); Urine RBC <5 /HPF (None Seen); Urine Urobilinogen Normal (Normal); Urine WBC <5 /HPF (<5)
[2024-09-19] MEDS: AMILORIDE HCL 5 MG TABLET PO SCH (11:51)
[2024-09-19] MEDS: POTASSIUM PHOS IN 0.9 % NACL 15 MMOL/250 ML BAG IV ONE (11:51)
[2024-09-19] MEDS: MAGNESIUM SULFATE 1 gm IVPB 1 GM/100 ML BAG IV ONE (11:51)
--- NOTE | 2024-09-19 15:54 | P.PN ---
Subjective Date of Service: 09/19/24 Chief Complaint: Severe constipation and hypokalemia Admitted with stage IV sacral wounds, was disimpacted had diarrhea that is improving, recurrent hypokalemia with electrolyte replacement no reported pain, Review of Systems 10-point ROS is otherwise unremarkable Physical Examination - Vital Signs Temperature: 98.3 F Blood Pressure: 134/84 Pulse: 86 Respirations: 16 Pulse Ox (%): 94 - Physical Exam General: Alert, In no apparent distress, Oriented x3 HEENT: Atraumatic, Normocephalic Neck: 2+ carotid pulse no bruit, JVD not distended Respiratory: Clear to auscultation bilaterally, Normal air movement Cardiovascular: Normal pulses, Regular rate/rhythm Gastrointestinal: Normal bowel sounds, Soft and benign Musculoskeletal: Other (Moderate to severe generalized weakness) Integumentary: Other (Bilateral lower extremity leg wounds dry dressing, multiple stages sacral ulcers) Neurological: Normal gait, Normal speech, Normal strength at 5/5 x4 extr Assessment And Plan - Plan Problem list Ileus/Severe constipation-resolved after digital disimpaction by general surgery 09/13 Diarrhea/loose stools since disimpaction Stage II sacral ulcer Hypokalemia UTI (POA) SURESH secondary to dehydration HTN Dementia Hyperlipidemia Plan Ileus/Severe constipation-resolved after digital disimpaction by general surgery 09/13 Diarrhea/loose stools since disimpaction Hypokalemia -Tolerating clear liquids -Replacing potassium -Disimpacted and 09/13, now significantly improved with abdominal distention -Since 09/13 after disimpaction patient with large volumes of liquid/loose stools -Potassium has been running very low since then despite replacement -Added nephrology consult given persistent hypokalemia -Urine potassium 26 -Aggressive potassium and magnesium supplementation -PT Stage II sacral ulcer Turn every 2 hours, keep skin dry UTI (POA) -hernandez catheter removed -Urine culture with Enterococcus -ciprofloxacin SURESH secondary to dehydration -Gentle IVF -monitor in AM labs HTN Dementia Hyperlipidemia -continue home medications DVT ppx heparin Full code LOS 2 days Discharge Plan: Home Plan to discharge in: 48 Hours Discharge Plan: LTAC - Code Status/Comfort Care Code Status: Full Code Critical Care: No Time Spent Managing PTS Care (In Minutes): 35
[2024-09-20] MEDS: KCL 20 MEQ/100 mL IVPB 20 MEQ/100 ML BAG IV SCH (01:42)
[2024-09-20 06:21] LABS: Absolute Eosinophils 0.4 K/uL (0-0.5); Absolute Lymphocytes (CBC) 1.6 K/uL (0.7-4.9); Absolute Monocytes 1.5 K/uL (0.1-1.3); Absolute Neutrophil 6.5 K/uL (1.8-8.0); Basophils % 0.4 % (0-1.3); Eosinophils % 3.9 % (0-4.4); Hematocrit 40.1 % (39.6-49.0); Hemoglobin 13.7 g/dL (13.6-17.9); Lymphocytes % 16.2 % (15.3-44.8); MCH 30.4 pg (27.0-35.0); MCHC 34.1 g/dL (32.0-36.0); MCV 89.2 fL (80-100); MPV 7.2 fL (7.6-11.3); Monocytes % 14.8 % (3.3-12.3); Neutrophils % 64.7 % (41.7-73.7); Nucleated Red Blood Cells % 0.1 % (0-0); Platelets 378 thou/uL (152-406); Red Cell Distribution Width 14.2 % (12.1-15.2)
[2024-09-20 06:39] LABS: Albumin/Globulin Ratio 0.6 (1.1-1.8); Anion Gap 6.2 mEq/L (5.0-15.0); Bilirubin Total 0.5 mg/dL (0.2-1.0); Globulin 3.3 g/dL (2.3-3.5); Magnesium 1.9 mg/dL (1.6-2.4); Phosphorus 2.6 mg/dL (2.5-4.9); Potassium 3.2 mEq/L (3.5-5.1); Protein, Total 5.3 g/dL (6.4-8.2)
--- NOTE | 2024-09-20 09:32 | P.PN ---
Date of Service: 09/20/24 Subjective Still having loose stools Only 2 yesterday Still dealing with hypokalemia but improving No acute events overnight ROS 10 point ROS as noted above, otherwise negative Physical Exam General: Alert and Oriented x2-3, NAD HEENT: Atraumatic, Normocephalic Neck: Supple, 2+ carotid pulse no bruit, JVD not distended Respiratory: Clear to auscultation bilaterally, Normal air movement, on RA Cardiovascular: Normal pulses, RRR, Normal S1 S2 Gastrointestinal: Normal bowel sounds, Soft, non-distended Musculoskeletal: No clubbing Integumentary: No rashes Neurological: Normal speech, Normal tone Vitals Reviews Problem list Ileus/Severe constipation-resolved after digital disimpaction by general surgery 09/13 Diarrhea/loose stools since disimpaction Hypokalemia UTI (POA) SURESH secondary to dehydration HTN Dementia Hyperlipidemia Plan Ileus/Severe constipation-resolved after digital disimpaction by general surgery 09/13 Diarrhea/loose stools since disimpaction Hypokalemia -GI soft diet -Replacing potassium -Disimpacted and 09/13, now significantly improved with abdominal distention -Since 09/13 after disimpaction patient with large volumes of liquid/loose stools -Potassium has been running very low since then despite replacement -Added nephrology consult given persistent hypokalemia -Urine potassium 26 -Aggressive potassium and magnesium supplementation -Started on amiloride by nephrology-improving -PT UTI (POA) -hernandez catheter removed -Urine culture with Enterococcus -ciprofloxacin SURESH secondary to dehydration -Gentle IVF -monitor in AM labs HTN Dementia Hyperlipidemia -continue home medications DVT ppx heparin Full code LOS 2 days Discharge Plan: Home Plan to discharge in: 48 Hours
--- NOTE | 2024-09-20 10:29 | PN ---
Date of Progress Note: 09/20/2024 Subjective: The patient was admitted to the hospital with diarrhea, gastroenteritis, colitis. The patient had depleted electrolyte. We have been supplementing. Urine testing showing increased potassium in the urine. Yesterday the patient was started on amiloride, the patient tolerated. Physical Examination: Vital Signs: When I saw the patient, blood pressure of 123/81, pulse of 83, afebrile. Chest: Clear to auscultation. Heart: S1, S2. Regular. Systolic murmur. Abdomen: Soft, nontender. No guarding or rebound. Extremities: No edema. Neurologic: Alert, pleasantly confused. Laboratory Data: Urine sodium 111, urine potassium 13. Urine osmolality 317. Sodium 139, potassium 3.2, bicarb 27, BUN 5, creatinine 0.6, calcium 8.3, phosphorus 2.6, magnesium 1.9, albumin 2, corrected calcium 9.9, hemoglobin 13.7. Current Medications: The patient on include: 1. Aspirin. 2. Cipro. 3. Losartan. 4. Amiloride 5 mg daily. 5. LR. Assessment And Plan: 1. Acute kidney injury secondary to prerenal, recovered, resolved. 2. Hypokalemia combined secondary to GI loss mainly with some marginal salt wasting supported with marginal transtubular potassium gradient only 3.8. I am going to continue amiloride. We will supplement aggressively and we will follow up. 3. Gastroenteritis, as by primary. Spent examining the patient [id number] reviewing data lab and the radiology discussing the case with the patient discussing the case with the valve steamer including hospitalist and nursing staff more than 55 minutes RL Voice ID: [id number] Report ID: [id number] MTDD
[2024-09-20] MEDS: POTASSIUM 25 MEQ EFFERV TAB PO ONE (10:59)
[2024-09-20] MEDS: POTASSIUM CL 40 MEQ in NA CHLORIDE 0.9% 500 ML IV SCH (10:59)
[2024-09-20] MEDS: MAGNESIUM SULFATE 1 gm IVPB 1 GM/100 ML BAG IV ONE (10:59)
[2024-09-20 16:17] LABS: C-ANCA Anti-Proteinase 3 <1.0 AI (<1.0); P-ANCA Anti-Myeloperoxidase Ab <1.0 AI (<1.0)
[2024-09-21 06:32] LABS: Creatinine, Random Urine 44 mg/dL (20-320); Magnesium, Random Urine 136 mg/g creat (22-130)
[2024-09-21 06:37] LABS: Hematocrit 39.3 % (39.6-49.0); Hemoglobin 13.3 g/dL (13.6-17.9); MCHC 33.8 g/dL (32.0-36.0); MCV 88.8 fL (80-100); Platelets 408 thou/uL (152-406); RBC Red Blood Cell Count 4.42 M/uL (4.33-5.43); Red Cell Distribution Width 14.3 % (12.1-15.2)
[2024-09-21 06:48] LABS: Anion Gap 10.8 mEq/L (5.0-15.0); Magnesium 1.8 mg/dL (1.6-2.4); Phosphorus 2.7 mg/dL (2.5-4.9); Potassium 3.8 mEq/L (3.5-5.1)
[2024-09-21] MEDS: POTASSIUM 25 MEQ EFFERV TAB PO ONE (08:21)
[2024-09-21] MEDS: MAGNESIUM SULFATE 1 gm IVPB 1 GM/100 ML BAG IV ONE (08:21)
--- NOTE | 2024-09-21 09:45 | P.PN ---
Date of Service: 09/21/24 Subjective Improving Potassium improved No acute events overnight ROS 10 point ROS as noted above, otherwise negative Physical Exam General: Alert and Oriented x2-3, NAD HEENT: Atraumatic, Normocephalic Neck: Supple, 2+ carotid pulse no bruit, JVD not distended Respiratory: Clear to auscultation bilaterally, Normal air movement, on RA Cardiovascular: Normal pulses, RRR, Normal S1 S2 Gastrointestinal: Normal bowel sounds, Soft, non-distended Musculoskeletal: No clubbing Integumentary: No rashes Neurological: Normal speech, Normal tone Vitals Reviews Problem list Ileus/Severe constipation-resolved after digital disimpaction by general surgery 09/13 Diarrhea/loose stools since disimpaction Hypokalemia UTI (POA) SURESH secondary to dehydration HTN Dementia Hyperlipidemia Plan Ileus/Severe constipation-resolved after digital disimpaction by general surgery 09/13 Diarrhea/loose stools since disimpaction Hypokalemia -GI soft diet -Replacing potassium -Disimpacted and 09/13, now significantly improved with abdominal distention -Since 09/13 after disimpaction patient with large volumes of liquid/loose stools -Potassium has been running very low since then despite replacement -Added nephrology consult given persistent hypokalemia -Urine potassium 26 -Aggressive potassium and magnesium supplementation -Started on amiloride by nephrology-improving -Hypokalemia improving -PT, very weak, possible SNF at [place] UTI (POA) -hernandez catheter removed -Urine culture with Enterococcus -ciprofloxacin SURESH secondary to dehydration -Gentle IVF -monitor in AM labs HTN Dementia Hyperlipidemia -continue home medications DVT ppx heparin Full code LOS 2 days Discharge Plan: Home Plan to discharge in: 48 Hours
[2024-09-21] MEDS: ENSURE ENLIVE 237 ML CAN PO SCH (20:40)
--- NOTE | 2024-09-21 23:58 | PN ---
Date of Progress Note: 09/21/2024 Chief Complaint: Acute kidney injury. The patient was admitted to the hospital because of diarrhea, gastrointestinal problems involving colitis, gastroenteritis. The patient has volume depletion and multiple electrolyte abnormalities. The patient underwent supplementation with IV potassium. Potassium level has improved. The patient was started on amiloride because he was found to have urinary potassium loss with urinary . Urine testing showed increased potassium in the urine. Review of Systems: Denies chest pain, palpitation. Physical Examination: Lungs: Clear to auscultation bilaterally. Heart: S1, S2. Abdomen: Soft, benign. Extremities: No edema. Impression And Plan: 1. Acute kidney injury secondary to prerenal azotemia, recurrent. Renal function is improved. 2. Hypokalemia combined, secondary to GI loss, mainly some marginal electrolyte loss with urinary tract. Plan is to continue amiloride supplementation with potassium as needed. Magnesium level will be checked. 3. Hypophosphatemia. Increase p.o. intake as needed. Plan is to supplement with potassium phosphate according to lab results. 4. Hypertension. The patient is on losartan and amiloride. Monitor electrolytes closely. EB/MODL Voice ID: [id number] Report ID: [id number] MIKKI
[2024-09-22 06:35] LABS: Hematocrit 41.8 % (39.6-49.0); Hemoglobin 14.3 g/dL (13.6-17.9); MCH 30.3 pg (27.0-35.0); MCHC 34.1 g/dL (32.0-36.0); MCV 88.9 fL (80-100); MPV 7.2 fL (7.6-11.3); Platelets 440 thou/uL (152-406); Red Cell Distribution Width 13.7 % (12.1-15.2)
[2024-09-22 06:51] LABS: Phosphorus 3.6 mg/dL (2.5-4.9)
--- NOTE | 2024-09-22 07:40 | PN ---
Date of Progress Note: 09/19/2024 Send was admitted with colitis and diarrhea patient found to have electrolyte imbalance with depletion and his potassium phosphorous and magnesium the patient yesterday we aggressively replaced but still has significant hypokalemia hypophosphatemia hypomagnesemia Physical Examination: Vital Signs: Blood pressure 121/83, pulse of 74, afebrile. Chest: Clear to auscultation. Heart: S1, S2. Systolic murmur. Abdomen: Soft, nontender. Extremities: No edema. Neurologic: No focality. Laboratory Data: Hemoglobin 14.3, WBC 10.3. Sodium 137, potassium 4, bicarb 26, BUN 10, creatinine 0.6, calcium 9, phosphorus 3.6, magnesium 2. Current Medications: The patient on include losartan 100 mg, atorvastatin, aspirin, amiloride 5 mg daily, LR. Assessment And Plan: 1. Acute kidney injury secondary to prerenal, recovered, resolved. 2. Hypokalemia secondary to GI loss with partial salt wasting responding to amiloride, currently potassium normalized. 3. Hypomagnesemia and hypophosphatemia status post supplement, resolved. Continue amiloride. 4. Colitis as by primary. Spent examining the patient [id number] reviewing data lab and the radiology discussing the case with the patient discussing the case with the freight team associate including hospitalist and nursing staff more than 55 minutes RL Voice ID: [id number] Report ID: [id number] MIKKI
--- NOTE | 2024-09-22 09:26 | P.PN ---
Date of Service: 09/22/24 Subjective Improving Potassium improved No acute events overnight ROS 10 point ROS as noted above, otherwise negative Physical Exam General: Alert and Oriented x2-3, NAD HEENT: Atraumatic, Normocephalic Neck: Supple, 2+ carotid pulse no bruit, JVD not distended Respiratory: Clear to auscultation bilaterally, Normal air movement, on RA Cardiovascular: Normal pulses, RRR, Normal S1 S2 Gastrointestinal: Normal bowel sounds, Soft, non-distended Musculoskeletal: No clubbing Integumentary: No rashes Neurological: Normal speech, Normal tone Vitals Reviews Problem list Ileus/Severe constipation-resolved after digital disimpaction by general surgery 09/13 Diarrhea/loose stools since disimpaction Hypokalemia UTI (POA) SURESH secondary to dehydration HTN Dementia Hyperlipidemia Plan Ileus/Severe constipation-resolved after digital disimpaction by general surgery 09/13 Diarrhea/loose stools since disimpaction Hypokalemia -GI soft diet -Replacing potassium -Disimpacted and 09/13, now significantly improved with abdominal distention -Since 09/13 after disimpaction patient with large volumes of liquid/loose stools -Started on amiloride by nephrology-improving -potassium and mag now improved -PT, very weak, possible SNF at [place] UTI (POA) -hernandez catheter removed -Urine culture with Enterococcus -completed course of cipro inpatient SURESH secondary to dehydration -Gentle IVF -monitor in AM labs HTN Dementia Hyperlipidemia -continue home medications DVT ppx heparin Full code LOS 2 days Discharge Plan: Home Plan to discharge in: 48 Hours
--- NOTE | 2024-09-22 10:14 | PN ---
Date of Progress Note: 09/22/2024 Subjective: The patient was admitted with colitis. The patient had depleted electrolyte including magnesium, phosphorus, and potassium. The patient workup shows from salt wasting. Patient was placed on amiloride supplement aggressively. The patient feeling better. Still has some diarrhea. Physical Examination: Vital Signs: Blood pressure 121/83, pulse of 74, afebrile. Chest: Clear to auscultation. Heart: S1, S2. Systolic murmur. Abdomen: Soft, nontender. Extremities: No edema. Neurologic: No focality. Laboratory Data: Hemoglobin 14.3, WBC 10.3. Sodium 137, potassium 4, bicarb 26, BUN 10, creatinine 0.6, calcium 9, phosphorus 3.6, magnesium 2. Current Medications: The patient on include losartan 100 mg, atorvastatin, aspirin, amiloride 5 mg daily, LR. Assessment And Plan: 1. Acute kidney injury secondary to prerenal, recovered, resolved. 2. Hypokalemia secondary to GI loss with partial salt wasting responding to amiloride, currently potassium normalized. 3. Hypomagnesemia and hypophosphatemia status post supplement, resolved. Continue amiloride. 4. Colitis as by primary. Spent examining the patient [id number] reviewing data lab and the radiology discussing the case with the patient discussing the case with the manufacturing team member including hospitalist and nursing staff more than 55 minutes RL Voice ID: [id number] Report ID: [id number] MIKKI
[2024-09-23 07:04] LABS: Hematocrit 42.5 % (39.6-49.0); Hemoglobin 14.2 g/dL (13.6-17.9); MCH 29.9 pg (27.0-35.0); MCHC 33.5 g/dL (32.0-36.0); MCV 89.4 fL (80-100); MPV 6.9 fL (7.6-11.3); Platelets 432 thou/uL (152-406); RBC Red Blood Cell Count 4.75 M/uL (4.33-5.43); Red Cell Distribution Width 14.3 % (12.1-15.2)
[2024-09-23 07:20] LABS: Anion Gap 10.4 mEq/L (5.0-15.0); Phosphorus 3.6 mg/dL (2.5-4.9); Potassium 4.4 mEq/L (3.5-5.1)
--- NOTE | 2024-09-23 09:03 | P.PN ---
Date of Service: 09/23/24 Subjective Improving Potassium improved No acute events overnight ROS 10 point ROS as noted above, otherwise negative Physical Exam General: Alert and Oriented x2-3, NAD HEENT: Atraumatic, Normocephalic Neck: Supple, 2+ carotid pulse no bruit, JVD not distended Respiratory: Clear to auscultation bilaterally, Normal air movement, on RA Cardiovascular: Normal pulses, RRR, Normal S1 S2 Gastrointestinal: Normal bowel sounds, Soft, non-distended Musculoskeletal: No clubbing Integumentary: No rashes Neurological: Normal speech, Normal tone Vitals Reviews Problem list Ileus/Severe constipation-resolved after digital disimpaction by general surgery 09/13 Diarrhea/loose stools since disimpaction Hypokalemia UTI (POA) SURESH secondary to dehydration HTN Dementia Hyperlipidemia Plan Ileus/Severe constipation-resolved after digital disimpaction by general surgery 09/13 Diarrhea/loose stools since disimpaction Hypokalemia -GI soft diet -Disimpacted and 09/13, now significantly improved -Since 09/13 after disimpaction patient had large volumes of liquid/loose stools-improved -Started on amiloride by nephrology-improved -PT, very weak, plan for SNF at [place] UTI (POA) -hernandez catheter removed -Urine culture with Enterococcus -completed course of cipro inpatient SURESH secondary to dehydration -Gentle IVF -monitor in AM labs HTN Dementia Hyperlipidemia -continue home medications DVT ppx heparin Full code LOS 2 days Discharge Plan: Home Plan to discharge in: 48 Hours
--- NOTE | 2024-09-23 11:35 | PN ---
Subjective: The patient was admitted to the hospital with colitis. The patient had depleted electrolyte. Found to have salt wasting. The patient is placed on amiloride. Electrolyte has been normalized. Objective: Vital Signs: Blood pressure 134/90, pulse of 74. Chest: Clear to auscultation. Heart: S1, S2. Systolic murmur. Abdomen: Soft, nontender. Extremities: No edema. Neurologic: Alert. No focality. Laboratory Data: Hemoglobin 14.2, sodium 136, potassium 4.4, bicarb 24, BUN 12, creatinine 0.7, calcium 9.3, phosphorus 3.6, magnesium of 2. Current Medications: The patient on, it includes: 1. Aspirin. 2. Losartan 100 mg. 3. Amiloride 5 mg. 4. Zofran. 5. Magnesium oxide. Assessment And Plan: 1. Acute kidney injury secondary to prerenal, recovered, resolved. 2. Hypokalemia, hypomagnesemia, hypophosphatemia secondary to GI loss superimposed with salt wasting state, responds to amiloride. We will continue to monitor. Continue amiloride. 3. Colitis. Continue symptomatic treatment. Follow up with Primary. Spent examining the patient [id number] reviewing data lab and the radiology discussing the case with the patient discussing the case with the production team manager including hospitalist and nursing staff more than 55 minutes RL Voice ID: [id number] Report ID: [id number] MTDD
[2024-09-24 06:06] LABS: Hematocrit 43.2 % (39.6-49.0); Hemoglobin 14.8 g/dL (13.6-17.9); MCH 30.7 pg (27.0-35.0); MCHC 34.2 g/dL (32.0-36.0); MCV 89.6 fL (80-100); MPV 6.9 fL (7.6-11.3); Platelets 457 thou/uL (152-406); RBC Red Blood Cell Count 4.82 M/uL (4.33-5.43); Red Cell Distribution Width 14.3 % (12.1-15.2)
[2024-09-24 06:21] LABS: Anion Gap 8.5 mEq/L (5.0-15.0); Magnesium 2.2 mg/dL (1.6-2.4); Phosphorus 3.2 mg/dL (2.5-4.9); Potassium 4.5 mEq/L (3.5-5.1)
--- NOTE | 2024-09-24 10:28 | P.PN ---
Date of Service: 09/24/24 Subjective Improving Potassium improved No acute events overnight Pending SNF ROS 10 point ROS as noted above, otherwise negative Physical Exam General: Alert and Oriented x2-3, NAD HEENT: Atraumatic, Normocephalic Neck: Supple, 2+ carotid pulse no bruit, JVD not distended Respiratory: Clear to auscultation bilaterally, Normal air movement, on RA Cardiovascular: Normal pulses, RRR, Normal S1 S2 Gastrointestinal: Normal bowel sounds, Soft, non-distended Musculoskeletal: No clubbing Integumentary: No rashes Neurological: Normal speech, Normal tone Vitals Reviews Problem list Ileus/Severe constipation-resolved after digital disimpaction by general surgery 09/13 Diarrhea/loose stools since disimpaction Hypokalemia UTI (POA) SURESH secondary to dehydration HTN Dementia Hyperlipidemia Plan Ileus/Severe constipation-resolved after digital disimpaction by general surgery 09/13 Diarrhea/loose stools since disimpaction Hypokalemia -GI soft diet -Disimpacted and 09/13, now significantly improved -Since 09/13 after disimpaction patient had large volumes of liquid/loose stools-improved -Started on amiloride by nephrology-improved -PT, very weak, plan for SNF at [place] UTI (POA) -hernandez catheter removed -Urine culture with Enterococcus -completed course of cipro inpatient SURESH secondary to dehydration -monitor in AM labs HTN Dementia Hyperlipidemia -continue home medications DVT ppx heparin Full code LOS 2 days Discharge Plan: Home Plan to discharge in: 48 Hours
[2024-09-24 22:49] VITALS: O2SAT 94
--- NOTE | 2024-09-24 22:50 | PN ---
Date of Progress Note: 09/24/2024 Subjective: The patient was admitted to the hospital with colitis, abdominal pain. Nephrology consu ltation was requested for electrolyte abnormalities and acute kidney injury. The patient has nonolig uric acute kidney injury secondary to volume depletion associated with hypokalemia, hypomagnesemia, h ypophosphatemia secondary to GI loss, superimposed with sodium chloride waste due to urinary waste. The patient was started on amiloride and potassium improved. Review of Systems: Denies complaints. Physical Examination: Lungs: Clear to auscultation bilaterally. Heart: S1, S2. Abdomen: Soft, benign. Extremities: No edema. Impression And Plan: 1.Acute kidney injury secondary to prerenal state. Renal function has improved. Continue to monito r electrolytes. 2.Hypokalemia, hypomagnesemia, hypophosphatemia secondary to gastrointestinal loss. Hypokalemia due to gastrointestinal loss as well as urinary loss. Continue on amiloride. Monitor electrolytes clos angelo. 3.Colitis. Treatment per Primary team. 4.Hypertension. The patient is on losartan. Monitor blood pressure closely and electrolyte panel. EB/MODL Voice ID: [id number] Report ID: [id number]
[2024-09-25 06:21] LABS: Hematocrit 44.8 % (39.6-49.0); MCHC 33.5 g/dL (32.0-36.0); MCV 89.6 fL (80-100); MPV 6.9 fL (7.6-11.3); Platelets 510 thou/uL (152-406); RBC Red Blood Cell Count 4.99 M/uL (4.33-5.43); Red Cell Distribution Width 14.4 % (12.1-15.2)
[2024-09-25 06:36] LABS: Anion Gap 6.8 mEq/L (5.0-15.0); Magnesium 2.4 mg/dL (1.6-2.4); Phosphorus 3.6 mg/dL (2.5-4.9); Potassium 4.8 mEq/L (3.5-5.1)
--- NOTE | 2024-09-25 08:31 | RAD REPORT ---
EXAMINATION: US RENAL CLINICAL INDICATION: Acute renal insufficiency TECHNIQUE: Real-time ultrasonography of the kidneys performed. COMPARISON: August 2024 CT FINDINGS: Right kidney measures 10 cm with a normal echotexture. Left kidney measures 10 cm with normal echotexture. No hydronephrosis A Suarez catheter is present within a collapsed bladder IMPRESSION: No significant abnormalities displayed
[2024-09-25 11:41] VITALS: BP 106/76; TEMP 97.5
--- NOTE | 2024-09-25 12:10 | P.DS ---
Admission Date: 09/11/24 Discharge Date: 09/25/24 Disposition: DC HOME/HOME HEALTH CARE Discharge Condition: FAIR Reason for Admission: Severe constipation and hypokalemia Brief History of Present Illness: Diagnosis Ileus/Severe constipation-resolved after digital disimpaction by general surgery 09/13 Diarrhea/loose stools since disimpaction Hypokalemia UTI (POA) SURESH secondary to dehydration HTN Dementia Hyperlipidemia HPI 09/11/24 Margarito Nunes is a 79 year old male with Pmhx Dementia, Hyperlipidemia, Hypertension, constipation who presents to the ED with abdominal distension and pain. Caregiver at the bedside reports he had a BM this week but now with abdominal distention. Decreased appetite is his first sign of his constipation.. She reports his last constipation episode this bad was last year. Laboratory evaluation significant for WBC 16.5, Platelets 737, potassium 2.9, Serum glucose 244, BUN/creatinine 20/1.31, GFR 56. CT abd/pelvis reports "Severe fecal impaction in the rectum and upstream fecal retention throughout the colon." Margarito will be admitted to hospitalist service for further evaluation and treatment of severe constipation. Hospital Course: Margarito Nunes is a 79 year old male who was admitted for severe constipation, abdominal distention, pseudo Pricila syndrome. He underwent digital disimpaction on 09/13/2024. After this he developed large volumes of watery/loose stool leading to significant hypokalemia. His potassium remained low requiring frequent supplementation and nephrology consult with initiation of amiloride 5 mg daily. His potassium recovered to within normal limits on 09/21/2024 and has remained within normal limits and stable. He has been tolerating a diet, having bowel movements, abdomen is nondistended and patient is doing very well. Case was discussed with nephrology, given his elevated urine potassium it is recommended that we continue the amiloride 5 mg daily and follow-up with nephrology within 1 to 2 weeks for repeat BMP and possible titration of medications. Patient did experience some weakness/deconditioning during hospitalization, attempts were made for halfway facility placement but this was denied by insurance, instead we have arranged for home health with halfway PT at home. Home medications Discontinue hydrochlorothiazide given low potassium levels Continue other home medications as previously prescribed Prescription provided: amiloride 5 mg daily which was sent to [facility] in [place] Follows up with nephrologyDrNaomi Noland/daca in 1 to 2 weeks for repeat BMP and titration of medications as necessary. Physical Exam General: AAOx2-3, NAD HEENT: Atraumatic, Normocephalic Neck: Supple, 2+ carotid pulse no bruit, JVD not distended Respiratory: Clear to auscultation bilaterally, Normal air movement, on RA Cardiovascular: Normal pulses, RRR, Normal S1 S2 Gastrointestinal: Normal bowel sounds, Soft on palpation, non-distended Musculoskeletal: No clubbing Integumentary: No rashes Neurological: Normal speech, Normal tone Vital Signs/Physical Exam: Temp Pulse Resp BP Pulse Ox 97.5 F 92 H 18 106/76 94 09/25/24 11:40 09/25/24 11:40 09/25/24 11:40 09/25/24 11:40 09/25/24 11:40 Laboratory Data at Discharge: WBC 11.70 thou/uL (4.3-10.9) H 09/25/24 05:41 Hgb 15.0 g/dL (13.6-17.9) 09/25/24 05:41 Hct 44.8 % (39.6-49.0) 09/25/24 05:41 Plt Count 510 thou/uL (152-406) H 09/25/24 05:41 Sodium 136 mEq/L (136-145) 09/25/24 05:41 Potassium 4.8 mEq/L (3.5-5.1) 09/25/24 05:41 BUN 19 mg/dL (7-18) H 09/25/24 05:41 Creatinine 0.90 mg/dL (0.70-1.30) 09/25/24 05:41 Glucose 170 mg/dL (74-106) H 09/25/24 05:41 Phosphorus 3.6 mg/dL (2.5-4.9) 09/25/24 05:41 Magnesium 2.4 mg/dL (1.6-2.4) 09/25/24 05:41 Total Bilirubin 0.5 mg/dL (0.2-1.0) 09/20/24 05:30 AST 19 U/L (15-37) 09/20/24 05:30 ALT 22 U/L (16-61) 09/20/24 05:30 Alkaline Phosphatase 66 U/L (45-117) 09/20/24 05:30 Lipase 17 U/L (13-75) 09/11/24 09:23 Home Medications: Magnesium Oxide [Mag 0X*] 1 tab PO NOON 06/26/12 Pravastatin [Pravachol*] 1 tab PO BEDTIME 06/26/12 Hydralazine [Apresoline*] 25 mg PO TID 05/04/19 Losartan Potassium 1 tab PO DAILY 07/29/20 Cholecalciferol (Vitamin D3) [Vitamin D 5,000 IU Cap*] 5,000 unit PO DAILY 03/22/22 Quetiapine Fumarate [Seroquel] 1 tab PO BID 02/01/23 Amlodipine [Norvasc*] 10 mg PO DAILY 06/10/23 Aspirin [Aspirin EC] 81 mg PO DAILY 06/10/23 Docusate Sodium [Stool Softener] 1 cap PO BID 09/12/24 Finasteride [Proscar*] 1 tab PO NOON 09/12/24 Amiloride HCl [Midamor*] 5 mg PO DAILY #30 tab 09/24/24 New Medications: Amiloride HCl [Midamor*] 5 mg PO DAILY #30 tab Physician Discharge Instructions: Patient was admitted for severe constipation, abdominal distention, pseudo [place]et[place] syndrome. He underwent digital disimpaction on 09/13/2024. After this he developed large volumes of watery/loose stool leading to significant hypokalemia. His potassium remained low requiring frequent supplementation and nephrology consult with initiation of amiloride 5 mg daily. His potassium recovered to within normal limits on 09/21/2024 and has remained within normal limits and stable. He has been tolerating a diet, having bowel movements, abdomen is nondistended and patient is doing very well. Case was discussed with nephrology, given his elevated urine potassium it is recommended that we continue the amiloride 5 mg daily and follow-up with nephrology within 1 to 2 weeks for repeat BMP and possible titration of medications. Patient did experience some weakness/deconditioning during hospitalization, attempts were made for halfway facility placement but this was denied by insurance, instead we have arranged for home health with halfway PT at home. Home medications Discontinue hydrochlorothiazide given low potassium levels Continue other home medications as previously prescribed Start taking amiloride 5 mg daily which was sent to [facility] in [place] It is very important that patient follows up with nephrologyDr. Nuzhat/amol in 1 to 2 weeks for repeat BMP and titration of medications as necessary. Diet: Regular Activity: Fall precautions Followup: Benson Noland MD [ACTIVE - CAN ADMIT] - 1 Week [facility] [Primary [facility] Provider] - 1 Week
--- NOTE | 2024-09-26 01:46 | PN ---
Date of Progress Note: 09/25/2024 Subjective: The patient was admitted to the hospital with acute kidney injury, depleted electrolyte. The patient was found to have salt wasting. The patient was started on amiloride, responding very well. Physical Examination: Vital Signs: When I saw the patient, blood pressure 123/78, pulse of 74, afebrile. Chest: Clear to auscultation. Heart: S1, S2 regular. Abdomen: Soft, nontender. Extremities: No edema. Neurologic: Alert. Pleasantly confused. Laboratory Data: Hemoglobin 15. Sodium 136, potassium 4.8, bicarb 30, BUN 19, creatinine 0.9, calcium 10. Phosphorus 3.6, magnesium 2.4. Medication: Reviewed. Assessment And Plan: 1. Acute kidney injury secondary to renal recovered, resolved. 2. Hypokalemia, hypomagnesemia, hypophosphatemia secondary to gastrointestinal loss/salt wasting responding to the amiloride. Continue current treatment. 3. Gastroenteritis, colitis. Continue treatment as by primary. The patient is cleared from the Renal standpoint for discharge planning. Spent examining the patient [id number] reviewing data lab and the radiology discussing the case with the patient discussing the case with the steamboat inspector including hospitalist and nursing staff more than 55 minutes RL Voice ID: [id number] Report ID: [id number]
[2024-09-26 18:32] LABS: Creatinine, 24 hr Urine 0.6 g/24 h (0.50-2.15)
== END 2024-09-25 13:15 | disposition home health service (06) | DRG 392 ==
LOC: ER 08:55 → ERHOLD 13:21 → 4TH 19:31
PROVIDERS: ADMIT Internal Medicine; ATTEND Internal Medicine
PROC: 0T9B70Z Drainage of Bladder with Drainage Device, Via Natural or Artificial Opening (ICD-10-PCS; principal; 2024-09-13)
DX: K59.00 Constipation, unspecified (principal); R65.10 Systemic inflammatory response syndrome (SIRS) of non-infectious origin without acute organ dysfunction; N39.0 Urinary tract infection, site not specified; N17.9 Acute kidney failure, unspecified; K56.7 Ileus, unspecified; Z68.1 Body mass index [BMI] 19.9 or less, adult; R62.7 Adult failure to thrive; E87.6 Hypokalemia; E78.5 Hyperlipidemia, unspecified; I10 Essential (primary) hypertension; K59.81 Ogilvie syndrome; E86.0 Dehydration; E83.42 Hypomagnesemia; K52.9 Noninfective gastroenteritis and colitis, unspecified; E83.39 Other disorders of phosphorus metabolism; L89.152 Pressure ulcer of sacral region, stage 2; F03.90 Unspecified dementia, unspecified severity, without behavioral disturbance, psychotic disturbance, mood disturbance, and anxiety; B95.2 Enterococcus as the cause of diseases classified elsewhere; Z88.0 Allergy status to penicillin; Z79.82 Long term (current) use of aspirin; Z79.899 Other long term (current) drug therapy
CPT/HCPCS: 36415; 51702; 71045; 74019; 74177; 76770; 80048; 80053; 80076; 81001; 82088; 82435; 82530; 82550; 82570; 82947; 83605; 83690; 83735; 83880; 83935; 84100; 84132; 84300; 84439; 84443; 84484; 85025; 85027; 86021; 87077; 87086; 87088; 87186; 93005; 97110; 97161; 97530; 99285; J0744; J2405; J3475; J3480; J7030; J7040; J7120; Q9967